=== PATIENT | female | born 1950 | race Caucasian/White ===

== ENCOUNTER → 2018-08-15 11:35 | Outpatient (CLI) | payer OTHER, SELFPAY ==
[2018-08-15 16:51] LABS: Free T3 2.7 pg/mL (2.18-3.98); T4 Free Direct 1.35 ng/dL (0.76-1.46); Thyroid Stim Hormone (TSH) 1.85 uIU/mL (0.358-3.74)
== END ==
PROVIDERS: Family Provider Family Medicine; PCP Family Medicine; Visit Provider Family Medicine
DX: E03.9 Hypothyroidism, unspecified (principal)
CPT/HCPCS: 36415; 84439; 84443; 84481

== ENCOUNTER 2018-10-14 09:37 | Inpatient (IN) | payer MEDICARE, SELFPAY ==
[2018-10-14] VITALS (27 sets, daily range): BP systolic 87–156; BP diastolic 47–97; PULSE 58–83; RESP 13–23; TEMP 36.6–36.8; O2SAT 91–98; BMI 36.7; BMI 30.2
--- NOTE | 2018-10-14 09:39 | EKG12_ITS ---
Test Reason : CP Blood Pressure : / mmHG Vent. Rate : 076 BPM Atrial Rate : 076 BPM P-R Int : 170 ms QRS Dur : 074 ms QT Int : 378 ms P-R-T Axes : 050 010 028 degrees QTc Int : 425 ms Normal sinus rhythm Normal ECG Confirmed by MELODIE COLLINS, ADRIAN ([id number]), supervising editor news reel MICHAEL MARSHALL ([id number]) on 10/16/2018 1:38:25 PM Referred By: GARRETT Confirmed By:ADRIAN SEWELL MD
--- NOTE | 2018-10-14 09:39 | RAD_ITS ---
STUDY: X-RAY CHEST REASON FOR EXAM: Female, 68 years old. Chest pain. TECHNIQUE: Single AP portable view of the chest. COMPARISON: Comparison is made with prior study January 17, 2012. FINDINGS: EKG electrodes are seen. The lungs are clear and expanded. Scattered calcified granulomas. There is no demonstrated pleural abnormality. There is borderline cardiomegaly. Normal mediastinum and woody. Normal visualized pulmonary arteries. There is atherosclerotic tortuosity of the aortic arch and descending thoracic aorta. Normal visualized thoracic spine. Normal visualized ribs, clavicles, and shoulders. There is no demonstrated abnormality of the visualized soft tissue structures of the upper abdomen. RAD/Chest 1 View (Portable) IMPRESSION: No acute abnormality is seen. Electronically Signed: Lew Pacheco, at 10:15 EDT , Service support ,
[2018-10-14] MEDS: Aspirin 81 MG TAB.CHEW 324 MG PO (09:51)
--- NOTE | 2018-10-14 09:56 | ED.VISSUMM ---
- ER Visit Summary Date of Service: 10/14/18 Chief Complaint: Chest pain History of Present Illness: The patient is a 68 F 3 of hypertension hypothyroidism. Patient is never had any cardiac disease. Her last stress test was about 4 years ago and reportedly was negative. The last 3 weeks she has had intermittent chest pressure. She describes it as a pressure across the upper part of her chest sometimes radiates to her shoulders or neck. Recently while working out she had to stop back because she gets short of breath. She also gets nauseated. She denies any diaphoresis. Patient is never had a cardiac catheterization. Currently she is having chest discomfort. She states this morning it lasted more than 30 minutes did not go away she got concerned and came in the ER. Physical Examination: Older female no acute distress. Vital signs are stable. Initial blood pressure is 156/97. Pulse ox 98% on room air no signs of hypoxia. H EENT exam unremarkable. Nontender. No lymphadenopathy lungs clear to auscultation bilaterally regular rhythm no murmur. Heart regular rate and rhythm no murmur. Rate about 80. Chest wall is completely nontender. Abdomen is soft and nontender normal bowel sounds no peritoneal signs. Patient moving all 4 extremities. Neurovascular intact. Calves are nontender with no edema or cords. Neurologically she is awake alert with no focal motor deficits. Back exam normal. Test Results: EKG shows sinus rhythm rate of 76 with no acute signs of IN or ischemia. Unchanged from a prior EKG. 1 view chest x-rays with no acute abnormality. CBC normal. Hemoglobin 14. Chemistries normal normal creatinine gap. Troponin normal at 0.016. Emergency Department Course and Treatment: Patient undergo cardiac evaluation. She will description of symptoms and worsening with exertion. Treated with p.o. aspirin and sublingual nitroglycerin. Treatment Plan: Repeat exam patient doing well. We discussed all of her test results. I have the hospitalist on page. I will also speak to the director of early childhood on-call. I did speak to the patient currently she is doing well at 11:10 AM. The nitro did resolve her chest pain. Disposition: Admission Impression: Acute chest pain This note was generated with [employer] dictation software. It may contain incorrect words, spelling, and punctuation that were not noted in review of the chart prior to signing ED Disposition - Plan for ED Patient: Referrals: Daphnie Jones MD [Primary Care Provider] -
--- NOTE | 2018-10-14 10:00 | ED.DCSUM_ITS ---
- ER Visit Summary Date of Service: 10/14/18 Chief Complaint: Chest pain History of Present Illness: The patient is a 68 F 3 of hypertension hypothyroidism. Patient is never had any cardiac disease. Her last stress test was about 4 years ago and reportedly was negative. The last 3 weeks she has had intermittent chest pressure. She describes it as a pressure across the upper part of her chest sometimes radiates to her shoulders or neck. Recently while working out she had to stop back because she gets short of breath. She also gets nauseated. She denies any diaphoresis. Patient is never had a cardiac catheterization. Currently she is having chest discomfort. She states this morning it lasted more than 30 minutes did not go away she got concerned and came in the ER. Physical Examination: Older female no acute distress. Vital signs are stable. Initial blood pressure is 156/97. Pulse ox 98% on room air no signs of hypoxia. H EENT exam unremarkable. Nontender. No lymphadenopathy lungs clear to auscultation bilaterally regular rhythm no murmur. Heart regular rate and rhythm no murmur. Rate about 80. Chest wall is completely nontender. Abdomen is soft and nontender normal bowel sounds no peritoneal signs. Patient moving all 4 extremities. Neurovascular intact. Calves are nontender with no edema or cords. Neurologically she is awake alert with no focal motor deficits. Back exam normal. Test Results: EKG shows sinus rhythm rate of 76 with no acute signs of AR or ischemia. Unchanged from a prior EKG. 1 view chest x-rays with no acute abnormality. CBC normal. Hemoglobin 14. Chemistries normal normal creatinine gap. Troponin normal at 0.016. Emergency Department Course and Treatment: Patient undergo cardiac evaluation. She will description of symptoms and worsening with exertion. Treated with p.o. aspirin and sublingual nitroglycerin. Treatment Plan: Repeat exam patient doing well. We discussed all of her test results. I have the hospitalist on page. I will also speak to the latent print examiner on-call. I did speak to the patient currently she is doing well at 11:10 AM. The nitro did resolve her chest pain. Disposition: Admission Impression: Acute chest pain This note was generated with [employer] dictation software. It may contain incorrect words, spelling, and punctuation that were not noted in review of the chart prior to signing ED Disposition - Plan for ED Patient: Referrals: Daphnie Jones MD [Primary Care Provider] -
[2018-10-14] MEDS: Nitroglycerin SL (ED/IMG/CATH) 0.4 MG TABLET SUBLINGUAL ×4 (10:03→11:49)
--- NOTE | 2018-10-14 10:14 | ED.RN ---
prior to 1st nitro 4/10 pain, prior to 2nd nitro 3/10, after 3rd nitro pt denies pain.
[2018-10-14 10:33] LABS: Absolute Lymphocyte Count 4.32 X10^3/ul (0.83-4.51); Absolute Neutrophil Count 4.7 X10^3/uL (2.0-7.7); Basophil# 0.03 X10^3/uL; Basophil% 0.3 % (0-1); Eosinophil# 0.42 X10^3/uL; Eosinophils% 4.1 % (0-5); Hematocrit 43.9 % (37-47); Hemoglobin 14.7 g/dl (12.0-15.0); Lymphocyte # 4.32 X10^3/ul (4.0); Lymphocyte % 41.7 % (19-41); Mean Corp Hgb Conc 33.5 g/gl (32-36); Mean Corpuscular Hgb 27.5 pg (27.0-32.0); Mean Corpuscular Volume 82.2 fL (81-99); Mean Platelet Vol. 9.9 fl (6.2-12.0); Monocyte% 8.7 % (0-10); Neutrophil # 4.69 X10^3/uL (2.7-7.7); Neutrophil % 45.1 % (47-70); Platelet Count 299 K/mm3 (150-450); RBC Distribution Width CV 13.3 % (11.6-14.6); RBC Distribution Width SD 39.8 fl (35.1-43.9); Red Blood Count 5.34 M/mm3 (4.2-5.4); White Blood Count 10.4 K/mm3 (4.4-11.0)
[2018-10-14 10:34] LABS: POSITIVE COUNT NO; POSITIVE DIFFERENTIAL NO; POSITIVE MORPHOLOGY NO
[2018-10-14 10:52] LABS: Anion Gap 4 (5-15); BUN 19 mg/dL (7-18); BUN/Creat Ratio 20.8 RATIO (10-20); Calcium,Total 9.1 mg/dL (8.5-10.1); Chloride 105 mmol/L (98-107); Creatinine, Serum 0.91 mg/dL (0.55-1.02); EST Glomerular Filtration Rate 65 mL/min (>60); Est Glom Filt Rate - Afr Amer 78 mL/min (>60); Estimated Creatinine Clearance 70.92 ml/min; Glucose 85 mg/dL (74-106); Sodium Level 137 mmol/L (136-145)
--- NOTE | 2018-10-14 11:36 | PCM.CONS.C ---
Reason for Consult Date of Consultation: 10/14/18 Reason for Consultation: Evaluation of chest pain History of Present Illness: The patient is a 68 year old F with no previous cardiac history other than hypertension and hypothyroidism who presented to the emergency room today. She says that she has been experiencing exertional chest discomfort over the last 3 weeks or so. She had a stress test approximately 4 years ago which was normal. She describes this as a pressure-like sensation radiating to her jaw and the right side of her neck. Is associated with mild shortness of breath. She was given 3 sublingual nitroglycerin with improvement in the discomfort. In the emergency room she got up to go to the bathroom and after she got back the chest discomfort returned. Her EKG was noted to be normal and her troponins were minimally elevated only. Cardiology was called for further evaluation and management. [] Past Medical History Allergies/Adverse Reactions: Allergies erythromycin base Allergy (Verified 10/14/18 09:42) Nausea Sulfa (Sulfonamide Antibiotics) Allergy (Verified 10/14/18 09:42) Hives Home Medications: Ambulatory Orders Medication Instructions Recorded Amlodipine Besylate 5 mg PO DAILY 10/14/18 Levothyroxine Sodium [Synthroid] 88 mcg PO DAILY 10/14/18 Omeprazole [Prilosec] 40 mg PO DAILY 10/14/18 Past Medical History (Chronic Problems): Chronic Problems HTN (hypertension) (Chronic) Hypothyroidism (Chronic) Surgical History: no surgical history - *Family History Maternal History Items: Stroke Paternal History Items: Heart Disease Lives: Spouse/ Significant Other Smoking Status: Never smoker Alcohol: None Drugs: None Review of Systems - Review of Systems General: Denies: Fever, Night Sweats, Fatigue HEENT: Denies: Vision Change Cardiovascular: Reports: Chest Discomfort, Chest Discomfort at Rest, Chest Discomfort with Exertion, Chest Pressure, Shortness of Breath with Exertion. Denies: Shortness of Breath, Orthopnea, PND, Peripheral Edema, Palpitations, Lightheadedness, Dizziness, Near Syncope, Syncope Respiratory: Denies: Cough, Sputum Production, Hemoptysis Gastrointestinal: Denies: Hematemesis, Hematochezia, Melena Genitourinary: Denies: Dysuria, Hematuria Muscoloskeletal: Denies: Myalgias Skin: Denies: Rash Neurological: Denies: Dizziness Psychiatric: Denies: Anxiety Endocrine: Denies: Unexplained Weight Loss Hematologic/ Lymphatic: Denies: Anemia Subjectve: Pleasant lady in no apparent distress but rather tearful Objective: Vital Signs Temp Pulse Resp BP Pulse Ox 98.3 F 69 15 125/78 H 96 10/14/18 09:37 10/14/18 11:12 10/14/18 11:12 10/14/18 11:12 10/14/18 11:12 Oxygen Flow Rate (L/min) 2 Oxygen Delivery Method Nasal Cannula Weight: 169 lb 12.095 oz Body Mass Index (BMI) 36.7 General: Awake, Alert, Oriented x 3 HEENT: PERRL, EOMI, Sclera Non Icteric Neck: Supple, Good ROM, No Lymph Node Enlargement Lungs: Clear to auscultation Cardiovascular: Regular Rhythm, Normal S1, Normal S2, No Murmurs, No Rubs, No Gallops Vascular: No Carotid Bruits, Normal Femoral Pulses, Normal Radial Pulses, Normal Dorsalis Pedal Pulse, Normal Posterior Tibial Pulses Abdomen: Bowel Sounds Present, Soft, Non Tender, No HSM, No Organomegaly Extremities: No Cyanosis, No Clubbing, No edema Musculoskeletal: No Erythema Skin: No Rashes Lymphatic: No Lymph Node Enlargement Neurological: No Focal Motor or Sensory Deficit Psych/Mental Status: Appropriate 10/14/18 09:46: WBC 10.4, RBC 5.34, Hgb 14.7, Hct 43.9, MCV 82.2, MCH 27.5, MCHC 33.5, RDW 13.3, RDW Differential 39.8, Plt Count 299, MPV 9.9, Immature Gran % (Auto) 0.100, Neut % (Auto) 45.1 L, Lymph % (Auto) 41.7 H, [place] % (Auto) 8.7, Eos % (Auto) 4.1, Baso % (Auto) 0.3, Absolute Neuts (auto) 4.7, Total Counted Not Reportable 10/14/18 09:46: Sodium 137, Potassium 4.0, Chloride 105, Carbon Dioxide 28.0, Anion Gap 4 L, BUN 19 H, Creatinine 0.91, Est GFR (MDRD) Af Amer 78, Est GFR (MDRD) Non-Af 65, BUN/Creatinine Ratio 20.8 H, Glucose 85, Calcium 9.1, Troponin I 0.016 Rhythm: EKG: Normal sinus rhythm with no acute changes Assessment/Plan 1. Chest pain Patient appears to have new onset angina. This appears to be progressive and also at rest. My recommendation at this time would be for us to administer 300 mg of clopidogrel. Aspirin Metoprolol 25 mg twice a day Will consider cardiac catheterization later today the risk benefits and alternatives have been explained to her and she understands and agrees to proceed. This has been discussed with the patient, her , and the ER physician and the hospitalist. 2. Hypertension Blood pressure appears to be uncontrolled at this time and we will reinstitute her with the amlodipine 5 mg a day and add metoprolol 25 mg twice a day. We will also continue with risk factor modification. Addendum: Cardiac catheterization performed today demonstrated the following: Normal left main coronary artery. Left anterior descending artery which is subtotally occluded. Dominant left circumflex artery with 70 to 80% distal stenosis. Nondominant right coronary artery with 30% stenosis. Reduced left ventricular ejection fraction estimated at 40% with severe hypokinesis of the entire anterior wall and apex. Based on the above angiographic findings would recommend angioplasty and stenting of the left anterior descending artery. The circumflex artery would be considered for revascularization at a later date after discussion with interventionalist.
--- NOTE | 2018-10-14 11:40 | CON.PCM_ITS ---
Reason for Consult Date of Consultation: 10/14/18 Reason for Consultation: Evaluation of chest pain History of Present Illness: The patient is a 68 year old F with no previous cardiac history other than hypertension and hypothyroidism who presented to the emergency room today. She says that she has been experiencing exertional chest discomfort over the last 3 weeks or so. She had a stress test approximately 4 years ago which was normal. She describes this as a pressure-like sensation radiating to her jaw and the right side of her neck. Is associated with mild shortness of breath. She was given 3 sublingual nitroglycerin with improvement in the discomfort. In the emergency room she got up to go to the bathroom and after she got back the chest discomfort returned. Her EKG was noted to be normal and her troponins were minimally elevated only. Cardiology was called for further evaluation and management. [] Past Medical History Allergies/Adverse Reactions: Allergies erythromycin base Allergy (Verified 10/14/18 09:42) Nausea Sulfa (Sulfonamide Antibiotics) Allergy (Verified 10/14/18 09:42) Hives Home Medications: Ambulatory Orders Medication Instructions Recorded Amlodipine Besylate 5 mg PO DAILY 10/14/18 Levothyroxine Sodium [Synthroid] 88 mcg PO DAILY 10/14/18 Omeprazole [Prilosec] 40 mg PO DAILY 10/14/18 Past Medical History (Chronic Problems): Chronic Problems HTN (hypertension) (Chronic) Hypothyroidism (Chronic) Surgical History: no surgical history - *Family History Maternal History Items: Stroke Paternal History Items: Heart Disease Lives: Spouse/ Significant Other Smoking Status: Never smoker Alcohol: None Drugs: None Review of Systems - Review of Systems General: Denies: Fever, Night Sweats, Fatigue HEENT: Denies: Vision Change Cardiovascular: Reports: Chest Discomfort, Chest Discomfort at Rest, Chest Discomfort with Exertion, Chest Pressure, Shortness of Breath with Exertion. Denies: Shortness of Breath, Orthopnea, PND, Peripheral Edema, Palpitations, Lightheadedness, Dizziness, Near Syncope, Syncope Respiratory: Denies: Cough, Sputum Production, Hemoptysis Gastrointestinal: Denies: Hematemesis, Hematochezia, Melena Genitourinary: Denies: Dysuria, Hematuria Muscoloskeletal: Denies: Myalgias Skin: Denies: Rash Neurological: Denies: Dizziness Psychiatric: Denies: Anxiety Endocrine: Denies: Unexplained Weight Loss Hematologic/ Lymphatic: Denies: Anemia Subjectve: Pleasant lady in no apparent distress but rather tearful Objective: Vital Signs Temp Pulse Resp BP Pulse Ox 98.3 F 69 15 125/78 H 96 10/14/18 09:37 10/14/18 11:12 10/14/18 11:12 10/14/18 11:12 10/14/18 11:12 Oxygen Flow Rate (L/min) 2 Oxygen Delivery Method Nasal Cannula Weight: 169 lb 12.095 oz Body Mass Index (BMI) 36.7 General: Awake, Alert, Oriented x 3 HEENT: PERRL, EOMI, Sclera Non Icteric Neck: Supple, Good ROM, No Lymph Node Enlargement Lungs: Clear to auscultation Cardiovascular: Regular Rhythm, Normal S1, Normal S2, No Murmurs, No Rubs, No Gallops Vascular: No Carotid Bruits, Normal Femoral Pulses, Normal Radial Pulses, Normal Dorsalis Pedal Pulse, Normal Posterior Tibial Pulses Abdomen: Bowel Sounds Present, Soft, Non Tender, No HSM, No Organomegaly Extremities: No Cyanosis, No Clubbing, No edema Musculoskeletal: No Erythema Skin: No Rashes Lymphatic: No Lymph Node Enlargement Neurological: No Focal Motor or Sensory Deficit Psych/Mental Status: Appropriate 10/14/18 09:46: WBC 10.4, RBC 5.34, Hgb 14.7, Hct 43.9, MCV 82.2, MCH 27.5, MCHC 33.5, RDW 13.3, RDW Differential 39.8, Plt Count 299, MPV 9.9, Immature Gran % (Auto) 0.100, Neut % (Auto) 45.1 L, Lymph % (Auto) 41.7 H, [place] % (Auto) 8.7, Eos % (Auto) 4.1, Baso % (Auto) 0.3, Absolute Neuts (auto) 4.7, Total Counted Not Reportable 10/14/18 09:46: Sodium 137, Potassium 4.0, Chloride 105, Carbon Dioxide 28.0, Anion Gap 4 L, BUN 19 H, Creatinine 0.91, Est GFR (MDRD) Af Amer 78, Est GFR (MDRD) Non-Af 65, BUN/Creatinine Ratio 20.8 H, Glucose 85, Calcium 9.1, Troponin I 0.016 Rhythm: EKG: Normal sinus rhythm with no acute changes Assessment/Plan 1. Chest pain * Patient appears to have new onset angina. This appears to be progressive and also at rest. My recommendation at this time would be for us to administer 300 mg of clopidogrel. * Aspirin * Metoprolol 25 mg twice a day * Will consider cardiac catheterization later today the risk benefits and alternatives have been explained to her and she understands and agrees to proceed. This has been discussed with the patient, her , and the ER physician and the hospitalist. * 2. Hypertension * Blood pressure appears to be uncontrolled at this time and we will reinstitute her with the amlodipine 5 mg a day and add metoprolol 25 mg twice a day. * * We will also continue with risk factor modification. * Addendum: Cardiac catheterization performed today demonstrated the following: Normal left main coronary artery. Left anterior descending artery which is subtotally occluded. Dominant left circumflex artery with 70 to 80% distal stenosis. Nondominant right coronary artery with 30% stenosis. Reduced left ventricular ejection fraction estimated at 40% with severe hypokinesis of the entire anterior wall and apex. Based on the above angiographic findings would recommend angioplasty and stenting of the left anterior descending artery. The circumflex artery would be considered for revascularization at a later date after discussion with interventionalist.
[2018-10-14] MEDS: LORazepam 2 MG/ML Syringe 0.5 MG IV (11:49)
[2018-10-14] MEDS: Clopidogrel Bisulfate 300 MG Tablet PO (11:49)
--- NOTE | 2018-10-14 11:52 | CASEMGMT ---
According to [facility] website, the following are in-network tertiary facilities: [facility], [facility], [facility], [facility], [facility], [facility], and . Susana OKEEFE CM
[2018-10-14] MEDS: 0.9% Normal Saline 1,000 ML 15 ML IV (11:54)
--- NOTE | 2018-10-14 12:34 | HP.PCM_ITS ---
Problem List (1) HTN (hypertension) Status: Chronic (2) Hypothyroidism Status: Chronic History of Present Illness Date of Admission: 10/14/18 Chief Complaint: Chest pain. The patient is a 68 year old F who presents emergency room due to chest pain. Patient reports her chest pressure is worse with exertion and she reports onset of chest pain with minimal exertion. She reports pain radiation to both shoulders and up the right side of her neck. She reports associated nausea and shortness of breath. Denies diaphoresis, dizziness, lightheadedness. She reports chest pain improves with rest and symptoms usually last 10 to 15 minutes. However, she reports this morning her chest pain occurred while she was resting and lasted greater than 30 minutes. She had stress test approximately 4 years ago which she reports was normal. She has a history of hypertension, hypothyroidism. Denies other medical history. She notes her father and brother both have heart disease. Past Medical History Past Medical History (Chronic Problems): Chronic Problems HTN (hypertension) (Chronic) Hypothyroidism (Chronic) Allergies erythromycin base Allergy (Verified 10/14/18 09:42) Nausea Sulfa (Sulfonamide Antibiotics) Allergy (Verified 10/14/18 09:42) Hives Home Medications: Ambulatory Orders Medication Instructions Recorded Amlodipine Besylate 5 mg PO DAILY 10/14/18 Levothyroxine Sodium [Synthroid] 88 mcg PO DAILY 10/14/18 Omeprazole [Prilosec] 40 mg PO DAILY 10/14/18 Surgical History: tonsillectomy, - - Partial hysterectomy Psychiatric History: No pertinent psych hx RETAIL EVENT COORDINATOR History: No pertinent RETAIL EVENT COORDINATOR history Lives: Spouse/ Significant Other Smoking Status: Never smoker Alcohol: None Drugs: None - *Family History Maternal History Items: Stroke Paternal History Items: Heart Disease Review of Systems Constitutional: Denies: Chills, Fever, Weight Change HEENT: Denies: Head Aches, Sinus Congestion, Sinus Drainage Cardiovascular: Reports: Chest Pressure. Denies: Edema, Light Headedness, Palpitations, Syncope Respiratory: Reports: Shortness of breath upon exertion Gastrointestinal: Denies: Abdominal Pain, Nausea, Vomiting Genitourinary: Denies: Dysuria Musculoskeletal: Denies: Joint Pain, Joint Tenderness Skin: Denies: Rash, Wounds Neurological: Denies: Numbness, Tingling, Focal weakness Psychiatric: Denies: Anxiety, Depression, Homicidal Ideations, Suicidal Ideations Hematologic/ Lymphatic: Denies: Easy Bruising, Easy Bleeding VTE Information - Inpt Only VTE Present on Admission: No VTE Mechan Device Prophylaxis: None VTE Pharm Prophylaxis ordered?: Yes - Physical Exam General: Alert, Oriented x3, Cooperative HEENT: Atraumatic, PERRLA, EOMI, Normocephalic Neck: Supple, No JVD, Negative Carotid Bruits Lungs: Clear to auscultation, Normal air movement Cardiovascular: Regular rate, Regular Rhythm, Normal S1, Normal S2, No murmurs Abdomen: Bowel Sounds Present, Soft, Non Tender, Non-Distended Extremities: No clubbing, No cyanosis, No edema, Capillary Refill Less than 3 Seconds Skin: No rashes, No breakdown Musculoskeletal: No Tenderness to Palpation of Joints or Extremities Neurological: Cranial nerves II-XII grossly intact, Neuro grossly intact Psych/Mental Status: Normal Affect, Appropriate Vital Signs Temp Pulse Resp BP Pulse Ox 97.9 F 75 16 127/79 H 91 10/14/18 12:16 10/14/18 12:16 10/14/18 12:16 10/14/18 12:16 10/14/18 12:18 Oxygen Flow Rate (L/min) 2 Oxygen Delivery Method Room Air Weight: 149 lb 7.574 oz Body Mass Index (BMI) 30.2 Laboratory Tests Past 24 Hrs 10/14/18 10/14/18 09:46 09:46 WBC 10.4 RBC 5.34 Hgb 14.7 Hct 43.9 MCV 82.2 MCH 27.5 MCHC 33.5 RDW 13.3 RDW Differential 39.8 Plt Count 299 MPV 9.9 Immature Gran % (Auto) 0.100 Neut % (Auto) 45.1 L Lymph % (Auto) 41.7 H [place] % (Auto) 8.7 Eos % (Auto) 4.1 Baso % (Auto) 0.3 Absolute Neuts (auto) 4.7 Absolute Lymphs (auto) 4.32 Total Counted Not Reportable Sodium 137 Potassium 4.0 Chloride 105 Carbon Dioxide 28.0 Anion Gap 4 L BUN 19 H Creatinine 0.91 Estim Creat Clear Calc 70.92 Est GFR (MDRD) Af Amer 78 Est GFR (MDRD) Non-Af 65 BUN/Creatinine Ratio 20.8 H Glucose 85 Calcium 9.1 Troponin I 0.016 Assessment/Plan 1. Chest pain-rule out ACS. Cardiology, Dr. Oneal consulted. Prior normal stress test 4 years ago. Chest x-ray unremarkable. Troponin negative. EKG without ST-T changes. Patient to undergo cardiac catheterization given family history and concerning symptoms of chest pain with exertion. 2. Hypertension-stable, continue home amlodipine regimen. 3. Hypothyroidism-continue Synthroid regimen. DVT prophylaxis- heparin sc This patient was seen by KARLIE Villasenor under the supervision of Dr. Ignacio.
[2018-10-14 12:50] LABS: International Normalized Ratio 0.9; Prothrombin Time (Protime)PT. 11.8 SECONDS (11.7-14.9)
[2018-10-14 12:51] LABS: Partial Thromboplast Time 24.7 Seconds (24.1-36.2)
--- NOTE | 2018-10-14 12:55 | NURSING ---
This RN called to give report to Jessica Gutiérrez RN.
--- NOTE | 2018-10-14 14:06 | CL.D_ITS ---
Patient Name: WILBERTO LOMELI Study Date: 10/14/2018 Performing: Cedric Oneal MD Ht: 59.05 inches 150 cm : 1950 Wt: 149.91 lbs 68 kg Age: 68 Gender: female BSA: 1.63 PROCEDURE(S) PERFORMED [id number] CLINICAL PROFILE AND INDICATIONS Indications: ACS <= 24 hrs Heart Failure: None Stress/Imaging Stress/Image Study Performed: No Angina Classification Anginal Classification w/in 2 Weeks: CCS IV CAD Presentations: Unstable angina. CONCLUSIONS Severe coronary artery disease involving a subtotally occluded left anterior descending artery, sever e first diagonal stenosis, high-grade left circumflex artery and distal LAD collateral filling with r educed left ventricular ejection fraction. RECOMMENDATIONS Referred for immediate PCI DESCRIPTION OF PROCEDURE The patient arrived to the procedure lab. The risks and benefits of the procedure as well as a full d escription of our services here and current unavailability of surgical backup were fully explained to the patient and/or their significant other prior to the catheterization. The Timeout was completed, verifying the correct patient and procedure. The patient's procedural site was prepped and draped in the usual fashion. Local anesthetic was given subcutaneously to right radial region with Lidocaine 2% . Using a modified Seldinger technique, arterial access was obtained via the right radial artery, a 6 Fr sheath was inserted. Right Coronary Artery selective angiography was then performed in multiple v iews using a 5 Fr. 4.0 Lynn catheter. Left Coronary Artery selective angiography was performed in mu ltiple views using a 5 Fr. 4.0 Lynn catheter. Left Ventriculography was performed in GAN projection using a 5 Fr. Pigtail catheter. LV to AO pullback pressures were then recorded. CORONARY ANGIOGRAPHY DOMINANCE: Left Dominant LEFT HEART ASSESSMENT Left Ventricular Ejection Fraction: by LV Gram 40 % Anterior Hypokinesis - Severe. Apical Akinesis Depressed Left Ventricular systolic function LEFT MAIN: Angiographically normal LEFT ANTERIOR DESCENDING ARTERY: PROX LAD: is occluded DIAGONAL 1: Proximal - long 80%stenosis % Stenosis CIRCUMFLEX ARTERY: Mild luminal irregularities DISTAL CIRC: 70 % Stenosis, 90 % Stenosis OM 1: Proximal - Mild luminal irregularities less than 30% RIGHT CORONARY ARTERY: PROX RCA: Mild luminal irregularities less than 30% COMPLICATIONS PROCEDURE MEDICATIONS Fentanyl 50 mcg IV Versed 1 mg IV Fentanyl 25 mcg IV Oxygen: 2 L/min via nasal cannula Heparin diluted in 23cc Heparinized saline. Patient given 10cc IA of this solution. 10/14/2018 13:33: 24 Heparin 7000 unit(s) IV 10/14/2018 14:01:30 Verapamil 2.5mg, Ntg 100mcgs, 2000 units of Heparin diluted in 23cc Heparinized saline. Patient give n 10cc IA of this solution. 10/14/2018 13:33:24 SUMMARY OF HEMODYNAMIC DATA Time AIR REST ECG 13:22:38 AO 100/60 (77) SA 13:35:11 AO 102/63 (80) 13:35:29 LV 96/1, 13 13:45:39 LV 99/0, 13 13:45:46 LV 111/6, 20 13:47:15 LVp 111/10, 20 13:47:19 AOp 98/52 (71) 13:47:24 Signed By Cedric Oneal MD On 10/14/2018 2:05:18 PM Cedric Oneal MD
--- NOTE | 2018-10-14 14:51 | NURSING ---
This RN called and gave report to Christopher DYE EXPERT.
--- NOTE | 2018-10-14 15:30 | EKG12_ITS ---
Test Reason : CP ADMISSION Blood Pressure : / mmHG Vent. Rate : 071 BPM Atrial Rate : 071 BPM P-R Int : 178 ms QRS Dur : 076 ms QT Int : 392 ms P-R-T Axes : 040 006 036 degrees QTc Int : 425 ms Normal sinus rhythm Normal ECG Confirmed by MELODIE COLLINS, ADRIAN ([id number]), development editor MICHAEL MARSHALL ([id number]) on 10/16/2018 1:54:13 PM Referred By: PETTY Confirmed By:ADRIAN SEWELL MD
--- NOTE | 2018-10-14 15:30 | EKG12_ITS ---
Test Reason : AM Blood Pressure : / mmHG Vent. Rate : 065 BPM Atrial Rate : 065 BPM P-R Int : 180 ms QRS Dur : 080 ms QT Int : 472 ms P-R-T Axes : 034 -05 129 degrees QTc Int : 490 ms Normal sinus rhythm T wave abnormality, consider anterolateral ischemia Prolonged QT Abnormal ECG Confirmed by MELODIE COLLINS, ADRIAN ([id number]), editor map MICHAEL MARSHALL ([id number]) on 10/16/2018 2:09:25 PM Referred By: Confirmed By:ADRIAN SEWELL MD
--- NOTE | 2018-10-14 15:41 | CL.I_ITS ---
Patient Name: WILBERTO LOMELI Study Date: 10/14/2018 Performing: Rama Menon MD Ht: 59.05 inches 150 cm : 1950 Wt: 149.91 lbs 68 kg Age: 68 Gender: female BSA: 1.63 PROCEDURE(S) PERFORMED [id number] W OR WO PTCA, SINGLE CORONARY ARTERY [id number] W OR WO PTCA, EACH ADD'L ARTERY, SAME MAJOR CLINICAL PROFILE AND CO-MORBIDITIES Indications: ACS <= 24 hrs Heart Failure: None Stress/Imaging Stress/Image Study Performed: No Angina Classification Anginal Classification w/in 2 Weeks: CCS IV CAD Presentations: Unstable angina. CONCLUSIONS Successful PTCA/RAMU Mid LAD using 2.5x38 mm Synergy Successful PTCA/RAMU Prox D1 using Synergy 2.25x38 mm RECOMMENDATIONS ASA Indefinitley Brilinta for at least 12 months Follow up with Dr. Oneal Consider staged PCI to LCX DESCRIPTION OF PROCEDURE . XB3 Guide catheter was inserted and engaged into the LCA. Runthru Guide wire was advanced to the LAD. SC Euphora 2.5x20 Balloon catheter was advanced across lesion in the LAD, mid. PTCA balloon inf lated at 8 atms for 20 secs. Synergy 2.5x32 Drug Eluting stent was advanced across the lesion in the LAD, mid. Angiogram performed pre stent deployment. Angiogram performed post stent deployment. NC Elisabeth rge 2.5x30 Balloon catheter was inserted post stent. Angiogram performed post balloon dilatation. Bal loon catheter was inserted post stent. NC Emerge 3.0x8 Balloon catheter was inserted post stent. PTCA balloon inflated at 18 atms for 37 secs. Angiogram performed post balloon dilatation. Runthru Guide wire was advanced to the 1st Diagonal. Angiogram performed pre balloon dilatation. 2.0x20 Emerge Ball oon catheter was advanced across lesion in the first diagonal, proximal. PTCA balloon inflated at 6 a tms for 17 secs. PTCA balloon inflated at 8 atms for 24 secs. Angiogram performed post balloon dilatation. 2.25x38 Synergy Drug Eluting stent was advanced across the lesion in the first di agonal, proximal. Angiogram performed post stent deployment. 2.25x20 NC Emerge Balloon catheter was i nserted post stent. PTCA balloon inflated at 14 atms for 10 secs. PTCA balloon inflated at 14 atms fo r 11 secs. PTCA balloon inflated at 14 atms for 9 secs. Angiogram performed post balloon dilatation. runthrough Guide wire was inserted as a brittney wire to LAD XB 3.0 Guide catheter was inserted and enga ged into the LCA. The arterial sheath was pulled and a TR Band was applied for hemostasis w/ 12ml a ir INTERVENTION INFORMATION LESION SITE: LAD (Mid) Lesion Complexity: High/C, culprit lesion: Yes Pre Stenosis: 100 % Pre intervention RUPA flow: 0 PROCEDURE: Drug Eluting Stent with pre and post dilatation Post Stenosis: 0 % Post intervention RUPA flow: 3 Lesion Devices: [employer] SC EUPHORA RX 2.5x20 BALLOON [employer] Synergy MR RAMU 2.50x32 [employer] NC EMERGE MR 2.50x30 BALLOON [employer] NC EMERGE MR 3.00x08 BALLOON LESION SITE: 1st Diagonal (Proximal) Lesion Complexity: High/C, culprit lesion: No Pre Stenosis: 95 % Pre intervention RUPA flow: 3 PROCEDURE: Drug Eluting Stent with pre and post dilatation Post Stenosis: 0 % Post intervention RUPA flow: 3 Lesion Devices: [employer] EMERGE MR 2.00x20 BALLOON [employer] Synergy MR RAMU 2.25x38 [employer] NC EMERGE MR 2.25x20 BALLOON Terum[employer] .014 Runthrough Extra Floppy 180cm straight Cordis 6 Fr XB3.0 100cm Guide Catheter Cordis 6 Fr XB2.5 VBT 100cm Guide Catheter COMPLICATIONS No Complications PROCEDURE MEDICATIONS Fentanyl 50 mcg IV Versed 1 mg IV Fentanyl 25 mcg IV Fentanyl 50 mcg IV Fentanyl 50 mcg IV Versed 1 mg IV Oxygen: 2 L/min via nasal cannula Brilinta 180 mg PO @ 10/14/2018 15:33:41 Heparin diluted in 23cc Heparinized saline. Patient given 10cc IA of this solution. 10/14/2018 13:33: 24 Heparin 7000 unit(s) IV 10/14/2018 14:01:30 Heparin 2000 unit(s) IV 10/14/2018 14:52:57 Nitro 200 mcg IC 10/14/2018 14:17:48 Nitro 100 mcg IC 10/14/2018 14:29:54 Nitro 200 mcg IC 10/14/2018 15:06:13 Nitro 200 mcg IC 10/14/2018 15:09:11 Verapamil 2.5mg, Ntg 100mcgs, 2000 units of Heparin diluted in 23cc Heparinized saline. Patient give n 10cc IA of this solution. 10/14/2018 13:33:24 Verapamil 2.5mg, Ntg 100mcgs, given IA 10/14/2018 14:08:43 Verapamil 2.5 mg IVP 10/14/2018 15:02:19 Verapamil 2.5 mcg IA 10/14/2018 15:10:31 IV Fluids: .9 NaCl IV bolus 1000ml 10/14/2018 14:09:23 IV Fluids: .9 NaCl IV started @ 150 ml/hr 10/14/2018 15:13:46 SUMMARY OF HEMODYNAMIC DATA Time AIR REST ECG 13:22:38 AO 100/60 (77) SA 13:35:11 AO 102/63 (80) 13:35:29 LV 96/1, 13 13:45:39 LV 99/0, 13 13:45:46 LV 111/6, 20 13:47:15 LVp 111/10, 20 13:47:19 AOp 98/52 (71) 13:47:24 Signed By Rama Menon MD On 10/14/2018 15:40:29 Rama Menon MD
[2018-10-14 15:55] LABS: ACT Activated Clotting Time 285 sec (74-137)
[2018-10-14 15:55] LABS: ACT Activated Clotting Time 279 sec (74-137)
[2018-10-14] MEDS: 0.9% Normal Saline 1,000 ML 100 ML IV (16:02)
[2018-10-14] MEDS: TICAGRELOR 90 MG TABLET PO (21:37)
[2018-10-14] MEDS: Acetaminophen 325 MG Tablet 650 MG PO (22:33)
[2018-10-15] VITALS (18 sets, daily range): BP systolic 101–130; BP diastolic 60–78; PULSE 61–90; RESP 16–23; TEMP 36.7–37; O2SAT 93–98
--- NOTE | 2018-10-15 07:22 | PCM.PN.CARD ---
Subjectve: Patient seen and evaluated. Appears to be doing better this morning. Denies any chest pain. Objective: Vital Signs Temp Pulse Resp BP Pulse Ox 98.1 F 71 20 H 117/73 98 10/15/18 04:00 10/15/18 06:00 10/15/18 06:00 10/15/18 06:00 10/15/18 06:00 Oxygen Flow Rate (L/min) 2 Oxygen Delivery Method Room Air Weight: 149 lb 7.574 oz Body Mass Index (BMI) 30.2 Intake and Output for Last 24 Hours 10/13/18 10/14/18 10/15/18 23:59 23:59 23:59 Intake Total 750 / 750 1120 / 1120 Output Total 500 / 500 800 / 800 Balance 250 / 250 320 / 320 General: Awake, Alert, Oriented x 3 HEENT: PERRL, EOMI, Sclera Non Icteric Neck: Supple, Good ROM, No Lymph Node Enlargement Lungs: Clear to auscultation Cardiovascular: Regular Rhythm, Normal S1, Normal S2, No Murmurs, No Rubs, No Gallops Vascular: No Carotid Bruits, Normal Femoral Pulses, Normal Radial Pulses, Normal Dorsalis Pedal Pulse, Normal Posterior Tibial Pulses Abdomen: Bowel Sounds Present, Soft, Non Tender, No HSM, No Organomegaly Extremities: No Cyanosis, No Clubbing, No edema Neurological: No Focal Motor or Sensory Deficit Psych/Mental Status: Appropriate 10/14/18 09:46: WBC 10.4, RBC 5.34, Hgb 14.7, Hct 43.9, MCV 82.2, MCH 27.5, MCHC 33.5, RDW 13.3, RDW Differential 39.8, Plt Count 299, MPV 9.9, Immature Gran % (Auto) 0.100, Neut % (Auto) 45.1 L, Lymph % (Auto) 41.7 H, [place] % (Auto) 8.7, Eos % (Auto) 4.1, Baso % (Auto) 0.3, Absolute Neuts (auto) 4.7, Total Counted Not Reportable 10/14/18 09:46: Sodium 137, Potassium 4.0, Chloride 105, Carbon Dioxide 28.0, Anion Gap 4 L, BUN 19 H, Creatinine 0.91, Est GFR (MDRD) Af Amer 78, Est GFR (MDRD) Non-Af 65, BUN/Creatinine Ratio 20.8 H, Glucose 85, Calcium 9.1, Troponin I 0.016 10/14/18 09:46: PT 11.8, INR 0.9, APTT 24.7 10/14/18 12:50: Troponin I 1.210 H* 10/14/18 15:29: Troponin I 2.780 H* Rhythm: EKG: ECHO: Stress Test: Cardiac Cath: PCI: CT Surgery: Holter monitor: EPS: PPM: CXR: Chest CT Scan: Medical Necessity - Tobacco Use Smoking Status: Never smoker Assessment/Plan 1. Chest pain-non-ST elevation myocardial infarction The patient underwent cardiac catheterization yesterday with angioplasty to a subtotally occluded left anterior descending artery with drug-eluting stents, the first diagonal vessel with drug-eluting stents. The dominant left circumflex artery with 70 to 80% distal stenosis will be treated medically for now and interval angioplasty performed to this vessel. Reduced left ventricular ejection fraction estimated at 40% with severe hypokinesis. Continue aspirin Start carvedilol 3.125 mg twice a day Continue Brilinta We will start NAIF inhibitor as tolerated. Would like the patient to be seen in the PCU today before deciding on discharge. 2. Hypertension Blood pressure appears to be uncontrolled at this time and we will reinstitute her with the amlodipine 5 mg a day and add metoprolol 25 mg twice a day. We will also continue with risk factor modification. Thank you for allowing me to participate in the care of your patient. Please don't hesitate to call if any issues arise
--- NOTE | 2018-10-15 07:29 | PN.CARD_ITS ---
Subjectve: Patient seen and evaluated. Appears to be doing better this morning. Denies any chest pain. Objective: Vital Signs Temp Pulse Resp BP Pulse Ox 98.1 F 71 20 H 117/73 98 10/15/18 04:00 10/15/18 06:00 10/15/18 06:00 10/15/18 06:00 10/15/18 06:00 Oxygen Flow Rate (L/min) 2 Oxygen Delivery Method Room Air Weight: 149 lb 7.574 oz Body Mass Index (BMI) 30.2 Intake and Output for Last 24 Hours 10/13/18 10/14/18 10/15/18 23:59 23:59 23:59 Intake Total 750 / 750 1120 / 1120 Output Total 500 / 500 800 / 800 Balance 250 / 250 320 / 320 General: Awake, Alert, Oriented x 3 HEENT: PERRL, EOMI, Sclera Non Icteric Neck: Supple, Good ROM, No Lymph Node Enlargement Lungs: Clear to auscultation Cardiovascular: Regular Rhythm, Normal S1, Normal S2, No Murmurs, No Rubs, No Gallops Vascular: No Carotid Bruits, Normal Femoral Pulses, Normal Radial Pulses, Normal Dorsalis Pedal Pulse, Normal Posterior Tibial Pulses Abdomen: Bowel Sounds Present, Soft, Non Tender, No HSM, No Organomegaly Extremities: No Cyanosis, No Clubbing, No edema Neurological: No Focal Motor or Sensory Deficit Psych/Mental Status: Appropriate 10/14/18 09:46: WBC 10.4, RBC 5.34, Hgb 14.7, Hct 43.9, MCV 82.2, MCH 27.5, MCHC 33.5, RDW 13.3, RDW Differential 39.8, Plt Count 299, MPV 9.9, Immature Gran % (Auto) 0.100, Neut % (Auto) 45.1 L, Lymph % (Auto) 41.7 H, [place] % (Auto) 8.7, Eos % (Auto) 4.1, Baso % (Auto) 0.3, Absolute Neuts (auto) 4.7, Total Counted Not Reportable 10/14/18 09:46: Sodium 137, Potassium 4.0, Chloride 105, Carbon Dioxide 28.0, Anion Gap 4 L, BUN 19 H, Creatinine 0.91, Est GFR (MDRD) Af Amer 78, Est GFR (MDRD) Non-Af 65, BUN/Creatinine Ratio 20.8 H, Glucose 85, Calcium 9.1, Troponin I 0.016 10/14/18 09:46: PT 11.8, INR 0.9, APTT 24.7 10/14/18 12:50: Troponin I 1.210 H* 10/14/18 15:29: Troponin I 2.780 H* Rhythm: EKG: ECHO: Stress Test: Cardiac Cath: PCI: CT Surgery: Holter monitor: EPS: PPM: CXR: Chest CT Scan: Medical Necessity - Tobacco Use Smoking Status: Never smoker Assessment/Plan 1. Chest pain-non-ST elevation myocardial infarction The patient underwent cardiac catheterization yesterday with angioplasty to a subtotally occluded left anterior descending artery with drug-eluting stents, the first diagonal vessel with drug-eluting stents. The dominant left circumflex artery with 70 to 80% distal stenosis will be treated medically for now and interval angioplasty performed to this vessel. Reduced left ventricular ejection fraction estimated at 40% with severe hypokinesis. Continue aspirin Start carvedilol 3.125 mg twice a day Continue Brilinta We will start NAIF inhibitor as tolerated. Would like the patient to be seen in the PCU today before deciding on discharge. * 2. Hypertension * Blood pressure appears to be uncontrolled at this time and we will reinstitute her with the amlodipine 5 mg a day and add metoprolol 25 mg twice a day. * * We will also continue with risk factor modification. * Thank you for allowing me to participate in the care of your patient. Please don't hesitate to call if any issues arise
[2018-10-15] MEDS: Carvedilol 3.125 MG TABLET PO ×2 (09:19→21:33)
[2018-10-15] MEDS: TICAGRELOR 90 MG TABLET PO ×2 (09:19→21:33)
[2018-10-15] MEDS: Aspirin E.C. 81 MG Tablet PO (09:19)
[2018-10-15] MEDS: Lisinopril 2.5 MG Tablet PO (09:20)
--- NOTE | 2018-10-15 09:35 | ECHOCS_ITS ---
Reason For Study: S/P ME Procedure This was a 2D Doppler, Color Flow transthoracic echocardiogram. The study was technically difficult. Contrast injection was performed. Exam performed portable in ICU/CCU. Left Ventricle Normal LV size. Mild concentric left ventricular hypertrophy. The estimated ejection fraction is 50 %. Stage 1 diastolic dysfunction. Mid-Anterior : Hypokinetic. Right Ventricle Normal RV size. Normal systolic function. Atria Normal left atrium. Normal right atrium. Mitral Valve Normal mitral valve. Mild (1+) eccentric mitral valve insufficiency. Tricuspid Valve Normal tricuspid valve. Mild tricuspid valve insufficiency. Aortic Valve Normal aortic valve. Mild (1+) aortic valve insufficiency. Pulmonic Valve Normal pulmonic valve. Great Vessels Mildly dilated aortic root. The pulmonary artery is normal size. Normal inferior vena cava. Pericardium/Pleural No pericardial effusion. Medication Diluted definity 3ml given slow IV push to enhance endocardial definition. Performed a rapid injection of agitated mix of 9 cc saline and 1cc air to assess for atrial septal defect. MMode/2D Measurements & Calculations LVIDd: 3.1 cm IVSd: 1.4 cm Ao root diam: 4.0 cm LVIDs: 2.0 cm LVPWd: 1.2 cm LA dimension: 3.2 cm FS: 35.5 % LAV(MOD-sp2): 41.0 ml LVAd ap4: 30.0 cm2 SV(MOD-sp4): 73.3 ml EDV(MOD-sp4): 101.0 ml EDV(sp4-el): 105.0 ml LVAs ap4: 14.4 cm2 ESV(MOD-sp4): 27.7 ml ESV(sp4-el): 30.1 ml EF(MOD-sp4): 72.6 % EF(sp4-el): 71.4 % SV(sp4-el): 74.9 ml Time Measurements MV dec time: 0.28 sec Doppler Measurements & Calculations MV E max dennis: 63.1 cm/sec Lat Peak E' Dennis: 10.0 cm/sec MV V2 max: 104.2 cm/sec MV A max dennis: 111.6 cm/sec E/E' lat: 6.3 MV max P.3 mmHg MV E/A: 0.57 MV V2 mean: 48.9 cm/sec MV mean P.2 mmHg MV V2 VTI: 17.5 cm MV P1/2t max dennis: 46.8 cm/sec Ao V2 max: 175.5 cm/sec LV V1 max: 156.2 cm/sec MV P1/2t: 85.9 msec Ao max P.3 mmHg LV V1 max P.8 mmHg MV dec slope: 159.6 cm/sec2 Ao V2 mean: 107.9 cm/sec LV V1 mean P.4 mmHg Ao mean P.5 mmHg LV V1 mean: 94.8 cm/sec MVA(P1/2t): 2.6 cm2 Ao V2 VTI: 30.4 cm LV V1 VTI: 31.6 cm MR max dennis: 593.2 cm/sec PA V2 max: 109.8 cm/sec MR max P.7 mmHg Interpretation Summary Stage 1 diastolic dysfunction. Normal LV size. Mild concentric left ventricular hypertrophy. The estimated ejection fraction is 50 %. Mild (1+) eccentric mitral valve insufficiency. Mildly dilated aortic root. Contrast injection was performed. Ordering Physician: Josh Ignacio Performed By: Cristian Dickinson RCS
--- NOTE | 2018-10-15 10:00 | EKG12_ITS ---
Test Reason : Blood Pressure : / mmHG Vent. Rate : 069 BPM Atrial Rate : 069 BPM P-R Int : 184 ms QRS Dur : 074 ms QT Int : 440 ms P-R-T Axes : 043 021 068 degrees QTc Int : 471 ms Normal sinus rhythm T wave abnormality, consider anterior ischemia Abnormal ECG Confirmed by MELODIE COLLINS, ADRIAN ([id number]), scientific editor MICHAEL MARSHALL ([id number]) on 10/16/2018 2:10:11 PM Referred By: Confirmed By:ADRIAN SEWELL MD
--- NOTE | 2018-10-15 10:07 | CASEMGMT ---
RN CM Assessment Presentation: PTCA/RAMU mid LAD and Prox D1 Intro role of CM and purpose of RN CM assessment to patient and his . Demographics, PCP and Pharmacy verified. Plan is for pt to return home tomorrow. Pt states she is independent and can assist with any care needs. PCP: Dr. Jones Specialists: Dr. Oneal Preferred Pharmacy: [facility] Insurance: [facility] Prescription Benefit: Will be taking Brillinta on discharge. Brillinta card given- first 30 days free card. Discussed getting cost for subsequent refills and if cost is prohibitive LNOK: Living Arrangements: Lives independently with her . Denies care needs. Transportation: can drive DME: pt states has Cpap from [facility] but does not wear. Encouraged her to take to DME to refit and check. Nebulizer from [facility]. HHC: None Patient DC goals: Home DC PLAN: Home Bharat CHAVIRA RN ACM
--- NOTE | 2018-10-15 10:28 | CRPHASE1 ---
Patient Communication PHII Cardiac Rehab Discussed with Patient:: Yes Guide to Cardiac Rehab Given to Patient:: Yes Cardiac Rehab Facility Choice List Given to Patient:: Yes Choice Program [facility] CR PHII:: Communication Given to CR, Refer to [facility] Treater:: Rama Menon Phase II Cardiac Rehab:: Yes Sessions:: 36 sessions - 3 days/wk, 12 weeks Risk Factors/Lifestyle Smoking Status: Never smoker Hx Hypertension: Yes Hx Diabetes Mellitus Type 1: No Hx Diabetes Mellitus Type 2: No Hx Metabolic Disorders: No Hx Dyslipidemia: Yes Hx Obesity: Yes Height: 4 ft 11 in - BMI 30.2 Post-Menopausal: Yes Stress: Home/Family Risk Factor for Sedentary Lifestyle: Moderate Risk Family History: Family History (Last Updated 10/14/18 @ 16:04 by Flora Gresham) Mother CVA (cerebral vascular accident) Father Heart disease Past Cardiac Illness: Coronary Artery Disease, Previous PCI w/Stent Phase I Education Given On:: [place], Nutrition, Antiplatelet medication Issues Affecting Care:: None Knowledge of Condition:: Yes Learning Preferences: Verbal, Written - FAMILY AT BEDSIDE Hospital Course Presenting Symptoms:: NON-STEMI Medical/Surgical History AR:: Yes - NON-STEMI CAD:: Yes Cardiomyopathy:: No Valve Disease/Replacement:: No Pulmonary:: No COPD:: No Asthma:: No ANAMARIA:: No Diabetes:: No Diabetes Type I:: No Diabetes Type II:: No Hypertension:: Yes Dyslipidemia:: Yes Arrhythmias:: No EPS:: No CEA:: No PE:: No DVT:: No PVD:: No PAD:: No Arthritis:: No GI:: No GERD:: No Cancer:: No Renal:: No Thyroid:: Yes - HYPO CABG: No PTCA:: Yes ICD:: No Pacemaker:: No Orthopedic:: No Discharge/Home/Social Eval Discharge Disposition: Home Cardiac Rehabilitation Info Cardiac Rehabilitation Program Information: Cardiac Rehabilitation is important for patients like you who are recovering from a heart problem. Cardiac rehabilitation programs are recognized as integral to the continued care of the patient with coronary heart disease. The cardiac rehabilitation program is designed to optimize a patient's physical, psychological, and social functioning. Health care management associate work in cardiac rehabilitation programs and assist you with getting the treatments you need to get stronger and healthier - like exercise, healthy eating habits, and medications. Cardiac rehabilitation has been show to help people with heart problems live longer and have better life enjoyment than people who do not go to cardiac rehabilitation. Please contact the Cardiac Rehabilitation Program at [facility] at in two weeks if you have not heard from them.
--- NOTE | 2018-10-15 10:30 | NURSING ---
1000 Report called to Ciera in PCU; called back to PCU at approx 1020 spoke w/ Kady, relayed that the pt transfer was delayed d/t echo in progress
--- NOTE | 2018-10-15 10:32 | CRPHASE1_ITS ---
Patient Communication PHII Cardiac Rehab Discussed with Patient:: Yes Guide to Cardiac Rehab Given to Patient:: Yes Cardiac Rehab Facility Choice List Given to Patient:: Yes Choice Program [facility] CR PHII:: Communication Given to CR, Refer to [facility] [employer]:: Rama Menon Phase II Cardiac Rehab:: Yes Sessions:: 36 sessions - 3 days/wk, 12 weeks Risk Factors/Lifestyle Smoking Status: Never smoker Hx Hypertension: Yes Hx Diabetes Mellitus Type 1: No Hx Diabetes Mellitus Type 2: No Hx Metabolic Disorders: No Hx Dyslipidemia: Yes Hx Obesity: Yes Height: 4 ft 11 in - BMI 30.2 Post-Menopausal: Yes Stress: Home/Family Risk Factor for Sedentary Lifestyle: Moderate Risk Family History: Family History (Last Updated 10/14/18 @ 16:04 by Flora Gresham) Mother CVA (cerebral vascular accident) Father Heart disease Past Cardiac Illness: Coronary Artery Disease, Previous PCI w/Stent Phase I Education Given On:: [place], Nutrition, Antiplatelet medication Issues Affecting Care:: None Knowledge of Condition:: Yes Learning Preferences: Verbal, Written - FAMILY AT BEDSIDE Hospital Course Presenting Symptoms:: NON-STEMI Medical/Surgical History [place]:: Yes - NON-STEMI CAD:: Yes Cardiomyopathy:: No Valve Disease/Replacement:: No Pulmonary:: No COPD:: No Asthma:: No ANAMARIA:: No Diabetes:: No Diabetes Type I:: No Diabetes Type II:: No Hypertension:: Yes Dyslipidemia:: Yes Arrhythmias:: No EPS:: No CEA:: No PE:: No DVT:: No PVD:: No PAD:: No Arthritis:: No GI:: No GERD:: No Cancer:: No Renal:: No Thyroid:: Yes - HYPO CABG: No PTCA:: Yes ICD:: No Pacemaker:: No Orthopedic:: No Discharge/Home/Social Eval Discharge Disposition: Home Cardiac Rehabilitation Info Cardiac Rehabilitation Program Information: Cardiac Rehabilitation is important for patients like you who are recovering from a heart problem. Cardiac rehabilitation programs are recognized as integral to the continued care of the patient with coronary heart disease. The cardiac rehabilitation program is designed to optimize a patient's physical, psychological, and social functioning. Health critical care nurse specialist work in cardiac rehabilitation programs and assist you with getting the treatments you need to get stronger and healthier - like exercise, healthy eating habits, and medications. Cardiac rehabilitation has been show to help people with heart problems live longer and have better life enjoyment than people who do not go to cardiac rehabilitation. Please contact the Cardiac Rehabilitation Program at [facility] at in two weeks if you have not heard from them.
--- NOTE | 2018-10-15 10:32 | CRPH1.INSTRU ---
General Education CAD and cardiac anatomy and function:: Patient communicates acknowledgment, Family communicates acknowledgment Explanation of diagnoses and procedures:: Patient communicates acknowledgment, Family communicates acknowledgment Sign/Symptoms of [place]:: Patient communicates acknowledgment, Family communicates acknowledgment Antiplatelet therapy: Patient communicates acknowledgment, Family communicates acknowledgment Proper use of NTG-SL: Not instructed Emergency procedures and activation of EMS: Patient communicates acknowledgment, Family communicates acknowledgment Compliance of all prescribed medications: Patient communicates acknowledgment, Family communicates acknowledgment Smoking Patient Nicotine/Smoking Risk Factors Are:: Never smoked Dyslipidemia Patient Dyslipidemia Risk Factors Are:: HDL Recommendations Include:: Lipid profile provided, Reviewed NCEP/ATP guidelines, Therapeutic Lifestyle Change dietary guidelines Dyslipidemia Response Code:: Patient communicates acknowledgment Overweight/Obesity Patient Overweight/Obesity Risk Factors Are:: Obesity - > or = 30 Recommendations Include:: Weight loss of 5-10%, Reduced calorie diet, Exercise 5-7 times/week Overweight/Obesity:: Patient communicates acknowledgment, Family communicates acknowledgment Hypertension Recommendations Include:: Maintain BP <130/85, DASH dietary guidelines, Decrease/maintain normal body weight, Moderation of ETOH Hypertension:: Patient communicates acknowledgment, Family communicates acknowledgment Heart Disease Patient Heart Disease Risk Factors Are:: Previous cardiac event Recommendations Include:: Educated family members of their risk, Educated family members of importance of prevention of heart disease Heart Disease Response Code:: Patient communicates acknowledgment, Family communicates acknowledgment Diabetes Patient Diabetes Risk Factors Are:: No documented hx of diabetes Metabolic Syndrome Patient Metabolic Syndrome Risk Factors Are [3 of 5]:: Waist circumference > 35 [female] or 40 [male], Hypertension, Low HDL <40 [male] or < 50 [female] Recommendations Include:: Reinforce compliance to risk factor modifications, Encouraged follow-up with Primary Care Physician Metabolic Syndrome Response Code:: Patient communicates acknowledgment, Family communicates acknowledgment Sedentary Patient Sedentary Risk Factors Are:: Lack of regular exercise Recommendations Include:: Aerobic exercise 5-7 times/week for 20-30 minutes continuously, Benefits of regular exercise, Discussed home walking program, Monitored Outpatient Cardiac Rehab Sedentary Response Code:: Patient communicates acknowledgment, Family communicates acknowledgment Stress Recommendations Include:: Identification of stressors, and assessment of coping skills, Stress management techniques Stress Response Code:: Patient communicates acknowledgment, Family communicates acknowledgment
[2018-10-15 11:05] LABS: Absolute Lymphocyte Count 2.22 X10^3/ul (0.83-4.51); Absolute Neutrophil Count 10.2 X10^3/uL (2.0-7.7); Basophil# 0.02 X10^3/uL; Basophil% 0.1 % (0-1); Eosinophil# 0.08 X10^3/uL; Eosinophils% 0.6 % (0-5); Hematocrit 36.3 % (37-47); Hemoglobin 12.1 g/dl (12.0-15.0); Lymphocyte # 2.22 X10^3/ul (4.0); Lymphocyte % 16.3 % (19-41); Mean Corp Hgb Conc 33.3 g/gl (32-36); Mean Corpuscular Hgb 27.3 pg (27.0-32.0); Mean Corpuscular Volume 81.9 fL (81-99); Mean Platelet Vol. 9.3 fl (6.2-12.0); Monocyte# 1.03 X10^3/uL; Monocyte% 7.6 % (0-10); Neutrophil # 10.22 X10^3/uL (2.7-7.7); Neutrophil % 75.3 % (47-70); Platelet Count 273 K/mm3 (150-450); RBC Distribution Width CV 13.3 % (11.6-14.6); RBC Distribution Width SD 40.2 fl (35.1-43.9); Red Blood Count 4.43 M/mm3 (4.2-5.4); White Blood Count 13.6 K/mm3 (4.4-11.0)
[2018-10-15 11:06] LABS: POSITIVE COUNT NO; POSITIVE DIFFERENTIAL NO; POSITIVE MORPHOLOGY NO
[2018-10-15 11:21] LABS: ALB/GLOB Ratio 1.1 RATIO (0.9-2.4); AST(SGOT) 38 U/L (15-37); Alanine Aminotransfer ALT/SGPT 21 U/L (13-56); Albumin, Serum 3.3 g/dL (3.2-5.0); Alkaline Phosphatase 75 U/L (45-117); Anion Gap 8 (5-15); BUN 11 mg/dL (7-18); BUN/Creat Ratio 11.6 RATIO (10-20); Calcium,Total 8.3 mg/dL (8.5-10.1); Chloride 106 mmol/L (98-107); Creatinine, Serum 0.95 mg/dL (0.55-1.02); EST Glomerular Filtration Rate 62 mL/min (>60); Est Glom Filt Rate - Afr Amer 75 mL/min (>60); Estimated Creatinine Clearance 59.82 ml/min; Globulin 3.1 g/dL (2.2-4.2); Glucose 100 mg/dL (74-106); Potassium 3.6 mmol/L (3.5-5.1); Protein, Total 6.4 g/dL (6.4-8.2); Sodium Level 138 mmol/L (136-145)
--- NOTE | 2018-10-15 14:20 | PN_ITS ---
Subjective: Patient seen and examined. States she feels improved. Right wrist hematoma stable. Denies numbness, tingling of her right fingers/hand. Denies chest pain, shortness of breath. - Physical Exam General: Alert, Oriented x3, Cooperative HEENT: Atraumatic, PERRLA, EOMI, Normocephalic Neck: Supple, No JVD, Negative Carotid Bruits Lungs: Clear to auscultation, Normal air movement Cardiovascular: Regular rate, Regular Rhythm, Normal S1, Normal S2, No murmurs Abdomen: Bowel Sounds Present, Soft, Non Tender, Non-Distended Extremities: No clubbing, No cyanosis, No edema, Capillary Refill Less than 3 Seconds Skin: No rashes, No breakdown, - - Right wrist hematoma, stable. Musculoskeletal: No Tenderness to Palpation of Joints or Extremities Neurological: Cranial nerves II-XII grossly intact, Neuro grossly intact Psych/Mental Status: Normal Affect, Appropriate Vital Signs Temp Pulse Resp BP Pulse Ox 98.3 F 90 16 106/60 93 10/15/18 11:15 10/15/18 11:15 10/15/18 11:15 10/15/18 11:15 10/15/18 11:15 Oxygen Flow Rate (L/min) 2 Oxygen Delivery Method Room Air Weight: 149 lb 7.574 oz Body Mass Index (BMI) 30.2 Intake and Output for Last 24 Hours 10/13/18 10/14/18 10/15/18 23:59 23:59 23:59 Intake Total 750 / 750 1120 / 1120 Output Total 500 / 500 800 / 800 Balance 250 / 250 320 / 320 Laboratory Tests Past 24 Hrs 10/14/18 10/14/18 10/14/18 14:08 15:25 15:29 WBC RBC Hgb Hct MCV MCH MCHC RDW RDW Differential Plt Count MPV Immature Gran % (Auto) Neut % (Auto) Lymph % (Auto) [place] % (Auto) Eos % (Auto) Baso % (Auto) Absolute Neuts (auto) Absolute Lymphs (auto) Total Counted Activated Clotting Time 279 H 285 H Sodium Potassium Chloride Carbon Dioxide Anion Gap BUN Creatinine Estim Creat Clear Calc Est GFR (MDRD) Af Amer Est GFR (MDRD) Non-Af BUN/Creatinine Ratio Glucose Calcium Total Bilirubin AST ALT Alkaline Phosphatase Troponin I 2.780 H* Total Protein Albumin Globulin Albumin/Globulin Ratio 10/15/18 10/15/18 10:55 10:55 WBC 13.6 H RBC 4.43 Hgb 12.1 Hct 36.3 L MCV 81.9 MCH 27.3 MCHC 33.3 RDW 13.3 RDW Differential 40.2 Plt Count 273 MPV 9.3 Immature Gran % (Auto) 0.100 Neut % (Auto) 75.3 H Lymph % (Auto) 16.3 L [place] % (Auto) 7.6 Eos % (Auto) 0.6 Baso % (Auto) 0.1 Absolute Neuts (auto) 10.2 H Absolute Lymphs (auto) 2.22 Total Counted Not Reportable Activated Clotting Time Sodium 138 Potassium 3.6 Chloride 106 Carbon Dioxide 24.0 Anion Gap 8 BUN 11 Creatinine 0.95 Estim Creat Clear Calc 59.82 Est GFR (MDRD) Af Amer 75 Est GFR (MDRD) Non-Af 62 BUN/Creatinine Ratio 11.6 Glucose 100 Calcium 8.3 L Total Bilirubin 0.40 AST 38 H ALT 21 Alkaline Phosphatase 75 Troponin I Total Protein 6.4 Albumin 3.3 Globulin 3.1 Albumin/Globulin Ratio 1.1 Medical Necessity - Tobacco Use Smoking Status: Never smoker Assessment/Plan All Active Problems (Last Updated 10/14/18 @ 16:04 by Flora Gresham) History of coronary artery stent placement (Resolved 10/14/18) 1. NSTEMI/CAD status post PTCA RAMU/mid LAD and proximal D1-cardiac catheterization 10/14/2018 with intervention to mid LAD and proximal D1. Consider staged PCI to LCx in future. Continue aspirin, Brilinta, statin. Follow-up with Dr. Oneal as outpatient. Patient had right wrist hematoma following catheterization which is now stable. Echocardiogram showed an EF of 50%, mild mitral valve insufficiency. Continue carvedilol 3.125 mg twice daily. Lisinopril 2.5 mg p.o. daily added. Monitor overnight, anticipate discharge home tomorrow. 2. Hypertension-stable, home amlodipine regimen discontinued. Continue carvedilol, lisinopril. 3. Hypothyroidism-continue Synthroid regimen. DVT prophylaxis-Lovenox sc This patient was seen by KARLIE Villasenor under the supervision of Dr. Ignacio.
[2018-10-15] MEDS: Atorvastatin Calcium 40 MG Tablet PO (21:33)
[2018-10-16 03:02] VITALS: PULSE 56
[2018-10-16 03:28] VITALS: BP 100/61; PULSE 63; RESP 16; TEMP 36.8; O2SAT 95
[2018-10-16] MEDS: Levothyroxine 88 MCG Tablet PO (05:54)
--- NOTE | 2018-10-16 07:22 | PCM.PN.CARD ---
Subjectve: Patient seen and evaluated. Appears to be doing quite well. Objective: Vital Signs Temp Pulse Resp BP Pulse Ox 98.3 F 63 16 100/61 95 10/16/18 03:28 10/16/18 03:28 10/16/18 03:28 10/16/18 03:28 10/16/18 03:28 Oxygen Flow Rate (L/min) 2 Oxygen Delivery Method Room Air Weight: 149 lb 7.574 oz Body Mass Index (BMI) 30.2 Intake and Output for Last 24 Hours 10/14/18 10/15/18 10/16/18 23:59 23:59 23:59 Intake Total 750 / 750 1720 / 1720 Output Total 500 / 500 800 / 800 Balance 250 / 250 920 / 920 General: Awake, Alert, Oriented x 3 HEENT: PERRL, EOMI, Sclera Non Icteric Neck: Supple, Good ROM, No Lymph Node Enlargement Lungs: Clear to auscultation Cardiovascular: Regular Rhythm, Normal S1, Normal S2, No Murmurs, No Rubs, No Gallops Vascular: No Carotid Bruits, Normal Femoral Pulses, Normal Radial Pulses, Normal Dorsalis Pedal Pulse, Normal Posterior Tibial Pulses Abdomen: Bowel Sounds Present, Soft, Non Tender, No HSM, No Organomegaly Extremities: No Cyanosis, No Clubbing, No edema Musculoskeletal: No Erythema Skin: No Rashes Lymphatic: No Lymph Node Enlargement Neurological: No Focal Motor or Sensory Deficit Psych/Mental Status: Appropriate 10/15/18 10:55: WBC 13.6 H, RBC 4.43, Hgb 12.1, Hct 36.3 L, MCV 81.9, MCH 27.3, MCHC 33.3, RDW 13.3, RDW Differential 40.2, Plt Count 273, MPV 9.3, Immature Gran % (Auto) 0.100, Neut % (Auto) 75.3 H, Lymph % (Auto) 16.3 L, [place] % (Auto) 7.6, Eos % (Auto) 0.6, Baso % (Auto) 0.1, Absolute Neuts (auto) 10.2 H, Total Counted Not Reportable 10/15/18 10:55: Sodium 138, Potassium 3.6, Chloride 106, Carbon Dioxide 24.0, Anion Gap 8, BUN 11, Creatinine 0.95, Est GFR (MDRD) Af Amer 75, Est GFR (MDRD) Non-Af 62, BUN/Creatinine Ratio 11.6, Glucose 100, Calcium 8.3 L, Total Bilirubin 0.40 Rhythm: EKG: ECHO: Stress Test: Cardiac Cath: PCI: CT Surgery: Holter monitor: EPS: PPM: CXR: Chest CT Scan: Medical Necessity - Tobacco Use Smoking Status: Never smoker Assessment/Plan 1. Chest pain-non-ST elevation myocardial infarction The patient underwent cardiac catheterization yesterday with angioplasty to a subtotally occluded left anterior descending artery with drug-eluting stents, the first diagonal vessel with drug-eluting stents. The dominant left circumflex artery with 70 to 80% distal stenosis will be treated medically for now and interval angioplasty performed to this vessel. Reduced left ventricular ejection fraction estimated at 40% with severe hypokinesis. Continue aspirin Carvedilol 3.125 mg twice a day Continue Brilinta We will start NAIF inhibitor as tolerated. 2. Hypertension Blood pressure appears to be fairly well controlled at this time.. We will also continue with risk factor modification. Thank you for allowing me to participate in the care of your patient. Please don't hesitate to call if any issues arise
--- NOTE | 2018-10-16 07:25 | PN.CARD_ITS ---
Subjectve: Patient seen and evaluated. Appears to be doing quite well. Objective: Vital Signs Temp Pulse Resp BP Pulse Ox 98.3 F 63 16 100/61 95 10/16/18 03:28 10/16/18 03:28 10/16/18 03:28 10/16/18 03:28 10/16/18 03:28 Oxygen Flow Rate (L/min) 2 Oxygen Delivery Method Room Air Weight: 149 lb 7.574 oz Body Mass Index (BMI) 30.2 Intake and Output for Last 24 Hours 10/14/18 10/15/18 10/16/18 23:59 23:59 23:59 Intake Total 750 / 750 1720 / 1720 Output Total 500 / 500 800 / 800 Balance 250 / 250 920 / 920 General: Awake, Alert, Oriented x 3 HEENT: PERRL, EOMI, Sclera Non Icteric Neck: Supple, Good ROM, No Lymph Node Enlargement Lungs: Clear to auscultation Cardiovascular: Regular Rhythm, Normal S1, Normal S2, No Murmurs, No Rubs, No Gallops Vascular: No Carotid Bruits, Normal Femoral Pulses, Normal Radial Pulses, Normal Dorsalis Pedal Pulse, Normal Posterior Tibial Pulses Abdomen: Bowel Sounds Present, Soft, Non Tender, No HSM, No Organomegaly Extremities: No Cyanosis, No Clubbing, No edema Musculoskeletal: No Erythema Skin: No Rashes Lymphatic: No Lymph Node Enlargement Neurological: No Focal Motor or Sensory Deficit Psych/Mental Status: Appropriate 10/15/18 10:55: WBC 13.6 H, RBC 4.43, Hgb 12.1, Hct 36.3 L, MCV 81.9, MCH 27.3, MCHC 33.3, RDW 13.3, RDW Differential 40.2, Plt Count 273, MPV 9.3, Immature Gran % (Auto) 0.100, Neut % (Auto) 75.3 H, Lymph % (Auto) 16.3 L, [place] % (Auto) 7.6, Eos % (Auto) 0.6, Baso % (Auto) 0.1, Absolute Neuts (auto) 10.2 H, Total Counted Not Reportable 10/15/18 10:55: Sodium 138, Potassium 3.6, Chloride 106, Carbon Dioxide 24.0, Anion Gap 8, BUN 11, Creatinine 0.95, Est GFR (MDRD) Af Amer 75, Est GFR (MDRD) Non-Af 62, BUN/Creatinine Ratio 11.6, Glucose 100, Calcium 8.3 L, Total Bilirubin 0.40 Rhythm: EKG: ECHO: Stress Test: Cardiac Cath: PCI: CT Surgery: Holter monitor: EPS: PPM: CXR: Chest CT Scan: Medical Necessity - Tobacco Use Smoking Status: Never smoker Assessment/Plan 1. Chest pain-non-ST elevation myocardial infarction The patient underwent cardiac catheterization yesterday with angioplasty to a subtotally occluded left anterior descending artery with drug-eluting stents, the first diagonal vessel with drug-eluting stents. The dominant left circumflex artery with 70 to 80% distal stenosis will be treated medically for now and interval angioplasty performed to this vessel. Reduced left ventricular ejection fraction estimated at 40% with severe hypokinesis. Continue aspirin Carvedilol 3.125 mg twice a day Continue Brilinta We will start NAIF inhibitor as tolerated. * 2. Hypertension * Blood pressure appears to be fairly well controlled at this time.. * * We will also continue with risk factor modification. * Thank you for allowing me to participate in the care of your patient. Please don't hesitate to call if any issues arise
[2018-10-16 07:35] VITALS: PULSE 68
[2018-10-16 07:45] VITALS: O2SAT 94
[2018-10-16 09:17] VITALS: BP 110/65; PULSE 77; RESP 18; TEMP 36.6; O2SAT 96
[2018-10-16] MEDS: TICAGRELOR 90 MG TABLET PO (09:20)
[2018-10-16] MEDS: Lisinopril 2.5 MG Tablet PO (09:20)
[2018-10-16] MEDS: Aspirin E.C. 81 MG Tablet PO (09:20)
[2018-10-16] MEDS: Carvedilol 3.125 MG TABLET PO (09:20)
--- NOTE | 2018-10-16 10:00 | EKG12_ITS ---
Test Reason : Blood Pressure : / mmHG Vent. Rate : 064 BPM Atrial Rate : 064 BPM P-R Int : 186 ms QRS Dur : 080 ms QT Int : 400 ms P-R-T Axes : 037 006 060 degrees QTc Int : 412 ms Normal sinus rhythm Nonspecific T-Wave Abnormality Confirmed by MELODIE COLLINS, ADRIAN ([id number]), commercial production editor MICHAEL MARSHALL ([id number]) on 10/16/2018 2:10:35 PM Referred By: TOMMY Confirmed By:ADRIAN SEWELL MD
--- NOTE | 2018-10-16 10:30 | DCINST_ITS ---
- Discharge Diagnoses Current Active Problems: Current Active and Chronic Problems (Last Updated 10/14/18 @ 16:04 by Flora Gresham) Atherosclerosis of coronary artery of [place] heart with angina pectoris (Chronic) Essential (primary) hypertension (Chronic) You will use the following diet at home:: No restrictions Your food should be the consistency of: Regular Your liquids should be the consistency of: Regular/Thin Discharge Activity: Return to Normal Activity Weight Bearing Status: Full weight bearing Allergies/Adverse Reactions: Allergies erythromycin base Allergy (Verified 10/14/18 09:42) Nausea Sulfa (Sulfonamide Antibiotics) Allergy (Verified 10/14/18 09:42) Hives Medications to take at Discharge Levothyroxine Sodium [Synthroid] 88 mcg PO DAILY 10/14/18 Omeprazole [Prilosec] 40 mg PO DAILY 10/14/18 Aspirin E.C. [Ecotrin] 81 mg PO DAILY@0800 tablet 10/16/18 Atorvastatin Calcium [Lipitor] 40 mg PO QHS #30 tablet 10/16/18 Benzonatate [Tessalon Perle] 200 mg PO 4X/DAY PRN PRN #100 capsule 10/16/18 Carvedilol [Coreg (Beta Reilly)] 3.125 mg PO BID #60 tablet 10/16/18 Losartan Potassium 25 mg PO DAILY #30 tablet 10/16/18 Ticagrelor [Brilinta] 90 mg PO BID #60 tablet 10/16/18 The following prescriptions were given: Atorvastatin Calcium [Lipitor] 40 mg PO QHS #30 tablet Benzonatate [Tessalon Perle] 200 mg PO 4X/DAY PRN PRN #100 capsule PRN Reason: Cough Losartan Potassium 25 mg PO DAILY #30 tablet Carvedilol [Coreg (Beta Reilly)] 3.125 mg PO BID #60 tablet Ticagrelor [Brilinta] 90 mg PO BID #60 tablet Primary Care Physician: Daphnie Jones MD [Primary Care Provider] - Please follow up with your Primary Care Physician in: 3-4 weeks Test Results: Test results from this visit will be discussed in further detail at your follow- up appointment, if applicable. Please Follow Up With: Cedric Oneal MD
--- NOTE | 2018-10-16 11:00 | PCM.DC.SUM ---
Discharge Date and Diagnosis Date of Admission: 10/14/18 Date of Discharge: 10/16/18 - Primary Discharge Diagnosis 1. NSTEMI/CAD status post PTCA RAMU/mid LAD and proximal D1 2. Hypertension 3. Hypothyroidism - Secondary Discharge Diagnosis Chronic Problems (Last Updated 10/14/18 @ 16:04 by Flora Gresham) Atherosclerosis of coronary artery of [place] heart with angina pectoris (Chronic) Essential (primary) hypertension (Chronic) Hospital Course and Treatment Imaging Results: Diagnostic Data Chest X-Ray 10/14/18 09:39 IMPRESSION: No acute abnormality is seen. Electronically Signed: Lew Pacheco, at 10:15 EDT , Service support , Dr. Oneal- Cardiology Operations: None Procedures: 2-D Echocardiogram, Cardiac catheterization Summary of Care Provided: The patient is a 68 year old F admitted 10/14/2018 due to chest pain. 1. NSTEMI/CAD status post PTCA RAMU/mid LAD and proximal D1-cardiac catheterization 10/14/2018 with intervention to mid LAD and proximal D1. Consider staged PCI to LCx in future. Continue aspirin, Brilinta, statin. Follow-up with Dr. Oneal as outpatient. Patient had right wrist hematoma following catheterization which is now stable. Echocardiogram showed an EF of 50%, mild mitral valve insufficiency. Continue carvedilol 3.125 mg twice daily. Losartan 25 mg p.o. daily. Follow-up with primary care provider in 1 week. 2. Hypertension-stable, home amlodipine regimen discontinued. Continue carvedilol, losartan. 3. Hypothyroidism-continue Synthroid regimen. General: Alert, Oriented x3, Cooperative HEENT: Atraumatic, PERRLA, EOMI, Normocephalic Neck: Supple, No JVD, Negative Carotid Bruits Lungs: Clear to auscultation, Normal air movement Cardiovascular: Regular rate, Regular Rhythm, Normal S1, Normal S2, No murmurs Abdomen: Bowel Sounds Present, Soft, Non Tender, Non-Distended Extremities: No clubbing, No cyanosis, No edema, Capillary Refill Less than 3 Seconds Skin: No rashes, No breakdown, - - Right wrist hematoma, stable. Musculoskeletal: No Tenderness to Palpation of Joints or Extremities Neurological: Cranial nerves II-XII grossly intact, Neuro grossly intact Psych/Mental Status: Normal Affect, Appropriate Patient seen and examined prior to discharge. Physical assessment as noted above. Patient is stable for discharge with follow up recommendations as noted above. This patient was seen by KARLIE Villasenor under the supervision of Dr. Ignacio. - Physical Exam Vital Signs Temp Pulse Resp BP Pulse Ox 97.9 F 77 18 110/65 96 10/16/18 09:17 10/16/18 09:17 10/16/18 09:17 10/16/18 09:17 10/16/18 09:17 Oxygen Flow Rate (L/min) 2 Oxygen Delivery Method Room Air Weight: 149 lb 7.574 oz Body Mass Index (BMI) 30.2 Intake and Output for Last 24 Hours 10/14/18 10/15/18 10/16/18 23:59 23:59 23:59 Intake Total 750 / 750 1720 / 1720 Output Total 500 / 500 800 / 800 Balance 250 / 250 920 / 920 Laboratory Tests Past 24 Hrs 10/15/18 10/15/18 10:55 10:55 WBC 13.6 H RBC 4.43 Hgb 12.1 Hct 36.3 L MCV 81.9 MCH 27.3 MCHC 33.3 RDW 13.3 RDW Differential 40.2 Plt Count 273 MPV 9.3 Immature Gran % (Auto) 0.100 Neut % (Auto) 75.3 H Lymph % (Auto) 16.3 L [place] % (Auto) 7.6 Eos % (Auto) 0.6 Baso % (Auto) 0.1 Absolute Neuts (auto) 10.2 H Absolute Lymphs (auto) 2.22 Total Counted Not Reportable Sodium 138 Potassium 3.6 Chloride 106 Carbon Dioxide 24.0 Anion Gap 8 BUN 11 Creatinine 0.95 Estim Creat Clear Calc 59.82 Est GFR (MDRD) Af Amer 75 Est GFR (MDRD) Non-Af 62 BUN/Creatinine Ratio 11.6 Glucose 100 Calcium 8.3 L Total Bilirubin 0.40 AST 38 H ALT 21 Alkaline Phosphatase 75 Total Protein 6.4 Albumin 3.3 Globulin 3.1 Albumin/Globulin Ratio 1.1 Discharge Diet: Low fat/ Low Cholesterol Discharge Activity: Return to Normal Activity Weight Bearing Status: Full weight bearing Call your doctor if you observe: Shortness of breath, Dizziness, Fainting spells, Chest pain Home Medications: Medications to take at Discharge Levothyroxine Sodium [Synthroid] 88 mcg PO DAILY 10/14/18 Omeprazole [Prilosec] 40 mg PO DAILY 10/14/18 Aspirin E.C. [Ecotrin] 81 mg PO DAILY@0800 tablet 10/16/18 Atorvastatin Calcium [Lipitor] 40 mg PO QHS #30 tablet 10/16/18 Benzonatate [Tessalon Perle] 200 mg PO 4X/DAY PRN PRN #100 capsule 10/16/18 Carvedilol [Coreg (Beta Reilly)] 3.125 mg PO BID #60 tablet 10/16/18 Losartan Potassium 25 mg PO DAILY #30 tablet 10/16/18 Ticagrelor [Brilinta] 90 mg PO BID #60 tablet 10/16/18 Following Prescrptions Were Given to Patient: Atorvastatin Calcium [Lipitor] 40 mg PO QHS #30 tablet Benzonatate [Tessalon Perle] 200 mg PO 4X/DAY PRN PRN #100 capsule PRN Reason: Cough Losartan Potassium 25 mg PO DAILY #30 tablet Carvedilol [Coreg (Beta Reilly)] 3.125 mg PO BID #60 tablet Ticagrelor [Brilinta] 90 mg PO BID #60 tablet Primary Care Physician: Daphnie Jones MD [Primary Care Provider] - Please follow up with your Primary Care Physician in: 3-4 weeks Please Follow Up With: Cedric Oneal MD When: 1-2 Weeks, may see industrial therapist/pa Disposition: Home Minutes spent on discharge:: 35 Patient Condition:: Stable Medical Necessity - Tobacco Use Smoking Status: Never smoker Meaningful Use Info Meaningful Use Diagnoses (Choose all that apply): AMI - AMI Aspirin given w/in 24hrs of arrival?: Yes ASA at discharge?: Yes Statins at discharge?: Yes Richard/ARB at discharge?: Yes Beta Reilly at discharge?: Yes Done w/ Acute AK measure.: Yes
--- NOTE | 2018-10-16 11:07 | DS.PCM_ITS ---
Discharge Date and Diagnosis Date of Admission: 10/14/18 Date of Discharge: 10/16/18 - Primary Discharge Diagnosis 1. NSTEMI/CAD status post PTCA RAMU/mid LAD and proximal D1 2. Hypertension 3. Hypothyroidism - Secondary Discharge Diagnosis Chronic Problems (Last Updated 10/14/18 @ 16:04 by Flora Gresham) Atherosclerosis of coronary artery of [place] heart with angina pectoris (Chronic) Essential (primary) hypertension (Chronic) Hospital Course and Treatment Imaging Results: Diagnostic Data Chest X-Ray 10/14/18 09:39 IMPRESSION: No acute abnormality is seen. Electronically Signed: Lew Pacheco, at 10:15 EDT , Service support , Dr. Oneal- Cardiology Operations: None Procedures: 2-D Echocardiogram, Cardiac catheterization Summary of Care Provided: The patient is a 68 year old F admitted 10/14/2018 due to chest pain. 1. NSTEMI/CAD status post PTCA RAMU/mid LAD and proximal D1-cardiac catheterization 10/14/2018 with intervention to mid LAD and proximal D1. Consider staged PCI to LCx in future. Continue aspirin, Brilinta, statin. Follow-up with Dr. Oneal as outpatient. Patient had right wrist hematoma following catheterization which is now stable. Echocardiogram showed an EF of 50%, mild mitral valve insufficiency. Continue carvedilol 3.125 mg twice daily. Losartan 25 mg p.o. daily. Follow-up with primary care provider in 1 week. 2. Hypertension-stable, home amlodipine regimen discontinued. Continue carv edilol, losartan. 3. Hypothyroidism-continue Synthroid regimen. General: Alert, Oriented x3, Cooperative HEENT: Atraumatic, PERRLA, EOMI, Normocephalic Neck: Supple, No JVD, Negative Carotid Bruits Lungs: Clear to auscultation, Normal air movement Cardiovascular: Regular rate, Regular Rhythm, Normal S1, Normal S2, No murmurs Abdomen: Bowel Sounds Present, Soft, Non Tender, Non-Distended Extremities: No clubbing, No cyanosis, No edema, Capillary Refill Less than 3 Seconds Skin: No rashes, No breakdown, - - Right wrist hematoma, stable. Musculoskeletal: No Tenderness to Palpation of Joints or Extremities Neurological: Cranial nerves II-XII grossly intact, Neuro grossly intact Psych/Mental Status: Normal Affect, Appropriate Patient seen and examined prior to discharge. Physical assessment as noted above. Patient is stable for discharge with follow up recommendations as noted above. This patient was seen by KARLIE Villasenor under the supervision of Dr. Ignacio. - Physical Exam Vital Signs Temp Pulse Resp BP Pulse Ox 97.9 F 77 18 110/65 96 10/16/18 09:17 10/16/18 09:17 10/16/18 09:17 10/16/18 09:17 10/16/18 09:17 Oxygen Flow Rate (L/min) 2 Oxygen Delivery Method Room Air Weight: 149 lb 7.574 oz Body Mass Index (BMI) 30.2 Intake and Output for Last 24 Hours 10/14/18 10/15/18 10/16/18 23:59 23:59 23:59 Intake Total 750 / 750 1720 / 1720 Output Total 500 / 500 800 / 800 Balance 250 / 250 920 / 920 Laboratory Tests Past 24 Hrs 10/15/18 10/15/18 10:55 10:55 WBC 13.6 H RBC 4.43 Hgb 12.1 Hct 36.3 L MCV 81.9 MCH 27.3 MCHC 33.3 RDW 13.3 RDW Differential 40.2 Plt Count 273 MPV 9.3 Immature Gran % (Auto) 0.100 Neut % (Auto) 75.3 H Lymph % (Auto) 16.3 L [place] % (Auto) 7.6 Eos % (Auto) 0.6 Baso % (Auto) 0.1 Absolute Neuts (auto) 10.2 H Absolute Lymphs (auto) 2.22 Total Counted Not Reportable Sodium 138 Potassium 3.6 Chloride 106 Carbon Dioxide 24.0 Anion Gap 8 BUN 11 Creatinine 0.95 Estim Creat Clear Calc 59.82 Est GFR (MDRD) Af Amer 75 Est GFR (MDRD) Non-Af 62 BUN/Creatinine Ratio 11.6 Glucose 100 Calcium 8.3 L Total Bilirubin 0.40 AST 38 H ALT 21 Alkaline Phosphatase 75 Total Protein 6.4 Albumin 3.3 Globulin 3.1 Albumin/Globulin Ratio 1.1 Discharge Diet: Low fat/ Low Cholesterol Discharge Activity: Return to Normal Activity Weight Bearing Status: Full weight bearing Call your doctor if you observe: Shortness of breath, Dizziness, Fainting spells, Chest pain Home Medications: Medications to take at Discharge Levothyroxine Sodium [Synthroid] 88 mcg PO DAILY 10/14/18 Omeprazole [Prilosec] 40 mg PO DAILY 10/14/18 Aspirin E.C. [Ecotrin] 81 mg PO DAILY@0800 tablet 10/16/18 Atorvastatin Calcium [Lipitor] 40 mg PO QHS #30 tablet 10/16/18 Benzonatate [Tessalon Perle] 200 mg PO 4X/DAY PRN PRN #100 capsule 10/16/18 Carvedilol [Coreg (Beta Reilly)] 3.125 mg PO BID #60 tablet 10/16/18 Losartan Potassium 25 mg PO DAILY #30 tablet 10/16/18 Ticagrelor [Brilinta] 90 mg PO BID #60 tablet 10/16/18 Following Prescrptions Were Given to Patient: Atorvastatin Calcium [Lipitor] 40 mg PO QHS #30 tablet Benzonatate [Tessalon Perle] 200 mg PO 4X/DAY PRN PRN #100 capsule PRN Reason: Cough Losartan Potassium 25 mg PO DAILY #30 tablet Carvedilol [Coreg (Beta Reilly)] 3.125 mg PO BID #60 tablet Ticagrelor [Brilinta] 90 mg PO BID #60 tablet Primary Care Physician: Daphnie Jones MD [Primary Care Provider] - Please follow up with your Primary Care Physician in: 3-4 weeks Please Follow Up With: Cedric Oneal MD When: 1-2 Weeks, may see fountain jerk/pa Disposition: Home Minutes spent on discharge:: 35 Patient Condition:: Stable Medical Necessity - Tobacco Use Smoking Status: Never smoker Meaningful Use Info Meaningful Use Diagnoses (Choose all that apply): AMI - AMI Aspirin given w/in 24hrs of arrival?: Yes ASA at discharge?: Yes Statins at discharge?: Yes Richard/ARB at discharge?: Yes Beta Reilly at discharge?: Yes Done w/ Acute [place] measure.: Yes
== END 2018-10-16 11:01 | disposition home or self-care (01) | DRG 247 ==
LOC: ED 10:04 → PCU 11:42 → ICU 10-15 07:16 → PCU 10-16 09:27
PROVIDERS: Internal Medicine Cardiovascular Disease; Admitting Provider Internal Medicine; Emergency Provider Emergency Medicine; Family Provider Family Medicine; PCP Family Medicine; Visit Provider Internal Medicine
DX: I21.4 Non-ST elevation (NSTEMI) myocardial infarction (principal); L76.32 Postprocedural hematoma of skin and subcutaneous tissue following other procedure; I25.119 Atherosclerotic heart disease of native coronary artery with unspecified angina pectoris; I10 Essential (primary) hypertension; E03.9 Hypothyroidism, unspecified; Y84.0 Cardiac catheterization as the cause of abnormal reaction of the patient, or of later complication, without mention of misadventure at the time of the procedure
CPT/HCPCS: 36415; 71045; 80048; 80053; 84484; 85025; 85347; 85610; 85730; 92928; 92929; 93005; 93306; 93458; 99152; 99153; 99285; J7030; Q9957; Q9967; A4216; C1725; C1769; C1874; C1887; C1894; C8929; C9600; C9601; J0583; J1327

== ENCOUNTER → 2018-10-24 | Outpatient (CLI) | payer MEDICARE, SELFPAY ==
[2018-10-14 12:25] VITALS: BMI 30.2
[2018-10-24 09:39] VITALS: BMI 30.1
[2018-10-24 16:08] LABS: Thyroid Stim Hormone (TSH) 2.98 uIU/mL (0.358-3.74)
== END | disposition home or self-care (01) ==
LOC: LAB.FUTURE 13:28
PROVIDERS: Family Provider Family Medicine; PCP Family Medicine; Visit Provider Family Medicine
DX: E03.9 Hypothyroidism, unspecified (principal)
CPT/HCPCS: 36415; 84443

== ENCOUNTER → 2018-10-24 | Outpatient (CLI) | payer MEDICARE, SELFPAY ==
[2018-10-14 12:25] VITALS: BMI 30.2
[2018-10-22 15:48] VITALS: BMI 29.9
--- NOTE | 2018-10-24 09:15 | PCM.CR.HP2 ---
CR - History & Physical - General Arrival date:: 10/24/18 Arrival time:: 09:15 Date of Referral:: 10/19/18 Date of CR Evaluation:: 10/24/18 Referring Physician: DR. CEDRIC VASQUEZ Primary Diagnosis: PCI W/CORONARY STENT PLACEMENT - History of Present Cardiac Event Onset Date: Enter Onset Date of cardiac illnesses in Comment field below PTCA or coronary stenting:: Yes - 10/14/2018; Scheduled for additional stent mid November 2018 per patient Type of Symptoms:: elevated blood pressure, and EKG changes in emergency room. Interventions with present event:: cardiac catheterization and coronary stenting Were there any complications?: none - Medications Home Medications: Ambulatory Orders Medication Instructions Recorded Levothyroxine Sodium [Synthroid] 88 mcg PO DAILY 10/14/18 Omeprazole [Prilosec] 40 mg PO DAILY 10/14/18 Aspirin E.C. [Ecotrin] 81 mg PO DAILY@0800 tablet 10/16/18 Benzonatate [Tessalon Perle] 200 mg PO 4X/DAY PRN PRN #100 10/16/18 capsule atorvastatin 40 mg tablet 40 mg PO QHS #90 tab 10/22/18 carvedilol 3.125 mg tablet 3.125 mg PO BID #180 tab 10/22/18 losartan 25 mg tablet 25 mg PO DAILY #90 tab 10/22/18 ticagrelor 90 mg tablet 90 mg PO BID #180 tab 10/22/18 - Allergies Allergies/Adverse Reactions: Allergies erythromycin base Allergy (Verified 10/22/18 15:48) Nausea Sulfa (Sulfonamide Antibiotics) Allergy (Verified 10/22/18 15:48) Hives - Sleep Disorder Evaluation Hx of Sleep Apnea: Yes Do you snore loudly (louder than talking or can be heard through closed doors)?: Yes - Has been diagnosed with Sleep Apnea and has a home CPAP that she no longer uses. Do you often feel tired/ fatigued/ sleepy during daytime?: No Has anyone observed you stop breathing during sleep?: Yes History of Hypertension (for STOP score): Yes STOP Results: Positive Advanced Directives - Advanced Directives Power of Healthcare Interpreter: Yes Living Will: Yes Advance Directives Information Provided: No Advance Directives on File: Yes - Don't know if they are on file here or with my primary care DNR Order?:: No Past Medical History - Past Medical Illness Medical History: Past Medical History (Last Reviewed 10/22/18 @ 16:06 by Cedric Vasquez MD) Non-ST elevation (NSTEMI) myocardial infarction (Acute) Onset Date: 10/14/18 I21.4 Atherosclerosis of coronary artery of [place] heart with angina pectoris (Chronic) I25.119 Essential (primary) hypertension (Chronic) I10 Hypothyroidism E03.9 Obesity E66.9 - Past Surgical History Surgical History: Past Surgical History (Last Reviewed 10/22/18 @ 16:06 by Cedric Vsaquez MD) History of coronary artery stent placement (Resolved) Onset Date: 10/14/18 Z95.5 PCI-RAMU-Mid LAD w/ 2.5 x 32 mm Synergy and RAMU-Prox D1 w/ 2.25 x 38 mm Synergy 10/14/18 History of hysterectomy Z90.710 History of tonsillectomy Z90.89 Surgical History: no surgical history - Family History Summary Family History: Family History (Last Updated 10/24/18 @ 09:33 by Kamran Balderrama, ROTATING EQUIPMENT ENGINEER, AUTOMATION OPERATOR, BS) Mother CVA (cerebral vascular accident) Father Heart disease Brother Heart disease Social History - Smoking History Smoking Status: Never smoker Hx Tobacco Use: No Hx Smoking Exposure: No - Substance Abuse Hx Substance Use: No - Occupation Occupation (List type of work in comments):: Retired - Hobbies, Recreation, Social Activities Hobbies: Reading, Other - Bridge, Reading, flower beds, grandchildren, go out to eat with friends, enjoy life! Recreational Activities: I am able to engage in all my recreational activities Social Environment - Status Marital Status: - Current Living Arrangements Living Environment:: Spouse - Children How many children do you have?: 2 Do any of your children live nearby?: Yes - Safety Do you feel safe in your surroundings?: Yes - Assistance Do you need any assistance at home?: none Review of Systems - Review of Systems Hints: Right click = Denies ([place]ash). Left click = Reports ([place]) Review of Present Symptoms: Reports: Shortness of Breath with Exertion - just walking from parking lot this mornign still have some shortness of breath, but has improved since last week., Dizziness/Lightheadedness - A couple of times felt a little lightheaded. Bending over to fill roll carrier and then standing to fast., Appetite - Normal, Sleep - Normal. Denies: Angina, Appetite - Special Diet, Sexual Changes - Pain Is Patient Pain Free?: Yes Pain Location: none Pain Level: 0/10 Risk Factor Assessment - Chief Complaint Chief Complaint: Patient is a very pleasant 68 female who presents to CR today following a recent cardiac intervention/stent placement on 10/14/2018. The patient states she is to have an additional stent done in mid November following a pre-paid family vacation. - Vital Signs Temperature: 98.7 F Respiratory Rate: 16 Pulse Ox: 94 Blood Pressure: 124/72 Nailbeds:: normal in color - Pulse Pulse Rate: 86 Pulse Rhythm: Regular - Hypertension How long have you been treated?: estimated late early On medication(s)?: yes Blood Pressure Sitting - Right Arm: 124/72 - Blood Cholesterol/Lipids Total Cholesterol (mg/dL) Goal = less than 200 mg/dL: 194 HDL Cholesterol (mg/dL) Goal = less than 40 mg/dL: 48 LDL Cholesterol (mg/dL) Goal = less than 70 mg/dL: 130 Triglycerides (mg/dL) Goal = less than 150 mg/dL: 81 - Diabetes Nutrition Referral for Diabetes: No - Obesity Height: 4 ft 11 in Weight:: 149 lb Weight in Pounds: 149.0 lbs Weight Source: Standing Scale Body Mass Index (BMI): 30.1 Nutritional Referral for Obesity: Yes - Why WEight Program, Cardiac Diet - Physical Inactivity Physical Inactivity: Recreational activity - Risk Stratification Risk Guidelines: Lowest Risk: Risk Factor for Smoking, Risk Factor for Diabetes, Risk Factor for Hypertension, Risk Factor for Sedentary Lifestyle, Risk Factor for Depression, Moderate Risk: Risk Factor for Dyslipidemia, Highest Risk: Risk Factor for Obesity - For Smoking Smoking Risk Guidelines: Smoking Low Risk: None or quit greater than 6 months ago. Smoking Moderate Risk: Smoker or quit 6 months or less ago. Smoking High Risk: Smoker - For Dyslipidemia Dyslipidemia Risk Guidelines: Low Risk: Moderate Risk: High Risk: 15-25% fat 25.1-29% fat >/= 30% fat. <7% sat fat 7-9% sat fat >9% sat fat. <150 mg chol 150-299 mg chol >/= 300 mg chol. LDL <100 LDL 100-129 LDL >/= 130. Chol/HDL ratio <5.0 Chol/HDL ratio 5.0-6.0 Chol/HDL ratio >6.0. Triglycerides <100 Triglycerides 100-149 Triglycerides >/= 150 - For Diabetes Mellitus Diabetes Risk Guidelines: Diabetes Low Risk: HgA1c <6.5% and/or FBG <120. Diabetes Moderate Risk: HgA1c 6.6-7.9% and/or FBG 120-180. Diabetes High Risk: HgA1c >/= 8% and/or FBG >180 - For Obesity/Overweight Obesity/Overweight Risk Guidelines: Obesity Low Risk: BMI <25.0. Obesity Moderate Risk: BMI 25-29.9. Obesity High Risk: BMI >/= 30.0 - For Hypertension Hypertension Risk Guidelines: Hypertension Low Risk: Systolic <120 and Diastolic <80. Hypertension Moderate Risk: Systolic 120-139 and Diastolic 80-89. Hypertension High Risk: Systolic >/= 140 and Diastolic >/= 90 - For Sedentary Lifestyle Sedentary Lifestyle Risk Guidelines: Sedentary Lifestyle Low Risk: >/= 1,500 kcal/week. Sedentary Lifestyle Moderate Risk: 700-1,499 kcal/week. Sedentary Lifestyle High Risk: < 700 kcal/week - For Depression Depression Risk Guidelines: Depression Low Risk: Not clinically depressed. Depression Moderate Risk: Mildly depressed. Depression High Risk: Clinically depressed - Family History Family History: Family History (Last Updated 10/24/18 @ 09:33 by Kamran Balderrama, ROTATING EQUIPMENT ENGINEER, AUTOMATION OPERATOR, BS) Mother CVA (cerebral vascular accident) Father Heart disease Brother Heart disease Motivation - Motivation to Participate On a scale of 1 to 10, how prepared are you to commit to attending program?: 10 What do you see as barriers to successfully being able to complete the program?: none; having to miss due to family vacation and then the additional stent What do you see as the benefits of succesfully completing the program? In other words, what do you hope to get out of participating in the program?: Being stronger, building endurance, learning more about what I should do. Are there issues you are dealing with that will interfere with completing the program?: none Do you have a spouse or signficant other, family or friends who will help support you to complete the program?: yes
--- NOTE | 2018-10-24 09:24 | CR.ITP_ITS ---
General Information - General Information Admitting Diagnosis: PCI w/coronary stenting - Education/Goals Barriers to Learning: None, Vision Impairment Individual Counseling: Initial Assessment: Abnormal Cholesterol Levels, High Blood Pressure, Overweight/Obesity Cardiac Rehabilitation Goals: 1. Maintain the individual as the primary focus of care. 2. To improve the patient's quality of life. 3. Identification of cardiac risk factors and provide cardiac risk factor management. 4. Enhance the psychosocial status of the patient. 5. Reconditioning enough to allow the patient to resume customary activities. 6. Control symptoms of cardiac disease Scale for measuring improvement of personal goals: Enter appropriate number in Comments. 2 = Unchanged. 3 = Slightly Better. 4 = Moderate Improvement. 5 = Met my Goal Personal Goals: Initial Assessment: Improve energy level, Improve muscle strength and endurance Exercise - Initial Assessment - Visit Date of Eval: 10/24/18 - Stages of Change Stages of Change:: Action - Physician Prescribed Exercise Modalities: Treadmill, Rower, Airdyne, NuStep Frequency (days/week): 3x/week for 12 weeks [36 sessions] Duration (Minutes):: 30-45 min Intensity: 60-80% age predicted maximum heart rate reserve METs - Progression: 0.5-1.0 MET, RPE 11-14 WEEK: 2.5 Target Heart Rate:: 98-128 - Hypertension Do any of the following apply?: Yes, Medication Resting Blood Pressure:: 124/72 - Intervention Home Exercise/Activity Goal:: Moderate Exercise 30 min/day x 5 days/wk - Education Goals:: Warm-up, RPE DANNY Scale, S/S, Safe Exercise, Self-Monitoring - Exercise Program Goals Exercise Program Goals: Aerobic Activity >30 min Nutrition - Initial Assessment - Program Goals Nutrition Program Goals: LDL <70. Total Cholesterol <200. HDL >45. Triglycerides <150. HgbA1C <7%. BMI <25 - Visit Date of Assessment:: 10/24/18 - Stages of Change Stages of Change:: Action - Lipids Total Cholesterol (mg/dL) Goal = less than 200 mg/dL: 194 HDL Cholesterol (mg/dL) Goal = less than 45 mg/dL: 48 LDL Cholesterol (mg/dL) Goal = less than 70 mg/dL: 130 Triglycerides (mg/dL) Goal = less than 150 mg/dL: 81 - Diabetes Diabetes:: No Insulin: No Non-Insulin Dependent?: No Do you monitor your blood sugar at home?: No - Weight Management Height: 4 ft 11 in Weight:: 149 lb Body Fat %:: 30.1 - Intervention Referral to dietitian:: Yes - Consider Why Weight Program, DASH Diet Referral to Diabetic Clinic:: No Will attend diet classes:: Yes - Education Gave educational materials for:: Healthy eating Tobacco - Initial Assessment - Program Goals Tobacco Program Goals: Complete smoking cessation. Attend education classes. Improve Knowledge Test score - Stage of Change Stages of Change:: Action - Learning Barriers Learning Barriers: Vision, Ready to Learn - Family Support Do you have family support?: Yes - Tobacco Use Tobacco Use: Non-smoker - Patient has never smoked Do you use smokeless tobacco?: No - Intervention Smoking Cessation Referral:: No Individual Education/Counseling:: No Education Schedule Given:: Yes - Education Gave educational material for:: Coronary artery disease, Risk factors, Sexuality, Medical compliance, Cardiac A&P, Angina signs & symptoms Psychosocial - Initial Assess - Target Goals Target Goals: Assess presence or absence of depression. Using a valid screening tool, maximizes coping skills. Positive support system - Stages of Change Stages of Change:: Action - Psychosocial Test Tool Used:: HANDS Depression Questionnaire Self-reported stress:: none - Intervention PS - Interventions: Yes Attend Stress Management Classes, No Referral to Mental Health, No Referral to [facility] Case Management, No Referral to Physician, No Uses Stress Management Skills - Education Gave educational materials for:: Coping techniques, Signs & symptoms of depression, Stress management, Relaxation techniques - Patient/Program Goal Preventative Medication(s):: Aspirin, Clopidogrel, Beta omkar, Statin/lipid - Assistive Devices Assistive Devices:: None Fall Risk Assessed:: Yes Patient Health Questionnaire Initial Assessment 1. Little interest or pleasure in doing things: Not at all 2. Feeling down, depressed, or hopeless: Not at all 3. Trouble falling or staying asleep, or sleeping too much: Several days 4. Feeling tired or having little energy: Nearly every day 5. Poor appetite or overeating: Not at all 6. Feeling bad about yourself -- or that you are a failure or have let yourself or your family down: Not at all 7. Trouble concentrating on things, such as reading the newspaper or watching television: Not at all 8. Moving or speaking so slowly that other people could have noticed. Or the opposite - being so fidgety or restless that you have been moving around a lot more than usual: Not at all 9. Thoughts that you would be better off , or of hurting yourself in some way: Not at all How difficult have these problems made it for you to do your work, take care of things at home, or get along with other people?: Not difficult at all Total Score: 4 BRIAN-Q SV Test - Statements CAD is a disease of the arteries in the heart: False Examples of risk factors for heart disease: True Angina is chest pain or discomfort: False The benefits of resistance training include: True Eating more meat and dairy products: False Anti-platelet medications such as aspirin are important: True The only effective way to manage stress: False An exercise warm-up slowly increases heart rate: I Don't Know Prepared, processed foods usually have high sodium: True Depression is common after a heart attack: True The statin medications lower cholesterol: True To control blood pressure, lower the amount of sodium: True If someone gets chest discomfort during walking: False Transfats are partially hydrogenated vegetable oils: True Sleep apnea that is not treated increases the risk: False To control cholesterol, one should become a vegetarian: False Someone knows if he/she is exercising at the right level: True Diabetes cannot be prevented with exercise & health eating: False Stress is a large risk for heart attack: True A diet that can help lower blood pressure is rich in: True - Total Score Total Correct Responses: 18 Self-Efficacy Initial Assessment We would like to know how confident you are in doing certain activities. Please select your confidence level for:: Select your confidence level for the following using the scale 1-10 where 1 is not at all confident and 10 is totally confident. Your score is the average of all 6 responses. Fatigue: How confident are you that you can keep the fatigue caused by your disease from interfering with the things you want to do? Select Number: 10 Physical Discomfort or Pain: How confident are you that you can keep the physical discomfort or pain of your disease from interfering with the things you want to do? Select Number: 10 Emotional Distress: How confident are you that you can keep the emotional distress caused by your disease from interfering with the things you want to do? Select Number: 10 Other Symptoms or Health Problems: How confident are you that you can keep other symptoms or health problems from interfering with the things you want to do? Select Number: 10 Different Tasks and Activities: How confident are you that you can do the different tasks and activities needed to manage your health condition so as to reduce your need to see a doctor? Select Number: 10 Medication: How confident are you that you can do things other than just taking medication to reduce how much your illness affects your everyday life? Select Number: 10 Total Score:: 10 Nutrition Survey - Nutrition Survey Instructions Scoring Instructions: Scoring is as follows: Yes = 1 points. No = 0 point. Patient score that is >/=12 is considered to be at potential nutritional risk and could benefit from a referral to a registered dietitian. - Nutrition Survey Initial Have you lost >10 lbs over the past 2 months without trying?: No Are you following a special diet at home for diabetes, low fat, or low salt?: No Are you interested in meeting with a dietitian for help understanding your diet?: Yes Do you eat less than 3 meals a day?: No Do you eat fatty meats (capellan, sausage, ribs, etc), fried foods, desserts, large amounts of salad dressings, margarine, butter, or cheese most days?: No Do you have food allergies? [Enter types in comment field]: No Do you eat in restaurants more than 3 times a week?: No Do you season food with salt, seasoning salt, or garlic salt?: Yes Do you used canned, boxed, frozen meals, or soups, seasoning packets?: Yes Total Score:: 3
[2018-10-24 09:39] VITALS: BP 124/72; PULSE 86; RESP 16; TEMP 37.1; O2SAT 94; BMI 30.1
[2018-10-24 09:43] VITALS: BP 124/72
== END | disposition home or self-care (01) ==
LOC: CR 08:55
PROVIDERS: Family Provider Family Medicine; PCP Family Medicine; Referring Provider Internal Medicine Cardiovascular Disease; Visit Provider Internal Medicine Cardiovascular Disease
DX: I25.119 Atherosclerotic heart disease of native coronary artery with unspecified angina pectoris (principal); I25.2 Old myocardial infarction; I10 Essential (primary) hypertension; E03.9 Hypothyroidism, unspecified; E66.9 Obesity, unspecified; G47.30 Sleep apnea, unspecified; Z95.5 Presence of coronary angioplasty implant and graft; Z79.82 Long term (current) use of aspirin; Z79.899 Other long term (current) drug therapy

== ENCOUNTER 2018-11-01 10:15 | Outpatient (RCR) | payer MEDICARE, SELFPAY ==
[2018-10-24 09:39] VITALS: BMI 30.1
== END 2018-11-01 23:59 ==
LOC: CR 10:15
PROVIDERS: Family Provider Family Medicine; PCP Family Medicine; Referring Provider Internal Medicine Cardiovascular Disease; Visit Provider Internal Medicine Cardiovascular Disease
DX: I10 Essential (primary) hypertension (principal); I25.119 Atherosclerotic heart disease of native coronary artery with unspecified angina pectoris; Z95.5 Presence of coronary angioplasty implant and graft
CPT/HCPCS: 93798

== ENCOUNTER 2018-11-18 10:15 | Outpatient (RCR) | payer MEDICARE, SELFPAY ==
[2018-10-24 09:39] VITALS: BMI 30.1
--- NOTE | 2018-11-22 07:23 | CR.ITP_ITS ---
Exercise - Final/Discharge - Visit Date of Eval: 11/22/18 Session #:: 8 - Patient cancelled CR due to planned family vacation. She is also being re-cathed with an additional stent possible. - Stages of Change Stages of Change:: Action - Physician Prescribed Exercise Modalities: Treadmill, Airdyne, NuStep Frequency (days/week): 3 Duration (Minutes):: 30-45 Intensity: 60-80% age predicted maximum heart rate reserve METs - Progression: 0.5-1.0 MET, RPE 11-14 WEEK: 5 Target Heart Rate:: 98-128 w/max HR 106 - Hypertension Do any of the following apply?: Yes Resting Blood Pressure:: 110/68 Peak Exercise Blood Pressure:: 136/70 - Intervention Home Exercise/Activity Goal:: Sitting Time <3 hrs/day - Education Goal Progress: Progressing - Exercise Program Goals Exercise Program Goals: Aerobic Activity >30 min Nutrition - Initial Assessment - Program Goals Nutrition Program Goals: LDL <70. Total Cholesterol <200. HDL >45. Triglycerides <150. HgbA1C <7%. BMI <25 - Diabetes Do you monitor your blood sugar at home?: No Nutrition - Final Assessment - Program Goals Nutrition Program Goals: LDL <70. Total Cholesterol <200. HDL >45. Triglycerides <150. HgbA1C <7%. BMI <25 - Visit Date of Eval: 11/22/18 - Stages of Change Stages of Change:: Action - Diabetes Diabetes:: No Insulin: No Non-Insulin Dependent?: No - Weight Management Height: 4 ft 11 in Weight:: 149 lb - loss of 3 pounds - Intervention Referral to dietitian:: No Referral to Diabetic Clinic:: No Will attend diet classes:: Yes - Education Education Goal Reached?: No - Patient did not complete the program Tobacco - Initial Assessment - Program Goals Tobacco Program Goals: Complete smoking cessation. Attend education classes. Improve Knowledge Test score - Learning Barriers Learning Barriers: Vision, Ready to Learn Tobacco - Final Assessment - Program Goals Tobacco Program Goals: Complete smoking cessation. Attend education classes. Improve Knowledge Test score - Stage of Change Stages of Change:: Action - Family Support Do you have family support?: Yes - Tobacco Use Tobacco Use: Non-smoker Do you use smokeless tobacco?: No - Intervention Smoking Cessation Referral:: No Education Schedule Given:: Yes - Education Education Goal Reached?: No - patient did not complete the CR program Psychosocial - Initial Assess - Target Goals Target Goals: Assess presence or absence of depression. Using a valid screening tool, maximizes coping skills. Positive support system - Psychosocial Test Tool Used:: HANDS Depression Questionnaire - Assistive Devices Fall Risk Assessed:: Yes Psychosocial - Final Assessmen - Target Goals Target Goals: Assess presence or absence of depression. Using a valid screening tool, maximizes coping skills. Positive support system - Stages of Change Stages of Change:: Action - Psychosocial Test Tool Used:: HANDS Depression Questionnaire - Intervention PS - Interventions: Yes Attend Stress Management Classes, No Referral to Mental Health, No Referral to [facility] Case Management, No Referral to Physician, No Uses Stress Management Skills - Education Education Goal Reached?: No - Patient had not completed the program - Patient/Program Goal Preventative Medication(s):: Aspirin, Clopidogrel, Beta omkar, Statin/lipid - Assistive Devices Assistive Devices:: None Fall Risk Assessed:: Yes Patient Health Questionnaire Discharge Assessment 1. Little interest or pleasure in doing things: Several days 2. Feeling down, depressed, or hopeless: Several days 3. Trouble falling or staying asleep, or sleeping too much: Not at all 4. Feeling tired or having little energy: Several days 5. Poor appetite or overeating: Not at all 6. Feeling bad about yourself -- or that you are a failure or have let yourself or your family down: Not at all 7. Trouble concentrating on things, such as reading the newspaper or watching television: Not at all 8. Moving or speaking so slowly that other people could have noticed. Or the opposite - being so fidgety or restless that you have been moving around a lot more than usual: Not at all 9. Thoughts that you would be better off , or of hurting yourself in some way: Several days How difficult have these problems made it for you to do your work, take care of things at home, or get along with other people?: Not difficult at all Total Score: 4 BRIAN-Q SV Test - Statements CAD is a disease of the arteries in the heart: False Examples of risk factors for heart disease: True Angina is chest pain or discomfort: True The benefits of resistance training include: True Eating more meat and dairy products: False Anti-platelet medications such as aspirin are important: True The only effective way to manage stress: True An exercise warm-up slowly increases heart rate: True Prepared, processed foods usually have high sodium: True Depression is common after a heart attack: True The statin medications lower cholesterol: False To control blood pressure, lower the amount of sodium: True If someone gets chest discomfort during walking: False Transfats are partially hydrogenated vegetable oils: False Sleep apnea that is not treated increases the risk: True To control cholesterol, one should become a vegetarian: False Someone knows if he/she is exercising at the right level: True Diabetes cannot be prevented with exercise & health eating: False Stress is a large risk for heart attack: True A diet that can help lower blood pressure is rich in: True - Total Score Total Correct Responses: 16 Self-Efficacy We would like to know how confident you are in doing certain activities. Please select your confidence level for:: Select your confidence level for the following using the scale 1-10 where 1 is not at all confident and 10 is totally confident. Your score is the average of all 6 responses. Fatigue: How confident are you that you can keep the fatigue caused by your disease from interfering with the things you want to do? Physical Discomfort or Pain: How confident are you that you can keep the physical discomfort or pain of your disease from interfering with the things you want to do? Emotional Distress: How confident are you that you can keep the emotional distress caused by your disease from interfering with the things you want to do? Other Symptoms or Health Problems: How confident are you that you can keep other symptoms or health problems from interfering with the things you want to do? Different Tasks and Activities: How confident are you that you can do the different tasks and activities needed to manage your health condition so as to reduce your need to see a doctor? Medication: How confident are you that you can do things other than just taking medication to reduce how much your illness affects your everyday life? Discharge Assessment We would like to know how confident you are in doing certain activities. Please select your confidence level for:: Select your confidence level for the following using the scale 1-10 where 1 is not at all confident and 10 is totally confident. Your score is the average of all 6 responses. Fatigue: How confident are you that you can keep the fatigue caused by your disease from interfering with the things you want to do? Select Number: 8 Physical Discomfort or Pain: How confident are you that you can keep the physical discomfort or pain of your disease from interfering with the things you want to do? Select Number: 8 Emotional Distress: How confident are you that you can keep the emotional distress caused by your disease from interfering with the things you want to do? Select Number: 9 Other Symptoms or Health Problems: How confident are you that you can keep other symptoms or health problems from interfering with the things you want to do? Select Number: 7 Different Tasks and Activities: How confident are you that you can do the different tasks and activities needed to manage your health condition so as to reduce your need to see a doctor? Select Number: 9 Medication: How confident are you that you can do things other than just taking medication to reduce how much your illness affects your everyday life? Select Number: 9 Total Score:: 8 Nutrition Survey - Nutrition Survey Instructions Scoring Instructions: Scoring is as follows: Yes = 1 points. No = 0 point. Patient score that is >/=12 is considered to be at potential nutritional risk and could benefit from a referral to a registered dietitian. - Nutrition Survey Discharge Have you lost >10 lbs over the past 2 months without trying?: No Are you following a special diet at home for diabetes, low fat, or low salt?: No Are you interested in meeting with a dietitian for help understanding your diet?: No Do you eat less than 3 meals a day?: No Do you eat fatty meats (capellan, sausage, ribs, etc), fried foods, desserts, large amounts of salad dressings, margarine, butter, or cheese most days?: No Do you have food allergies? [Enter types in comment field]: No Do you eat in restaurants more than 3 times a week?: No Do you season food with salt, seasoning salt, or garlic salt?: No Do you used canned, boxed, frozen meals, or soups, seasoning packets?: No Total Score:: 0
[2018-11-22 07:30] VITALS: BP 110/68; BP 136/70
--- NOTE | 2018-11-29 12:46 | CRPHASE1_ITS ---
Patient Communication Former Patient:: Phase I, Phase II - Martin completed a short -term CR PH II just recently on 11/18/2018. She had a pre-planned huge family celebration and vacation pre-planned. This procedure was a pre-scheduled PCI intervention. PHII Cardiac Rehab Discussed with Patient:: Yes Guide to Cardiac Rehab Given to Patient:: Yes Cardiac Rehab Facility Choice List Given to Patient:: Yes Choice Program [facility] CR PHII:: Communication Given to CR, Refer to [facility] Non Emergency Services Ambulance Driver:: David Haq Refer Phase II Cardiac Rehab:: Yes Sessions:: 36 sessions - 3 days/wk, 12 weeks Risk Factors/Lifestyle Family History: Family History (Last Reviewed 11/27/18 @ 11:27 by Sapphire Gary) Mother CVA (cerebral vascular accident) Father Heart disease Brother Heart disease Cardiac Rehabilitation Info Cardiac Rehabilitation Program Information: Cardiac Rehabilitation is important for patients like you who are recovering from a heart problem. Cardiac rehabilitation programs are recognized as integral to the continued care of the patient with coronary heart disease. The cardiac rehabilitation program is designed to optimize a patient's physical, psychological, and social functioning. Health care asst work in cardiac rehabilitation programs and assist you with getting the treatments you need to get stronger and healthier - like exercise, healthy eating habits, and med ications. Cardiac rehabilitation has been show to help people with heart problems live longer and have better life enjoyment than people who do not go to cardiac rehabilitation. Please contact the Cardiac Rehabilitation Program at [facility] at in two weeks if you have not heard from them.
--- NOTE | 2018-11-29 12:49 | CRPH1.INSTRU ---
General Education CAD and cardiac anatomy and function:: Not instructed Explanation of diagnoses and procedures:: Not instructed Sign/Symptoms of NE:: Not instructed Antiplatelet therapy: Not instructed Proper use of NTG-SL: Not instructed Emergency procedures and activation of EMS: Not instructed Compliance of all prescribed medications: Not instructed - Patient was previously educated Phase I following a previous PCI intervention. The patient just completed a short-term Phase II on 11/18/2018.
== END 2018-12-01 23:59 ==
LOC: CR 10:15
PROVIDERS: Family Provider Family Medicine; PCP Family Medicine; Referring Provider Internal Medicine Cardiovascular Disease; Visit Provider Internal Medicine Cardiovascular Disease
DX: I10 Essential (primary) hypertension (principal); I25.119 Atherosclerotic heart disease of native coronary artery with unspecified angina pectoris; Z95.5 Presence of coronary angioplasty implant and graft
CPT/HCPCS: 93798

== ENCOUNTER 2018-11-29 09:53 | Day surgery (SDC) | payer MEDICARE, SELFPAY ==
[2018-10-24 09:39] VITALS: BMI 30.1
[2018-11-27 11:50] VITALS: BMI 30.1
[2018-11-27 13:29] LABS: Absolute Lymphocyte Count 2.26 X10^3/ul (0.83-4.51); Absolute Neutrophil Count 4.4 X10^3/uL (2.0-7.7); Basophil# 0.02 X10^3/uL; Basophil% 0.3 % (0-1); Eosinophil# 0.47 X10^3/uL; Lymphocyte # 2.26 X10^3/ul (4.0); Lymphocyte % 29.1 % (19-41); Mean Corp Hgb Conc 32.5 g/gl (32-36); Mean Corpuscular Hgb 27.3 pg (27.0-32.0); Mean Platelet Vol. 9.6 fl (6.2-12.0); Monocyte% 7.7 % (0-10); Neutrophil # 4.41 X10^3/uL (2.7-7.7); Neutrophil % 56.8 % (47-70); Platelet Count 250 K/mm3 (150-450); RBC Distribution Width CV 13.9 % (11.6-14.6); RBC Distribution Width SD 42.6 fl (35.1-43.9); Red Blood Count 4.76 M/mm3 (4.2-5.4); White Blood Count 7.8 K/mm3 (4.4-11.0)
[2018-11-27 13:31] LABS: POSITIVE COUNT NO; POSITIVE DIFFERENTIAL NO; POSITIVE MORPHOLOGY NO
[2018-11-27 13:46] LABS: Partial Thromboplast Time 28.1 Seconds (24.1-36.2); Prothrombin Time (Protime)PT. 12.6 SECONDS (11.7-14.9)
[2018-11-27 14:08] LABS: Anion Gap 4 (5-15); BUN 17 mg/dL (7-18); BUN/Creat Ratio 20.2 RATIO (10-20); Calcium,Total 9.1 mg/dL (8.5-10.1); Chloride 106 mmol/L (98-107); Creatinine, Serum 0.84 mg/dL (0.55-1.02); EST Glomerular Filtration Rate 71 mL/min (>60); Est Glom Filt Rate - Afr Amer 86 mL/min (>60); Glucose 87 mg/dL (74-106); Potassium 4.3 mmol/L (3.5-5.1); Sodium Level 138 mmol/L (136-145)
[2018-11-29] VITALS (17 sets, daily range): BP systolic 112–173; BP diastolic 53–93; PULSE 47–71; RESP 13–19; TEMP 36.3–36.8; O2SAT 93–97; BMI 29.9; BMI 29.0
--- NOTE | 2018-11-29 12:15 | EKG12_ITS ---
Test Reason : AM EKG Blood Pressure : / mmHG Vent. Rate : 052 BPM Atrial Rate : 052 BPM P-R Int : 202 ms QRS Dur : 080 ms QT Int : 444 ms P-R-T Axes : 026 -08 042 degrees QTc Int : 412 ms Sinus bradycardia Nonspecific T wave abnormality Abnormal ECG Confirmed by MELODIE COLLINS, ADRIAN ([id number]), loan expeditor NICANOR GARCIA ([id number]) on 12/04/2018 12:50:45 PM Referred By: Cedric Oneal Confirmed By:ADRIAN SEWELL MD
--- NOTE | 2018-11-29 13:03 | DCINST_ITS ---
<Marie Shafer M - Last Filed: 11/29/18 13:03> Discharge Diet: Low fat/ Low Cholesterol Discharge Activity: Return to Normal Activity Lifting Restrictions: 10 pounds and also avoid any pushing or pulling for 3 days after your test. Call your doctor if your incision/area has: Continuous Slow Oozing, Sudden Increased Bleeding, Increased Pain/ Swelling, Increased Redness, Foul Smelling Discharge, Swelling at the incision site Call your doctor if you observe: Fever of 101 or Higher, Shortness of breath, Chest pain Remove Dressing in (days):: 1 Additional Dressing/Incision Instructions:: Keep the dressing (bandage) on until the next morning. You may then shower, but do not take a tub bath for 5 days after your test. It is normal to have some tenderness and discomfort at the puncture site. Sometimes bruising also occurs. However, if pain, numbness, or coldness occurs below the puncture site (in your leg, toes, arms or fingers) call your doctor at once. You may have a small, marble sized knot at the puncture site. This is normal. Do not rub it. It will go away in 4-6 weeks. Bleeding can occur from the area where the puncture was done. Blood may spurt or drip from the site. If blood spurts, apply pressure right away to stop bleeding and call 911. Although rare, bleeding into the tissue (hematoma) can also occur. If this happens, a large, firm area goose egg under the skin will appear. If any of these occur, lie down as flat as you can and have someone apply firm pressure to the cath site with a gauze pad or a clean washcloth for 10-15 minutes. Call 911 or go to the Emergency Department. Allergies/Adverse Reactions: Allergies erythromycin base Allergy (Verified 11/27/18 11:28) Nausea Sulfa (Sulfonamide Antibiotics) Allergy (Verified 11/27/18 11:28) Hives Medications to take at Discharge Levothyroxine Sodium [Synthroid] 88 mcg PO DAILY 10/14/18 Omeprazole [Prilosec] 40 mg PO DAILY 10/14/18 Aspirin E.C. [Ecotrin] 81 mg PO DAILY@0800 tab 10/16/18 Benzonatate [Tessalon Perle] 200 mg PO 4X/DAY PRN PRN #100 cap 10/16/18 atorvastatin 40 mg tablet 40 mg PO QHS #90 tab 10/22/18 carvedilol 3.125 mg tablet 3.125 mg PO BID #180 tab 10/22/18 losartan 25 mg tablet 25 mg PO DAILY #90 tab 10/22/18 ticagrelor 90 mg tablet 90 mg PO BID #180 tab 10/22/18 Primary Care Physician: Daphnie Jones MD [Primary Care Provider] - Test Results: Test results from this visit will be discussed in further detail at your follow- up appointment, if applicable. Please Follow Up With: Cedric Oneal MD When: 12/12 at 2:30 Cardiac Rehabilitation Info Cardiac Rehabilitation Program Information: Cardiac Rehabilitation is important for patients like you who are recovering from a heart problem. Cardiac rehabilitation programs are recognized as integral to the continued care of the patient with coronary heart disease. The cardiac rehabilitation program is designed to optimize a patient's physical, psychological, and social functioning. Health health care legal assistant work in cardiac rehabilitation programs and assist you with getting the treatments you need to get stronger and healthier - like exercise, healthy eating habits, and medications. Cardiac rehabilitation has been show to help people with heart problems live longer and have better life enjoyment than people who do not go to cardiac rehabilitation. Please contact the Cardiac Rehabilitation Program at [facility] at in two weeks if you have not heard from them. <Herber Mendez - Last Filed: 11/30/18 11:35> Test Results: Test results from this visit will be discussed in further detail at your follow- up appointment, if applicable. Cardiac Rehabilitation Info Cardiac Rehabilitation Program Information: Cardiac Rehabilitation is important for patients like you who are recovering from a heart problem. Cardiac rehabilitation programs are recognized as integral to the continued care of the patient with coronary heart disease. The cardiac rehabilitation program is designed to optimize a patient's physical, psychological, and social functioning. Health health care legal assistant work in cardiac rehabilitation programs and assist you with getting the treatments you need to get stronger and healthier - like exercise, healthy eating habits, and medications. Cardiac rehabilitation has been show to help people with heart problems live longer and have better life enjoyment than people who do not go to cardiac rehabilitation. Please contact the Cardiac Rehabilitation Program at [facility] at in two weeks if you have not heard from them.
[2018-11-29] MEDS: 0.9% Normal Saline 1,000 ML 100 ML IV (14:58)
[2018-11-29] MEDS: Acetaminophen 325 MG Tablet 650 MG PO ×2 (16:51→22:49)
[2018-11-29] MEDS: oxyCODONE 5 MG Tablet PO (17:33)
[2018-11-29] MEDS: Carvedilol 3.125 MG TABLET PO (17:33)
--- NOTE | 2018-11-29 20:33 | CL.I_ITS ---
Patient Name: WILBERTO LOMELI Study Date: 11/29/2018 Performing: Gerard Haq MD Ht: 59 inches 150 cm : 1950 Wt: 147.9 lbs 67 kg Age: 68 Gender: female BSA: 1.62 PROCEDURE(S) PERFORMED [id number] W OR WO PTCA, SINGLE CORONARY ARTERY [id number], EACH ADD'L CORONARY ART, SAME MAJOR CLINICAL PROFILE AND CO-MORBIDITIES Indications: SOB, Residual stenosis noted at the time of PCI for AMI Heart Failure: None Stress/Imaging Stress/Image Study Performed: No CAD Presentations: Unstable angina. CONCLUSIONS Successful PCI of dLCx/ OM2 bifurcation with RAMU to dLCX and PTCA alone of ostial OM2 RECOMMENDATIONS Follow up with primary voice writing reporter NIR Otero for at least 12 months DESCRIPTION OF PROCEDURE The patient arrived to the procedure lab. The risks and benefits of the procedure as well as a full d escription of our services here and current unavailability of surgical backup were fully explained to the patient and/or their significant other prior to the catheterization. The Timeout was completed, verifying the correct patient and procedure. The patient's procedural site was prepped and draped in the usual fashion. Local anesthetic was given subcutaneously to right radial region with Lidocaine 2% . Using a modified Seldinger technique, arterial access was obtained via the right ulner artery, a 6F r sheath was inserted.. XB 3.0 Guide catheter was inserted and engaged into the LCA. [employer] Guide wire was advance d to the Circumflex. Emerge 2.5 x 12 Balloon catheter was inserted. Balloon catheter was advanced acr oss lesion in the circumflex, distal. Angiogram performed pre balloon dilatation. PTCA balloon inflat ed at 6 atms for 10 secs. Elunir 2.5 x 12 Drug Eluting stent was inserted. Drug Eluting stent was adv anced across the lesion in the circumflex, distal. Angiogram performed pre stent deployment. NC Emerg e 2.5 x 8 Balloon catheter was inserted. Balloon catheter was advanced across lesion in the circumfle x, distal. Emerge 2.0 x 12 Balloon catheter was inserted. Balloon catheter was advanced across lesion in the circumflex, distal. PTCA balloon inflated at 6 atms for 13 secs. Angiogram performed post bal loon dilatation. The arterial sheath was pulled and a TR Band was applied for hemostasis INTERVENTION INFORMATION LESION SITE: Circumflex (Distal) Lesion Complexity: High/C, chronic total occlusion: No, lesion at bifurcation: Yes, thrombus present: No, lesion length: 8 mm, culprit lesion: Yes, Previously treated lesion: No Pre Stenosis: 90 % Pre intervention RUPA flow: 3 PROCEDURE: Bare Metal Stent with pre and post dilatation. Post Stenosis: 0 % Post intervention RUPA flow: 3 Lesion Devices: Cordis 6 Fr XB3.0 100cm Guide Catheter Curtis .014 [employer] Straight 190cm [place] Sci EMERGE MR 2.50x12 BALLOON [employer] Elunir RAMU RX 2.5x12 [place] Sci EMERGE MR 2.00x12 BALLOON [place] Sci NC EMERGE MR 2.50x08 BALLOON LESION SITE: 2nd OM (Ostial) Lesion Complexity: High/C, chronic total occlusion: No, lesion at bifurcation: Yes, thrombus present: No, lesion length: 4 mm, culprit lesion: Yes, Previously treated lesion: No Pre Stenosis: 70 % Pre intervention RUPA flow: 3 PROCEDURE: Balloon Angioplasty Post Stenosis: 0 % Post intervention RUPA flow: 3 COMPLICATIONS No Complications PROCEDURE MEDICATIONS Fentanyl 50 mcg IV Versed 1 mg IV Fentanyl 50 mcg IV Fentanyl 50 mcg IV Oxygen: 2 L/min via nasal cannula Heparin given IA 11/29/2018 11:05:19 Heparin 2000 unit(s) IV 11/29/2018 11:07:23 Verapamil 2.5mg, Ntg 100mcgs, 3000 units of Heparin given IA 11/29/2018 11:05:19 SUMMARY OF HEMODYNAMIC DATA Time AIR REST ECG 10:14:12 AO 97/56 (76) SA 11:09:19 AO 99/59 (75) 11:11:12 Signed By Gerard Haq MD On 11/29/2018 16:27:15 Gerard Haq MD
[2018-11-29] MEDS: Atorvastatin Calcium 40 MG Tablet PO (21:47)
[2018-11-29] MEDS: TICAGRELOR 90 MG TABLET PO (21:47)
[2018-11-30] VITALS (15 sets, daily range): BP systolic 119–146; BP diastolic 60–94; PULSE 45–76; RESP 12–24; TEMP 36.8–37.1; O2SAT 94–98
[2018-11-30] MEDS: Levothyroxine 88 MCG Tablet PO (04:54)
[2018-11-30] MEDS: 0.9% NaCl Peripheral Flush Adult/Peds IV (04:58)
[2018-11-30 05:15] LABS: Mean Corp Hgb Conc 32.4 g/gl (32-36); Mean Corpuscular Volume 83.3 fL (81-99); Mean Platelet Vol. 9.8 fl (6.2-12.0); Platelet Count 212 K/mm3 (150-450); RBC Distribution Width CV 13.9 % (11.6-14.6); RBC Distribution Width SD 41.9 fl (35.1-43.9); Red Blood Count 4.44 M/mm3 (4.2-5.4); White Blood Count 6.5 K/mm3 (4.4-11.0)
[2018-11-30 05:16] LABS: Scan Indicated on CBC? Y/N NO
[2018-11-30 05:19] LABS: Anion Gap 6 (5-15); BUN 11 mg/dL (7-18); BUN/Creat Ratio 14.7 RATIO (10-20); Calcium,Total 8.4 mg/dL (8.5-10.1); Chloride 108 mmol/L (98-107); Creatinine, Serum 0.75 mg/dL (0.55-1.02); EST Glomerular Filtration Rate 82 mL/min (>60); Est Glom Filt Rate - Afr Amer 99 mL/min (>60); Estimated Creatinine Clearance 38.14 ml/min; Glucose 99 mg/dL (74-106); Potassium 4.1 mmol/L (3.5-5.1); Sodium Level 142 mmol/L (136-145)
[2018-11-30] MEDS: Aspirin E.C. 81 MG Tablet PO (08:55)
[2018-11-30] MEDS: Carvedilol 3.125 MG TABLET PO (08:55)
[2018-11-30] MEDS: TICAGRELOR 90 MG TABLET PO (08:55)
[2018-11-30] MEDS: Losartan Potassium 25 MG Tablet PO (08:55)
--- NOTE | 2018-11-30 10:00 | EKG12_ITS ---
Test Reason : POST PCI Blood Pressure : / mmHG Vent. Rate : 066 BPM Atrial Rate : 066 BPM P-R Int : 190 ms QRS Dur : 078 ms QT Int : 418 ms P-R-T Axes : 039 -04 040 degrees QTc Int : 438 ms Normal sinus rhythm Nonspecific T wave abnormality Abnormal ECG Confirmed by MELODIE COLLINS, ADRIAN ([id number]), international editorial producer NICANOR GARCIA ([id number]) on 12/04/2018 12:50:57 PM Referred By: Cedric Oneal Confirmed By:ADRIAN SEWELL MD
--- NOTE | 2018-11-30 11:36 | DS.PCM_ITS ---
Discharge Date and Diagnosis Date of Admission: 11/29/18 Date of Discharge: 11/30/18 - Primary Discharge Diagnosis CAD status post LCx PTCA/RAMU in OM PTCA - Secondary Discharge Diagnosis Chronic Problems (Last Reviewed 11/27/18 @ 11:27 by Sapphire Gary) Atherosclerosis of coronary artery of [place] heart with angina pectoris (Chronic) Essential (primary) hypertension (Chronic) Hospital Course and Treatment Operations: None Procedures: Cardiac catheterization, - - Cardiac intervention Summary of Care Provided: The patient is a 68 year old with a past medical history of underlying CAD who presented for staged PCI to the LCx/OM distribution. She underwent PTCA/RAMU to the LCx and PTCA to the OM. She was monitored overnight in the ICU. She connor eared to remain hemodynamically stable. She was noted to have a post procedure right forearm ecchymoses and hematoma. This was noted immediately following the procedure and was monitored overnight. It appeared to remain stable. She had no obvious findings compatible with vascular compromise of the right upper extremity. [] Subjective: Is a 68-year-old white female who appears to be resting comfortably at the moment in no acute distress. - Physical Exam General: Alert, Oriented x3, Cooperative, No apparent distress HEENT: Atraumatic, PERRLA, EOMI, Normocephalic Oral: Moist Mucosa Neck: Supple, No JVD Lungs: Clear to auscultation Cardiovascular: Regular rate, Regular Rhythm, Normal S1, Normal S2 Abdomen: Bowel Sounds Present, Soft, Non Tender Extremities: - - Right forearm: Ecchymoses: Right ulnar artery (site of cardiac catheterization): Pulse 2+/4+ with no obvious bruits Neurological: Neuro grossly intact Psych/Mental Status: Normal Affect Vital Signs Temp Pulse Resp BP Pulse Ox 98.8 F 76 17 138/77 H 95 11/30/18 08:00 11/30/18 11:01 11/30/18 11:00 11/30/18 11:00 11/30/18 11:00 Oxygen Delivery Method Room Air Weight: 148 lb 12.992 oz Body Mass Index (BMI) 29.0 Intake and Output for Last 24 Hours 11/28/18 11/29/18 11/30/18 23:59 23:59 23:59 Intake Total 1668.2 / 1668.2 240 / 240 Balance 1668.2 / 1668.2 240 / 240 Laboratory Tests Past 24 Hrs 11/30/18 11/30/18 05:00 05:00 WBC 6.5 RBC 4.44 Hgb 12.0 Hct 37.0 MCV 83.3 MCH 27.0 MCHC 32.4 RDW 13.9 RDW Differential 41.9 Plt Count 212 MPV 9.8 Sodium 142 Potassium 4.1 Chloride 108 H Carbon Dioxide 28.0 Anion Gap 6 BUN 11 Creatinine 0.75 Estim Creat Clear Calc 38.14 Est GFR (MDRD) Af Amer 99 Est GFR (MDRD) Non-Af 82 BUN/Creatinine Ratio 14.7 Glucose 99 Calcium 8.4 L Discharge Diet: Low fat/ Low Cholesterol Discharge Activity: Return to Normal Activity, May Not Drive - May not drive: 48 hours, May Shower - May shower: Today, May Take a Tub Bath - May take a tub bath in 7 days Weight Bearing Status: - - Avoid heavy exertional activity/lifting x2 weeks Call your doctor if your incision/area has: Continuous Slow Oozing, Sudden Increased Bleeding, Increased Pain/ Swelling, Increased Redness, Foul Smelling Discharge, Swelling at the incision site Call your doctor if you observe: Fever of 101 or Higher, Shortness of breath, Chest pain Remove Dressing in (days):: 1 Cleanse incision/area with: Soap & Water Additional Dressing/Incision Instructions:: Keep the dressing (bandage) on until the next morning. You may then shower, but do not take a tub bath for 5 days after your test. It is normal to have some tenderness and discomfort at the puncture site. Sometimes bruising also occurs. However, if pain, numbness, or coldness occurs below the puncture site (in your leg, toes, arms or fingers) call your doctor at once. You may have a small, marble sized knot at the puncture site. This is normal. Do not rub it. It will go away in 4-6 weeks. Bleeding can occur from the area where the puncture was done. Blood may spurt or drip from the site. If blood spurts, apply pressure right away to stop bleeding and call 911. Although rare, bleeding into the tissue (hematoma) can also occur. If this happens, a large, firm area goose egg under the skin will appear. If any of these occur, lie down as flat as you can and have someone apply firm pressure to the cath site with a gauze pad or a clean washcloth for 10-15 minutes. Call 911 or go to the Emergency Department. Home Medications: Medications to take at Discharge Levothyroxine Sodium [Synthroid] 88 mcg PO DAILY 10/14/18 Omeprazole [Prilosec] 40 mg PO DAILY 10/14/18 Aspirin E.C. [Ecotrin] 81 mg PO DAILY@0800 tab 10/16/18 Benzonatate [Tessalon Perle] 200 mg PO 4X/DAY PRN PRN #100 cap 10/16/18 atorvastatin 40 mg tablet 40 mg PO QHS #90 tab 10/22/18 carvedilol 3.125 mg tablet 3.125 mg PO BID #180 tab 10/22/18 losartan 25 mg tablet 25 mg PO DAILY #90 tab 10/22/18 ticagrelor 90 mg tablet 90 mg PO BID #180 tab 10/22/18 Primary Care Physician: Daphnie Jones MD [Primary Care Provider] - Please Follow Up With: Cedric Oneal MD When: 12/12 at 2:30 Disposition: Home Minutes spent on discharge:: 45 Patient Condition:: Stable Medical Necessity - Tobacco Use Smoking Status: Never smoker Meaningful Use Info Meaningful Use Diagnoses (Choose all that apply): None applicable
== END 2018-11-30 11:55 | disposition home or self-care (01) ==
LOC: CLSP 09:54 → ICU 11:12
PROVIDERS: Specialist; Family Provider Family Medicine; PCP Family Medicine; Referring Provider Internal Medicine Cardiovascular Disease; Visit Provider Internal Medicine Cardiovascular Disease
DX: I25.119 Atherosclerotic heart disease of native coronary artery with unspecified angina pectoris (principal); I10 Essential (primary) hypertension; I25.2 Old myocardial infarction; I25.5 Ischemic cardiomyopathy; E66.9 Obesity, unspecified; Z68.29 Body mass index [BMI] 29.0-29.9, adult; E03.9 Hypothyroidism, unspecified; Z95.5 Presence of coronary angioplasty implant and graft; Z79.82 Long term (current) use of aspirin; Z79.899 Other long term (current) drug therapy; R06.02 Shortness of breath
CPT/HCPCS: 36415; 80048; 85025; 85027; 85610; 85730; 92921; 92928; 93005; 99152; 99153; J7030; J7040; Q9967; A4216; C1725; C1769; C1874; C1887; C1894; C9600

== ENCOUNTER → 2020-03-11 11:39 | Outpatient (CLI) | payer MEDICARE, SELFPAY ==
[2020-03-11 11:01] VITALS: BMI 30.2
[2020-03-11 12:28] LABS: BNP,B-Type NATRIURETIC PEPTIDE 48.8 pg/mL (0-100)
[2020-03-11 12:32] LABS: AST(SGOT) 25 U/L (15-37); Alanine Aminotransfer ALT/SGPT 24 U/L (13-56); Albumin, Serum 3.7 g/dL (3.2-5.0); Alkaline Phosphatase 90 U/L (45-117); Bilirubin, Direct 0.15 mg/dL (0.00-0.30); Cholesterol 129 mg/dL (200); Globulin 3.7 g/dL (2.2-4.2); High Density Lipoprotein 52 mg/dL; Protein, Total 7.4 g/dL (6.4-8.2); Triglycerides 88 mg/dL; Very Low Density Lipoprotein 18 mg/dL (5-40)
== END ==
PROVIDERS: PCP Family Medicine; Referring Provider Internal Medicine Cardiovascular Disease; Visit Provider Internal Medicine Cardiovascular Disease
DX: E78.00 Pure hypercholesterolemia, unspecified (principal); I21.4 Non-ST elevation (NSTEMI) myocardial infarction
CPT/HCPCS: 36415; 80061; 80076; 83880

== ENCOUNTER → 2020-04-28 15:52 | Outpatient (CLI) | payer MEDICARE, SELFPAY ==
[2020-03-11 11:01] VITALS: BMI 30.2
[2020-04-28 17:17] LABS: Absolute Lymphocyte Count 2.69 X10^3/uL (0.83-4.51); Absolute Neutrophil Count 4.4 X10^3/uL (2.0-7.7); Basophil# 0.04 X10^3/uL; Basophil% 0.5 % (0-1); Eosinophil# 0.36 X10^3/uL; Eosinophils% 4.5 % (0-5); Hematocrit 42.3 % (37-47); Hemoglobin 13.5 g/dL (12.0-15.0); Lymphocyte # 2.69 X10^3/ul (4.0); Lymphocyte % 33.6 % (19-41); Mean Corp Hgb Conc 31.9 g/dL (32-36); Mean Corpuscular Hgb 27.8 pg (27.0-32.0); Mean Corpuscular Volume 87.2 fL (81-99); Mean Platelet Vol. 9.8 fl (6.2-12.0); Monocyte# 0.51 X10^3/uL; Monocyte% 6.4 % (0-10); NRBC Flagged by Analyzer 0 % (0-5); Neutrophil # 4.39 X10^3/uL (2.7-7.7); Neutrophil % 54.8 % (47-70); Platelet Count 274 K/mm3 (150-450); RBC Distribution Width SD 41.2 fl (35.1-43.9); Red Blood Count 4.85 M/mm3 (4.2-5.4)
[2020-04-28 17:49] LABS: Anion Gap 4 (5-15); BUN 18 mg/dL (7-18); BUN/Creat Ratio 19.2 RATIO (10-20); Calcium,Total 9.2 mg/dL (8.5-10.1); Chloride 104 mmol/L (98-107); Creatinine, Serum 0.94 mg/dL (0.55-1.02); EST Glomerular Filtration Rate 63 mL/min (>60); Est Glom Filt Rate - Afr Amer 76 mL/min (>60); Glucose 82 mg/dL (74-106); Potassium 3.9 mmol/L (3.5-5.1); Sodium Level 140 mmol/L (136-145); Thyroid Stim Hormone (TSH) 1.57 uIU/mL (0.358-3.74)
== END ==
PROVIDERS: PCP Family Medicine; Visit Provider Family Medicine
DX: I25.10 Atherosclerotic heart disease of native coronary artery without angina pectoris (principal); E03.9 Hypothyroidism, unspecified; K21.9 Gastro-esophageal reflux disease without esophagitis; I10 Essential (primary) hypertension
CPT/HCPCS: 36415; 80048; 84443; 85025

== ENCOUNTER → 2020-12-07 10:44 | Outpatient (CLI) | payer MEDICARE, SELFPAY ==
[2020-03-11 11:01] VITALS: BMI 30.2
--- NOTE | 2020-12-07 12:46 | PFTCOMP_ITS ---
COMPLETE PULMONARY FUNCTION TEST INTERPRETATION Brief HPI: Patient is a 70 year old female, currently under the care of Dr. Jones, who presents to [facility] for complete pulmonary function tests secondary to diagnosis of dyspnea. Respiratory therapist reports good effort and reproducible results. Interpretation: Forced expiration spirometry shows a moderately severe large airways obstructive ventilatory defect with an FEV1 of 50% predicted. There is no significant bronchodilator response by strict ATS criteria. Spirograms are of good quality and plateau slowly, indicating slowly emptying areas of the lungs. The respiratory flow volume loop shows decreased expiratory flow rates at all lung volumes consistent with airway obstruction. Lung volumes by body plethysmography show a decreased total lung capacity at 2.74 L, 72% predicted. FRC and RV are elevated out of proportion. Lung volume measurements are consistent with air-trapping. Diffusion capacity by carbon monoxide is normal at 84% predicted. The airway resistance is elevated. No previous pulmonary function tests were available for review. Impression: Irreversible moderately severe mixed ventilatory defect with preserved diffusing capacity
== END ==
PROVIDERS: PCP Family Medicine; Referring Provider Family Medicine; Visit Provider Family Medicine
DX: J45.909 Unspecified asthma, uncomplicated (principal)
CPT/HCPCS: 94060; 94726; 94729

== ENCOUNTER → 2021-05-31 09:53 | Outpatient (CLI) | payer MEDICARE, SELFPAY ==
--- NOTE | 2021-05-31 09:55 | BI_ITS ---
MAMMOGRAPHY - BILATERAL SCREENING 3-D TOMOSYNTHESIS REASON FOR EXAM: Female, 71 years old. SCREENING PERTINENT HISTORY: No significant family history. TECHNIQUE: 2-D mammograms and 3-D Tomosynthesis of the breast (s) were performed. CAD was performed. COMPARISON: 01/23/2012 FINDINGS: The breast composition is composed of scattered fibroglandular density. Scattered benign calcifications are seen. No dense spiculated masses or suspicious microcalcifications are identified. No architectural distortion is identified. There is no skin thickening or retraction. There has been no significant change since the prior study. BI/SCRN MAMM (CAD)W/STEPHEN BILAT IMPRESSION: No mammographic signs of malignancy. Routine yearly mammograms recommended. ASSESSMENT CATEGORY: BIRADS Category 1: Negative. A letter regarding these results will be sent to the patient by the facility within 30 days. FOLLOW UP RECOMMENDATION: Yearly follow up mammogram recommended. (A) Approximately 10% of breast cancers are not detected by mammography. A normal mammogram should not delay biopsy of a clinically suspicious abnormality. Electronically Signed: Rudy Disla MD at 11:38 EST Tel , Service support ,
== END ==
PROVIDERS: PCP Family Medicine; Visit Provider Family Medicine
DX: Z12.31 Encounter for screening mammogram for malignant neoplasm of breast (principal)
CPT/HCPCS: 77063; 77067

== ENCOUNTER → 2022-03-29 | Outpatient (CLI) | payer MEDICARE, SELFPAY ==
--- NOTE | 2022-03-29 17:59 | STRESSREP ---
Stress Test Report Exercise myocardial perfusion stress test. 72-year-old lady with a history of chest pain and coronary artery disease. Stress protocol: Resting EKG demonstrates normal sinus rhythm with a rate of 69 bpm normal intervals are noted resting blood pressure is 128/80 mmHg. The patient exercised according to the regular Ronnie protocol for a total duration of 6 minutes and 16 seconds. The maximum heart rate attained was 123 bpm which was 83% of max impacted heart rate the maximum workload was 7.7 metabolic equivalents. At rest there were no ST or T wave changes noted suggest ischemia and at peak exercise upsloping ST changes were noted with did not meet the criteria for ischemia. No clinical angina was noted. The peak blood pressure was 174/70 mmHg. Myocardial perfusion protocol. 11.2 mCi of technetium 99m sestamibi was injected at rest. The patient exercised according to regular Ronnie protocol for 6 minutes and 16 seconds and at peak exercise 33.6 mCi of technetium 99m sestamibi was injected stress images were obtained stress and rest images were reconstructed in comparing the short axis vertical long and horizontal long axis. Gated images were also obtained. Perfusion SPECT analysis: Review of the stress images demonstrate normal uptake of tracer noted in all areas of the myocardium. The resting images similar demonstrate normal uptake of tracer noted in all areas of the myocardium. No areas of reversibility are noted to suggest ischemia and no previous infarct is noted. Gated SPECT analysis: The gated ejection fraction is 81%. Conclusion: Normal exercise myocardial perfusion stress test at a moderate workload. Preserved ejection fraction.
== END | disposition home or self-care (01) ==
LOC: CVS 06:26
PROVIDERS: PCP Family Medicine; Referring Provider Internal Medicine Cardiovascular Disease; Visit Provider Internal Medicine Cardiovascular Disease
DX: I25.10 Atherosclerotic heart disease of native coronary artery without angina pectoris (principal); Z95.5 Presence of coronary angioplasty implant and graft
CPT/HCPCS: 78452; 93017; A9500; A4216

== ENCOUNTER 2022-05-04 09:34 | Outpatient (CLI) | payer MEDICARE, SELFPAY ==
[2022-05-04 10:52] LABS: Absolute Lymphocyte Count 2.47 X10^3/uL (0.83-4.51); Absolute Neutrophil Count 4.8 X10^3/uL (2.0-7.7); Basophil# 0.05 X10^3/uL; Basophil% 0.6 % (0-1); Eosinophil# 0.39 X10^3/uL; Eosinophils% 4.7 % (0-5); Hematocrit 44.4 % (37-47); Lymphocyte # 2.47 X10^3/ul (0.83-4.51); Lymphocyte % 29.6 % (19-41); Mean Corp Hgb Conc 31.5 g/dL (32-36); Mean Corpuscular Hgb 27.5 pg (27.0-32.0); Mean Corpuscular Volume 87.1 fL (81-99); Mean Platelet Vol. 9.4 fl (6.2-12.0); Monocyte# 0.66 X10^3/uL; Monocyte% 7.9 % (0-10); NRBC Flagged by Analyzer 0 % (0-5); Neutrophil # 4.75 X10^3/uL (2.7-7.7); Platelet Count 283 K/mm3 (150-450); RBC Distribution Width CV 12.6 % (11.6-14.6); RBC Distribution Width SD 40.1 fl (35.1-43.9); White Blood Count 8.3 K/mm3 (4.4-11.0)
[2022-05-04 11:37] LABS: ALB/GLOB Ratio 0.9 RATIO (0.9-2.4); AST(SGOT) 21 U/L (15-37); Alanine Aminotransfer ALT/SGPT 28 U/L (13-56); Albumin, Serum 3.5 g/dL (3.2-5.0); Alkaline Phosphatase 77 U/L (45-117); Anion Gap 6 (5-15); BUN 20 mg/dL (7-18); BUN/Creat Ratio 23.4 RATIO (10-20); Calcium,Total 8.8 mg/dL (8.5-10.1); Chloride 104 mmol/L (98-107); Cholesterol 139 mg/dL (200); Creatinine, Serum 0.85 mg/dL (0.55-1.02); EST Glomerular Filtration Rate 69 mL/min (>60); Est Glom Filt Rate - Afr Amer 84 mL/min (>60); Globulin 3.7 g/dL (2.2-4.2); Glucose 94 mg/dL (74-106); High Density Lipoprotein 60 mg/dL; Potassium 4.5 mmol/L (3.5-5.1); Protein, Total 7.2 g/dL (6.4-8.2); Sodium Level 138 mmol/L (136-145); Thyroid Stim Hormone (TSH) 2.03 uIU/mL (0.358-3.74); Triglycerides 54 mg/dL; Very Low Density Lipoprotein 11 mg/dL (5-40)
== END 2022-05-04 23:59 | disposition home or self-care (01) ==
LOC: LAB 09:35
PROVIDERS: PCP Family Medicine; Referring Provider Family Medicine; Visit Provider Family Medicine
DX: Z00.00 Encounter for general adult medical examination without abnormal findings (principal); E03.9 Hypothyroidism, unspecified; I10 Essential (primary) hypertension; K21.9 Gastro-esophageal reflux disease without esophagitis
CPT/HCPCS: 36415; 80053; 80061; 84443; 85025

== ENCOUNTER → 2022-06-01 | Outpatient (CLI) | payer MEDICARE, SELFPAY ==
--- NOTE | 2022-06-01 10:41 | BI_ITS ---
MAMMOGRAPHY - BILATERAL SCREENING REASON FOR EXAM: Female, 72 years old. Routine annual screening examination. PERTINENT HISTORY: Aunt with breast cancer. TECHNIQUE: Digital bilateral breast stephen (3D mammographic acquisition) in the CC and MLO projections. 2-D mediolateral oblique (MLO) and craniocaudad (CC) views of both breasts were obtained. CAD: Full Field Digital Mammography with Computer Added Detection was performed. COMPARISON: 05/31/2021, a 20 06/23/2011. FINDINGS: Breast Composition: There are scattered areas of fibroglandular density. There are no dominant masses or suspicious calcifications. Stable benign-appearing bilateral breast calcifications. No other significant abnormalities are identified. There has been no significant change since the prior study. BI/SCRN MAMM (CAD)W/STEPHEN BILAT IMPRESSION: Stable bilateral screening mammogram. Yearly follow-up mammogram recommended. (A) ASSESSMENT CATEGORY: BIRADS Category 2: Benign. A letter regarding these results will be sent to the patient by the facility within 30 days. Approximately 10% of breast cancers are not detected by mammography. A normal mammogram should not delay biopsy of a clinically suspicious abnormality. Electronically Signed: Wilman Lundberg, at 17:22 EST ,
== END | disposition home or self-care (01) ==
LOC: OPBI 10:38
PROVIDERS: PCP Family Medicine; Visit Provider Family Medicine
DX: Z12.31 Encounter for screening mammogram for malignant neoplasm of breast (principal); Z80.3 Family history of malignant neoplasm of breast
CPT/HCPCS: 77063; 77067

== ENCOUNTER 2022-08-27 21:55 | Emergency (ER) | payer MEDICARE, SELFPAY ==
[2022-08-27 21:57] VITALS: BP 156/88; PULSE 73; RESP 15; TEMP 37.2; O2SAT 93; BMI 28.5
[2022-08-27 22:43] LABS: Absolute Lymphocyte Count 2.42 X10^3/uL (0.83-4.51); Absolute Neutrophil Count 4.8 X10^3/uL (2.0-7.7); Basophil# 0.03 X10^3/uL; Basophil% 0.3 % (0-1); Eosinophil# 0.47 X10^3/uL; Eosinophils% 5.4 % (0-5); Hematocrit 39.2 % (37-47); Hemoglobin 12.8 g/dL (12.0-15.0); Lymphocyte # 2.42 X10^3/ul (0.83-4.51); Lymphocyte % 27.8 % (19-41); Mean Corp Hgb Conc 32.7 g/dL (32-36); Mean Corpuscular Hgb 27.6 pg (27.0-32.0); Mean Corpuscular Volume 84.7 fL (81-99); Mean Platelet Vol. 9.3 fl (6.2-12.0); Monocyte# 0.93 X10^3/uL; Monocyte% 10.7 % (0-10); NRBC Flagged by Analyzer 0 % (0-5); Neutrophil # 4.83 X10^3/uL (2.7-7.7); Neutrophil % 55.5 % (47-70); Platelet Count 217 K/mm3 (150-450); RBC Distribution Width CV 12.8 % (11.6-14.6); RBC Distribution Width SD 39.7 fl (35.1-43.9); Red Blood Count 4.63 M/mm3 (4.2-5.4); White Blood Count 8.7 K/mm3 (4.4-11.0)
[2022-08-27 23:01] LABS: Anion Gap 6 (5-15); BUN 13 mg/dL (7-18); BUN/Creat Ratio 11.7 RATIO (10-20); Calcium,Total 8.7 mg/dL (8.5-10.1); Chloride 101 mmol/L (98-107); Creatinine, Serum 1.11 mg/dL (0.55-1.02); EST Glomerular Filtration Rate 51 mL/min (>60); Est Glom Filt Rate - Afr Amer 62 mL/min (>60); Estimated Creatinine Clearance 45.57 ml/min; Glucose 138 mg/dL (74-106); Potassium 3.9 mmol/L (3.5-5.1); Sodium Level 136 mmol/L (136-145)
[2022-08-27 23:54] LABS: Lactic Acid 0.5 mmol/L (0.4-1.9)
[2022-08-27] MEDS: Vancomycin IV 1,000 MG/200 ML BAG 200 MG IV (23:58)
[2022-08-28 00:03] VITALS: RESP 18
--- NOTE | 2022-08-28 00:29 | EDS_ITS ---
HPI History of Present Illness Chief Complaint: Cellulitis Narrative Narrative: Patient is a 72-year-old female with past medical history of CAD and hypertension. She states that the ear piercing in her left ear closed up. She states she used one of her earrings to then essentially reappears the opening. She states the earlobe then became red swollen and inflamed and there was concern for cellulitis. She states that she got placed on clindamycin and Keflex and has been on this for about 1 to 2 days. She states the swelling and redness of the ear resolved but now there is a swelling and redness along her left cheek and tracking into her left chest. She denies difficulty breathing or swallowing she denies any fevers or chills but with the change in rash despite her antibiotic she comes in for evaluation. [facility] Medical History Atherosclerosis of coronary artery of [place] heart with angina pectoris Essential (primary) hypertension GERD (gastroesophageal reflux disease) Hypothyroidism Ischemic cardiomyopathy Non-ST elevation (NSTEMI) myocardial infarction (10/14/18) Obesity Home Medications levothyroxine 88 mcg tablet 88 mcg PO DAILY thyroid 10/14/18 [History Last Taken 11/29/18] omeprazole 20 mg capsule,delayed release 40 mg PO DAILY stomach 10/14/18 [History Last Taken 10/13/18] aspirin 81 mg tablet,delayed release 81 mg PO DAILY@0800 10/16/18 [Rx Last Taken 11/29/18] cholecalciferol (vitamin D3) 50 mcg (2,000 unit) capsule 50 mcg PO DAILY 03/23/21 [History Last Taken Unknown] multivitamin (Daily Multi-Vitamin tablet) 1 tab PO DAILY 03/23/21 [History Last Taken Unknown] losartan 25 mg tablet 25 mg PO DAILY #90 tabs 09/19/21 [Rx Last Taken Unknown] atorvastatin 40 mg tablet 40 mg PO QHS #90 tabs 09/26/21 [Rx Last Taken Unknown] clopidogrel 75 mg tablet 75 mg PO DAILY #90 tabs 01/06/22 [Rx Last Taken Unknown] Allergy/AdvReac Type Severity Reaction Status Date / Time erythromycin base Allergy Nausea Verified 08/27/22 21:59 Sulfa (Sulfonamide Allergy Hives Verified 08/27/22 21:59 Antibiotics) Family History Mother CVA (cerebral vascular accident) Father Heart disease Brother Heart disease Surgical History History of coronary artery stent placement (11/29/18) History of hysterectomy History of tonsillectomy Social History (Updated 08/27/22 @ 23:[address] Kimberly Freeman MD) household members: spouse Smoking Status: Never smoker alcohol intake: never substance use type: does not use ROS ROS ED Constitutional Constitutional ED: Denies chills or fever(s) Eyes Eyes: Denies change in vision ENT ENT ED: Denies sore throat Cardiovascular Cardiovascular: Denies chest pain Respiratory/Chest Respiratory/Chest: Denies cough or dyspnea Gastrointestinal Gastrointestinal: Denies abdominal pain, diarrhea, nausea or vomiting Genitourinary Genitourinary ED: Denies dysuria Musculoskeletal Musculoskeletal: Denies myalgias Integumentary Reports rash Neurologic Neurologic: Denies headache(s) Hematologic/Lymphatic Hematologic/Lymphatic: Denies easy bleeding or easy bruising EXAM Physical Exam Const Vital Signs: 08/27/22 21:57 08/28/22 00:03 Temperature 98.9 F Temperature Source Temporal Pulse Rate 73 Respiratory Rate 15 18 Blood Pressure 156/88 H Blood Pressure Mean 110 Pulse Ox 93 Oxygen Delivery Method Room Air Room Air Positive well nourished and well developed General Appearance ED: well developed HEENT HEENT Narrative: Patient has mild soft tissue swelling to the left cheek with diffuse redness that is blanchable in nature. No tongue or lip swelling no oral lesions no airway edema or compromise. No induration or fluctuance noted along the left cheek Eyes PERRL and EOMs intact bilaterally Neck supple Neck Narrative: No nuchal rigidity or meningeal signs Resp normal respiratory effort and clear to auscultation bilaterally Cardio regular rate and regular rhythm Extremity normal to inspection Neuro oriented x3 and CN's II-XII intact bilaterally Sensorium / Orientation: alert Psych mental status grossly normal Skin Skin Narrative: Soft tissue changes of the left face with mild erythematous tracking into the neck and upper chest region. No brawny edema in the submental space to suggest Jerry's angina MDM MDM MDM Narrative Medical decision making narrative: Patient presented to the ER mildly hypertensive but afebrile. She has soft tissue swelling to her face consistent with cellulitis without drainable abscess formation. There are no signs of Jerry's angina or respiratory distress. The patient is currently on antibiotics but with the progression of symptoms that elected perform basic laboratory studies with blood cultures. I do not feel there is need for imaging studies at this time as there is no obvious abscess formation. White count is normal without left shift. Lactic acid is normal. I discussed with patient admission for IV antibiotics while blood cultures result. However as she is afebrile tentatively hypertensive not hypo and has normal white count without left shift or lactic acidosis she wishes to continue her medication and only follow-up if blood cultures are positive. Based on her stable vitals and negative work-up I do feel this is an appropriate plan of care and therefore patient was discharged and advised to continue her previous antibiotics. History & Record Review Discussion w/independent historian: Patient and Family Lab Data Attestation: I reviewed the patient's lab results. Labs: Laboratory Results - last 24 hr 08/27/22 08/27/22 08/27/22 22:23 22:23 22:36 WBC 8.7 RBC 4.63 Hgb 12.8 Hct 39.2 MCV 84.7 MCH 27.6 MCHC 32.7 RDW Std Deviation 39.7 RDW Coeff of Little 12.8 Plt Count 217 MPV 9.3 Immature Gran % (Auto) 0.300 Neut % (Auto) 55.5 Lymph % (Auto) 27.8 Braxton % (Auto) 10.7 H Eos % (Auto) 5.4 H Baso % (Auto) 0.3 Absolute Neuts (auto) 4.8 Absolute Lymphs (auto) 2.42 Nucleated RBC % 0 Sodium 136 Potassium 3.9 Chloride 101 Carbon Dioxide 29.0 Anion Gap 6 BUN 13 Creatinine 1.11 H Estim Creat Clear Calc 45.57 Est GFR (MDRD) Af Amer 62 Est GFR (MDRD) Non-Af 51 L BUN/Creatinine Ratio 11.7 Glucose 138 H Lactic Acid 0.5 Calcium 8.7 Discharge Plan Triage Chief Complaint: Cellulitis ED Provider: Edgardo Manzano Dx/Rx/DC Orders Clinical Impression: Cellulitis of face, Essential (primary) hypertension Instructions: ED Cellulitis Prescriptions: No Action cholecalciferol (vitamin D3) 50 mcg (2,000 unit) capsule 50 mcg PO DAILY multivitamin [Daily Multi-Vitamin] Tablet 1 tab PO DAILY levothyroxine 88 MCG tablet 88 mcg PO DAILY omeprazole 20 MG capsule 40 mg PO DAILY aspirin 81 MG tablet 81 mg PO DAILY@0800 0RF losartan 25 mg tablet 25 mg PO DAILY Qty: 90 3RF atorvastatin 40 mg tablet 40 mg PO QHS Qty: 90 3RF clopidogrel 75 mg tablet 75 mg PO DAILY Qty: 90 3RF Primary Care Provider: Daphnie Jones Referrals: Daphnie Jones MD [Primary Care Provider] - Activity Restrictions/Additional Instructions: Your vitals are stable and your lab work is normal. Indicating that the infection is still localized in your soft tissue and is not made it into the systemic system. Continue the clindamycin and Keflex as previously directed. If you develop a fever over 100.4 or you have difficulty breathing or swallowing please return for repeat evaluation. If your blood cultures are positive you will be notified in that time asked return to the hospital for repeat evaluation and possible admission Disposition Disposition: Home, Self Care Discharge Date/Time: 08/28/22 01:30
== END 2022-08-28 01:30 | disposition home or self-care (01) ==
PROVIDERS: Emergency Provider Emergency Medicine; PCP Family Medicine; Visit Provider Emergency Medicine
DX: L03.211 Cellulitis of face (principal); I25.10 Atherosclerotic heart disease of native coronary artery without angina pectoris; I10 Essential (primary) hypertension; I25.2 Old myocardial infarction; Z79.02 Long term (current) use of antithrombotics/antiplatelets; Z79.82 Long term (current) use of aspirin; Z79.899 Other long term (current) drug therapy
CPT/HCPCS: 80048; 83605; 85025; 87040; 96365; 96366; 99282; A4216

== ENCOUNTER 2022-09-29 01:57 | Emergency (ER) | payer MEDICARE, SELFPAY ==
[2022-09-29 01:58] VITALS: BP 163/78; PULSE 79; RESP 18; TEMP 36.3; O2SAT 92; BMI 28.8
--- NOTE | 2022-09-29 02:17 | EDS_ITS ---
HPI History of Present Illness Chief Complaint: Nosebleed Informant: patient and spouse/S.O. Onset/Context/Timing Onset: Hours (3-4) Context: Sudden Onset (Spontaneous, no injury or foreign material) Timing: Continuous Quality: Oozing/bleeding Location: Right nose Current Severity: Mild Maximum Severity: Moderate Worsened by: nothing Relieved by: clip/pressure on nose Associated Symptoms Associated Symptoms: Spitting up some blood out of mouth Narrative Narrative: Spontaneous onset of right-sided nosebleed tonight. No recent URI symptoms, compliant with her medications which includes clopidogrel which she has been on for years because of having several stents in her heart, none of which were placed in the past 12 months. Denies any systemic symptoms right now. [facility] Medical History Atherosclerosis of coronary artery of [place] heart with angina pectoris Essential (primary) hypertension GERD (gastroesophageal reflux disease) Hypothyroidism Ischemic cardiomyopathy Non-ST elevation (NSTEMI) myocardial infarction (10/14/18) Obesity Home Medications levothyroxine 88 mcg tablet 88 mcg PO DAILY thyroid 10/14/18 [History Last Taken 11/29/18] omeprazole 20 mg capsule,delayed release 40 mg PO DAILY stomach 10/14/18 [History Last Taken 10/13/18] aspirin 81 mg tablet,delayed release 81 mg PO DAILY@0800 10/16/18 [Rx Last Taken 11/29/18] cholecalciferol (vitamin D3) 50 mcg (2,000 unit) capsule 50 mcg PO DAILY 03/23/21 [History Last Taken Unknown] multivitamin (Daily Multi-Vitamin tablet) 1 tab PO DAILY 03/23/21 [History Last Taken Unknown] clopidogrel 75 mg tablet 75 mg PO DAILY #90 tabs 01/06/22 [Rx Last Taken Unknown] losartan 25 mg tablet 25 mg PO DAILY #90 tabs 09/14/22 [Rx Last Taken Unknown] atorvastatin 40 mg tablet 40 mg PO QHS #90 tabs 09/18/22 [Rx Last Taken Unknown] Allergy/AdvReac Type Severity Reaction Status Date / Time erythromycin base Allergy Nausea Verified 08/27/22 21:59 Sulfa (Sulfonamide Allergy Hives Verified 08/27/22 21:59 Antibiotics) Family History Mother CVA (cerebral vascular accident) Father Heart disease Brother Heart disease Surgical History History of coronary artery stent placement (11/29/18) History of hysterectomy History of tonsillectomy Social History household members: spouse Smoking Status: Never smoker alcohol intake: never substance use type: does not use ROS ROS ED ENT ENT ED: Reports as per HPI and epistaxis; Denies sore throat Cardiovascular Cardiovascular: Denies chest pain Respiratory/Chest Respiratory/Chest: Denies dyspnea Neurologic Neurologic: Denies paresthesias or weakness EXAM Physical Exam Const Vital Signs: 09/29/22 01:58 Temperature 97.3 F L Temperature Source Temporal Pulse Rate 79 Respiratory Rate 18 Blood Pressure 163/78 H Blood Pressure Mean 106 Pulse Ox 92 Oxygen Delivery Method Room Air Positive well nourished and well developed General Appearance ED: well developed and NAD HEENT HEENT Narrative: Clip over nose with active mild dripping of dark red blood. Posterior oropharynx with blood present. Tolerating secretions, spitting blood out of her mouth on occasion. After removal of clip, bleeding more prominent from right side. No arterial bleeding. Resp normal respiratory effort Effort and Inspection: able to speak in complete sentences Neuro oriented x3, CN's II-XII intact bilaterally, no sensory deficits noted and gait normal Motor Exam: strength 5/5 throughout Psych mental status grossly normal Skin no rashes or lesions noted and no wounds MDM MDM MDM Narrative Medical decision making narrative: See the procedure note for epistaxis care. We were able to obtain good hemostasis, patient is not excessively hypertensive to obviously explain this, she states that this is occurred multiple times in the last 3 weeks, usually when she is outside in the spring weather, but states this is the only one she was unable to stop/control. I do not think she needs any measurement of hemoglobin emergently, she was able to get it to stop off and on at home it just restarting, and she had some blood work done a couple days ago which I reviewed. ENT follow-up 2-3 days, given appropriate discharge instructions. History & Record Review Additional record(s) reviewed:: Prior labs Procedures Other Procedures Procedure(s): Epistaxis care: Once vasoconstrictive medication was available, I had patient evacuate both nostrils of clots and blood, she was actively bleeding from the right naris. This was immediately followed by instillation/atomization of [address] Cliff landis, which the patient inhaled, followed by insertion of a pledget soaked in same. This resulted in good hemostasis. 20 minutes later, on reevaluation and removal of the pledget, there is persistent bleeding from Kesselbach plexus. Therefore, a nasal packing was placed, 3.5 cm Merisel, patient tolerated this well, it was softened with saline and more Aquiles solution, there was no recurrent bleeding after this patient was discharged. Discharge Plan Triage Chief Complaint: Nosebleed ED Provider: Antonio Beevrly Dx/Rx/DC Orders Clinical Impression: Acute anterior epistaxis Instructions: ED Epistaxis (Adult) Prescriptions: No Action cholecalciferol (vitamin D3) 50 mcg (2,000 unit) capsule 50 mcg PO DAILY multivitamin [Daily Multi-Vitamin] Tablet 1 tab PO DAILY levothyroxine 88 MCG tablet 88 mcg PO DAILY omeprazole 20 MG capsule 40 mg PO DAILY aspirin 81 MG tablet 81 mg PO DAILY@0800 0RF clopidogrel 75 mg tablet 75 mg PO DAILY Qty: 90 3RF losartan 25 mg tablet 25 mg PO DAILY Qty: 90 3RF atorvastatin 40 mg tablet 40 mg PO QHS Qty: 90 3RF Primary Care Provider: Daphnie Jones Referrals: Daphnie Jones MD [Primary Care Provider] - Frandy Coronado MD [Med Staff - Active Staff] - 10/02/22 (Call for appointment, or may return to ER on 10/01 or 10/02 if having difficulty getting into ENT.) Activity Restrictions/Additional Instructions: Get any [id number] nasal decongestant spray containing oxymetazoline or phenylephrine. For moderate-severe nosebleed: 1 - gather supplies: nasal decongestant spray (above), cotton ball, box of tissues, garbage can, old towel that you can wrap around your chest/neck (to catch blood) 2 - soak a cotton ball in the nasal spray 3 - blow your nose, get all blood and clots out, keep chin down to prevent blood from going back into throat and forming clots 4 - after blowing the last time, quickly spray 2 sprays of the nasal spray into the affected side and sniff it back, immediately followed by twisting the soaked cotton ball into the front of your nose and then hold pressure with your fingers. 5 - if bleeding controlled, leave cotton ball in place for at least 20 min before checking to see if the bleeding is controlled by removing the cotton ball. If not able to control bleeding, always welcome to return to the ER for help. Disposition Disposition: Home, Self Care
[2022-09-29] MEDS: Mixture 30 ML Bottle TOPICAL (03:41)
[2022-09-29 03:45] VITALS: BP 147/78; PULSE 60; RESP 15; O2SAT 95
== END 2022-09-29 03:54 | disposition home or self-care (01) ==
PROVIDERS: Emergency Provider Emergency Medicine; PCP Family Medicine; Visit Provider Emergency Medicine
DX: R04.0 Epistaxis (principal); I25.5 Ischemic cardiomyopathy; I10 Essential (primary) hypertension; I25.10 Atherosclerotic heart disease of native coronary artery without angina pectoris; Z79.02 Long term (current) use of antithrombotics/antiplatelets; E03.9 Hypothyroidism, unspecified; K21.9 Gastro-esophageal reflux disease without esophagitis; Z79.899 Other long term (current) drug therapy; Z79.82 Long term (current) use of aspirin; I25.2 Old myocardial infarction; Z95.5 Presence of coronary angioplasty implant and graft
CPT/HCPCS: 30901; 99282; A4216

== ENCOUNTER → 2023-03-29 | Outpatient (CLI) | payer MEDICARE, SELFPAY ==
--- NOTE | 2023-03-29 10:54 | ECHOD_ITS ---
Version 2 Reason For Study: ISCHEMIC CMP Procedure This was a 2D Doppler, Color Flow transthoracic echocardiogram. Exam performed in department. Left Ventricle Normal LV size. Sigmoid septum. Left ventricular systolic function is normal. The estimated ejection fraction is 60 %. No regional wall motion abnormalities noted. Right Ventricle Normal RV size. Normal systolic function. Atria Normal left atrium. Mitral Valve Normal mitral valve. Tricuspid Valve Normal tricuspid valve. Aortic Valve Normal aortic valve. Trisinus/trileaflet aortic valve. Pulmonic Valve Normal pulmonic valve. Great Vessels Normal aortic root. The pulmonary artery is normal size. Normal inferior vena cava. Pericardium/Pleural No pericardial effusion. MMode/2D Measurements & Calculations LVIDd: 4.1 cm IVSd: 1.2 cm Ao root diam: 3.7 cm LVIDs: 2.8 cm LVPWd: 0.92 cm RVDd: 2.8 cm FS: 31.7 % LAV(MOD-bp): 43.2 ml LVAd ap4: 28.0 cm2 LVAd ap2: 24.3 cm2 LAV(MOD-bp) Indexed: 27.4 ml/m2 LVLd ap4: 8.0 cm LVLd ap2: 8.1 cm LAV(MOD-sp2): 43.4 ml EDV(MOD-sp4): 81.3 ml EDV(MOD-sp2): 64.2 ml LAV(MOD-sp4): 30.9 ml EDV(sp4-el): 83.5 ml EDV(sp2-el): 61.6 ml LVAs ap4: 13.6 cm2 LVAs ap2: 14.1 cm2 LVLs ap4: 5.9 cm LVLs ap2: 7.1 cm ESV(MOD-sp4): 27.4 ml ESV(MOD-sp2): 27.6 ml ESV(sp4-el): 26.7 ml ESV(sp2-el): 23.8 ml EF(MOD-sp4): 66.2 % EF(MOD-sp2): 57.0 % EF(sp4-el): 68.0 % SV(MOD-sp4): 53.8 ml SV(MOD-sp2): 36.6 ml SV(sp4-el): 56.8 ml LA dimension(2D): 3.3 cm TAPSE: 1.5 cm LA A4 area: 12.3 cm2 Time Measurements MV dec time: 0.24 sec Doppler Measurements & Calculations MV E max dennis: 56.3 cm/sec Lat Peak E' Dennis: 8.0 cm/sec Med Peak E' Dennis: 4.8 cm/sec MV A max dennis: 86.0 cm/sec E/E' lat: 7.0 E/E' med: 11.6 MV E/A: 0.65 MV dec slope: 229.9 cm/sec2 PA V2 max: 74.7 cm/sec TR max dennis: 197.2 cm/sec PA V2 mean: 49.2 cm/sec TR max P.6 mmHg ECHO/Echo Complete Interpretation Summary Normal LV size. Left ventricular systolic function is normal. The estimated ejection fraction is 60 %. Structurally normal valves. Ordering Physician: Marie Shafer Referring Physician: Daphnie Jones Performed By: Jeniffer Manjarrez RDCS, RVT
--- NOTE | 2023-03-30 05:51 | PFTCOMP ---
COMPLETE PULMONARY FUNCTION TEST INTERPRETATION Brief HPI: Patient is a 73-year-old female, currently under the care of Dr. Menon, who presents to [facility] for complete pulmonary function tests secondary to diagnosis of dyspnea. Respiratory therapist reports good effort and reproducible results. Interpretation: Forced expiration spirometry shows a severe large airways obstructive ventilatory defect with an FEV1 of 47% predicted. There is no significant bronchodilator response by strict ATS criteria. Spirograms are of good quality and plateau slowly, indicating slowly emptying areas of the lungs. The respiratory flow volume loop shows decreased expiratory flow rates at all lung volumes consistent with airway obstruction. Lung volumes by body plethysmography show a normal total lung capacity at 3.54 L, 86% predicted. FRC and RV are elevated out of proportion. Lung volume measurements are consistent with air-trapping. Diffusion capacity by carbon monoxide is normal at 94% predicted. The airway resistance is elevated. Compared to previous pulmonary function tests from 2020, there has been no significant change. Impression: Irreversible severe large airways obstructive ventilatory defect resulting in air trapping, but relatively preserved diffusion capacity
== END | disposition home or self-care (01) ==
LOC: CVS 10:53
PROVIDERS: PCP Family Medicine; Referring Provider Internal Medicine Cardiovascular Disease; Visit Provider Internal Medicine Cardiovascular Disease
DX: R06.09 Other forms of dyspnea (principal); I25.5 Ischemic cardiomyopathy
CPT/HCPCS: 93306; 94060; 94726; 94729

== ENCOUNTER → 2023-05-09 | Outpatient (CLI) | payer MEDICARE, SELFPAY ==
[2023-05-09 11:00] LABS: Absolute Lymphocyte Count 2.85 X10^3/uL (0.83-4.51); Absolute Neutrophil Count 3.3 X10^3/uL (2.0-7.7); Basophil# 0.06 X10^3/uL; Basophil% 0.8 % (0-1); Eosinophil# 0.43 X10^3/uL; Hematocrit 42.7 % (37-47); Lymphocyte # 2.85 X10^3/ul (0.83-4.51); Lymphocyte % 39.8 % (19-41); Mean Corp Hgb Conc 30.4 g/dL (32-36); Mean Corpuscular Hgb 26.5 pg (27.0-32.0); Mean Corpuscular Volume 87.1 fL (81-99); Monocyte# 0.48 X10^3/uL; Monocyte% 6.7 % (0-10); NRBC Flagged by Analyzer 0 % (0-5); Neutrophil # 3.33 X10^3/uL (2.7-7.7); Neutrophil % 46.6 % (47-70); Platelet Count 241 K/mm3 (150-450); RBC Distribution Width CV 13.2 % (11.6-14.6); RBC Distribution Width SD 41.8 fl (35.1-43.9); White Blood Count 7.2 K/mm3 (4.4-11.0)
[2023-05-09 12:03] LABS: AST(SGOT) 22 U/L (15-37); Alanine Aminotransfer ALT/SGPT 21 U/L (13-56); Albumin, Serum 3.5 g/dL (3.2-5.0); Alkaline Phosphatase 72 U/L (45-117); Anion Gap 3 (5-15); BUN 17 mg/dL (7-18); Calcium,Total 9.1 mg/dL (8.5-10.1); Chloride 106 mmol/L (98-107); Cholesterol 125 mg/dL (200); EST Glomerular Filtration Rate 58 mL/min (>60); Est Glom Filt Rate - Afr Amer 70 mL/min (>60); Globulin 3.5 g/dL (2.2-4.2); Glucose 110 mg/dL (74-106); High Density Lipoprotein 70 mg/dL; Potassium 3.9 mmol/L (3.5-5.1); Sodium Level 139 mmol/L (136-145); Thyroid Stim Hormone (TSH) 1.37 uIU/mL (0.358-3.74); Triglycerides 45 mg/dL; Very Low Density Lipoprotein 9 mg/dL (5-40)
== END | disposition home or self-care (01) ==
LOC: MTLAB 07:25
PROVIDERS: PCP Family Medicine; Referring Provider Family Medicine; Visit Provider Family Medicine
DX: Z00.00 Encounter for general adult medical examination without abnormal findings (principal); E03.9 Hypothyroidism, unspecified; I10 Essential (primary) hypertension; K21.9 Gastro-esophageal reflux disease without esophagitis
CPT/HCPCS: 36415; 80053; 80061; 84443; 85025

== ENCOUNTER → 2023-06-05 | Outpatient (CLI) | payer MEDICARE, SELFPAY ==
--- NOTE | 2023-06-05 13:04 | BI_ITS ---
MAMMOGRAPHY - BILATERAL SCREENING REASON FOR EXAM: Female, 73 years old. Routine annual screening examination. PERTINENT HISTORY: Aunt with breast cancer. TECHNIQUE: Digital bilateral breast stephen (3D mammographic acquisition) in the CC and MLO projections. 2-D mediolateral oblique (MLO) and craniocaudad (CC) views of both breasts were obtained. CAD: Full Field Digital Mammography with Computer Added Detection was performed. COMPARISON: Comparison is made with prior study dated June 01, 2022 and May 23, 2021. FINDINGS: Breast Composition: There are scattered areas of fibroglandular density. There are no dominant masses or suspicious calcifications. Stable small benign-appearing bilateral axillary lymph nodes. No other significant abnormalities are identified. There has been no significant change since the prior study. BI/SCRN MAMM (CAD)W/STEPHEN BILAT IMPRESSION: Stable bilateral screening mammogram. Yearly follow-up mammogram recommended. (A) ASSESSMENT CATEGORY: BIRADS Category 2: Benign. A letter regarding these results will be sent to the patient by the facility within 30 days. Approximately 10% of breast cancers are not detected by mammography. A normal mammogram should not delay biopsy of a clinically suspicious abnormality. [id number] Electronically Signed: Lew Pacheco MD at 11:31 EST ,
== END | disposition home or self-care (01) ==
LOC: OPBI 13:02
PROVIDERS: PCP Family Medicine; Referring Provider Family Medicine; Visit Provider Family Medicine
DX: Z12.31 Encounter for screening mammogram for malignant neoplasm of breast (principal)
CPT/HCPCS: 77063; 77067

== ENCOUNTER → 2024-05-22 | Outpatient (CLI) | payer MEDICARE, SELFPAY ==
[2024-05-22 10:32] LABS: Absolute Lymphocyte Count 2.45 X10^3/uL (0.83-4.51); Absolute Neutrophil Count 4.1 X10^3/uL (2.0-7.7); Basophil# 0.04 X10^3/uL; Basophil% 0.5 % (0-1); Eosinophil# 0.39 X10^3/uL; Eosinophils% 5.2 % (0-5); Hematocrit 40.6 % (37-47); Lymphocyte # 2.45 X10^3/ul (0.83-4.51); Lymphocyte % 32.6 % (19-41); Mean Corpuscular Hgb 26.6 pg (27.0-32.0); Mean Corpuscular Volume 83.2 fL (81-99); Mean Platelet Vol. 9.5 fl (6.2-12.0); Monocyte# 0.54 X10^3/uL; Monocyte% 7.2 % (0-10); NRBC Flagged by Analyzer 0 % (0-5); Neutrophil # 4.08 X10^3/uL (2.7-7.7); Neutrophil % 54.4 % (47-70); Platelet Count 246 K/mm3 (150-450); RBC Distribution Width CV 13.2 % (11.6-14.6); RBC Distribution Width SD 40.1 fl (35.1-43.9); Red Blood Count 4.88 M/mm3 (4.2-5.4); White Blood Count 7.5 K/mm3 (4.4-11.0)
[2024-05-22 11:03] LABS: AST(SGOT) 21 U/L (15-37); Alanine Aminotransfer ALT/SGPT 21 U/L (13-56); Albumin, Serum 3.5 g/dL (3.2-5.0); Alkaline Phosphatase 77 U/L (45-117); Anion Gap 6 (5-15); BUN 15 mg/dL (7-18); BUN/Creat Ratio 15.9 RATIO (10-20); Calcium,Total 9.2 mg/dL (8.5-10.1); Chloride 104 mmol/L (98-107); Cholesterol 134 mg/dL (200); Creatinine, Serum 0.94 mg/dL (0.55-1.02); EST Glomerular Filtration Rate 62 mL/min (>60); Est Glom Filt Rate - Afr Amer 74 mL/min (>60); Globulin 3.5 g/dL (2.2-4.2); Glucose 101 mg/dL (74-106); High Density Lipoprotein 66 mg/dL; Sodium Level 136 mmol/L (136-145); Triglycerides 71 mg/dL; Very Low Density Lipoprotein 14 mg/dL (5-40)
== END | disposition home or self-care (01) ==
PROVIDERS: PCP Family Medicine; Referring Provider Family Medicine; Visit Provider Family Medicine
DX: Z00.00 Encounter for general adult medical examination without abnormal findings (principal); E03.9 Hypothyroidism, unspecified; I10 Essential (primary) hypertension; K21.9 Gastro-esophageal reflux disease without esophagitis
CPT/HCPCS: 36415; 80053; 80061; 84443; 85025

== ENCOUNTER → 2024-10-15 | Outpatient (CLI) | payer MEDICARE, SELFPAY ==
[2024-10-15 12:13] LABS: Absolute Lymphocyte Count 2.03 X10^3/uL (0.83-4.51); Absolute Neutrophil Count 4.1 X10^3/uL (2.0-7.7); Basophil# 0.06 X10^3/uL; Basophil% 0.8 % (0-1); Eosinophil# 0.38 X10^3/uL; Eosinophils% 5.3 % (0-5); Hematocrit 40.3 % (37-47); Hemoglobin 13.1 g/dL (12.0-15.0); Lymphocyte # 2.03 X10^3/ul (0.83-4.51); Lymphocyte % 28.2 % (19-41); Mean Corp Hgb Conc 32.5 g/dL (32-36); Mean Corpuscular Hgb 27.1 pg (27.0-32.0); Mean Corpuscular Volume 83.3 fL (81-99); Mean Platelet Vol. 9.7 fl (6.2-12.0); Monocyte# 0.62 X10^3/uL; Monocyte% 8.6 % (0-10); NRBC Flagged by Analyzer 0 % (0-5); Neutrophil # 4.08 X10^3/uL (2.7-7.7); Neutrophil % 56.8 % (47-70); Platelet Count 223 K/mm3 (150-450); RBC Distribution Width SD 39.3 fl (35.1-43.9); Red Blood Count 4.84 M/mm3 (4.2-5.4); White Blood Count 7.2 K/mm3 (4.4-11.0)
[2024-10-19 02:07] LABS: Alternaria tenuis <0.10 kU/L (Class 0); Ash, White <0.10 kU/L (Class 0); Aspergillus fumigatus <0.10 kU/L (Class 0); Bermuda Grass <0.10 kU/L (Class 0); Birch <0.10 kU/L (Class 0); Black Walnut <0.10 kU/L (Class 0); Cat Hair / Dander,Stand <0.10 kU/L (Class 0); Cedar, Mountain <0.10 kU/L (Class 0); Cladosporium herbarum <0.10 kU/L (Class 0); Cockroach, American <0.10 kU/L (Class 0); Cottonwood <0.10 kU/L (Class 0); D farinae Mite <0.10 kU/L (Class 0); D pteronyssinus <0.10 kU/L (Class 0); Dog Epithelia <0.10 kU/L (Class 0); Elm, American White <0.10 kU/L (Class 0); Immunoglobulin E 11 IU/mL (6-495); Maple/Box Elder <0.10 kU/L (Class 0); Mouse Urine <0.10 kU/L (Class 0); Mulberry, White <0.10 kU/L (Class 0); Oak, White <0.10 kU/L (Class 0); Pecan <0.10 kU/L (Class 0); Penicillium Notatum <0.10 kU/L (Class 0); Pigweed, Rough <0.10 kU/L (Class 0); Ragweed, Short/Common <0.10 kU/L (Class 0); Russian Thistle <0.10 kU/L (Class 0); Sheep Sorrel <0.10 kU/L (Class 0); Sycamore, American <0.10 kU/L (Class 0); Timothy Grass <0.10 kU/L (Class 0)
== END | disposition home or self-care (01) ==
LOC: PAVLAB 11:33
PROVIDERS: PCP Family Medicine; Referring Provider Internal Medicine Critical Care Medicine; Visit Provider Internal Medicine Critical Care Medicine
DX: R06.09 Other forms of dyspnea (principal)
CPT/HCPCS: 36415; 82785; 85025; 86003; 86037; 86606

== ENCOUNTER → 2024-10-31 | Outpatient (CLI) | payer MEDICARE, SELFPAY | END | disposition home or self-care (01) | LOC: PSN 10:36 | PROVIDERS: PCP Family Medicine; Referring Provider Internal Medicine Critical Care Medicine; Visit Provider Internal Medicine Critical Care Medicine | DX: R06.09 Other forms of dyspnea (principal) | CPT/HCPCS: 94060; 94726; 94729 ==

== ENCOUNTER → 2024-11-13 | Outpatient (CLI) | payer MEDICARE, SELFPAY ==
[2024-11-13 13:36] VITALS: PULSE 100; PULSE 102; PULSE 81; PULSE 83; PULSE 84; PULSE 87; PULSE 94; PULSE 99; O2SAT 90; O2SAT 91; O2SAT 92; O2SAT 95
--- NOTE | 2024-11-17 10:17 | PCM.PSN.6M ---
PSN 6 Minute Walk Test 6 Minute Walk Test 6 Minute Walk Test: 6 Minute Walk Test PSN:6-Minute Walk Test Start: 11/13/24 13:35 Freq: Status: Discharge Protocol: [id number].[id number] Document 11/13/24 13:36 [facility] (Rec: 11/13/24 13:41 [facility] [id number]) 6 Minute Walk Test Date Performed 11/13/24 Time Performed 13:00 Height 4 ft 11 in Weight: 135 lb Weight in Pounds 135.[address]: Papi Govea Assistive device None used: Pre-test Oxygen Delivery Room Air Method Pulse Ox (%) 95 Pulse Rate (60-100 81 beats/min) Dyspnea Lilo Scale ( 2 0-10) Exertion Lilo Scale 7 (6-20) 1st minute Oxygen Delivery Room Air Method Pulse Ox (%) 91 Pulse Rate (60-100 84 beats/min) Dyspnea Lilo Scale ( 2 0-10) Number of Rests 0 Taken 2nd minute Oxygen Delivery Room Air Method Pulse Ox (%) 90 Pulse Rate (60-100 87 beats/min) Dyspnea Lilo Scale ( 3 0-10) Number of Rests 0 Taken Reported Symptoms Increased Work of Breathing 3rd minute Oxygen Delivery Room Air Method Pulse Ox (%) 92 Pulse Rate (60-100 94 beats/min) Dyspnea Lilo Scale ( 3 0-10) Number of Rests 0 Taken Reported Symptoms Increased Work of Breathing 4th minute Oxygen Delivery Room Air Method Pulse Ox (%) 90 Pulse Rate (60-100 99 beats/min) Dyspnea Lilo Scale ( 3 0-10) Number of Rests 0 Taken Reported Symptoms Increased Work of Breathing 5th minute Oxygen Delivery Room Air Method Pulse Ox (%) 92 Pulse Rate (60-100 102 H beats/min) Dyspnea Lilo Scale ( 4 0-10) Number of Rests 0 Taken Reported Symptoms Increased Work of Breathing 6th minute Oxygen Delivery Room Air Method Pulse Ox (%) 91 Pulse Rate (60-100 100 beats/min) Dyspnea Lilo Scale ( 4 0-10) Exertion Lilo Scale 7 (6-20) Number of Rests 0 Taken Reported Symptoms Increased Work of Breathing Post-test Oxygen Delivery Room Air Method Pulse Ox (%) 95 Pulse Rate (60-100 83 beats/min) Dyspnea Lilo Scale ( 2 0-10) Full Laps Walked 22 Partial Lap, Number 37 of Tiles Walked Total Distance 1335 Walked (ft) Interpretation Interpretation: The patient ambulated 1335 feet over the course of 6 minutes beginning on room air without assistive devices. Pretesting oxygen saturation was noted to be 95% on room air. With ambulation, the maribell oxygen saturation was 90%. This represents a significant exertional oxygen desaturation, consistent with a pulmonary limitation to exercise tolerance. Recommendations Recommendations: There is no indication for the use of supplemental oxygen at this time. However, close interval follow-up was recommended, given the degree of oxygen desaturation noted during this study.
== END | disposition home or self-care (01) ==
LOC: PSN 12:55
PROVIDERS: PCP Family Medicine; Referring Provider Internal Medicine Critical Care Medicine; Visit Provider Internal Medicine Critical Care Medicine
DX: R06.09 Other forms of dyspnea (principal)
CPT/HCPCS: 94618

== ENCOUNTER → 2025-03-12 | Outpatient (CLI) | payer MEDICARE, SELFPAY | END | disposition home or self-care (01) | PROVIDERS: PCP Family Medicine; Referring Provider Family Medicine; Visit Provider Family Medicine | DX: J02.9 Acute pharyngitis, unspecified (principal) | CPT/HCPCS: 87070; 87077 ==

== ENCOUNTER → 2025-05-11 | Outpatient (CLI) | payer MEDICARE, SELFPAY ==
--- NOTE | 2025-05-11 15:40 | STRESSREP ---
Stress Test Report Pharmacologic myocardial perfusion stress test. 75-year-old lady with a history of chest discomfort. Resting EKG demonstrates normal sinus with a rate of 65 bpm. Resting blood pressure is 132/70 mmHg. 0.4 mg of regadenoson was infused per usual protocol followed by rapid intravenous saline flush injection. Continuous EKG monitoring was performed. The maximum heart rate was 90 bpm which was 62% of max impacted heart rate the maximum workload was 1 metabolic equivalent. At rest there were no ST or T wave changes noted to suggest ischemia and at peak infusion nonspecific ST changes were noted which did not meet the criteria for ischemia. No clinical angina is noted. The final blood pressure was 120/64 mmHg. Myocardial perfusion protocol. 11.8 mCi of technetium 99m sestamibi was injected at rest. 0.4 mg of regadenoson was infused per usual protocol. At peak infusion 33.5 mCi of technetium 99m sestamibi was injected stress images were obtained stress and rest images were reconstructed and compared in the short axis vertical long and horizontal long axis. Gated images were also obtained. Perfusion SPECT analysis: Review of the stress images demonstrate normal uptake of tracer noted in all areas of the myocardium. The resting images similar demonstrated normal uptake of tracer noted in all areas of the myocardium. No areas of reversibility are noted to suggest ischemia and no previous infarct is noted. Gated SPECT analysis: The gated ejection fraction is 80%. Conclusion: Normal pharmacologic myocardial perfusion stress test. Preserved ejection fraction.
== END | disposition home or self-care (01) ==
LOC: CVS 06:55
PROVIDERS: PCP Family Medicine; Referring Provider Internal Medicine Cardiovascular Disease; Visit Provider Internal Medicine Cardiovascular Disease
DX: Z95.5 Presence of coronary angioplasty implant and graft (principal); I25.10 Atherosclerotic heart disease of native coronary artery without angina pectoris
CPT/HCPCS: 78452; 93017; A9500; A4216; J2785

== ENCOUNTER → 2025-05-20 | Outpatient (CLI) | payer MEDICARE, SELFPAY ==
--- OUTSIDE RECORDS SUMMARY | 2025-05-20 07:38 | XMS RPT_ITS | CCD ---
Author Organization [facility] CliniSyar Care Team Providers Care Helper Metal Hanging Name Role Phone PATRICIA CARMICHAEL Unavailable Unavailable PATRICIA CARMICHAEL Unavailable Unavailable TAO PALACIOS Unavailable Unavailable TALAMPAS, ANGELITA D Unavailable Unavailable TALAMPAS, ANGELITA D Unavailable Unavailable TALAMPAS, ANGELITA D Unavailable Unavailable TALAMPAS, ANGELITA D Unavailable Unavailable TALAMPAS, ANGELITA D Unavailable Unavailable TALAMPAS, ANGELITA D Unavailable Unavailable PRADEEP MICHAEL (MOWING MACHINE OPERATOR) Unavailable Unavailable TALAMPAS, ANGELITA D Unavailable Unavailable Dr. Daphnie Jones Primary Care Provider 1([facility]) Dr. Daphnie Jones Referring Provider 1([facility])[phone] Dr. Cedric Oneal Attending Provider 1([facility])- 00 Dr. Cedric Oneal Referring Provider 1([facility]) 00 Dr. Cedric Oneal Other Provider Dr. Daphnie Jones Primary Care Provider 1([facility]) Dr. Daphnie Jones Referring Provider [phone] EDGAR Ordaz Attending Provider Dr. Cedric Oneal Attending Provider 1([facility])-[phone] Rama Menon Referring Provider Dr. Rama Menon Other Provider Dr. Ronnie Coffey Attending Provider 1([facility])[phone] Daphnie Jones Primary Care Provider 1([facility]) Dr. Daphnie Jones Referring Provider 1([facility])[phone] EDGAR Ordaz Attending Provider Dr. Cedric Oneal Attending Provider Sinan, Dr. Ontiveros Referring Provider [phone] Sinan, Dr. Ontiveros Other Provider Dr. Ronnie Coffey Attending Provider Dr. Daphnie Jones MD Primary Care Provider Dr. Daphnie Jones MD Referring Provider Dr. Papi Govea DO Attending Provider Dr. Papi Govea DO Referring Provider [phone] Dr. Papi Govea DO Other Provider Perri SUNG-CKristen Attending Provider Papi Govea Attending Unavailable Brown, Papi Referring Unavailable Miedel, Daphnie Primary Care Unavailable Kristen Rayo Attending Unavailable Miedel, Daphnie Referring Unavailable Miedel, Daphnie Primary Care Unavailable Kristen Rayo Attending Unavailable Miedel, Daphnie Referring Unavailable Miedel, Daphnie Primary Care Unavailable Miedel, Daphnie Attending Unavailable Miedel, Daphnie Referring Unavailable Miedel, Daphnie Primary Care Unavailable Miedel, Daphnie Primary Care Unavailable Miedel, Daphnie Attending Unavailable Miedel, Daphnie Referring Unavailable Miedel, Daphnie Primary Care Unavailable Brown, Papi Attending Unavailable Brown, Papi Referring Unavailable Brown, Papi Attending Unavailable Brown, Papi Referring Unavailable Miedel, Daphnie Primary Care Unavailable Brown, Papi Attending Unavailable Brown, Papi Referring Unavailable Miedel, Daphnie Primary Care Unavailable Miedel, Daphnie Primary Care Unavailable Brown, Papi Attending Unavailable Miedel, Daphnie Referring Unavailable Kristen Rayo Attending Unavailable Miedel, Daphnie Referring Unavailable Miedel, Daphnie Primary Care Unavailable Kristen Rayo Attending Unavailable Miedel, Daphnie Referring Unavailable Miedel, Daphnie Primary Care Unavailable Brown, Papi Consulting Unavailable Brown, Papi Attending Unavailable Brown, Papi Referring Unavailable Miedel, Daphnie Primary Care Unavailable Allergies Allergy Classification Reported Allergen(s) Allergy Type Date of Onset Reaction(s) Facility (2 sources) Erythromycin; Translations: [ERYTHROMYCIN] [facility] Sulfonamides (Antibiotic); Translations: [SULFA (SULFONAMIDE ANTIBIOTICS)] Propensity to adverse reactions to drug (disorder) 6 [facility], Hives [facility] Repository (14 sources) Erythromycin Drug Allergy 2 Nausea [facility] (1 source) Erythromycin Drug Allergy 5 [facility] Repository Medications Current Medications Medication Drug Class(es) Dates Sig (Normalized) Sig (Original) [id number] 200 actuat albuterol 0.09 mg/actuat metered dose inhaler (7 sources) beta2-Adrenergic Agonist Start: 10-15-2024 Albuterol Sulfate 90 mcg/actuation HFA aerosol inhaler Active INHALATION October 15, 2024 12:00am aspirin 81 mg delayed release oral tablet (14 sources) Platelet Aggregation Inhibitor, Nonsteroidal Anti-inflammatory Drug Start: 10-16-2018 take 1 tablet by mouth once daily Aspirin 81 MG tablet Active 81 mg PO DAILY@0800 0 October 16, 2018 12:00am Budesonide-Formot fabian (6 sources) Corticosteroid, beta2-Adrenergic Agonist Start: 11-26-2024 Budesonide-Formoter ol (Symbicort) 160-4.5 mcg/actuation HFA aerosol inhaler Active 2 NMA INHALATION TWICE A DAY 3 3 November 26, 2024 11:29am Asthma Moderate persistent asthma, uncomplicated Start: 11-26-2024 Budesonide-For moterol (Symbicort) 160-4.5 mcg/actuation HFA aerosol inhaler Active 2 NMA INHALATION TWICE A DAY 3 November 26, 2024 11:29am Start: 11-26-2024 End: 11-26-2024 Budesonide-Formoterol (Symbi chiki) 160-4.5 mcg/actuation HFA aerosol inhaler Discontinued 2 NMA INHALATION TWICE A DAY 10.2 5 November 26, 2024 12:00am November 26, 2024 11:31am Asthma Moderate persistent asthma, uncomplicated Start: 11-26-2024 End: 11-26-2024 Budesonide-Formoterol (Symbi chiki) 160-4.5 mcg/actuation HFA aerosol inhaler Discontinued 2 NMA INHALATION TWICE A DAY 10.2 November 26, 2024 12:00am November 26, 2024 11:31am cetirizine hydrochloride 10 mg oral capsule (7 sources) Histamine-1 Receptor Antagonist Start: 10-15-2024 take 1 capsule by mouth once daily Cetirizine (Zyrtec) 10 mg capsule Active 10 mg PO daily October 15, 2024 12:00am cholecalciferol 0.05 mg oral capsule (14 sources) Vitamin D Start: 03-23-2021 take 1 capsule by mouth once daily Cholecalciferol (Vitamin D3) 50 mcg (2,000 unit) capsule Active 50 ug PO DAILY March 23, 2021 12:00am 2 ml dupilumab 150 mg/ml auto-injector (2 sources) Interleukin-4 Receptor alpha Antagonist Start: 01-07-2025 Dupilumab (Dupixent Pen) 300 mg/2 mL pen injector Active 600 mg SC ONCE 4 0 January 07, 2025 12:00am Asthma Severe persistent asthma, uncomplicated as a single dose Start: 01-07-2025 Dupilumab (Dup ixent Pen) 300 mg/2 mL pen injector Active 300 mg SC every 2 weeks 4 11 January 07, 2025 12:00am Asthma Severe persistent asthma, uncomplicated to begin after loading dose levothyroxine sodium 0.088 mg oral tablet (14 sources) l-Thyroxine Start: 10-14-2018 take 1 tablet by mouth once daily Levothyroxine 88 MCG tablet Active 88 ug PO DAILY October 14, 2018 12:00am thyroid montelukast 10 mg oral tablet (3 sources) Leukotriene Receptor Antagonist Start: 11-26-2024 take 1 tablet by mouth once daily Montelukast (Singulair) 10 mg tablet Active 10 mg PO daily 90 3 November 26, 2024 12:00am Asthma Moderate persistent asthma, uncomplicated Multivitamin (Daily Multi-Vitamin) tablet (14 sources) Start: 03-23-2021 Multivitamin (Daily Multi-Vitamin) tablet Active 1 {tbl} PO DAILY March 23, 2021 12:00am Start: 03-23-2021 take 1 tablet by joe once daily Multivitamin (Daily Multi-Vitamin) tablet Active 1 TABLET PO DAILY March 23, 2021 12:00am Start: 03-23-2021 take 1 tablet by joe th once daily Multivitamin (Daily Multi-Vitamin) tablet Active 1 TABLET PO DAILY March 22, 2021 11:00pm omeprazole 20 mg delayed release oral capsule (14 sources) Proton Pump Inhibitor Start: 10-14-2018 take 2 capsules by mouth once daily Omeprazole 20 MG capsule Active 40 mg PO DAILY October 14, 2018 12:00am stomach Start: 10-14-2018 take 40 mg by mouth once daily Omeprazole Active 40 MG PO DAILY October 13, 2018 11:00pm Completed/Discontinued Medications Medication Drug Class(es) Dates Sig (Normalized) Sig (Original) amLODIPine 5 mg oral tablet (14 sources) Dihydropyridine Calcium Channel Reilly Start: 10-14-2018 End: 10-16-2018 take 1 tablet by mouth once daily Amlodipine 5 MG tablet Discontinued 5 mg PO DAILY October 14, 2018 12:00am October 16, 2018 10:15am amoxicillin 500 mg oral capsule (14 sources) Penicillin-class Antibacterial Start: 06-02-2019 End: 06-12-2019 take 2 capsules by mouth twice daily Amoxicillin 500 mg capsule Discontinued 1000 mg PO TWICE A DAY 40 10 June 02, 2019 1:00am June 11, 2019 1:00am June 12, 2019 1:08am Start: 06-02-2019 End: 06-12-2019 take 1000 mg by mouth twice daily Amoxicillin Discontinued 1000 MG PO TWICE A DAY 40 June 02, 2019 12:00am June 12, 2019 12:08am atorvastatin 40 mg oral tablet (20 sources) HMG-CoA Reductase Inhibitor Start: 10-16-2018 End: 09-03-2024 take 1 tablet by mouth at bedtime Atorvastatin 40 mg tablet Discontinued 40 mg PO AT BEDTIME 90 3 September 10, 2023 2:28pm September 03, 2024 12:27pm benzonatate 100 mg oral capsule (14 sources) Non-narcotic Antitussive Start: 10-16-2018 End: 07-08-2019 take 2 capsules by mouth four times daily as needed for cough Benzonatate 100 MG capsule Discontinued 200 mg PO 4 TIMES DAILY NEEDED as needed for Cough 100 0 October 16, 2018 12:00am July 08, 2019 12:29pm Start: 10-16-2018 End: 07-08-2019 take 200 mg by mouth four times daily as needed Benzonatate Discontinued 200 MG PO 4 TIMES DAILY NEEDED 100 May 14th, 2019 11:00pm July 08, 2019 11:29am Mtujgvkyet-Mvkccjkg-Bhygbdhz ol (7 sources) Corticosteroid, beta2-Adrenergic Agonist Start: 10-15-2024 End: 11-26-2024 Iniehbaive-Xpdbzgya-Gjlhqegk ol (Breztri Aerosphere) 160-9-4.8 mcg/actuation HFA aerosol inhaler Discontinued 2 NMA INHALATION TWICE A DAY 10.7 October 15, 2024 12:00am November 26, 2024 11:04am Start: 10-15-2024 End: 11-26-2024 Aalhcnkndr-Ukmxulnj-Ffyxkajy ol (Breztri Aerosphere) 160-9-4.8 mcg/actuation HFA aerosol inhaler Discontinued 2 NMA INHALATION TWICE A DAY 10.7 October 15, 2024 12:00am November 26, 2024 11:04am Start: 10-15-2024 Budesonide-Gly copyr-Formoterol (Breztri Aerosphere) 160-9-4.8 mcg/actuation HFA aerosol inhaler Active 2 NMA INHALATION TWICE A DAY 10.7 October 15, 2024 12:00am carvedilol 3.125 mg oral tablet (20 sources) alpha-Adrenergic Reilly, beta-Adrenergic Reilly Start: 10-16-2018 End: 03-11-2020 take 1 tablet by mouth twice daily Carvedilol 3.125 mg tablet Discontinued 3.125 mg PO TWICE A DAY 180 3 October 22, 2018 3:56pm March 11, 2020 11:08am clopidogrel 75 mg oral tablet (20 sources) P2Y12 Platelet Inhibitor Start: 03-03-2019 End: 03-15-2023 take 1 tablet by mouth once daily Clopidogrel 75 mg tablet Discontinued 75 mg PO DAILY 90 3 January 01, 2023 1:11pm March 15, 2023 10:55am losartan potassium 25 mg oral tablet (20 sources) Angiotensin 2 Receptor Reilly Start: 10-16-2018 End: 09-03-2024 take 1 tablet by mouth once daily Losartan 25 mg tablet Discontinued 25 mg PO DAILY 90 3 September 10, 2023 10:06am September 03, 2024 12:27pm Tiotropium-Olodat fabian (7 sources) Anticholinergic, beta2-Adrenergic Agonist Start: 03-03-2024 End: 11-26-2024 Tiotropium-Olodate rol (Stiolto Respimat) 2.5-2.5 mcg/actuation mist Discontinued 2 NMA INHALATION daily March 03, 2024 12:00am November 26, 2024 10:56am Start: 03-03-2024 Tiotropium-Olo daterol (Stiolto Respimat) 2.5-2.5 mcg/actuation mist Active 2 NMA INHALATION daily March 03, 2024 12:00am predniSONE 10 mg oral tablet (2 sources) Start: 01-07-2025 End: 02-11-2025 Prednisone 10 mg tablet Discontinued 10 mg PO daily 13 0 January 07, 2025 12:00am February 11, 2025 9:07am Asthma Severe persistent asthma, uncomplicated 3 tablets for 3 days then 2 tablets for 2 days ticagrelor 90 mg oral tablet (20 sources) Start: 10-16-2018 End: 03-24-2019 take 1 tablet by mouth twice daily Ticagrelor 90 mg tablet Discontinued 90 mg PO TWICE A DAY 180 3 October 22, 2018 3:56pm March 24, 2019 11:47am On Hold: dyspnea, trying plavix Problems Active Problems Problem Classification Problem Date Documented Da te Episodic/Chronic Acute myocardial infarction (14 sources) Myocardial infarction; Translations: [Non-ST elevation (NSTEMI) myocardial infarction] Onset: 10-14-2018 03-08-2022 Chronic Asthma (10 sources) Asthma; Translations: [Unspecified asthma, uncomplicated] Onset: 01-07-2025 11-26-2024 Chronic Chronic obstructive pulmonary disease and bronchiectasis (1 source) Chronic obstructive lung disease; Translations: [Chronic obstructive pulmonary disease, unspecified] 10-15-2024 Chronic Coronary atherosclerosis and other heart disease (20 sources) Ischemic myocardial dysfunction; Translations: [Ischemic cardiomyopathy] Chronic Diseases of white blood cells (6 sources) Eosinophil count raised; Translations: [Eosinophilia] 11-26-2024 Chronic Disorders of lipid metabolism (13 sources) Hyperlipidemia; Translations: [Hyperlipidemia, unspecified] 03-15-2023 Chronic Essential hypertension (19 sources) Essential hypertension; Translations: [Essential (primary) hypertension] Chronic Other lower respiratory disease (14 sources) Chronic cough; Translations: [Chronic cough] 03-08-2022 Episodic Other lower respiratory disease (20 sources) Dyspnea on exertion; Translations: [Other forms of dyspnea] 03-15-2023 Episodic Other upper respiratory disease (11 sources) Anterior epistaxis; Translations: [Epistaxis] 09-29-2022 Episodic Other upper respiratory infections (15 sources) Acute maxillary sinusitis; Translations: [Acute maxillary sinusitis, unspecified] Onset: 03-31-2025 07-07-2019 Episodic Skin and subcutaneous tissue infections (12 sources) Cellulitis of face; Translations: [Cellulitis of face] 08-28-2022 Episodic Thyroid disorders (1 source) Hypothyroidism, unspecified; Translations: [Hypothyroidism, unspecified] Onset: 05-05-2013 Chronic Unclassified (1 source) Unknown / UNK(Unknown) Onset: 09-11-2017 Past or Other Problems Problem Classification Problem Date Documented Da te Episodic/Chronic Coronary atherosclerosis and other heart disease (5 sources) Presence of coronary angioplasty implant and graft; Translations: [Percutaneous transluminal coronary angioplasty status] Onset: 11-29-2018 Episodic Other aftercare (1 source) Other jail (current) drug therapy; Translations: [Other jail (current) drug therapy] Onset: 12-31-2017 Episodic Other lower respiratory disease (1 source) Cough; Translations: [Cough] Onset: 02-26-2013 Episodic Other lower respiratory disease (1 source) Other nonspecific abnormal finding of lung field; Translations: [Other nonspecific abnormal finding of lung field] Onset: 07-27-2017 Episodic Other lower respiratory disease (5 sources) Other forms of dyspnea; Translations: [Other respiratory abnormalities] Onset: 11-29-2024 03-15-2023 Episodic Other screening for suspected conditions (not mental disorders or infectious disease) (2 sources) Encounter for screening mammogram for malignant neoplasm of breast; Translations: [Encounter for screening for malignant neoplasm of colon] Onset: 01-07-2018 Episodic Results Test Name Value Interpretation Reference Range Facility Pulmonary Visit Reporton Pulmonary Visit Report [facility] [address] [place] [address] OFFICE VISIT Date of Service: 04/08/25 MR#: [id number] Acct: [id number] Name: WILBERTO MCCRARY Rep #: [id number] : 1950 Provider: Kristen Rayo NP Age/Sex: 75/F [place] [facility] Status: Signed Assessment and Plan Assessment and Plan (1) Asthma: Status: Acute Qualifiers: Asthma complication type: uncomplicated Asthma persistence: persistent Asthma severity: severe Qualified Code(s): J45.50 - Severe persistent asthma, uncomplicated Plan: Severe persistent asthma is suboptimally controlled. The patient has been on Dupixent for approximately 2 months now. Unfortunately she did discontinue her Singulair and Zyrtec which I believe were likely producing benefit. I have asked her to return to using both of these medications on a daily basis. I have also recommended that she utilize levalbuterol nebulized in the morning when she awakens. Continue with Symbicort with a spacer. There continues to be respiratory symptoms even when she is not exacerbating she is suboptimally controlled, I recommend adding a biologic at this time. She is agreeable to be monitored for 2 hours during first injection of Dupixent. Continue with Singulair. Use albuterol on an as-needed basis. Call for worsening respiratory symptoms. Follow-up in 3 months. (2) Eosinophilia: Status: Acute Qualifiers: Eosinophilia type: unspecified eosinophilia Qualified Code(s): D72.10 - Eosinophilia, unspecified Plan: Eosinophilic asthma is likely producing cough dyspnea on exertion. Return to the optimal asthma regimen as previously prescribed. She has noticed improvement in her eczema, continue with Dupixent and reassess on follow-up. Medications: New levalbuterol HCl 0.63 mg (3 mL) inhalation ONCE 75 mL 11RF Plan This note was generated with [employer] dictation software. It may contain incorrect words, spelling, and punctuation that were not noted in checking the note before signing. Portions of this documentation have been copied and pasted from previous office visit notes to provide a cohesive continuity of the history. The note has been reviewed, edited, and updated, as necessary. Plan Details Follow Up: 3 Months (LMR) HPI HPI Comments Details: The patient is a 75-year-old female who presents to the office today for follow-up of severe persistent eosinophilic asthma. She is ambulatory and currently on room air. Since last follow-up she has not had respiratory illness requiring oral antibiotics or prednisone. She has not been to the ER or urgent care for breathing problems. She was treated with antibiotics and a bacterial throat infection March 15, 2025. The patient reported that she was diagnosed with asthma sometime in the . Despite the fact that the patient had pulmonary function studies completed in March 2023, which demonstrated any reversible severe large airways obstructive ventilatory defect, the patient reported that she is a lifelong non-smoker. However, she does admit to significant secondhand smoke exposure in the past. Her main concern is for that of a chronic cough along with exertional dyspnea. She currently denies the presence of chest tightness or wheezing. She denied a history of seasonal allergic rhinitis. The patient had a normal echocardiogram in 2022. She does report a history of GERD, which is symptomatically controlled on omeprazole. The patient does not currently keep any pets at home. She was previously employed working in an office setting. She is not currently prescribed an NAIF inhibitor. She continues with use of Symbicort with spacer. She is not experiencing side effects such as sore throat or hoarseness. She did use her albuterol rescue inhaler this morning and reports that it was beneficial. She has recently started on Dupixent and hardly coughed at all after loading dose. She has given herself 3 more. She has not noticed any improvement now. She has since stopped Singulair due to increase coughing, throat irritation, runny nose, cramping in toes, and discomfort in her stomach and under her breast. Runny nose, cramping and discomfort under breast has improved since off Singulair. She continues to have shortness of breath on exertion with stairs and inclines. She reports that she has had more cough. She believes that her inhaler is causing her to cough. She reports it is productive with clear sputum. She denies wheezing. She denies chest pain and chest tightness. In the past she had been on Advair 250 and was still coughing and then was transitioned to 500 mcg and had improvement in cough. Albuterol solution causes her to feel jittery so she does try to avoid this. She was also aggressively treating GERD and allergy symptoms. She is using Zyrtec on a daily basis. She reports that she (more content not included)... Normal [facility] Culture, Throaton 03-16-2025 CUT Ampicillin can be us ed for Beta-Lactamase negative isolates. Bacteria Throat Cult Trimeth/Sulfa, Chloramphenicol, Cefotaxime, Ciprofloxacin, Amoxicillin/Clavulanic Acid, and Oral 2nd/3rd Generation Cephalosporins are effective against both Beta-Lactamase positive and Beta-Lactamase negative isolates. Haemophilus influenzae Amount Growth 2+ Beta Lactamase-Reportable Negative Normal [facility] Comment on above: Performed By: #### M 100.1000 #### [facility] [address] [place], [address] Office Visit Reporton 2024 Office Visit Report [facility] [address] [place] [address] OFFICE VISIT Date of Service: 02/11/25 MR#: [id number] Acct: [id number] Patient: WILBERTO MCCRARY Rep #: [id number] : 1950 Provider: Kristen Rayo NP Age/Sex: 75/F [place] [facility] [place] Status: Signed Intake Vital Signs 01/07/25 08:13 02/11/25 09:06 02/11/25 09:50 02/11/25 10:24 02/11/25 11:33 Height 4 ft 11 in 4 ft 11 in Weight: 138 lb 138 lb BMI 27.8 27.8 BP 150/73 H 123/75 H 109/67 120/69 121/74 H Blood Pressure Location Lt brachial Rt brachial Rt brachial Rt brachial Rt brachial Position Sitting Sitting Sitting Sitting Sitting Respiration 18 18 18 20 H 18 Pulse 64 75 66 70 68 Pulse Source Monitor Monitor Monitor Monitor Monitor Temp 97.3 F L 97.8 F 99.5 F H 99.1 F 99.3 F H Temp Source Temporal Temporal Temporal Temporal Pulse Oximetry (%) 90 96 91 92 93 Oxygen Delivery Method room air room air room air room air room air Intake Visit Reasons: asthma severe persistent asthma Mine Analyst Required: No Accompanied by: Is patient in pain?: No Allergies erythromycin base Allergy (Verified 02/11/25 09:07) Nausea Sulfa (Sulfonamide Antibiotics) Allergy (Verified 02/11/25 09:07) Hives Medications ???Medication ???Instructions ???Recorded ???Confirmed ???Type levothyroxine 88 mcg tablet 88 mcg PO DAILY thyroid 10/14/18 0 02/11/25 History omeprazole 20 mg capsule,delayed 40 mg PO DAILY stomach 10/14/18 History release aspirin 81 mg tablet,delayed 81 mg PO DAILY@0800 10/16/1802/11 Rx release cholecalciferol (vitamin D3) 50 50 mcg PO DAILY 03/23/21 02/11/25 History mcg (2,000 unit) capsule multivitamin (Daily Multi-Vitamin 1 tab PO DAILY 03/23/21 02/11/25 History tablet) atorvastatin 40 mg tablet 40 mg PO QHS #90 tabs 09/03/2403/28 Rx losartan 25 mg tablet 25 mg PO DAILY #90 tabs 09/03/24 0 02/11/25 Rx albuterol sulfate 90 mcg/actuation inhalation 10/15/24 02/11/25 His tory aerosol inhaler cetirizine 10 mg capsule (Zyrtec) 10 mg PO QDAY 10/15/24 02/11/25 H istory budesonide-formoterol HFA 160 2 puff inhalation BID #3 ea 02/11/25 Rx mcg-4.5 mcg/actuation aerosol inhaler (Symbicort) montelukast 10 mg tablet 10 mg PO QDAY #90 tabs 11/26/24 Rx (Singulair) dupilumab 300 mg/2 mL subcutaneous 300 mg (2 mL) subcut Q2W #4 mL 0 01/07/25 02/11/25 Rx pen injector (Dupixent) dupilumab 300 mg/2 mL subcutaneous 600 mg (4 mL) subcut ONCE #4 mL 01/07/25 02/11/25 Rx pen injector (Dupixent) Have you fallen in the past year?: No Office Procedures Asthma Injection Procedure: Details:: Patient presented for Dupixent injection. Patient tolerated treatment well. The patient was monitored for 120 minutes after treatment. Patient shows no signs of adverse reaction. Reviewed signs and symptoms of reaction. Patient instructed to call the office with new or worsening symptoms. Patient advised to report to the emergency department during after hours if necessary. Patient departed from the office with no signs of distress. Injections Is this a patient provided medication?: Yes Office Meds Dupixent Pen 300 mg/2 mL subcutaneous pen injector Performing Provider: KARLIE Mcfarland Performing Location: [facility] Administered by: Reyna Champagne on 02/11/25 09:05 Dose Route Admin Location Dispensed Lot Number Expiration Date [facility] Man ufacturer 300 mg subcut right arm 2 mL [id number] 02/01/27 5729-1197-89 [employer] 300 mg subcut left arm 2 mL [id number] 02/01/27 6548-1892-20 [employer] Assessment and Plan Assessment and Plan Orders: Orders Dupixent Injection (Patient Provided) Today J45.50 - Severe persistent asthma, uncomplicated Clinical Quality Measures Falls Risk Screening/Assistive Devices Have you fallen in the past year?: No 02/11/25 1426 Date Kristen Tavarez Signature: Date (if applicable) CC: Normal [facility] Pulmonary Visit Reporton Pulmonary Visit Report [facility] of [address] [place] [address] OFFICE VISIT Date of Service: 01/07/25 MR#: [id number] Acct: [id number] Name: WILBERTO MCCRARY Rep #: [id number] : 1950 Provider: Kristen Rayo NP Age/Sex: 74/F [place] [facility] [place] Status: Signed Assessment and Plan Assessment and Plan (1) Asthma: Status: Acute Qualifiers: Asthma complication type: uncomplicated Asthma persistence: persistent Asthma severity: severe Qualified Code(s): J45.50 - Severe persistent asthma, uncomplicated Plan: Severe persistent asthma. Exacerbating today, cough is uncontrolled. I have recommended treatment with oral prednisone despite a NIOX that is within normal limits. The patient should begin Dupixent. This is ordered accordingly with a loading dose and then for her to begin a maintenance dosing. Continue with Symbicort with a spacer. There continues to be respiratory symptoms even when she is not exacerbating she is suboptimally controlled, I recommend adding a biologic at this time. She is agreeable to be monitored for 2 hours during first injection of Dupixent. Continue with Singulair. Use albuterol on an as-needed basis. Call for worsening respiratory symptoms. Follow-up in 3 months. (2) RECINOS (dyspnea on exertion): Status: Chronic Plan: Likely due to suboptimal control of her asthma. Await response to oral prednisone and continue with consistent use of Symbicort and Singulair. Await response to Dupixent. 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 Inhaled regimen for asthma has been optimized now. It is prudent to begin a biologic at this time. The patient also has features of eczema and allergic rhinitis which I believe Dupixent would be beneficial for these disease processes as well. Orders: Orders NIOX Today J45.40 - Moderate persistent asthma, uncomplicated Medications: New prednisone 3 tablets for 3 days then 2 tablets for 2 days 10 mg PO QDAY 13 tabs 0RF J45.50 - Severe persistent asthma, uncomplicated dupilumab (Dupixent) as a single dose 600 mg (4 mL) subcut ONCE 4 mL 0RF J45.50 - Severe persistent asthma, uncomplicated dupilumab (Dupixent) to begin after loading dose 300 mg (2 mL) subcut Q2W 4 mL 11RF J45.50 - Severe persistent asthma, uncomplicated Plan Details Follow Up: 3 Months (LMR) HPI HPI Comments Details: The patient is a 74-year-old female who presents to the office today for follow-up. She has a history of cough and dyspnea on exertion. She is ambulatory and currently on room air. Since last follow-up she has not had respiratory illness requiring oral antibiotics or prednisone. She has not been to the ER or urgent care for breathing problems. The patient reported that she was diagnosed with asthma sometime in the . Despite the fact that the patient had pulmonary function studies completed in March 2023, which demonstrated any reversible severe large airways obstructive ventilatory defect, the patient reported that she is a lifelong non-smoker. However, she does admit to significant secondhand smoke exposure in the past. Her main concern is for that of a chronic cough along with exertional dyspnea. She currently denies the presence of chest tightness or wheezing. She denied a history of seasonal allergic rhinitis. The patient had a normal echocardiogram in 2022. She does report a history of GERD, which is symptomatically controlled on omeprazole. The patient does not currently keep any pets at home. She was previously employed working in an office setting. She is not currently prescribed an NAIF inhibitor. At last visit she was transitioned from Breztri to Symbicort with a spacer. She had previously been experiencing hoarseness and bilateral lower extremity cramping with Breztri. Lower extremity cramping has improved since being off of the LAMA. She reports that her breathing is somewhat improved but she feels like her cough is getting worse. She has not required the use of albuterol since transitioning to Symbicort with a spacer. She has noticed that it is productive with clear thick sputum. She denies wheeze. She denies chest pain and chest tightness. In the past she had been on Advair 250 and was still coughing and then was transitioned to 500 mcg and had improvement in cough. She was also aggressively treating GERD and allergy symptoms. She is using Zyrtec and Singulair on a daily basis. She reports that she has had itchy eyes and sneezing. She does spend a significant amount of time outdoors gardening and reports that her symptoms have been active since she has been gardening more. 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 Normal [facility] Pulmonary Visit Reporton Pulmonary Visit Report [facility] of [place] [address] [place], [place] [address] OFFICE VISIT Date of Service: 11/26/24 MR#: [id number] Acct: [id number] Name: WILBERTO MCCRARY Rep #: [id number] : 1950 Provider: Kristen Rayo NP Age/Sex: 74/F [place] [facility] [place] Status: Signed Assessment and Plan Assessment and Plan (1) Asthma: Status: Acute Qualifiers: Asthma complication type: uncomplicated Asthma persistence: persistent Asthma severity: moderate Qualified Code(s): J45.40 - Moderate persistent asthma, uncomplicated Plan: With a history of a an elevated NIOX and obstructive disease identified with absence of air trapping and gas transfer abnormality along with a history of significant environmental triggers and current symptoms suggest a diagnosis of moderate persistent asthma. I believe that the patient is having a side effect to the LAMA and the triple therapy. At this time I have discontinued Breztri and plan to begin Symbicort with a spacer. There is no air trapping identified on the PFT so the patient does not need LAMA therapy for treatment of asthma. I do believe that the NIOX is within normal limits today now because she has been using an inhaled corticosteroid routinely. The patient understands that the gold standard for treatment of asthma is ICS/LABA therapy. She is willing to proceed with use of Symbicort at this time. Initially I had considered using Breo but due to the side effects that she had experienced previously with Advair I am planning to avoid dry powdered inhaled therapy at this time. The patient does have elevated eosinophils in which I believe is a phenotype for her asthma. She may qualify for a biologic. I plan to reassess on follow-up after she has been on inhaled therapy consistently for 6 to 8 weeks. If there continues to be respiratory symptoms then I will add biologic therapy at that time. I have also began use of Singulair. The patient understands the use and potential side effects of this medication. (2) RECINOS (dyspnea on exertion): Status: Chronic Plan: Likely due to suboptimal control of her asthma. Await response to consistent use of Symbicort and Singulair. On follow-up I will consider Dupixent for suboptimal control of asthma. 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 Await response to full inhaled asthma regimen and on follow-up I will consider biological therapy. Orders: Orders NIOX Today J45.40 - Moderate persistent asthma, uncomplicated Medications: New budesonide-formoterol 160-4.5 mcg/actuation (Symbicort) 2 puffs inhalation BID 10.2 grams 5RF J45.40 - Moderate persistent asthma, uncomplicated budesonide-formoterol 160-4.5 mcg/actuation (Symbicort) 2 puffs inhalation BID 3 ea 3RF J45.40 - Moderate persistent asthma, uncomplicated montelukast (Singulair) 10 mg PO QDAY 90 tabs 3RF J45.40 - Moderate persistent asthma, uncomplicated Discontinued bdfxavfzjb-rqtdmnjz-wydcr terol 160-9-4.8 mcg/actuation (Breztri Aerosphere) Discontinued Reason: Order Changed 2 inhalations inhalation BID 10.7 grams 3RF Plan Details Follow Up: 6-8 weeks (LMR) HPI HPI Comments Details: The patient is a 74-year-old female who presents to the office today for follow-up. She has a history of cough and dyspnea on exertion. She is ambulatory and currently on room air. Since last follow-up she has not had respiratory illness requiring oral antibiotics or prednisone. She has not been to the ER or urgent care for breathing problems. The patient reported that she was diagnosed with asthma sometime in the . Despite the fact that the patient had pulmonary function studies completed in March 2023, which demonstrated any reversible severe large airways obstructive ventilatory defect, the patient reported that she is a lifelong non-smoker. However, she does admit to significant secondhand smoke exposure in the past. Her main concern is for that of a chronic cough along with exertional dyspnea. She currently denies the presence of chest tightness or wheezing. She denied a history of seasonal allergic rhinitis. The patient had a normal echocardiogram in 2022. She does report a history of GERD, which is symptomatically controlled on omeprazole. The patient does not currently keep any pets at home. She was previously employed working in an office setting. She is not currently prescribed an NAIF inhibitor. The patient reported that she was placed on Stiolto Respimat sometime last summer, with some improvement noted in her dyspnea. However, her cough has persisted. She denies any fevers, chills or night sweats. It does appear that the patient has had some elevated eos (more content not included)... Normal [facility] 6 Minute Walk Teston 11-17- 025 6 Minute Walk Test y [facility]Neurology [address] [place] [address] MR#: [id number] Acct: [id number] Name: WILBERTO MCCRARY Rep #: [id number] : 1950 74 From: Papi Govea DO Referring Dr: Papi Govea DO Status: DEP CLI Location: PSN Date: Sex: F C PSN 6 Minute Walk Test 6 Minute Walk Test 6 Minute Walk Test: 6 Minute Walk Test PSN:6-Minute Walk Test Start: 11/13/24 13:35 Freq: Status: Discharge Protocol: [id number] Document 11/13/24 13:36 [facility] (Rec: 11/13/24 13:41 [facility] [id number]) 6 Minute Walk Test Date Performed 11/13/24 Time Performed 13:00 Height 4 ft 11 in Weight: 135 lb Weight in Pounds 135.[address]: Papi Govea Assistive device None used: Pre-test Oxygen Delivery Room Air Method Pulse Ox (%) 95 Pulse Rate (60-100 81 beats/min) Dyspnea Lilo Scale ( 2 0-10) Exertion Lilo Scale 7 (6-20) 1st minute Oxygen Delivery Room Air Method Pulse Ox (%) 91 Pulse Rate (60-100 84 beats/min) Dyspnea Lilo Scale ( 2 0-10) Number of Rests 0 Taken 2nd minute Oxygen Delivery Room Air Method Pulse Ox (%) 90 Pulse Rate (60-100 87 beats/min) Dyspnea Lilo Scale ( 3 0-10) Number of Rests 0 Taken Reported Symptoms Increased Work of Breathing 3rd minute Oxygen Delivery Room Air Method Pulse Ox (%) 92 Pulse Rate (60-100 94 beats/min) Dyspnea Lilo Scale ( 3 0-10) Number of Rests 0 Taken Reported Symptoms Increased Work of Breathing 4th minute Oxygen Delivery Room Air Method Pulse Ox (%) 90 Pulse Rate (60-100 99 beats/min) Dyspnea Lilo Scale ( 3 0-10) Number of Rests 0 Taken Reported Symptoms Increased Work of Breathing 5th minute Oxygen Delivery Room Air Method Pulse Ox (%) 92 Pulse Rate (60-100 102 H beats/min) Dyspnea Lilo Scale ( 4 0-10) Number of Rests 0 Taken Reported Symptoms Increased Work of Breathing 6th minute Oxygen Delivery Room Air Method Pulse Ox (%) 91 Pulse Rate (60-100 100 beats/min) Dyspnea Lilo Scale ( 4 0-10) Exertion Lilo Scale 7 (6-20) Number of Rests 0 Taken Reported Symptoms Increased Work of Breathing Post-test Oxygen Delivery Room Air Method Pulse Ox (%) 95 Pulse Rate (60-100 83 beats/min) Dyspnea Lilo Scale ( 2 0-10) Full Laps Walked 22 Partial Lap, Number 37 of Tiles Walked Total Distance 1335 Walked (ft) Interpretation Interpretation: The patient ambulated 1335 feet over the course of 6 minutes beginning on room air without assistive devices. Pretesting oxygen saturation was noted to be 95% on room air. With ambulation, the maribell oxygen saturation was 90%. This represents a significant exertional oxygen desaturation, consistent with a pulmonary limitation to exercise tolerance. Recommendations Recommendations: There is no indication for the use of supplemental oxygen at this time. However, close interval follow-up was recommended, given the degree of oxygen desaturation noted during this study. 11/17/24 1017 Date Papi Govea DO CC: Date Dictated: 11/17/24 1017 Date Transcribed: 11/17/24 1017 Canvas Worker: Dr. Papi Govea, Signed Normal [facility] ANCAon 10-21-2024 Atypical pANCA <1:20 Normal Neg:<1:20 [facility] Comment on above: Result Comment: The atypical pANCA pattern has been observed in a significant percentage of patients with ulcerative colitis, primary sclerosing cholangitis and autoimmune hepatitis. Performed By: #### L 5500.0700, L3500.3600, L3300.1200, L100.0100, L3200.1600 #### [facility] [address] [place], [address] Cytoplasmic Ab <1:20 Normal Neg:<1:20 [facility] Comment on above: Performed By: #### L 5500.0700, L3500.3600, L3300.1200, L100.0100, L3200.1600 #### [facility] [address] [place], [address] Perinuclear Ab. <1:20 Normal Neg:<1:20 [facility] Comment on above: Result Comment: The presence of positive fluorescence exhibiting P-ANCA or C-ANCA patterns alone is not specific for the diagnosis of Lorne's Granulomatosis (WG) or microscopic polyangiitis. Decisions about treatment should not be based solely on ANCA IFA results. The International ANCA Group Consensus recommends follow up testing of positive sera with both CA- 3 and MPO-ANCA enzyme immunoassays. As many as 5% serum samples are positive only by EIA. Ref. AM J Clin Pathol 1999;111:507-513. Performed By: #### L 5500.0700, L3500.3600, L3300.1200, L100.0100, L3200.1600 #### [facility] [address] [place], [address] Aspergillus Antibodieson Asp. flavus Negative Normal Neg:<1:1 [facility] Comment on above: Performed By: #### L 5500.0700, L3500.3600, L3300.1200, L100.0100, L3200.1600 #### [facility] [address] [place], [address] Asp. fumigatus Negative Normal Neg:<1:1 [facility] Comment on above: Performed By: #### L 5500.0700, L3500.3600, L3300.1200, L100.0100, L3200.1600 #### [facility] [address] [place], [address] Asp. niger Negative Normal Neg:<1:1 [facility] Comment on above: Performed By: #### L 5500.0700, L3500.3600, L3300.1200, L100.0100, L3200.1600 #### [facility] [address] [place], [place], [address] Immunoglobulin Vince 5 IMMUNOGLOB E QN 16 IU/mL Normal 6-495 [facility] Comment on above: Result Comment: Perf ormed at: - [facility] [id number] Chief Investigator: Trevor Cook PhD, Phone: [phone] Performed at: [address] [id number] Chief Investigator: Isabela Villareal MD, Phone: [phone] Performed By: #### L 5500.0700, L3500.3600, L3300.1200, L100.0100, L3200.1600 #### [facility] [address] [place], [address] Allergen Resp. Area 5on 10-02 ALTERNARIA TEN <0.10 Normal Class 0 [facility] Comment on above: Order Comment: Reaso n for Exam: Asthma Performed By: #### L 5500.0700, L3500.3600, L3300.1200, L100.0100, L3200.1600 #### [facility] [address] [place], [address] REYNALDO, WHITE <0.10 Normal Class 0 [facility] Comment on above: Order Comment: Reaso n for Exam: Asthma Performed By: #### L 5500.0700, L3500.3600, L3300.1200, L100.0100, L3200.1600 #### [facility] [address] [place], [address] ASPERGILLUS FUM <0.10 Normal Class 0 [facility] Comment on above: Order Comment: Reaso n for Exam: Asthma Performed By: #### L 5500.0700, L3500.3600, L3300.1200, L100.0100, L3200.1600 #### [facility] [address] [place], [address] BERMUDA GRASS <0.10 Normal Class 0 [facility] Comment on above: Order Comment: Reaso n for Exam: Asthma Performed By: #### L 5500.0700, L3500.3600, L3300.1200, L100.0100, L3200.1600 #### [facility] [address] [place], [address] BIRCH <0.10 Normal Class 0 [facility] Comment on above: Order Comment: Reaso n for Exam: Asthma Performed By: #### L 5500.0700, L3500.3600, L3300.1200, L100.0100, L3200.1600 #### [facility] [address] [place], [address] BLACK WALNUT <0.10 Normal Class 0 [facility] Comment on above: Order Comment: Reaso n for Exam: Asthma Performed By: #### L 5500.0700, L3500.3600, L3300.1200, L100.0100, L3200.1600 #### [facility] [address] [place], [address] CAT HAIR/DANDER <0.10 Normal Class 0 [facility] Comment on above: Order Comment: Reaso n for Exam: Asthma Performed By: #### L 5500.0700, L3500.3600, L3300.1200, L100.0100, L3200.1600 #### [facility] [address] [place], [address] CLADOSPOR HERB <0.10 Normal Class 0 [facility] Comment on above: Order Comment: Reaso n for Exam: Asthma Performed By: #### L 5500.0700, L3500.3600, L3300.1200, L100.0100, L3200.1600 #### [facility] [address] [place], [address] COCKROACH,AMER <0.10 Normal Class 0 [facility] Comment on above: Order Comment: Reaso n for Exam: Asthma Performed By: #### L 5500.0700, L3500.3600, L3300.1200, L100.0100, L3200.1600 #### [facility] [address] [place], [address] COMMENT Comment Normal . [facility] Comment on above: Order Comment: Reaso n for Exam: Asthma Result Comment: Mariposa kilgore of Specific IgE Class Description of Class ----- < 0.10 0 Negative 0.10 - 0.31 0/I Equivocal/Low 0.32 - 0.55 I Low 0.56 - 1.40 II Moderate 1.41 - 3.90 III High 3.91 - 19.00 IV Very High 19.01 - 100.00 V Very High >100.00 Very High Performed By: #### L 5500.0700, L3500.3600, L3300.1200, L100.0100, L3200.1600 #### [facility] [address] [place], [place], [facility] COTTONWOOD <0.10 Normal Class 0 [facility] Comment on above: Order Comment: Reaso n for Exam: Asthma Performed By: #### L 5500.0700, L3500.3600, L3300.1200, L100.0100, L3200.1600 #### [facility] [address] [place], [address] D FARINAE MITE <0.10 Normal Class 0 [facility] Comment on above: Order Comment: Reaso n for Exam: Asthma Performed By: #### L 5500.0700, L3500.3600, L3300.1200, L100.0100, L3200.1600 #### [facility] [address] [place], [address] D PTERONYSSINUS <0.10 Normal Class 0 [facility] Comment on above: Order Comment: Reaso n for Exam: Asthma Performed By: #### L 5500.0700, L3500.3600, L3300.1200, L100.0100, L3200.1600 #### [facility] [address] [place], [address] DOG EPITHELIA <0.10 Normal Class 0 [facility] Comment on above: Order Comment: Reaso n for Exam: Asthma Performed By: #### L 5500.0700, L3500.3600, L3300.1200, L100.0100, L3200.1600 #### [facility] [address] [place], [address] ELM,AMER WHITE <0.10 Normal Class 0 [facility] Comment on above: Order Comment: Reaso n for Exam: Asthma Performed By: #### L 5500.0700, L3500.3600, L3300.1200, L100.0100, L3200.1600 #### [facility] [address] [place], [address] IMMUNOGLOB E 11 IU/mL Normal 6-495 [facility] Comment on above: Order Comment: Reaso n for Exam: Asthma Performed By: #### L 5500.0700, L3500.3600, L3300.1200, L100.0100, L3200.1600 #### [facility] [address] [place], [address] MAPLE/BOX ELDER <0.10 Normal Class 0 [facility] Comment on above: Order Comment: Reaso n for Exam: Asthma Performed By: #### L 5500.0700, L3500.3600, L3300.1200, L100.0100, L3200.1600 #### [facility] [address] [place], [address] M[place] CEDAR <0.10 Normal Class 0 [facility] Comment on above: Order Comment: Reaso n for Exam: Asthma Performed By: #### L 5500.0700, L3500.3600, L3300.1200, L100.0100, L3200.1600 #### [facility] [address] [place], [address] Mouse Urine <0.10 Normal Class 0 [facility] Comment on above: Order Comment: Reaso n for Exam: Asthma Performed By: #### L 5500.0700, L3500.3600, L3300.1200, L100.0100, L3200.1600 #### [facility] [address] [place], [address] MULBERRY,WHITE <0.10 Normal Class 0 [facility] Comment on above: Order Comment: Reaso n for Exam: Asthma Performed By: #### L 5500.0700, L3500.3600, L3300.1200, L100.0100, L3200.1600 #### [facility] [address] [place], [facility] OAK, WHITE <0.10 Normal Class 0 [facility] Comment on above: Order Comment: Reaso n for Exam: Asthma Performed By: #### L 5500.0700, L3500.3600, L3300.1200, L100.0100, L3200.1600 #### [facility] [address] [place], [facility] PECAN <0.10 Normal Class 0 [facility] Comment on above: Order Comment: Reaso n for Exam: Asthma Performed By: #### L 5500.0700, L3500.3600, L3300.1200, L100.0100, L3200.1600 #### [facility] [address] [place], [facility] PEN NOTATUM <0.10 Normal Class 0 [facility] Comment on above: Order Comment: Reaso n for Exam: Asthma Performed By: #### L 5500.0700, L3500.3600, L3300.1200, L100.0100, L3200.1600 #### [facility] [address] [place], [facility] PIGWEED, ROUGH <0.10 Normal Class 0 [facility] Comment on above: Order Comment: Reaso n for Exam: Asthma Performed By: #### L 5500.0700, L3500.3600, L3300.1200, L100.0100, L3200.1600 #### [facility] [address] [place], [address] RAGWEED SH/COM <0.10 Normal Class 0 [facility] Comment on above: Order Comment: Reaso n for Exam: Asthma Performed By: #### L 5500.0700, L3500.3600, L3300.1200, L100.0100, L3200.1600 #### [facility] [address] [place], [address] S[place] THISTLE <0.10 Normal Class 0 [facility] Comment on above: Order Comment: Reaso n for Exam: Asthma Performed By: #### L 5500.0700, L3500.3600, L3300.1200, L100.0100, L3200.1600 #### [facility] [address] [place], [address] SHEEP SORREL <0.10 Normal Class 0 [facility] Comment on above: Order Comment: Reaso n for Exam: Asthma Result Comment: Perf ormed at: [facility] [id number] Chief Investigator: Isabela Villareal MD, Phone: [phone] Performed By: #### L 5500.0700, L3500.3600, L3300.1200, L100.0100, L3200.1600 #### [facility] [address] [place], [address] [place], AMER <0.10 Normal Class 0 [facility] Comment on above: Order Comment: Reaso n for Exam: Asthma Performed By: #### L 5500.0700, L3500.3600, L3300.1200, L100.0100, L3200.1600 #### [facility] [address] [place], [address] BRIAN GRASS <0.10 Normal Class 0 [facility] Comment on above: Order Comment: Reaso n for Exam: Asthma Performed By: #### L 5500.0700, L3500.3600, L3300.1200, L100.0100, L3200.1600 #### [facility] [address] [place], [address] Absolute lymphocyte countOrd ered By: Papi Govea on 10-15-2024 Lymphocytes Auto (Unsp spec) [#/Vol] 2.03 10*3/uL 0.83-4.51 [facility] Absolute neutrophil countOrd ered By: Papi Govea on 10-15-2024 Neutrophils (Bld) [#/Vol] 4.1 10*3/uL 2.0-7.7 [facility] Automated lymphocyte count a s percentage of total leukocytesOrdered By: Papi Govea on 10-15-2024 Lymphocytes/100 WBC Auto (Unsp spec) 28.2 % 19-41 [facility] Basophil percentageOrdered B y: Papi Govea on 10-15-2024 Basophils/100 WBC (Bld) 0.8 % 0-1 [facility] CBC W/Diff, Automatedon 10-02 Absolute Lymph 2.03 X10 3/uL Normal 0.83-4.51 [facility] Comment on above: Performed By: #### L 5500.0700, L3500.3600, L3300.1200, L100.0100, L3200.1600 #### [facility] [address] [place], [address] Absolute Neut 4.1 X10 3/uL Normal 2.0-7.7 [facility] Comment on above: Performed By: #### L 5500.0700, L3500.3600, L3300.1200, L100.0100, L3200.1600 #### [facility] [address] [place], [address] Basophils/100 WBC (Bld) 0.8 % Normal 0-1 [facility] Comment on above: Performed By: #### L 5500.0700, L3500.3600, L3300.1200, L100.0100, L3200.1600 #### [facility] [address] [place], [address] Eosinophils/100 WBC (Bld) 5.3 % High 0-5 [facility] Comment on above: Performed By: #### L 5500.0700, L3500.3600, L3300.1200, L100.0100, L3200.1600 #### [facility] [address] [place], [address] Erythrocyte distribution width (RBC) [Ratio] 13.0 % Normal 11.6-14.6 [facility] Comment on above: Performed By: #### L 5500.0700, L3500.3600, L3300.1200, L100.0100, L3200.1600 #### [facility] [address] [place], [address] Hematocrit (Bld) [Volume fraction] 40.3 % Normal 37-47 [facility] Comment on above: Performed By: #### L 5500.0700, L3500.3600, L3300.1200, L100.0100, L3200.1600 #### [facility] [address] [place], [address] Hemoglobin (Bld) [Mass/Vol] 13.1 g/dL Normal 12.0-15.0 [facility] Comment on above: Performed By: #### L 5500.0700, L3500.3600, L3300.1200, L100.0100, L3200.1600 #### [facility] [address] [place], [address] IG% 0.300 Normal 0.0-0.9 [facility] Comment on above: Result Comment: IG% - Immature Granulocytes (promyelocytes, myelocytes and metamyelocytes) > 1% indicates that a LEFT SHIFT is Present. Performed By: #### L 5500.0700, L3500.3600, L3300.1200, L100.0100, L3200.1600 #### [facility] [address] [place], [address] Lymphocytes/100 WBC (Bld) 28.2 % Normal 19-41 [facility] Comment on above: Performed By: #### L 5500.0700, L3500.3600, L3300.1200, L100.0100, L3200.1600 #### [facility] [address] [place], [address] MCH (RBC) [Entitic mass] 27.1 pg Normal 27.0-32.0 [facility] Comment on above: Performed By: #### L 5500.0700, L3500.3600, L3300.1200, L100.0100, L3200.1600 #### [facility] [address] [place], [address] MCHC (RBC) [Mass/Vol] 32.5 g/dL Normal 32-36 [facility] Comment on above: Performed By: #### L 5500.0700, L3500.3600, L3300.1200, L100.0100, L3200.1600 #### [facility] [address] [place], [address] MCV (RBC) [Entitic vol] 83.3 fL Normal 81-99 [facility] Comment on above: Performed By: #### L 5500.0700, L3500.3600, L3300.1200, L100.0100, L3200.1600 #### [facility] [address] [place], [address] Monocytes/100 WBC (Bld) 8.6 % Normal 0-10 [facility] Comment on above: Performed By: #### L 5500.0700, L3500.3600, L3300.1200, L100.0100, L3200.1600 #### [facility] [address] [place], [address] Neutrophils/100 WBC (Bld) 56.8 % Normal 47-70 [facility] Comment on above: Performed By: #### L 5500.0700, L3500.3600, L3300.1200, L100.0100, L3200.1600 #### [facility] [address] [place], [address] Nucleated RBC (Bld) [#/Vol] 0 10*3/uL Normal 0-5 [facility] Comment on above: Performed By: #### L 5500.0700, L3500.3600, L3300.1200, L100.0100, L3200.1600 #### [facility] [address] [place], [address] Platelet mean volume (Bld) [Entitic vol] 9.7 fL Normal 6.2-12.0 [facility] Comment on above: Performed By: #### L 5500.0700, L3500.3600, L3300.1200, L100.0100, L3200.1600 #### [facility] [address] [place], [address] Platelets (Bld) [#/Vol] 223 10*3/uL Normal 150-450 [facility] Comment on above: Performed By: #### L 5500.0700, L3500.3600, L3300.1200, L100.0100, L3200.1600 #### [facility] [address] [place], [address] RBC (Bld) [#/Vol] 4.84 10*6/uL Normal 4.2-5.4 [facility] Comment on above: Performed By: #### L 5500.0700, L3500.3600, L3300.1200, L100.0100, L3200.1600 #### [facility] [address] [place], [address] RDW SD 39.3 fl Normal 35.1-43.9 [facility] Comment on above: Performed By: #### L 5500.0700, L3500.3600, L3300.1200, L100.0100, L3200.1600 #### [facility] [address] [place], [address] WBC (Bld) [#/Vol] 7.2 10*3/uL Normal 4.4-11.0 [facility] Comment on above: Performed By: #### L 5500.0700, L3500.3600, L3300.1200, L100.0100, L3200.1600 #### [facility] [address] [place], [address] Eosinophil percentageOrdered By: Papi Govea on 10-15-2024 Eosinophils/100 WBC (Bld) 5.3 % High 0-5 [facility] Erythrocyte distribution wid th ratioOrdered By: Papi Govea on 10-15-2024 Erythrocyte distribution width (RBC) [Ratio] 13.0 % 11.6-14.6 [facility] Erythrocyte distribution wid th standard deviationOrdered By: Papi Govea on 10-15-2024 Erythrocyte distribution width (RBC) [Ratio] 39.3 fl 35.1-43.9 [facility] Hematocrit Auto (Bld) [Volum e fraction]Ordered By: Papi Govea on 10-15-2024 Hematocrit (Bld) [Volume fraction] 40.3 % 37-47 [facility] Hemoglobin measurementOrdere d By: Papi Govea on 10-15-2024 Hemoglobin (Bld) [Mass/Vol] 13.1 g/dL 12.0-15.0 [facility] IgEOrdered By: Papi woodruff n 10-15-2024 IgE 16 IU/mL 6-495 [facility] Comment on above: Performed at: [address] [id number] Director: Trevor Cook PhD, Phone: [phone] at: [facility] [address] [id number] Director: Isabela Villareal MD, Phone: [phone] Immature granulocytes/100 WB C Auto (Bld)Ordered By: Papi Govea on 10-15-2024 Immature granulocytes/100 WBC (Bld) 0.300 % 0.0-0.9 [facility] Comment on above: IG% - Immature Granu locytes (promyelocytes, myelocytes and metamyelocytes) > 1% indicates that a LEFT SHIFT is Present. MCV (mean corpuscular volume ) determinationOrdered By: Papi Govea on 10-15-2024 MCV (RBC) [Entitic vol] 83.3 fL 81-99 [facility] Mean corpuscular hemoglobin (MCH) determinationOrdered By: Papi Govea on 10-15-2024 MCH (RBC) [Entitic mass] 27.1 pg 27.0-32.0 [facility] Mean corpuscular hemoglobin concentration (MCHC) determinationOrdered By: Papi Govea on 10-15-2024 MCHC (RBC) [Mass/Vol] 32.5 g/dL 32-36 [facility] Mean platelet volume determi nationOrdered By: Papi Govea on 10-15-2024 Platelet mean volume (Bld) [Entitic vol] 9.7 fL 6.2-12.0 [facility] Monocyte percentageOrdered B y: Papi Govea on 10-15-2024 Monocytes/100 WBC (Bld) 8.6 % 0-10 [facility] Neutrophil percentageOrdered By: Papi Govea on 10-15-2024 Neutrophils/100 WBC (Bld) 56.8 % 47-70 [facility] No Panel InformationOrdered By: Papi Govea on 10-15-2024 FRED Comment Comment . [facility] Comment on above: Levels of Specific I gE Class Description of Class ----- < 0.10 0 Negative 0.10 - 0.31 0/I Equivocal/Low 0.32 - 0.55 I Low 0.56 - 1.40 II Moderate 1.41 - 3.90 III High 3.91 - 19.00 IV Very High 19.01 - 100.00 V Very High >100.00 Very High Nucleated red blood cell per centageOrdered By: Papi Govea on 10-15-2024 Nucleated RBC/100 WBC (Bld) [Ratio] 0 % 0-5 [facility] Platelet countOrdered By: Mast on 10-15-2024 Platelets (Bld) [#/Vol] 223 10*3/uL 150-450 [facility] Pulmonary Visit Reporton Pulmonary Visit Report [facility] [address] [place] [address] OFFICE VISIT Date of Service: 10/15/24 MR#: [id number] Acct: [id number] Name: WILBERTO MCCRARY Rep #: [id number] : 1950 Provider: Dr. Papi Govea DO Age/Sex: 74/F [place] [facility] Status: Signed Assessment and Plan Assessment and Plan (1) RECINOS (dyspnea on exertion): Status: Chronic Plan: The patient presented today for the evaluation of shortness of breath and chronic cough, in the setting of pulmonary function studies in 2022 demonstrating evidence of obstructive lung disease, despite the patient's non-smoking status. The patient reported that she was diagnosed with asthma sometime in the . She has been maintained on Stiolto Respimat since last summer. Given her ongoing symptoms and elevated nitric oxide level at today's office visit, we will plan to transition her to a triple therapy inhaler regimen with scheduled Breztri. In the interim, we will plan to obtain follow-up pulmonary function studies along with a 6-minute walk test to assess for any exertional hypoxemia. In addition, repeat CBC with differential to evaluate for peripheral eosinophilia will be obtained along with IgE, Aspergillus antibodies, ANCA and RAST profile. The results of her testing and symptom response to therapy will be reassessed at her follow-up office visit. Result: Oral exhaled NO (ppb): 38 Normal: 5-20 ppb (Adult) High Normal/Increased: 20-35 ppb (Adult). Moderately raised exhaled nitric oxide may indicate underlying inflammation, but notes that cold and influenza can raise exhaled nitric oxide in some patients have higher baseline levels than others. High: >35 ppb (Adult). Indicative of ongoing eosinophilic inflammation. Symptomatic patient likely to respond to steroids. Possible causes include: Poor compliance, recent allergen exposure, steroid dose inadequate, and steroid resistance. Orders: Orders NIOX 10/15/24 R06.09 - Other forms of dyspnea Immunoglobulin E 10/15/24 R06.09 - Other forms of dyspnea Aspergillus Antibodies 10/15/24 R06.09 - Other forms of dyspnea CBC W/Diff, Automated 10/15/24 R06.09 - Other forms of dyspnea ANCA 10/15/24 R06.09 - Other forms of dyspnea Allergen Resp. Area 5 10/15/24 R06.09 - Other forms of dyspnea Simple Pulmonary Exercise Test 11/13/24 R06.09 - Other forms of dyspnea PFT Complete - DLCO, Spirometry b/a bronchodilators, lung volumes 10/31/24 R0.09 - Other forms of dyspnea Medications: New anqomdfhst-iwzfxilr-qdjhy terol 160-9-4.8 mcg/actuation ([employer]) 2 inhalations inhalation BID 10.7 grams 3RF HPI HPI Comments Details: The patient is a 74-year-old female who presents to the clinic today in referral for the evaluation of COPD. The patient reported that she was diagnosed with asthma sometime in the . Despite the fact that the patient had pulmonary function studies completed in March 2023, which demonstrated any reversible severe large airways obstructive ventilatory defect, the patient reported that she is a lifelong non-smoker. However, she does admit to significant secondhand smoke exposure in the past. Her main concern is for that of a chronic cough along with exertional dyspnea. She currently denies the presence of chest tightness or wheezing. She denied a history of seasonal allergic rhinitis. The patient had a normal echocardiogram in 2022. She does report a history of GERD, which is symptomatically controlled on omeprazole. The patient does not currently keep any pets at home. She was previously employed working in an office setting. She is not currently prescribed an NAIF inhibitor. The patient reported that she was placed on Stiolto Respimat sometime last summer, with some improvement noted in her dyspnea. However, her cough has persisted. She denies any fevers, chills or night sweats. It does appear that the patient has had some elevated eosinophil levels on CBC with differential in the past. Intake Vital Signs 03/03/24 10:03 10/15/24 09:15 Height 4 ft 11 in 4 ft 11 in Weight: 137 lb BMI 27.6 BP 125/76 H Blood Pressure Location Rt brachial Position Sitting Respiration 18 Pulse 76 Pulse Source Monitor Temp 98.2 F Temperature Source Temporal Artery Pulse Oximetry (%) 92 Oxygen Delivery Method room air Intake Visit Reasons: COPD Chief Complaint: Sinusitis Mine Analyst Required: No Accompanied by: Self Is patient in pain?: No Allergies erythromycin base Allergy (Verified 10/15/24 10:55) Nausea Sulfa (Sulfonamide Antibiotics) Allergy (Verified 10/15/24 10:55) Hives Medications ???Medication ???Instructions ???Recorded ???Confirmed ???Type levothyroxine 88 mcg tablet 88 mcg PO DAILY thyroid 10/14/18 0 10/15/24 History (more content not included)... Normal [facility] RBC Auto (Bld) [#/Vol]Ordere d By: Papi Govea on 10-15-2024 RBC (Bld) [#/Vol] 4.84 10*6/uL 4.2-5.4 [facility] Serum Guamanian sycamore IgE antibody assay (units/volume)Ordered By: Papi Govea on 10-15-2024 Gu[place]ian [place] IgE Qn (S) <0.10 kU/L Class 0 [facility] Serum Aspergillus flavus ant ibody detection by immunodiffusionOrdered By: Papi Govea on 10-15-2024 A. flavus Ab Immune diff Ql (S) Negative Neg:<1:1 [facility] Serum Aspergillus fumigatus IgE antibody assay (units/volume)Ordered By: Papi Govea on 10-15-2024 A. fumigatus IgE Qn (S) <0.10 kU/L Class 0 [facility] Serum Aspergillus fumigatus antibody detection by immunodiffusionOrdered By: Papi Govea on 10-15-2024 A. fumigatus Ab Immune diff Ql (S) Negative Neg:<1:1 [facility] Serum Aspergillus niger anti body detection by immunodiffusionOrdered By: Papi Govea on 10-15-2024 A. niger Ab Immune diff Ql (S) Negative Neg:<1:1 [facility] Serum Bermuda grass IgE anti body assay (units/volume)Ordered By: Papi Govea on 10-15-2024 Bermuda grass IgE Qn (S) <0.10 kU/L Class 0 [facility] Serum Cladosporium herbarum IgE antibody assay (units/volume)Ordered By: Papi Govea on 10-15-2024 C. herbarum IgE Qn (S) <0.10 kU/L Class 0 [facility] Serum Dermatophagoides ptero nyssinus specific IgE antibody assay (units/volume)Ordered By: Papi Govea on 10-15-2024 house dust mite IgE Qn (S) <0.10 kU/L Class 0 [facility] Serum Fraxinus americana IgE antibody assay (units/volume)Ordered By: Papi Govea on 10-15-2024 White Reynaldo IgE Qn (S) <0.10 kU/L Class 0 [facility] Serum Rumex acetosella IgE a ntibody assay (units/volume)Ordered By: Papi Govea on 10-15-2024 Sheep Alcoa IgE Qn (S) <0.10 kU/L Class 0 [facility] Comment on above: Performed at: [address] [id number] Director: Isabela Villareal MD, Phone: [phone] Serum Italian thistle specif ic IgE antibody assayOrdered By: Papi Govea on 10-15-2024 Saltwort IgE Qn (S) <0.10 kU/L Class 0 [facility] Serum black walnut IgE antib montana assay (units/volume)Ordered By: Papi Govea on 10-15-2024 Black Treichlers IgE Qn (S) <0.10 kU/L Class 0 [facility] Serum classic neutrophil cyt oplasmic antibody assay (units/volume)Ordered By: Papi Govea on 10-15-2024 Neutrophil cytoplasmic Ab.classic Qn (S) <1:20 titer Neg:<1:20 [facility] Serum cottonwood IgE antibod y assay (units/volume)Ordered By: Papi Govea on 10-15-2024 [place] IgE Qn (S) <0.10 kU/L Class 0 [facility] Serum dog epithelium IgE ant ibody assay (units/volume)Ordered By: Papi Govea on 10-15-2024 Dog epithelium IgE Qn (S) <0.10 kU/L Class 0 [facility] Serum mountain cedar specifi c IgE antibody assayOrdered By: Papi Govea on 10-15-2024 Mountain Juniper IgE Qn (S) <0.10 kU/L Class 0 [facility] Serum perinuclear neutrophil cytoplasmic antibody titer by immunofluorescenceOrdered By: Papi Govea on 10-15-2024 Neutrophil cytoplasmic Ab.perinuclear IF (S) [Titer] <1:20 titer Neg:<1:20 [facility] Comment on above: The presence of posi tive fluorescence exhibiting P-ANCA orC-ANCA patterns alone is not specific for the diagnosis ofWegener's Granulomatosis (WG) or microscopic polyangiitis.Decisions about treatment should not be based solely onANCA IFA results. The International ANCA Group Consensusrecommends follow up testing of positive sera with both CA-3 and MPO-ANCA enzyme immunoassays. As many as 5% serumsamples are positive only by EIA. Ref. AM J Clin Sqsllb0489;111:507-513. Serum brian IgE antibody a ssay (units/volume)Ordered By: Papi Govea on 10-15-2024 Brian IgE Qn (S) <0.10 kU/L Class 0 [facility] Serum white elm IgE antibody assay (units/volume)Ordered By: Papi Govea on 10-15-2024 White Elm IgE Qn (S) <0.10 kU/L Class 0 [facility] Serum white mulberry IgE ant ibody assay (units/volume)Ordered By: Papi Govea on 10-15-2024 White mulberry IgE Qn (S) <0.10 kU/L Class 0 [facility] White blood cell (WBC) count Ordered By: Papi Govea on 10-15-2024 WBC (Bld) [#/Vol] 7.2 10*3/uL 4.4-11.0 [facility] CBC W/Diff, Automatedon 05-04 Absolute Lymph 2.45 X10 3/uL Normal 0.83-4.51 [facility] Comment on above: Performed By: #### L 500.4100, L100.0100, L500.4050, L501.9520 #### [facility] [address] [place], [address] Absolute Neut 4.1 X10 3/uL Normal 2.0-7.7 [facility] Comment on above: Performed By: #### L 500.4100, L100.0100, L500.4050, L501.9520 #### [facility] [address] [place], [address] Basophils/100 WBC (Bld) 0.5 % Normal 0-1 [facility] Comment on above: Performed By: #### L 500.4100, L100.0100, L500.4050, L501.9520 #### [facility] [address] [place], [address] Eosinophils/100 WBC (Bld) 5.2 % High 0-5 [facility] Comment on above: Performed By: #### L 500.4100, L100.0100, L500.4050, L501.9520 #### [facility] [address] [place], [address] Erythrocyte distribution width (RBC) [Ratio] 13.2 % Normal 11.6-14.6 [facility] Comment on above: Performed By: #### L 500.4100, L100.0100, L500.4050, L501.9520 #### [facility] [address] [place], [address] Hematocrit (Bld) [Volume fraction] 40.6 % Normal 37-47 [facility] Comment on above: Performed By: #### L 500.4100, L100.0100, L500.4050, L501.9520 #### [facility] [address] [place], [address] Hemoglobin (Bld) [Mass/Vol] 13.0 g/dL Normal 12.0-15.0 [facility] Comment on above: Performed By: #### L 500.4100, L100.0100, L500.4050, L501.9520 #### [facility] [address] [place], [address] IG% 0.100 Normal 0.0-0.9 [facility] Comment on above: Result Comment: IG% - Immature Granulocytes (promyelocytes, myelocytes and metamyelocytes) > 1% indicates that a LEFT SHIFT is Present. Performed By: #### L 500.4100, L100.0100, L500.4050, L501.9520 #### [facility] [address] [place], [address] Lymphocytes/100 WBC (Bld) 32.6 % Normal 19-41 [facility] Comment on above: Performed By: #### L 500.4100, L100.0100, L500.4050, L501.9520 #### [facility] [address] [place], [address] MCH (RBC) [Entitic mass] 26.6 pg Low 27.0-32.0 [facility] Comment on above: Performed By: #### L 500.4100, L100.0100, L500.4050, L501.9520 #### [facility] [address] [place], [address] MCHC (RBC) [Mass/Vol] 32.0 g/dL Normal 32-36 [facility] Comment on above: Performed By: #### L 500.4100, L100.0100, L500.4050, L501.9520 #### [facility] [address] [place], [address] MCV (RBC) [Entitic vol] 83.2 fL Normal 81-99 [facility] Comment on above: Performed By: #### L 500.4100, L100.0100, L500.4050, L501.9520 #### [facility] [address] [place], [address] Monocytes/100 WBC (Bld) 7.2 % Normal 0-10 [facility] Comment on above: Performed By: #### L 500.4100, L100.0100, L500.4050, L501.9520 #### [facility] [address] [place], [address] Neutrophils/100 WBC (Bld) 54.4 % Normal 47-70 [facility] Comment on above: Performed By: #### L 500.4100, L100.0100, L500.4050, L501.9520 #### [facility] [address] [place], [address] Nucleated RBC (Bld) [#/Vol] 0 10*3/uL Normal 0-5 [facility] Comment on above: Performed By: #### L 500.4100, L100.0100, L500.4050, L501.9520 #### [facility] [address] [place], [address] Platelet mean volume (Bld) [Entitic vol] 9.5 fL Normal 6.2-12.0 [facility] Comment on above: Performed By: #### L 500.4100, L100.0100, L500.4050, L501.9520 #### [facility] [address] [place], [address] Platelets (Bld) [#/Vol] 246 10*3/uL Normal 150-450 [facility] Comment on above: Performed By: #### L 500.4100, L100.0100, L500.4050, L501.9520 #### [facility] [address] [place], [address] RBC (Bld) [#/Vol] 4.88 10*6/uL Normal 4.2-5.4 [facility] Comment on above: Performed By: #### L 500.4100, L100.0100, L500.4050, L501.9520 #### [facility] [address] [place], [address] RDW SD 40.1 fl Normal 35.1-43.9 [facility] Comment on above: Performed By: #### L 500.4100, L100.0100, L500.4050, L501.9520 #### [facility] [address] [place], [address] WBC (Bld) [#/Vol] 7.5 10*3/uL Normal 4.4-11.0 [facility] Comment on above: Performed By: #### L 500.4100, L100.0100, L500.4050, L501.9520 #### [facility] [address] [place], [address] [facility] 05-22-2024 Albumin [Mass/Vol] 3.5 g/dL Normal 3.2-5.0 [facility] Comment on above: Performed By: #### L 500.4100, L100.0100, L500.4050, [id number] ####[facility] [address] [place], [address] Albumin/Globulin [Mass ratio] 1.0 {ratio} Normal 0.9-2.4 [facility] Comment on above: Performed By: #### L 500.4100, L100.0100, L500.4050, [id number] ####[facility] [address] [place], [address] ALK P 77 U/L Normal 45-117 [facility] Comment on above: Performed By: #### L 500.4100, L100.0100, L500.4050, [id number] ####[facility] [address] [place], [address] ALT [Catalytic activity/Vol] 21 U/L Normal 13-56 [facility] Comment on above: Performed By: #### L 500.4100, L100.0100, L500.4050, [id number] ####[facility] [address] [place], [address] AST [Catalytic activity/Vol] 21 U/L Normal 15-37 [facility] Comment on above: Performed By: #### L 500.4100, L100.0100, L500.4050, [id number] ####[facility] [address] [place], [address] Bilirubin [Mass/Vol] 0.60 mg/dL Normal 0.20-1.00 [facility] Comment on above: Result Comment: For patients on eltrombopag therapy, use of Dimension [place] TBIL is not recommended. Performed By: #### L 500.4100, L100.0100, L500.4050, [id number] ####[facility] [address] [place], [address] BUN/CRE 15.9 RATIO Normal 10-20 [facility] Comment on above: Performed By: #### L 500.4100, L100.0100, L500.4050, [id number] ####[facility] [address] [place], [address] CA,Total 9.2 mg/dL Normal 8.5-10.1 [facility] Comment on above: Performed By: #### L 500.4100, L100.0100, L500.4050, [id number] ####[facility] [address] [place], [address] Chloride [Moles/Vol] 104 mmol/L Normal 98-107 [facility] Comment on above: Performed By: #### L 500.4100, L100.0100, L500.4050, [id number] ####[facility] [address] [place], [address] CO2 [Moles/Vol] 27.0 mmol/L Normal 21.0-32.0 [facility] Comment on above: Performed By: #### L 500.4100, L100.0100, L500.4050, [id number] ####[facility] [address] [place], [address] Creatinine [Mass/Vol] 0.94 mg/dL Normal 0.55-1.02 [facility] Comment on above: Result Comment: The validity of the calculated GFR GFRAA in patients over 70 years has not been determined. Clinical correlation is essential. Performed By: #### L 500.4100, L100.0100, L500.4050, [id number] ####[facility] [address] [place], [address] EST GFR - AA 74 mL/min Normal >60 [facility] Comment on above: Result Comment: Afri can [place] GFR Calc Performed By: #### L 500.4100, L100.0100, L500.4050, [id number] ####[facility] [address] [place], [address] GAP 6 Normal 5-15 [facility] Comment on above: Performed By: #### L 500.4100, L100.0100, L500.4050, [id number] ####[facility] [address] [place], [address] GFR/1.73 sq M.predicted among non-blacks MDRD (S/P/Bld) [Vol rate/Area] 62 mL/min/{1.73_m2} Normal >60 [facility] Comment on above: Result Comment: Non- GFR Calc Performed By: #### L 500.4100, L100.0100, L500.4050, [id number] ####[facility] [address] [place], [address] Globulin (S) [Mass/Vol] 3.5 g/dL Normal 2.2-4.2 [facility] Comment on above: Performed By: #### L 500.4100, L100.0100, L500.4050, [id number] ####[facility] [address] [place], [address] Glucose [Mass/Vol] 101 mg/dL Normal 74-106 [facility] Comment on above: Result Comment: Fast ing Glucose result from 100 to 125 mg/dL suggests IMPAIRED HOMEOSTASIS per A.D.A. criteria. Performed By: #### L 500.4100, L100.0100, L500.4050, [id number] ####[facility] [address] [place], [address] Potassium [Moles/Vol] 4.0 mmol/L Normal 3.5-5.1 [facility] Comment on above: Performed By: #### L 500.4100, L100.0100, L500.4050, [id number] ####[facility] [address] [place], [address] Sodium [Moles/Vol] 136 mmol/L Normal 136-145 [facility] Comment on above: Performed By: #### L 500.4100, L100.0100, L500.4050, [id number] ####[facility] [address] [place], [address] T PROT 7.0 g/dL Normal 6.4-8.2 [facility] Comment on above: Performed By: #### L 500.4100, L100.0100, L500.4050, [id number] ####[facility] [address] [place], [address] Urea nitrogen [Mass/Vol] 15 mg/dL Normal 7-18 [facility] Comment on above: Performed By: #### L 500.4100, L100.0100, L500.4050, [id number] ####[facility] [address] [place], [address] Lipid Profileon 05-22-2024 Cholesterol [Mass/Vol] 134 mg/dL Normal 200 [facility] Comment on above: Result Comment: <200 mg/dL Desirable 200-240 mg/dL Borderline >240 mg/dL High Risk Performed By: #### L 500.4100, L100.0100, L500.4050, [id number] ####[facility] [address] [place], [address] Cholesterol in HDL [Mass/Vol] 66 mg/dL Normal [facility] Comment on above: Result Comment: The drugs N-Acetylcysteine and Metamizole may falsely depress this assay. Reference Range HDL <40 mg/dL Low HDL Cholesterol HDL >or= 60 mg/dL High HDL Cholesterol Performed By: #### L 500.4100, L100.0100, L500.4050, [id number] ####[facility] [address] [place], [address] Cholesterol in LDL [Mass/Vol] 54 mg/dL Normal 0-130 [facility] Comment on above: Performed By: #### L 500.4100, L100.0100, L500.4050, [id number] ####[facility] [address] [place], [address] Cholesterol in VLDL [Mass/Vol] 14 mg/dL Normal 5-40 [facility] Comment on above: Performed By: #### L 500.4100, L100.0100, L500.4050, [id number] ####[facility] [address] [place], [address] Triglyceride [Mass/Vol] 71 mg/dL Normal [facility] Comment on above: Result Comment: The drugs N-Acetylcysteine and Metamizole may falsely depress this assay. Serum Triglycerides Reference Interval Normal <150 mg/dL Borderline high 150 - 199 mg/dL High 200 - 499 mg/dL Very High > or = 500 mg/dL Performed By: #### L 500.4100, L100.0100, L500.4050, [id number] ####[facility] [address] [place], [address] Thyroid Stim Hormone (TSH)on 05-22-2024 TSH 1.400 uIU/mL Normal 0.358-3.74 0 [facility] Comment on above: Performed By: #### L 500.4100, L100.0100, L500.4050, [id number] ####[facility] [address] [place], [address] Absolute lymphocyte countOrd ered By: Daphnie Jones on 05-09-2023 Lymphocytes Auto (Unsp spec) [#/Vol] 2.85 10*3/uL 0.83-4.51 [facility] Basophil percentageOrdered B y: Daphnie Jones on 05-09-2023 Basophils/100 WBC (Bld) 0.8 % 0-1 [facility] Bilirubin [Mass/Vol] 0.60 mg/dL 0.20-1.00 [facility] Comment on above: For patients on eltr ombopag therapy, use of Dimension [place] TBIL is not recommended. Chloride [Moles/Vol] 106 mmol/L 98-107 [facility] Cholesterol [Mass/Vol] 125 mg/dL <200 [facility] Comment on above: <200 mg/dL Desirable 200-240 mg/dL Borderline >240 mg/dL High Risk Eosinophils/100 WBC (Bld) 6.0 % 0-5 [facility] Glucose [Mass/Vol] 110 mg/dL 74-106 [facility] Comment on above: Fasting Glucose resu lt from 100 to 125 mg/dL suggests IMPAIRED HOMEOSTASIS per A.D.A. criteria. Neutrophils (Bld) [#/Vol] 3.3 10*3/uL 2.0-7.7 [facility] Neutrophils/100 WBC (Bld) 46.6 % 47-70 [facility] Potassium [Moles/Vol] 3.9 mmol/L 3.5-5.1 [facility] Protein [Mass/Vol] 7.0 g/dL 6.4-8.2 [facility] Sodium [Moles/Vol] 139 mmol/L 136-145 [facility] Triglyceride [Mass/Vol] 45 mg/dL <199 [facility] Comment on above: The drugs N-Acetylcy steine and Metamizole may falsely depress this assay.Serum Triglycerides Reference Interval Normal <150 mg/dL Borderline high 150 - 199 mg/dL High 200 - 499 mg/dL Very High > or = 500 mg/dL WBC (Bld) [#/Vol] 7.2 10*3/uL 4.4-11.0 [facility] Blood erythrocytes count (nu mber/volume)Ordered By: Daphnie Jones on 05-09-2023 RBC (Bld) [#/Vol] 4.90 10*6/uL 4.2-5.4 [facility] Blood hemoglobin measurement (mass/volume)Ordered By: Daphnie Jones on 05-09-2023 Hemoglobin (Bld) [Mass/Vol] 13.0 g/dL 12.0-15.0 [facility] Blood lymphocytes/100 leukoc ytesOrdered By: Daphnie Jones on 05-09-2023 Lymphocytes/100 WBC (Bld) 39.8 % 19-41 [facility] Blood monocytes/100 leukocyt esOrdered By: Daphnie Jones on 05-09-2023 Monocytes/100 WBC (Bld) 6.7 % 0-10 [facility] Blood platelet mean volumeOr dered By: Daphnie Jones on 05-09-2023 Platelet mean volume (Bld) [Entitic vol] 10.0 fL 6.2-12.0 [facility] Determination of erythrocyte mean corpuscular volume (MCV)Ordered By: Daphnie Jones on 05-09-2023 MCV (RBC) [Entitic vol] 87.1 fL 81-99 [facility] Hematocrit Auto (Bld) [Volum e fraction]Ordered By: Daphnie Jones on 05-09-2023 Hematocrit (Bld) [Volume fraction] 42.7 % 37-47 [facility] Laboratory - Chemistry and C hemistry - challengeOrdered By: Daphnie Jones on 05-09-2023 ALP [Catalytic activity/Vol] 72 U/L 45-117 [facility] ALT [Catalytic activity/Vol] 21 U/L 13-56 [facility] CO2 [Moles/Vol] 30.0 mmol/L 21.0-32.0 [facility] Globulin (S) [Mass/Vol] 3.5 g/dL 2.2-4.2 [facility] Urea nitrogen/Creatinine [Mass ratio] 17.0 mg/mg 10-20 [facility] Laboratory - Hematology and Cell countsOrdered By: Daphnie Jones on 05-09-2023 Erythrocyte distribution width (RBC) [Entitic vol] 41.8 fL 35.1-43.9 [facility] Erythrocyte distribution width (RBC) [Ratio] 13.2 % 11.6-14.6 [facility] Immature granulocytes/100 WBC (Bld) 0.100 % 0.0-0.9 [facility] Comment on above: IG% - Immature Granu locytes (promyelocytes, myelocytes and metamyelocytes) > 1% indicates that a LEFT SHIFT is Present. MCH (RBC) [Entitic mass] 26.5 pg 27.0-32.0 [facility] Nucleated RBC/100 WBC (Bld) [Ratio] 0 % 0-5 [facility] MCHC Auto (RBC) [Mass/Vol]Or dered By: Daphnie Jones on 05-09-2023 MCHC (RBC) [Mass/Vol] 30.4 g/dL 32-36 [facility] No Panel InformationOrdered By: Daphnie Jones on 05-09-2023 Estimated GFR (MDRD) Amer 70 mL/min >60 [facility] Comment on above: GFR Calc Estimated GFR (MDRD) Non-Af Amer 58 mL/min >60 [facility] Comment on above: Non- GFR Calc Thyroid Stimulating Hormone (TSH) 1.37 uIU/mL 0.358-3.74 [facility] Platelets bldOrdered By: Kai Jones on 05-09-2023 Platelets (Bld) [#/Vol] 241 10*3/uL 150-450 [facility] Serum or plasma albumin shayan urement (mass/volume)Ordered By: Daphnie Jones on 05-09-2023 Albumin [Mass/Vol] 3.5 g/dL 3.2-5.0 [facility] Serum or plasma albumin/glob ulin mass ratioOrdered By: Daphnie Jones on 05-09-2023 Albumin/Globulin [Mass ratio] 1.0 {ratio} 0.9-2.4 [facility] Serum or plasma calcium shayan urement (mass/volume)Ordered By: Daphnie Jones on 05-09-2023 Calcium [Mass/Vol] 9.1 mg/dL 8.5-10.1 [facility] Serum or plasma cholesterol in HDL measurement (mass/volume)Ordered By: Daphnie Jones on 05-09-2023 Cholesterol in HDL [Mass/Vol] 70 mg/dL >40 [facility] Comment on above: The drugs N-Acetylcy steine and Metamizole may falsely depress this assay. Reference Range HDL <40 mg/dL Low HDL Cholesterol HDL >or= 60 mg/dL High HDL Cholesterol Serum or plasma cholesterol in VLDL measurement (mass/volume)Ordered By: Daphnie Jones on 05-09-2023 Cholesterol in VLDL [Mass/Vol] 9 mg/dL 5-40 [facility] Serum or plasma creatinine m easurement (mass/volume)Ordered By: Daphnie Jones on 05-09-2023 Creatinine [Mass/Vol] 1.00 mg/dL 0.55-1.02 [facility] Comment on above: The validity of the calculated GFR & GFRAA in patients over 70 years has not been determined. Clinical correlation is essential. Serum or plasma low density lipoprotein (LDL) cholesterol measurement (mass/volume)Ordered By: Daphnie Jones on 05-09-2023 Cholesterol in LDL [Mass/Vol] 46 mg/dL 0-130 [facility] Serum or plasma urea nitroge n measurement (mass/volume)Ordered By: Daphnie Jones on 05-09-2023 Urea nitrogen [Mass/Vol] 17 mg/dL 7-18 [facility] Thin prep Papanicolaou smear with manual screeningOrdered By: Daphnie Rosannedelia on 05-09-2023 Thin prep Papanicolaou smear with manual screening 22 U/L 15-37 [facility] Thin prep Papanicolaou smear with manual screening 3 5-15 [facility] Laboratory - Microbiology an d Antimicrobial susceptibilityOrdered By: Edgardo Manzano on 09-02-2022 Bacteria identified Cx Nom (Bld) No growth in 5 days. [facility] Absolute lymphocyte countOrd ered By: ED PROVIDER on 08-27-2022 Lymphocytes Auto (Unsp spec) [#/Vol] 2.42 10*3/uL 0.83-4.51 [facility] Basophil percentageOrdered B y: Edgardo Manzano on 08-27-2022 Lactate [Moles/Vol] 0.5 mmol/L 0.4-2.0 [facility] Chloride [Moles/Vol] 101 mmol/L 98-107 [facility] Glucose [Mass/Vol] 138 mg/dL 74-106 [facility] Comment on above: Fasting Glucose resu lt greater than or equal to 126 mg/dL suggests DIABETES MELLITUS per A.D.A. criteria. Potassium [Moles/Vol] 3.9 mmol/L 3.5-5.1 [facility] Sodium [Moles/Vol] 136 mmol/L 136-145 [facility] Basophil percentageOrdered B y: ED PROVIDER on 08-27-2022 Basophils/100 WBC (Bld) 0.3 % 0-1 [facility] Eosinophils/100 WBC (Bld) 5.4 % 0-5 [facility] Neutrophils (Bld) [#/Vol] 4.8 10*3/uL 2.0-7.7 [facility] Neutrophils/100 WBC (Bld) 55.5 % 47-70 [facility] WBC (Bld) [#/Vol] 8.7 10*3/uL 4.4-11.0 [facility] Blood erythrocytes count (nu mber/volume)Ordered By: ED PROVIDER on 08-27-2022 RBC (Bld) [#/Vol] 4.63 10*6/uL 4.2-5.4 [facility] Blood hemoglobin measurement (mass/volume)Ordered By: ED PROVIDER on 08-27-2022 Hemoglobin (Bld) [Mass/Vol] 12.8 g/dL 12.0-15.0 [facility] Blood lymphocytes/100 leukoc ytesOrdered By: ED PROVIDER on 08-27-2022 Lymphocytes/100 WBC (Bld) 27.8 % 19-41 [facility] Blood monocytes/100 leukocyt esOrdered By: ED PROVIDER on 08-27-2022 Monocytes/100 WBC (Bld) 10.7 % 0-10 [facility] Blood platelet mean volumeOr dered By: ED PROVIDER on 08-27-2022 Platelet mean volume (Bld) [Entitic vol] 9.3 fL 6.2-12.0 [facility] Determination of erythrocyte mean corpuscular volume (MCV)Ordered By: ED PROVIDER on 08-27-2022 MCV (RBC) [Entitic vol] 84.7 fL 81-99 [facility] Hematocrit Auto (Bld) [Volum e fraction]Ordered By: ED PROVIDER on 08-27-2022 Hematocrit (Bld) [Volume fraction] 39.2 % 37-47 [facility] Laboratory - Chemistry and C hemistry - challengeOrdered By: Edgardo Manzano on 08-27-2022 CO2 [Moles/Vol] 29.0 mmol/L 21.0-32.0 [facility] Urea nitrogen/Creatinine [Mass ratio] 11.7 mg/mg 10-20 [facility] - Hematology and Cell countsOrdered By: ED PROVIDER on 08-27-2022 Erythrocyte distribution width (RBC) [Entitic vol] 39.7 fL 35.1-43.9 [facility] Erythrocyte distribution width (RBC) [Ratio] 12.8 % 11.6-14.6 [facility] Immature granulocytes/100 WBC (Bld) 0.300 % 0.0-0.9 [facility] Comment on above: IG% - Immature Granu locytes (promyelocytes, myelocytes and metamyelocytes) > 1% indicates that a LEFT SHIFT is Present. MCH (RBC) [Entitic mass] 27.6 pg 27.0-32.0 [facility] Nucleated RBC/100 WBC (Bld) [Ratio] 0 % 0-5 [facility] MCHC Auto (RBC) [Mass/Vol]Or dered By: ED PROVIDER on 08-27-2022 MCHC (RBC) [Mass/Vol] 32.7 g/dL 32-36 [facility] No Panel InformationOrdered By: Edgardo Manzano on 08-27-2022 Estimated Creatinine Clearance Calc 45.57 ml/min [facility] Estimated GFR (MDRD) Amer 62 mL/min >60 [facility] Comment on above: GFR Calc Estimated GFR (MDRD) Non-Af Amer 51 mL/min >60 [facility] Comment on above: Non- GFR Calc Platelets bldOrdered By: ED PROVIDER on 08-27-2022 Platelets (Bld) [#/Vol] 217 10*3/uL 150-450 [facility] Serum or plasma calcium shayan urement (mass/volume)Ordered By: Edgardo Manzano on 08-27-2022 Calcium [Mass/Vol] 8.7 mg/dL 8.5-10.1 [facility] Serum or plasma creatinine m easurement (mass/volume)Ordered By: Edgardo Manzano on 08-27-2022 Creatinine [Mass/Vol] 1.11 mg/dL 0.55-1.02 [facility] Comment on above: The validity of the calculated GFR & GFRAA in patients over 70 years has not been determined. Clinical correlation is essential. Serum or plasma urea nitroge n measurement (mass/volume)Ordered By: Edgardo Manzano on 08-27-2022 Urea nitrogen [Mass/Vol] 13 mg/dL 7-18 [facility] Thin prep Papanicolaou smear with manual screeningOrdered By: Edgardo Manzano on 08-27-2022 Thin prep Papanicolaou smear with manual screening 6 5-15 [facility] Absolute lymphocyte countOrd ered By: Dr. Jones on 05-04-2022 Lymphocytes Auto (Unsp spec) [#/Vol] 2.47 10*3/uL 0.83-4.51 [facility] Basophil percentageOrdered B y: Dr. Jones on 05-04-2022 Basophils/100 WBC (Bld) 0.6 % 0-1 [facility] Bilirubin [Mass/Vol] 0.70 mg/dL 0.20-1.00 [facility] Comment on above: For patients on eltr ombopag therapy, use of Dimension [place] TBIL is not recommended. Chloride [Moles/Vol] 104 mmol/L 98-107 [facility] Cholesterol [Mass/Vol] 139 mg/dL <200 [facility] Comment on above: <200 mg/dL Desirable 200-240 mg/dL Borderline >240 mg/dL High Risk Eosinophils/100 WBC (Bld) 4.7 % 0-5 [facility] Glucose [Mass/Vol] 94 mg/dL 74-106 [facility] Neutrophils (Bld) [#/Vol] 4.8 10*3/uL 2.0-7.7 [facility] Neutrophils/100 WBC (Bld) 57.0 % 47-70 [facility] Potassium [Moles/Vol] 4.5 mmol/L 3.5-5.1 [facility] Protein [Mass/Vol] 7.2 g/dL 6.4-8.2 [facility] Sodium [Moles/Vol] 138 mmol/L 136-145 [facility] Triglyceride [Mass/Vol] 54 mg/dL <199 [facility] Comment on above: The drugs N-Acetylcy steine and Metamizole may falsely depress this assay.Serum Triglycerides Reference Interval Normal <150 mg/dL Borderline high 150 - 199 mg/dL High 200 - 499 mg/dL Very High > or = 500 mg/dL WBC (Bld) [#/Vol] 8.3 10*3/uL 4.4-11.0 [facility] Blood erythrocytes count (nu mber/volume)Ordered By: Dr. Jones on 05-04-2022 RBC (Bld) [#/Vol] 5.10 10*6/uL 4.2-5.4 [facility] Blood hemoglobin measurement (mass/volume)Ordered By: Dr. Jones on 05-04-2022 Hemoglobin (Bld) [Mass/Vol] 14.0 g/dL 12.0-15.0 [facility] Blood lymphocytes/100 leukoc ytesOrdered By: Dr. Jones on 05-04-2022 Lymphocytes/100 WBC (Bld) 29.6 % 19-41 [facility] Blood monocytes/100 leukocyt esOrdered By: Dr. Jones on 05-04-2022 Monocytes/100 WBC (Bld) 7.9 % 0-10 [facility] Blood platelet mean volumeOr dered By: Dr. Jones on 05-04-2022 Platelet mean volume (Bld) [Entitic vol] 9.4 fL 6.2-12.0 [facility] Determination of erythrocyte mean corpuscular volume (MCV)Ordered By: Dr. Jones on 05-04-2022 MCV (RBC) [Entitic vol] 87.1 fL 81-99 [facility] Hematocrit Auto (Bld) [Volum e fraction]Ordered By: Dr. Jones on 05-04-2022 Hematocrit (Bld) [Volume fraction] 44.4 % 37-47 [facility] Laboratory - Chemistry and C hemistry - challengeOrdered By: Dr. Jones on 05-04-2022 ALP [Catalytic activity/Vol] 77 U/L 45-117 [facility] ALT [Catalytic activity/Vol] 28 U/L 13-56 [facility] CO2 [Moles/Vol] 28.0 mmol/L 21.0-32.0 [facility] Globulin (S) [Mass/Vol] 3.7 g/dL 2.2-4.2 [facility] Urea nitrogen/Creatinine [Mass ratio] 23.4 mg/mg 10-20 [facility] Laboratory - Hematology and Cell countsOrdered By: Dr. Jones on 05-04-2022 Erythrocyte distribution width (RBC) [Entitic vol] 40.1 fL 35.1-43.9 [facility] Erythrocyte distribution width (RBC) [Ratio] 12.6 % 11.6-14.6 [facility] Immature granulocytes/100 WBC (Bld) 0.200 % 0.0-0.9 [facility] Comment on above: IG% - Immature Granu locytes (promyelocytes, myelocytes and metamyelocytes) > 1% indicates that a LEFT SHIFT is Present. MCH (RBC) [Entitic mass] 27.5 pg 27.0-32.0 [facility] Nucleated RBC/100 WBC (Bld) [Ratio] 0 % 0-5 [facility] Auto (RBC) [Mass/Vol]Or dered By: Dr. Jones on 05-04-2022 MCHC (RBC) [Mass/Vol] 31.5 g/dL 32-36 [facility] No Panel InformationOrdered By: Dr. Jones on 05-04-2022 Estimated GFR (MDRD) Amer 84 mL/min >60 [facility] Comment on above: GFR Calc Estimated GFR (MDRD) Non-Af Amer 69 mL/min >60 [facility] Comment on above: Non- GFR Calc Thyroid Stimulating Hormone (TSH) 2.03 uIU/mL 0.358-3.74 [facility] Platelets bldOrdered By: Dr. Jones on 05-04-2022 Platelets (Bld) [#/Vol] 283 10*3/uL 150-450 [facility] Serum or plasma albumin shayan urement (mass/volume)Ordered By: Dr. Jones on 05-04-2022 Albumin [Mass/Vol] 3.5 g/dL 3.2-5.0 [facility] Serum or plasma albumin/glob ulin mass ratioOrdered By: Dr. Jones on 05-04-2022 Albumin/Globulin [Mass ratio] 0.9 {ratio} 0.9-2.4 [facility] Serum or plasma calcium shayan urement (mass/volume)Ordered By: Dr. Jones on 05-04-2022 Calcium [Mass/Vol] 8.8 mg/dL 8.5-10.1 [facility] Serum or plasma cholesterol in HDL measurement (mass/volume)Ordered By: Dr. Jones on 05-04-2022 Cholesterol in HDL [Mass/Vol] 60 mg/dL >40 [facility] Comment on above: The drugs N-Acetylcy steine and Metamizole may falsely depress this assay. Reference Range HDL <40 mg/dL Low HDL Cholesterol HDL >or= 60 mg/dL High HDL Cholesterol Serum or plasma cholesterol in VLDL measurement (mass/volume)Ordered By: Dr. Jones on 05-04-2022 Cholesterol in VLDL [Mass/Vol] 11 mg/dL 5-40 [facility] Serum or plasma creatinine m easurement (mass/volume)Ordered By: Dr. Jones on 05-04-2022 Creatinine [Mass/Vol] 0.85 mg/dL 0.55-1.02 [facility] Comment on above: The validity of the calculated GFR & GFRAA in patients over 70 years has not been determined. Clinical correlation is essential. Serum or plasma low density lipoprotein (LDL) cholesterol measurement (mass/volume)Ordered By: Dr. Jones on 05-04-2022 Cholesterol in LDL [Mass/Vol] 68 mg/dL 0-130 [facility] Serum or plasma urea nitroge n measurement (mass/volume)Ordered By: Dr. Jones on 05-04-2022 Urea nitrogen [Mass/Vol] 20 mg/dL 7-18 [facility] Thin prep Papanicolaou smear with manual screeningOrdered By: Dr. Jones on 05-04-2022 Thin prep Papanicolaou smear with manual screening 21 U/L 15-37 [facility] Thin prep Papanicolaou smear with manual screening 6 5-15 [facility] CNOVon 05-06-2018 CNOV Office Visit (INTMWS) DARIUSZ MCCRARY JENNY ([id number]) [address] [facility] Jkidgazfds45/3/18 3:00 PM MICHAEL FORREST (STEPHANIE) INTMWS During your visit today, we recorded the following information about you: Temperature Pulse Respiration Blood pressure 98.4 degrees 74/minute 16/minute 120/80 Weight 69.9 kgMichael Forrest APRN.CNS 05/06/2018 3:47 PM SignedOUTPATIENT VISIT DATE May 06, 2018OUTPATIENT VISIT TYPEESTABLISHEDPRIMARY CARE PHYSICIAN:Angelita Burnett [facility] COMPLAINT:Patient presents with:URIHistory of Present Illness:Wilberto Mccrary is a 68 year old female who was last seenShe has been seen in the past forACTIVE PROBLEM LISTDysphoniaHypertension Chronic CoughOsa (Obstructive Sleep Apnea)HypothyroidismMild Persistent AsthmaReflux LaryngitisSince the last visit, she states that she has been sick for one week, she didhave sick family members, she has noted ear stuffiness, productive cough, nasaldrainage, fatigue. Lots of coughing, some wheezing, using nebulizer 1-2 timesin the last week. OTC cold medicines have helped somewhat The ROS is otherwisenegative.The patient's pmh, medications, allergies, and past visits are reviewed.PHYSICAL EXAM:BP 120/80 (BP Site: Right Arm, BP Position: Sitting, BP Cuff Size: RegularAdult) Pulse 74 Temp 36.9 ?C (98.4 ?F) Resp 16 Wt 69.9 kg (154 lb) SpO2 90% BMI 31.10 kg/m?General appearance: tired/ill appearingHead: NormocephalicEyes: conjunctiva/corneas normalEars: R TM - dull, L TM - dullNose: clear rhinorrheaOropharynx: moist without lesions, teeth in good repairNeck: supple and small, benign anterior cervical nodes bilaterallyHeart: regular rate and rhythm, without murmurLungs: clear to auscultation, without rales or wheeze, good air exchangeNo recent hospital or ED visits.No new medical problems or medications.Able to obtain medications.No problems with taking medications or note side effects.PAST MEDICAL HISTORYDiagnosis Date- Asthma- Cough- Dizziness and giddiness- Essential hypertension, benign- Internal hemorrhoids without mention of complication 08/07/05- Obstructive sleep apnea CPAP, nose pillow- Osteopenia- Reflux laryngitis 06/08/2017 Laryngopharyngeal reflux.- Tumors of body of uterus, antepartum condition or complication Fibroids.- Unspecified hypothyroidismPAST SURGICAL HISTORYProcedure Laterality Date- COLONOSCOP W/ OR W/O [facility] SPEC 08/07/05- DANDC, DIAG AND/OR THERAPEUTIC Dilation AND curettage- EGD 2010- REMOVAL OF TONSILS,<11 Y/O 26 yo. Tonsillectomy- TOTAL ABDOM HYSTERECTOMY 1987 Hysterectomy, has one ovary, for fibroids and DUBFAMILY HISTORYProblem Relation Age of Onset- Heart Father [place]- Osteoporosis Mother- Stroke Mother- Stroke Maternal Grandmother- Cancer Maternal Grandfather Lung- Diabetes Paternal Grandmother- Heart Paternal Grandmother [place]- other (Allergies?) Paternal Grandmother Terrible cough.- Heart Paternal Grandfather MN- Asthma Daughter- other (Mitral valve prolapse) Daughter- other (Allergies?) Daughter- other (Sinus disease) Daughter No surgery.- Stroke Brother- Heart Brother [place] and triple bypass- Breast Cancer Paternal Aunt- Heart Brother [place], Bypass- Hypertension Brother STRONG FAMILY HISTORY- other (HEART DISEASE) Brother STRONG FAMILY HISTORY- other (Other) Brother No hearing and speech assistant/colon cancerSocial HistorySubstance Use Topics- Smoking status: Never Smoker- Smokeless tobacco: Never Used Comment: Father smoked in childhood home. Spouse stopped smoing 19 yearsago.- Alcohol use Yes Comment: Seldom.ALLERGIES:ALLERGIE SAllergen Reactions- Erythromycin GI Upset- Sulfa (Sulfonamide * RashMEDICATIONSalbuterol (PROVENTIL) 2.5 mg /3 mL (0.083 %) nebulizer solution Use 3 mL vianebulizer every 6 hours as needed for Wheezing/Shortness of Breath. Use over5-15minutes.levothyro xine (SYNTHROID) 75 mcg tablet Take 1 tablet by mouth once daily.Omeprazole 40 mg capsule Take 1 capsule by mouth once daily.amLODIPine (NORVASC) 5 mg tablet Take 1 tablet by mouth once daily.azelastine (ASTELIN,ASTEPRO) 0.1% nasal spray Use 1 Birdseye in each nostril twicedaily as needed.COMPOUNDED PRESCRIPTION Check CPAP fit and settings and make adjustments asneeded. Dx; Sleep apneaaspirin, enteric coated 81 mg EC tablet Take 81 mg by mouth once daily.calcium carbonate (CALCIUM 600) 600 mg (1,500 mg) tab Take 1 tablet by mouthonce daily.Cholecalciferol, Vitamin D3, (VITAMIN D) 1,000 unit ORAL Tab Take 185 mg bymouth once daily.OTC NUTRITIONAL SUPPLEMENT Multi-Vitamin, Take one(1) tablet daily.predniSONE (DELTASONE) 10 mg tablet Take 3 tablets by mouth once daily for 4days. Take daily with food.doxycycline (VIBRA-TABS) 100 mg tablet Take 1 tablet by mouth twice daily for10 days. antibiotic - take with foodubidecarenone Q-10 (CO Q-10) 10 mg cap Take 1 capsule by mouth once daily.predniSONE (DELTASONE) 10 mg tablet Take 1 tablet by mouth once daily.mometasone (ASMANEX) 220 mcg (60 doses) aepb Inhale 2 Puffs as instructed twicedaily.albuterol HFA (PROAIR HFA) 90 mcg/actuation inhaler Inhale 2 Puffs asinstructed every 4 hours as needed for Wheezing/Shortness of Breath. Also touse prior to exercise and as needed for cough variant asthmaReviewed chart, outside records, testsI personally interviewed, confirmed and edited the above information ifobtained by others.TESTING:Glucose (mg/dL)Date 12/31/2017 82 Potassium (mmol/L)Date 12/31/2017 4.5 Sodium (mmol/L)Date 12/31/2017 140 Chloride (mmol/L)Date 12/31/2017 100 CO2 (mmol/L)Date 12/31/2017 26 Creatinine (mg/dL)Date 12/31/2017 0.95 BUN (mg/dL)Date 12/31/2017 20 Anion Gap (mmol/L)Date 12/31/2017 14 Calcium (mg/dL)Date 12/31/2017 9.6 Glucose (mg/dL)Date 12/31/2017 82 Potassium (mmol/L)Date 12/31/2017 4.5 Sodium (mmol/L)Date 12/31/2017 140 Chloride (mmol/L)Date 12/31/2017 100 CO2 (mmol/L)Date 12/31/2017 26 Creatinine (mg/dL)Date 12/31/2017 0.95 BUN (mg/dL)Date 12/31/2017 20 Anion Gap (mmol/L)Date 12/31/2017 14 Calcium (mg/dL)Date 12/31/2017 9.6 Protein, Total (g/dL)Date 05/05/2013 7.2 Albumin (g/dL)Date 05/05/2013 4.4 Bilirubin, Total (mg/dL)Date 05/05/2013 0.3 Alkaline Phosphatase (U/L)Date 05/05/2013 60 AST (U/L)Date 05/05/2013 23 ALT (U/L)05/05/2013 19 Hemoglobin (g/dL)Date 03/12/2018 14.2 Hematocrit (%)Date 03/12/2018 44.8 WBC (k/uL)Date 03/12/2018 7.20 Cholesterol , Total (mg/dL)Date 12/14/2014 212 HDL Cholesterol (mg/dL)12/14/2014 48 LDL Cholesterol (mg/dL)Date 12/14/2014 146 Triglyceride (mg/dL)Date 12/14/2014 88 No results found for: [id number] Fraction: No results foundIMPRESSION:Ms. Mccrary is a 68 year old woman presents for increased cough, nasalcongestion, stuffy ears for one weekAfter my examination and review of data, I make the following recommendations.PLAN AND RECOMMENDATIONS:1. Chronic cough - ICD9: 786.2, ICD10: R052. Mild persistent asthma without complication - ICD9: 493.90, ICD10: J45.30S/S C/W bronchitisUse nebulizer every 4 to 6 hours for cough and wheezingIncrease prednisone to 40 mg daily x 4 daysContinue with loratidine dailyContinue with fluticasone or other nasal steroid dailyTake antibiotic with food - doxycyclineReturn to clinic one week for recheck if not feeling improvedAdvised to go to ER if develops chest pain, shortness of breath, or severeworsening of symptoms.Discussed risks, benefits, alternatives, and potential side effects ofmedications.Ms. Mccrary expressed understanding and agreed with the plan.Michael Forrest APRN.Brit Forrest APRN.CNS 05/06/2018 3:41 PM AddendumUse nebulizer every 4 to 6 hurs for cough and wheezingIncrease prednisone to 40 mg dailyContinue with loratidine dailyContinue with fluticasone or other nasal steroid dailyTake antibiotic with food - doxycyclineReturn to clinic one week for recheckReferring Provider: ANGELITA BURNETT [[id number]]Allergies As of Date: 05/06/2018 Noted Allergy ReactionERYTHROMYCIN 06/15/2005 8 - GI UpsetSULFA (SULFONAMIDE ANTIBIOTICS) 06/15/2005 2 - RashDate Reviewed: 05/06/2018Reviewed by: Viky Darden LPN - Fully AssessedReason for Visit: URI [115]Primary Visit Diagnosis:Chronic cough [R05] Other Visit Diagnosis:Mild persistent asthma without complication [J45.30]Order(s):albutero l (PROVENTIL) 2.5 mg /3 mL (0.083 %) nebulizer solutionUse 3 mL via nebulizer every 6 hours as needed for Wheezing/Shortness of Breath. Use over 5-15minutes.Disp: 1 PackageRfl: 2 predniSONE (DELTASONE) 10 mg tabletTake 3 tablets by mouth once daily for 4 days. Take daily with food.Disp: 4 tabletRfl: 0 doxycycline (VIBRA-TABS) 100 mg tabletTake 1 tablet by mouth twice daily for 10 days. antibiotic - take with foodDisp: 20 tabletRfl: 0Prescriptions as of 05/06/2018 Sig: ALBUTEROL SULFATE 2.5 MG/3 ML* Use 3 mL via nebulizer every * LEVOTHYROXINE 75 MCG TABLET Take 1 tablet by mouth once d* OMEPRAZOLE 40 MG CAPSULE,ELISA* Take 1 capsule by mouth once * AMLODIPINE 5 MG TABLET Take 1 tablet by mouth once d* AZELASTINE 137 MCG (0.1 %) NA* Use 1 Birdseye in each nostril t* COMPOUNDED PRESCRIPTION Check CPAP fit and settings a* ASPIRIN 81 MG TABLET,DELAYED * Take 81 mg by mouth once boyd* CALCIUM CARBONATE 600 MG CALC* Take 1 tablet by mouth once d* * CHOLECALCIFEROL (VITAMIN D3) * Take 185 mg by mouth once trisha* * OTC NUTRITIONAL SUPPLEMENT Multi-Vitamin, Take one(1) ta* PREDNISONE 10 MG TABLET Take 3 tablets by mouth once * DOXYCYCLINE HYCLATE 100 MG TA* Take 1 tablet by mouth twice * COENZYME Q10 10 MG CAPSULE Take 1 capsule by mouth once * Patient not taking: Reported on 01/04/2018 PREDNISONE 10 MG TABLET Take 1 tablet by mouth once d* Patient not taking: Reported on 05/06/2018 MOMETASONE 220 MCG (60 DOSES)* Inhale 2 Puffs as instructed * Patient not taking: Reported on 05/06/2018 ALBUTEROL SULFATE HFA 90 MCG/* Inhale 2 Puffs as instructed * Patient not taking: Reported on 05/06/2018Problem List As Of Date 05/06/2018 Noted Resolved Dysphonia [R49.0] INVALID FOR* Hypertension [I10] INVALID FOR* Chronic cough [R05] INVALID FOR* ANAMARIA (obstructive sleep apnea) [G47.33] INVALID FOR* Hypothyroidism [E03.9] INVALID FOR* Mild persistent asthma [J45.30] INVALID FOR* Reflux laryngitis [J04.0, K21.9] INVALID FOR* More... Other instructions from your clinician: Use nebulizer every 4 to 6 hurs for cough and wheezing Increase prednisone to 40 mg daily Continue with loratidine daily Continue with fluticasone or other nasal steroid daily Take antibiotic with food - doxycycline Return to clinic one week for recheckPrescriptions ordered this encounter Disp Refills Start End ALBUTEROL SULFATE 2.5 MG/3 ML (0.083* 1 Pa* 2 05/06/2018 Route: NEBULIZATION Sig: Use 3 mL via nebulizer every 6 hours as needed for Wheezing/Shortness of Breath. Use over 5-15minutes. PREDNISONE 10 MG TABLET 4 ta* 0 05/06/2018 05/10/2018 Route: ORAL Sig: Take 3 tablets by mouth once daily for 4 days. Take daily with food. DOXYCYCLINE HYCLATE 100 MG TABLET 20 t* 0 05/06/2018 05/16/2018 Route: ORAL Sig: Take 1 tablet by mouth twice daily for 10 days. antibiotic - take with foodMedications Discontinued During This Encounter albuterol (PROVENTIL) 5 mg/mL nebu 1 mL 0 06/29/2016 05/06/2018 Class: Back Office Route: INHALATION Sig: Inhale 0.5 mL as instructed one time only for 1 dose. 1 DOSE NOW - BACK OFFICE. PLACE 0.5 ML PER DROPPER AND 2.5 ML OF NORMAL SALINE INTO RESERVOIR. Disc: Reason for discontinue is not on file. albuterol (PROVENTIL) 2.5 mg /3 mL (* 1 Pa* 2 06/29/2016 05/06/2018 Route: NEBULIZATION -UNSPEC Sig: Use 3 mL via nebulizer every 6 hours as needed for Wheezing/Shortness of Breath. Use over 5-15minutes. Disc: Reason for discontinue is not on file. omeprazole (PRILOSEC) 20 mg capsule 90 c* 3 09/11/2017 05/06/2018 Route: ORAL Sig: Take 1 capsule by mouth once daily. Patient not taking: Reported on 05/06/2018 Disc: Reason for discontinue is not on file. Status:Closed by MICHAEL HUITRON on 05/06/18 [facility] PROGRESSon 05-06-2018 Protein mass conc HNO ID: [id number] thor: Michael (Stephanie) Stevieervice: (none)Author Type: Nurse SpecialistType: Progress NotesFiled: 05/06/2018 3:47 PMNote Text:OUTPATIENT VISIT DATE May 06, 2018OUTPATIENT VISIT TYPEESTABLISHEDPRIMARY CARE PHYSICIAN:Angelita Burnett [facility] COMPLAINT:Patient presents with:URIHistory of Present Illness:Wilberto Mccrary is a 68 year old female who was last seenShe has been seen in the past forACTIVE PROBLEM LISTDysphoniaHypertension Chronic CoughOsa (Obstructive Sleep Apnea)HypothyroidismMild Persistent AsthmaReflux LaryngitisSince the last visit, she states that she has been sick for one week, shedid have sick family members, she has noted ear stuffiness, productivecough, nasal drainage, fatigue. Lots of coughing, some wheezing, usingnebulizer 1-2 times in the last week. OTC cold medicines have helpedsomewhat The ROS is otherwise negative.The patient's pmh, medications, allergies, and past visits are reviewed.PHYSICAL EXAM:BP 120/80 (BP Site: Right Arm, BP Position: Sitting, BP Cuff Size: RegularAdult) Pulse 74 Temp 36.9 ?C (98.4 ?F) Resp 16 Wt 69.9 kg (154lb) SpO2 90% BMI 31.10 kg/m?General appearance: tired/ill appearingHead: NormocephalicEyes: conjunctiva/corneas normalEars: R TM - dull, L TM - dullNose: clear rhinorrheaOropharynx: moist without lesions, teeth in good repairNeck: supple and small, benign anterior cervical nodes bilaterallyHeart: regular rate and rhythm, without murmurLungs: clear to auscultation, without rales or wheeze, good air exchangeNo recent hospital or ED visits.No new medical problems or medications.Able to obtain medications.No problems with taking medications or note side effects.PAST MEDICAL HISTORYDiagnosis Date- Asthma- Cough- Dizziness and giddiness- Essential hypertension, benign- Internal hemorrhoids without mention of complication 08/07/05- Obstructive sleep apnea CPAP, nose pillow- Osteopenia- Reflux laryngitis 06/08/2017 Laryngopharyngeal reflux.- Tumors of body of uterus, antepartum condition or complication Fibroids.- Unspecified hypothyroidismPAST SURGICAL HISTORYProcedure Laterality Date- COLONOSCOP W/ OR W/O [facility] SPEC 08/07/05- DANDC, DIAG AND/OR THERAPEUTIC Dilation AND curettage- EGD 2010- REMOVAL OF TONSILS,<11 Y/O 26 yo. Tonsillectomy- TOTAL ABDOM HYSTERECTOMY 1987 Hysterectomy, has one ovary, for fibroids and DUBFAMILY HISTORYProblem Relation Age of Onset- Heart Father [place]- Osteoporosis Mother- Stroke Mother- Stroke Maternal Grandmother- Cancer Maternal Grandfather Lung- Diabetes Paternal Grandmother- Heart Paternal Grandmother MN- other (Allergies?) Paternal Grandmother Terrible cough.- Heart Paternal Grandfather [place]- Asthma Daughter- other (Mitral valve prolapse) Daughter- other (Allergies?) Daughter- other (Sinus disease) Daughter No surgery.- Stroke Brother- Heart Brother [place] and triple bypass- Breast Cancer Paternal Aunt- Heart Brother [place], Bypass- Hypertension Brother STRONG FAMILY HISTORY- other (HEART DISEASE) Brother STRONG FAMILY HISTORY- other (Other) Brother No hearing and speech assistant/colon cancerSocial HistorySubstance Use Topics- Smoking status: Never Smoker- Smokeless tobacco: Never Used Comment: Father smoked in childhood home. Spouse stopped smoing 19years ago.- Alcohol use Yes Comment: Seldom.ALLERGIES:ALLERGIE SAllergen Reactions- Erythromycin GI Upset- Sulfa (Sulfonamide * RashMEDICATIONSalbuterol (PROVENTIL) 2.5 mg /3 mL (0.083 %) nebulizer solution Use 3 mLvia nebulizer every 6 hours as needed for Wheezing/Shortness of Breath.Use over 5-15minutes.levothyroxine (SYNTHROID) 75 mcg tablet Take 1 tablet by mouth once daily.Omeprazole 40 mg capsule Take 1 capsule by mouth once daily.amLODIPine (NORVASC) 5 mg tablet Take 1 tablet by mouth once daily.azelastine (ASTELIN,ASTEPRO) 0.1% nasal spray Use 1 Birdseye in each nostriltwice daily as needed.COMPOUNDED PRESCRIPTION Check CPAP fit and settings and make adjustmentsas needed. Dx; Sleep apneaaspirin, enteric coated 81 mg EC tablet Take 81 mg by mouth once daily.calcium carbonate (CALCIUM 600) 600 mg (1,500 mg) tab Take 1 tablet bymouth once daily.Cholecalciferol, Vitamin D3, (VITAMIN D) 1,000 unit ORAL Tab Take 185 mgby mouth once daily.OTC NUTRITIONAL SUPPLEMENT Multi-Vitamin, Take one(1) tablet daily.predniSONE (DELTASONE) 10 mg tablet Take 3 tablets by mouth once daily for4 days. Take daily with food.doxycycline (VIBRA-TABS) 100 mg tablet Take 1 tablet by mouth twice dailyfor 10 days. antibiotic - take with foodubidecarenone Q-10 (CO Q-10) 10 mg cap Take 1 capsule by mouth once daily.predniSONE (DELTASONE) 10 mg tablet Take 1 tablet by mouth once daily.mometasone (ASMANEX) 220 mcg (60 doses) aepb Inhale 2 Puffs as instructedtwice daily.albuterol HFA (PROAIR HFA) 90 mcg/actuation inhaler Inhale 2 Puffs asinstructed every 4 hours as needed for Wheezing/Shortness of Breath. Alsoto use prior to exercise and as needed for cough variant asthmaReviewed chart, outside records, testsI personally interviewed, confirmed and edited the above information ifobtained by others.TESTING:Glucose (mg/dL)Date 12/31/2017 82 Potassium (mmol/L)Date 12/31/2017 4.5 Sodium (mmol/L)Date 12/31/2017 140 Chloride (mmol/L)Date 12/31/2017 100 CO2 (mmol/L)Date 12/31/2017 Creatinine (mg/dL)Date 12/31/2017 0.95 BUN (mg/dL)Date 12/31/2017 20 Anion Gap (mmol/L)Date 12/31/2017 14 Calcium (mg/dL)12/31/2017 9.6 Glucose (mg/dL)Date 12/31/2017 82 Potassium (mmol/L)Date 12/31/2017 4.5 Sodium (mmol/L)Date 12/31/2017 140 Chloride (mmol/L)Date 12/31/2017 100 CO2 (mmol/L)12/31/2017 Creatinine (mg/dL)Date 12/31/2017 0.95 BUN (mg/dL)Date 12/31/2017 20 Anion Gap (mmol/L)Date 12/31/2017 14 Calcium (mg/dL)Date 12/31/2017 9.6 Protein, Total (g/dL)Date Value05/05/2013 7.2 Albumin (g/dL)Date Value05/05/2013 4.4 Bilirubin, Total (mg/dL)Date Value05/05/2013 0.3 Alkaline Phosphatase (U/L)Date Value05/05/2013 60 AST (U/L)Date 05/05/2013 23 ALT (U/L)Date 05/05/2013 19 Hemoglobin (g/dL)Date 03/12/2018 14.2 Hematocrit (%)Date 03/12/2018 44.8 WBC (k/uL)Date 03/12/2018 7.20 Cholesterol , Total (mg/dL)Date 12/14/2014 212 HDL Cholesterol (mg/dL)Date 12/14/2014 48 LDL Cholesterol (mg/dL)Date 12/14/2014 146 Triglyceride (mg/dL)Date 12/14/2014 88 No results found for: [id number] Fraction: No results foundIMPRESSION:Ms. Mccrary is a 68 year old woman presents for increased cough, nasalcongestion, stuffy ears for one weekAfter my examination and review of data, I make the followingrecommendations. PLAN AND RECOMMENDATIONS:1. Chronic cough - ICD9: 786.2, ICD10: R052. Mild persistent asthma without complication - ICD9: 493.90, ICD10:J45.30S/S C/W bronchitisUse nebulizer every 4 to 6 hours for cough and wheezingIncrease prednisone to 40 mg daily x 4 daysContinue with loratidine dailyContinue with fluticasone or other nasal steroid dailyTake antibiotic with food - doxycyclineReturn to clinic one week for recheck if not feeling improvedAdvised to go to ER if develops chest pain, shortness of breath, or severeworsening of symptoms.Discussed risks, benefits, alternatives, and potential side effects ofmedications.Ms. Mccrary expressed understanding and agreed with the plan.Michael Forrest APRN.MOWING MACHINE OPERATOR Normal [facility] CBCon 03-12-2018 Absolute nRBC <0.01 Normal <0.01 [facility] Comment on above: Performed By: #### C BC, MG1, TSH, FT4 ####[place] [phone] Erythrocyte distribution width Auto Ratio (RBC) 13.4 % Normal 11.5-15.0 [facility] Comment on above: Performed By: #### C BC, MG1, TSH, FT4 ####[place] [address] [place] [phone] Hematocrit Auto Volume Fraction (Bld) 44.8 % Normal 36.0-46.0 [facility] Comment on above: Performed By: #### C BC, MG1, TSH, FT4 ####[place] [phone] Hemoglobin mass conc (Bld) 14.2 g/dL Normal 11.5-15.5 [facility] Comment on above: Performed By: #### C BC, MG1, TSH, FT4 ####[place] [address] [place] [phone] MCH Auto Entitic mass (RBC) 27.3 pG Normal 26.0-34.0 [facility] Comment on above: Performed By: #### C BC, MG1, TSH, FT4 ####[place] [address] [place] [place] [phone] MCHC Auto mass conc (RBC) 31.7 g/dL Normal 30.5-36.0 [facility] Comment on above: Performed By: #### C BC, MG1, TSH, FT4 ####[address] [place], [place] [phone] MCV Auto Entitic volume (RBC) 86.0 fL Normal 80.0-100.0 [facility] Comment on above: Performed By: #### C BC, MG1, TSH, FT4 ####[address] [phone] Platelet mean volume Auto Entitic volume (Bld) 9.8 fL Normal 9.0-12.7 [facility] Comment on above: Performed By: #### C BC, MG1, TSH, FT4 ####[address] [phone] Platelets Auto #/vol (Bld) 291 10*3/uL Normal 150-400 [facility] Comment on above: Performed By: #### C BC, MG1, TSH, FT4 ####[address] [phone] RBC Auto #/vol (Bld) 5.21 10*6/uL High 3.90-5.20 [facility] Comment on above: Performed By: #### C BC, MG1, TSH, FT4 ####[address] [phone] WBC Auto #/vol (Bld) 7.20 10*3/uL Normal 3.70-11.00 [facility] Comment on above: Performed By: #### C BC, MG1, TSH, FT4 ####[address] [place], [place] [phone] Free T4on 03-12-2018 T4 free mass conc 1.4 ng/dL Normal 0.9-1.7 [facility] Comment on above: Performed By: #### C BC, MG1, TSH, FT4 ####[facility] [place], [place] [phone] Magnesiumon 03-12-2018 Magnesium mass conc 2.2 mg/dL Normal 1.7-2.3 [facility] Comment on above: Performed By: #### C BC, MG1, TSH, FT4 ####[facility] [place], [place] [phone] TSHon 03-12-2018 Thyrotropin Qn 5.060 uU/mL Normal 0.400-5.50 0 [facility] Comment on above: Performed By: #### C BC, MG1, TSH, FT4 ####[facility] [address] [place], [place] [phone] CNNURSEon 02-15-2018 [facility] Nurse Visit (FAMPWS) DARIUSZ MCCRARY ([id number]) 1950 [facility] Time Provider Department02/15/18 12:40 PM [place] NURSE FAMPWS During your visit today, we recorded the following information about you: Temperature 98.8 degreesHeather Kylie HALL 02/15/2018 12:44 PM SignedInfluenza Vaccine Documentation:? Patient is identified by name and date of : Yes? Patient is older than 6 months of age: Yes? Patient denies a severe allergy to any vaccine component or to a previousdose of influenza vaccine: Yes FOR EGG ALLERGY CONCERNS, REFER TO PROVIDER.? Denies allergy to gelatin, formaldehyde, thimerosol :Yes? Patient is afebrile and not moderately or severely ill: Yes? Does the patient have a history of Guillain ?[place] Syndrome (a severeparalytic illness): No? Denies bone marrow transplant prior 6 months or solid organ transplant prior3 months: Yes? Denies a history of fainting after a prior injection or medical procedure?Yes If patient has fainted in the past, the CDC recommends sitting or lyingdown for 15 minutes after the vaccination.? VIS sheet provided: Yes? See Immunization Form in [facility] for details of immunizations administeredtoday.If patient reports dizziness, vision changes or ringing in the ears postvaccination ? please have patient sit or lie down for 15 minutes.Referring Provider: SELF [[id number]]Allergies As of Date: 02/15/2018 Noted Allergy ReactionERYTHROMYCIN 06/15/2005 8 - GI UpsetSULFA (SULFONAMIDE ANTIBIOTICS) 06[birth year]2005 2 - RashDate Reviewed: 01/04/2018Reviewed by: Lenore Tyler LPN - Fully AssessedReason for Visit: Imm/Inj [58]Primary Visit Diagnosis:Need for vaccination [Z23]Order(s):ADMIN OF INFLUENZA VACCINE [J9943DTT] Order #: [id number]: 1 INFLUENZA SEASONAL HIGH DOSE AGE 65+ [[id number]] Order #: [id number] as of 02/15/2018 Sig: OMEPRAZOLE 40 MG CAPSULE,ELISA* Take 1 capsule by mouth once * LEVOTHYROXINE 50 MCG TABLET Take 1 tablet by mouth once d* AMLODIPINE 5 MG TABLET Take 1 tablet by mouth once d* AZELASTINE 137 MCG (0.1 %) NA* Use 1 Birdseye in each nostril t* COENZYME Q10 10 MG CAPSULE Take 1 capsule by mouth once * Patient not taking: Reported on 01/04/2018 PREDNISONE 10 MG TABLET Take 1 tablet by mouth once d* OMEPRAZOLE 20 MG CAPSULE,ELISA* Take 1 capsule by mouth once * MOMETASONE 220 MCG (60 DOSES)* Inhale 2 Puffs as instructed * COMPOUNDED PRESCRIPTION Check CPAP fit and settings a* ALBUTEROL SULFATE 2.5 MG/3 ML* Use 3 mL via nebulizer every * ALBUTEROL SULFATE HFA 90 MCG/* Inhale 2 Puffs as instructed * ASPIRIN 81 MG TABLET,DELAYED * Take 81 mg by mouth once boyd* CALCIUM CARBONATE 600 MG CALC* Take 1 tablet by mouth once d* * CHOLECALCIFEROL (VITAMIN D3) * Take 185 mg by mouth once trisha* * OTC NUTRITIONAL SUPPLEMENT Multi-Vitamin, Take one(1) ta*Problem List As Of Date 02/15/2018 Noted Resolved Dysphonia [R49.0] INVALID FOR* Hypertension [I10] INVALID FOR* Chronic cough [R05] INVALID FOR* ANAMARIA (obstructive sleep apnea) [G47.33] INVALID FOR* Hypothyroidism [E03.9] INVALID FOR* Mild persistent asthma [J45.30] INVALID FOR* Reflux laryngitis [J04.0, K21.9] INVALID FOR* More... Status:Closed by MARLA ESPINAL LPN on 02/15/18 Normal [facility] PROGRESSon 02-15-2018 Protein mass conc HNO ID: [id number] thor: Marla Espinal LPNService: (none)Author Type: (none)Type: Progress NotesFiled: 02/15/2018 12:44 PMNote Text:Influenza Vaccine Documentation:? Patient is identified by name and date of : Yes? Patient is older than 6 months of age: Yes? Patient denies a severe allergy to any vaccine component or to aprevious dose of influenza vaccine: Yes FOR EGG ALLERGY CONCERNS, REFER TOPROVIDER.? Denies allergy to gelatin, formaldehyde, thimerosol :Yes? Patient is afebrile and not moderately or severely ill: Yes? Does the patient have a history of Guillain ?Littleton Syndrome (a severeparalytic illness): No? Denies bone marrow transplant prior 6 months or solid organ transplantprior 3 months: Yes? Denies a history of fainting after a prior injection or medicalprocedure? Yes If patient has fainted in the past, the CDC recommendssitting or lying down for 15 minutes after the vaccination.? VIS sheet provided: Yes? See Immunization Form in EpicCare for details of immunizationsadministered today.If patient reports dizziness, vision changes or ringing in the ears postvaccination ? please have patient sit or lie down for 15 minutes. Normal [facility] CNCOon 01-24-2018 CNCO HNO ID: [id number] thor: Mammography CoordinatorService: (none)Author Type: PhysicianType: LetterFiled: 01/28/2018 11:31 PMNote Text:January 24, 2018 PID: [id number] [id number] [place], [place] [address]Rzbp Ms. Mccrary,We are pleased to inform you that the results of your recent breastimaging exam on 01/24/2018 are normal.Early detection of cancer is very important. We also understandrecommendations regarding breast cancer screening are controversial.Please discuss with your primary care provider which strategy is best foryou and whether a mammogram is right for you.Your imaging studies and report [facility] and are available for yourcontinuing care.Thank you for allowing us to help in meeting your health care needs.Sincerely,Dr. Méndezpreting RadiologistAltru Health System Hospital (Normal over 40) Normal [facility] ELIER SCREENING W TOMOon 01-24 ELIER SCREENING W STEPHEN * * *Final Report* * *DATE OF EXAM: Jan 24 2018 2:23PM WRW [id number] - ELIER SCREENING W STEPHEN / REASON: Encounter for screening mammogram for malignant neoplasm of breast * * * * Physician Interpretation * * * *RESULT: #[id number] - ELIER SCREENING W TOMOBILATERAL DIGITAL SCREENING MAMMOGRAM TOMOSYNTHESIS WITH CAD: 01/24/2018HISTORY: Encounter For STEPHEN Screening Mammogram For Malignant Neoplasm Of Breast /patient reports no breast symptoms /priors available for comparison.RESULT:TECHNIQ UE: The study was acquired using full field digital technology and interpreted from soft copy.Digital Breast Tomosynthesis (DBT) images were obtained and used to assist in the interpretation of this examination.Current study was also evaluated with a Computer Aided Detection (CAD).Comparison is made to exams dated: 12/16/2014 mammogram, 11/13/2013 [facility] - [facility], and 10/30/2013 mammogram - [facility].There are scattered fibroglandular elements in both breasts.No significant masses, calcifications, or other findings are seen in either breast.There has been no significant interval change.IMPRESSION: NEGATIVEThere is no mammographic evidence of malignancy. A 1 year screening mammogram is recommended.Marixa Ingram/penrad:01/24/2018 16:20:34Imaging Technologist: Cleopatra KNOX(Shawanda)(Greg), [facility] Specialty Centerletter sent: Normal over 40Mammogram BI-RADS: 1 NegativeTranscriptionist: VirajradTranscribe Date/Time: Jan 24 2018 2:04PDictated by: MARIXA RODRIGUEZ MDThirico examination was interpreted and the report reviewed and electronically signed by: MARIXA RODRIGUEZ MD on Jan 24 2018 4:20PM [id number] Normal [facility] PROGRESSon 01-24-2018 Protein mass conc HNO ID: [id number] thor: Andree Gilbert RtService: (none)Author Type: (none)Type: Progress NotesFiled: 01/24/2018 2:27 PMNote Text: Radiology Service Progress NotePATIENT NAME: Wilberto MccraryMRN: [id number] OF SERVICE: January 24, 2018TIME: 2:04 PMPATIENT IDENTITY VERIFICATION COMPLETED USING TWO (2) METHODS: Patientconfirmed name verbally and Date of .PATIENT GENDER DATA: Female. status: : NoBreastfeeding status: NO.PATIENT RELEVANT IMPLANT DATA REVIEWED: Not ApplicableRADIOLOGY DEPARTMENT: [facility] lorrie scr mammogramPERIPHERAL IV DATA: Not applicableSIGNED BY: Andree Gilbert RtAugu2017 2:04 PM Normal [facility] Fecal Occult Bld Tston 01-07 Immuno FOB Negative Normal Negative [facility] Comment on above: Result Comment: This test was developed and its performance characteristics determined by [facility]'s [facility] [place] ([facility]).It has not been cleared or approved by the FDA. [facility] is regulated under CLIA as qualified to perform high-complexity testing.This test is used for clinical purposes. It should not be regarded as investigational or for research. Performed By: #### I FOBT ####[facility], [place] [phone] CNOVon 01-04-2018 CNOV Office Visit (INTMWS) DARIUSZ MCCRARY ([id number]) 1950 FDate Time Provider Department01/04/18 9:00 AM ANGELITA BURNETT INTFROYLAN During your visit today, we recorded the following information about you: Pulse Respiration Blood pressure Weight 88/minute 20/minute 136/76 70.3 kg Height 1.499 mLdaily Burnett MD 01/13/2018 11:29 PM SignedHISTORYBeverly Hermann is a 67 year old lady here for yearly exam and follow upappointment.Episodes of feeling out of breath--past 1 month or so.Seems progressively worsening.Inhalers had not helped.Right hand goes numb--at least a month somes and goes. Okay this past week.Ear plugs on side that is sleeping. Can get to relieve.Clearing throat constantly.Nasal congestionHas been taking loratadine in AM before goes out. Now taking all the time andmoved to night time for about a month then ran out. Did help a little.Ankles for a few weeks were really swollen. Has been elevating legs when notbusy. Does twist feet (ROM exercises at ankles) and helps. Better by AM.2 weeks ago episode--off balance and woozy. Had to stand still. Stomach yucky.Eyes can get blurry. Just not able to focus. Will see eye doctor February. Canlast up to 15 minutes.Back on PPI for LPRDNot sleeping well. Not able to use CPAP--ears plugged up[place] Summer usually able to be more activeRandom pains in chest, back, stomach, back (with sciatica). Has to stretch.Could be just sitting when pains come.PAST MEDICAL HISTORYDiagnosis Date- Asthma- Cough- Dizziness and giddiness- Essential hypertension, benign- Internal hemorrhoids without mention of complication 08/07/05- Obstructive sleep apnea CPAP, nose pillow- Osteopenia- Reflux laryngitis 06/08/2017 Laryngopharyngeal reflux.- Tumors of body of uterus, antepartum condition or complication Fibroids.- Unspecified hypothyroidismCurrent Outpatient Prescriptions:predniSONE (DELTASONE) 10 mg tablet Take 1 tablet by mouth once daily.omeprazole (PRILOSEC) 20 mg capsule Take 1 capsule by mouth once daily.mometasone (ASMANEX) 220 mcg (60 doses) aepb Inhale 2 Puffs as instructed twicedaily.COMPOUNDED PRESCRIPTION Check CPAP fit and settings and make adjustments asneeded. Dx; Sleep apnealevothyroxine (SYNTHROID) 50 mcg tablet Take 1 tablet by mouth once daily. Takeon empty stomach. For Thyroid. Give generic for Synthroid per patientpreferenceamLODIPi ne (NORVASC) 5 mg tablet Take 1 tablet by mouth once daily.azelastine (ASTELIN,ASTEPRO) 0.1% nasal spray Use 1 Birdseye in each nostril twicedaily as needed.albuterol (PROVENTIL) 2.5 mg /3 mL (0.083 %) nebulizer solution Use 3 mL vianebulizer every 6 hours as needed for Wheezing/Shortness of Breath. Use over5-15minutes.albuterol HFA (PROAIR HFA) 90 mcg/actuation inhaler Inhale 2 Puffs asinstructed every 4 hours as needed for Wheezing/Shortness of Breath. Also touse prior to exercise and as needed for cough variant asthmaaspirin, enteric coated 81 mg EC tablet Take 81 mg by mouth once daily.calcium carbonate (CALCIUM 600) 600 mg (1,500 mg) tab Take 1 tablet by mouthonce daily.Cholecalciferol, Vitamin D3, (VITAMIN D) 1,000 unit ORAL Tab Take 185 mg bymouth once daily.OTC NUTRITIONAL SUPPLEMENT Multi-Vitamin, Take one(1) tablet daily.ubidecarenone Q-10 (CO Q-10) 10 mg cap Take 1 capsule by mouth once daily.(Patient not taking: Reported on 01/04/2018)No current facility-administered medications for this visit.ALLERGIESAllergen Reactions- Erythromycin GI Upset- Sulfa (Sulfonamide * RashFAMILY HISTORYProblem Relation Age of Onset- Heart Father [place]- Osteoporosis Mother- Stroke Mother- Stroke Maternal Grandmother- Cancer Maternal Grandfather Lung- Diabetes Paternal Grandmother- Heart Paternal Grandmother [place]- Allergies? [OTHER] Paternal Grandmother Terrible cough.- Heart Paternal Grandfather MN- Asthma Daughter- Mitral valve prolapse [OTHER] Daughter- Allergies? 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 Spouse stopped smoing 19 years ago. Alcohol use: Yes Comment: Seldom. Drug use: No Sexual activity: Yes Partners with: Male Comment: Pt has had a HysterectomyREVIEW OF SYSTEMSAside from above, Constitutional, HEENT, CV, PULM, GI, , PSYCH, DERM,HEM/ONC, NEURO negative.PHYSICAL EXAMINATION:Blood pressure 136/76, pulse 88, resp. rate 20, height 149.9 cm (4' 11),weight 70.3 kg (155 lb).Last 5 Encounter BP Readings: Date: BP: 01/04/2018 136/76 09/11/2017 128/64 01/04/2017 136/82 12/25/2016 104/60 08/21/2016 90/60Last 5 Encounter Wt Readings: Date: Wt: 01/04/2018 70.3 kg (155 lb) 09/11/2017 67.1 kg (148 lb) 01/04/2017 67.1 kg (148 lb) 12/25/2016 67.6 kg (149 lb) 08/21/2016 68 kg (150 lb)General appearance: well appearing, in no acute distress, well-hydrated, wellnourishedSkin: Skin color, texture, turgor normal. No significant rashes or lesions.Head: NormalEyes: Anicteric sclera. Pupils are equally round and reactive to light.Extraocular movements are intact.Ears: External ears normal. Canals clear. TM's unremarkable.Nose/Sinuses : negativeOropharynx: Lips, mucosa, and tongue normal. Teeth and gums normal. Oropharynxnormal.Neck: Neck supple, no adenopathy; thyroid symmetric, normal size, no bruits.Lungs: Lungs clear to auscultation but noted some tight wheeze when would coughHeart: negative. RRR without murmur, gallop, or rubs. No ectopy.Abdomen: Abdomen soft, non-tender. Bowel sounds normal. No masses, organomegalyExtremities: Extremities normal. No deformities, edema, or skin discoloration.Good capillary refill.Musculoskeletal: grossly normalPeripheral pulses: NormalNeuro: Gait normal. Reflexes normal and symmetric. Sensation grossly intact. Nogross focal neurological deficits.Labs reviewed.Component Latest Ref Rng AND Units 12/27/2015 01/04/2017 12/31/2017Glucose 74 - 99 mg/dL 97 82 82BUN 7 - 21 mg/dL 19 17 20Creatinine 0.58 - 0.96 mg/dL 0.84 0.96 0.95Sodium 136 - 144 mmol/L 141 140 140Potassium 3.7 - 5.1 mmol/L 4.6 4.6 4.5Chloride 97 - 105 mmol/L 103 100 100CO2 22 - 30 mmol/L 28 27 26Anion Gap 9 - 18 mmol/L 10 13 14Calcium 8.5 - 10.2 mg/dL 9.5 9.6 9.6eGFR- >60 >60 >60eGFR-All Other Races . >60 58 59Component Latest Ref Rng AND Units 05/05/2013 05/30/2013 12/14/2014Triglyce ride 30 - 149 mg/dL 88Cholesterol, Total 100 - 199 mg/dL 212 (H)HDL Cholesterol >55 mg/dL 48 (L)VLDL Cholesterol 6 - 40 mg/dL 18LDL Cholesterol 60 - 129 mg/dL 146 (H)Fasting Time hrs FASTINGTC:HDL Ratio 1.00 - 5.00 4.42LDL:HDL Ratio 0.50 - 3.55 3.04Non HDL Cholesterol 90 - 159 mg/dL 164 (H)TSH 0.400 - 5.500 uU/mL 4.930 2.680 3.370 3.730Vitamin D 25 Hydroxy 31.0 - 80.0 ng/mL 63.7ASSESSMENT AND PLANSee diagnoses and ordersEncounter Diagnosis ICD-10-CM1. RECINOS (dyspnea on exertion) R06.092. Hypothyroidism, unspecified type E03.9 TSH BLD T4 FREE/FREE THYROX T3 FREE BLD TSH BLD T4 FREE/FREE THYROX3. Mild persistent asthma without complication J45.304. Laryngopharyngeal reflux K21.9 azelastine (ASTELIN,ASTEPRO) 0.1% nasal spray5. Chronic cough R05 azelastine (ASTELIN,ASTEPRO) 0.1% nasal spray6. Chronic rhinitis J31.0 azelastine (ASTELIN,ASTEPRO) 0.1% nasal spray7. Elevated LDL cholesterol level E78.00 LIPID PANEL BASIC8. Encounter for screening mammogram for breast cancer Z12.31 ELIER SCREENING ELIER SCREENING W TOMO9. Colon cancer screening Z12.11 FECAL OCCULT BLOOD TEST10. Need for vaccination Z23 PNEUMOCOCCAL IMMUNIZATION PPSV 23Noted issues with RECINOS, but already resumed PPI for LPRD which suspect hascontributed to issues with asthma even though did not feel like inhalers werehelping with RECINOS. See if getting rhinitis also better controlled with helpwith asthma and RECINOS issues.Noted issues with fatigue and spell she had as noted in HPI.Will see if thyroid labs are showing need for adjust dose of levothyroxine.Reviewed prior lipids 2014. Discussed diet and exercise. Further evaluation andtreatment as indicated.Above issues addressed with patient. Patient involved in shared decision makingfor management of her medical issues.History and medications reviewed. Epic updated as neededRefills taken care of and meds adjusted as indicated after reviewed history,exam and labs.Health Maintenance reviewed. Updated record and/or ordered tests as recorded.Encouraged on efforts at healthy diet and regular exercise and adequate sleep.The majority of the visit was spent counseling and/or coordinating care for thepatient. Asnr-kx-mnbx time was at least 40 minutes.Agatha Burkett MD 01/04/2018 10:25 AM SignedLet me know if/when need prescription for omeprazole to take double dose (40 mgonce daily or 20 mg twice daily). Note that might need to go up to 40 mg twicedaily.Consider adding Mucinex or similar to loosen up phlegm.Referring Provider: SELF [200]Allergies As of Date: 01/04/2018 Noted Allergy ReactionERYTHROMYCIN 06/15/2005 8 - GI UpsetSULFA (SULFONAMIDE ANTIBIOTICS) 06/15/2005 2 - RashDate Reviewed: 01/04/2018Reviewed by: Lenore Tyler LPN - Fully AssessedReason for Visit: Yearly Exam [187] Radiology Mammogram [1485] [facility] For Visit History RecordedPrimary Visit Diagnosis:RECINOS (dyspnea on exertion) [R06.09] Other Visit Diagnoses:Hypothyroidism, unspecified type [E03.9] Mild persistent asthma without complication [J45.30] Laryngopharyngeal reflux [K21.9] Chronic cough [R05] Chronic rhinitis [J31.0] Elevated LDL cholesterol level [E78.00] Encounter for screening mammogram for breast cancer [Z12.31] Colon cancer screening [Z12.11] Need for vaccination [Z23]Order(s):azelastine (ASTELIN,ASTEPRO) 0.1% nasal sprayUse 1 Birdseye in each nostril twice daily as needed.Disp: 3 BottleRfl: 3 TSH BLD [SQTSH] Order #: [id number] FUTURE T4 FREE/FREE THYROX [SQFT4] Order #: [id number] FUTURE T3 FREE BLD [SQFREET3] Order #: [id number] FUTURE TSH BLD [SQTSH] Order #: [id number] STANDING T4 FREE/FREE THYROX [SQFT4] Order #: [id number] STANDING LIPID PANEL BASIC [SQLIPB] Order #: [id number] FUTURE ELIER SCREENING [1524993] Order #: [id number] FUTURE ELIER SCREENING W STEPHEN [1973658] Order #: [id number] FUTURE FECAL OCCULT BLOOD TEST [SQIFOBT] Order #: [id number] FUTURE PNEUMOCOCCAL IMMUNIZATION PPSV 23 [[id number]] Order #: [id number] as of 01/04/2018 Sig: AZELASTINE 137 MCG (0.1 %) NA* Use 1 Birdseye in each nostril t* PREDNISONE 10 MG TABLET Take 1 tablet by mouth once d* OMEPRAZOLE 20 MG CAPSULE,ELISA* Take 1 capsule by mouth once * MOMETASONE 220 MCG (60 DOSES)* Inhale 2 Puffs as instructed * COMPOUNDED PRESCRIPTION Check CPAP fit and settings a*X LEVOTHYROXINE 50 MCG TABLET Take 1 tablet by mouth once d*X AMLODIPINE 5 MG TABLET Take 1 tablet by mouth once d* ALBUTEROL SULFATE 2.5 MG/3 ML* Use 3 mL via nebulizer every * ALBUTEROL SULFATE HFA 90 MCG/* Inhale 2 Puffs as instructed * ASPIRIN 81 MG TABLET,DELAYED * Take 81 mg by mouth once boyd* CALCIUM CARBONATE 600 MG CALC* Take 1 tablet by mouth once d* * CHOLECALCIFEROL (VITAMIN D3) * Take 185 mg by mouth once trisha* * OTC NUTRITIONAL SUPPLEMENT Multi-Vitamin, Take one(1) ta* COENZYME Q10 10 MG CAPSULE Take 1 capsule by mouth once * Patient not taking: Reported on 01/04/2018Medication notes this encounter MOMETASONE 220 MCG (60 DOSES) BREATH ACTIVATED POWDER INHALER >> Angelita Burnett MD 01/04/2018 10:06 AM >> ANGELITA BURNETT MD SunJan 04, 2018 10:06 AM not taking right now since had not helpedProblem List As Of Date 01/04/2018 Noted Resolved Dysphonia [R49.0] INVALID FOR* Hypertension [I10] INVALID FOR* Chronic cough [R05] INVALID FOR* ANAMARIA (obstructive sleep apnea) [G47.33] INVALID FOR* Hypothyroidism [E03.9] INVALID FOR* Mild persistent asthma [J45.30] INVALID FOR* Reflux laryngitis [J04.0, K21.9] INVALID FOR* More... Other instructions from your clinician: Let me know if/when need prescription for omeprazole to take double dose (40 mg once daily or 20 mg twice daily). Note that might need to go up to 40 mg twice daily. Consider adding Mucinex or similar to loosen up phlegm.Prescriptions ordered this encounter Disp Refills Start End AZELASTINE 137 MCG (0.1 %) NASAL SPR* 3 Steve* 3 01/04/2018 Route: EACH NOSTRIL Sig: Use 1 Birdseye in each nostril twice daily as needed.Medications Discontinued During This Encounter azelastine (ASTELIN,ASTEPRO) 0.1% na* 12/25/2016 01/04/2018 Class: Med Update Route: EACH NOSTRIL Sig: Use 1 Birdseye in each nostril twice daily as needed. Disc: Reason for discontinue is not on file.Disposition: Return in about 1 year (around 01/04/2019) for Yearly exam and follow up (40 min)--8AM.Follow-up and Disposition History RecordedEncounter Number: [id number] Status:Closed by ANGELITA BURNETT MD on 01/13/18 Normal [facility] Free T3on 01-04-2018 T3 free mass conc 3.1 pg/mL Normal 2.3-4.1 [facility] Comment on above: Performed By: #### T SH, FREET3, FT4 ####[facility] [address] [place], [place] [phone] Free T4on 01-04-2018 T4 free mass conc 1.5 ng/dL Normal 0.9-1.7 [facility] Comment on above: Performed By: #### T SH, FREET3, FT4 ####[facility] [address] [place], [place] [phone] PROGRESSon 01-04-2018 Protein mass conc HNO ID: [id number] thor: Angelita Roseervice: (none)Author Type: PhysicianType: Progress NotesFiled: 01/13/2018 11:29 PMNote Text:HISTORYBeverly Jerome is a 67 year old lady here for yearly exam and follow upappointment.Episodes of feeling out of breath--past 1 month or so.Seems progressively worsening.Inhalers had not helped.Right hand goes numb--at least a month somes and goes. Okay this pastweek.Ear plugs on side that is sleeping. Can get to relieve.Clearing throat constantly.Nasal congestionHas been taking loratadine in AM before goes out. Now taking all the timeand moved to night time for about a month then ran out. Did help alittle.Ankles for a few weeks were really swollen. Has been elevating legs whennot busy. Does twist feet (ROM exercises at ankles) and helps. Better byAM.2 weeks ago episode--off balance and woozy. Had to stand still. Stomachyucky.Eyes can get blurry. Just not able to focus. Will see eye doctorSeptember. Can last up to 15 minutes.Back on PPI for LPRDNot sleeping well. Not able to use CPAP--ears plugged up.[place] Summer usually able to be more activeRandom pains in chest, back, stomach, back (with sciatica). Has tostretch. Could be just sitting when pains come.PAST MEDICAL HISTORYDiagnosis Date- Asthma- Cough- Dizziness and giddiness- Essential hypertension, benign- Internal hemorrhoids without mention of complication 08/07/05- Obstructive sleep apnea CPAP, nose pillow- Osteopenia- Reflux laryngitis 06/08/2017 Laryngopharyngeal reflux.- Tumors of body of uterus, antepartum condition or complication Fibroids.- Unspecified hypothyroidismCurrent Outpatient Prescriptions:predniSONE (DELTASONE) 10 mg tablet Take 1 tablet by mouth once daily.omeprazole (PRILOSEC) 20 mg capsule Take 1 capsule by mouth once daily.mometasone (ASMANEX) 220 mcg (60 doses) aepb Inhale 2 Puffs as instructedtwice daily.COMPOUNDED PRESCRIPTION Check CPAP fit and settings and make adjustmentsas needed. Dx; Sleep apnealevothyroxine (SYNTHROID) 50 mcg tablet Take 1 tablet by mouth once daily.Take on empty stomach. For Thyroid. Give generic for Synthroid per patientpreferenceamLODIPi ne (NORVASC) 5 mg tablet Take 1 tablet by mouth once daily.azelastine (ASTELIN,ASTEPRO) 0.1% nasal spray Use 1 Birdseye in each nostriltwice daily as needed.albuterol (PROVENTIL) 2.5 mg /3 mL (0.083 %) nebulizer solution Use 3 mLvia nebulizer every 6 hours as needed for Wheezing/Shortness of Breath.Use over 5-15minutes.albuterol HFA (PROAIR HFA) 90 mcg/actuation inhaler Inhale 2 Puffs asinstructed every 4 hours as needed for Wheezing/Shortness of Breath. Alsoto use prior to exercise and as needed for cough variant asthmaaspirin, enteric coated 81 mg EC tablet Take 81 mg by mouth once daily.calcium carbonate (CALCIUM 600) 600 mg (1,500 mg) tab Take 1 tablet bymouth once daily.Cholecalciferol, Vitamin D3, (VITAMIN D) 1,000 unit ORAL Tab Take 185 mgby mouth once daily.OTC NUTRITIONAL SUPPLEMENT Multi-Vitamin, Take one(1) tablet daily.ubidecarenone Q-10 (CO Q-10) 10 mg cap Take 1 capsule by mouth once daily.(Patient not taking: Reported on 01/04/2018)No current facility-administered medications for this visit.ALLERGIESAllergen Reactions- Erythromycin GI Upset- Sulfa (Sulfonamide * RashFAMILY HISTORYProblem Relation Age of Onset- Heart Father [place]- Osteoporosis Mother- Stroke Mother- Stroke Maternal Grandmother- Cancer Maternal Grandfather Lung- Diabetes Paternal Grandmother- Heart Paternal Grandmother [place]- Allergies? [OTHER] Paternal Grandmother Terrible cough.- Heart Paternal Grandfather [place]- Asthma Daughter- Mitral valve prolapse [OTHER] Daughter- Allergies? 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 Spouse stopped smoing 19 years ago. Alcohol use: Yes Comment: Seldom. Drug use: No Sexual activity: Yes Partners with: Male Comment: Pt has had a HysterectomyREVIEW OF SYSTEMSAside from above, Constitutional, HEENT, CV, PULM, GI, , PSYCH, DERM,HEM/ONC, NEURO negative.PHYSICAL EXAMINATION:Blood pressure 136/76, pulse 88, resp. rate 20, height 149.9 cm (4' 11),weight 70.3 kg (155 lb).Last 5 Encounter BP Readings: Date: BP: 01/04/2018 136/76 09/11/2017 128/64 01/04/2017 136/82 12/25/2016 104/60 08/21/2016 90/60Last 5 Encounter Wt Readings: Date: Wt: 01/04/2018 70.3 kg (155 lb) 09/11/2017 67.1 kg (148 lb) 01/04/2017 67.1 kg (148 lb) 12/25/2016 67.6 kg (149 lb) 08/21/2016 68 kg (150 lb)General appearance: well appearing, in no acute distress, well-hydrated,well nourishedSkin: Skin color, texture, turgor normal. No significant rashes orlesions.Head: NormalEyes: Anicteric sclera. Pupils are equally round and reactive to light.Extraocular movements are intact.Ears: External ears normal. Canals clear. TM's unremarkable.Nose/Sinuses : negativeOropharynx: Lips, mucosa, and tongue normal. Teeth and gums normal.Oropharynx normal.Neck: Neck supple, no adenopathy; thyroid symmetric, normal size, nobruits.Lungs: Lungs clear to auscultation but noted some tight wheeze when wouldcoughHeart: negative. RRR without murmur, gallop, or rubs. No ectopy.Abdomen: Abdomen soft, non-tender. Bowel sounds normal. No masses,organomegalyExtrem ities: Extremities normal. No deformities, edema, or skindiscoloration. Good capillary refill.Musculoskeletal: grossly normalPeripheral pulses: NormalNeuro: Gait normal. Reflexes normal and symmetric. Sensation grosslyintact. No gross focal neurological deficits.Labs reviewed.Component Latest Ref Rng AND Units 12/27/2015 01/04/2017 12/31/2017Glucose 74 - 99 mg/dL 97 82 82BUN 7 - 21 mg/dL 19 17 20Creatinine 0.58 - 0.96 mg/dL 0.84 0.96 0.95Sodium 136 - 144 mmol/L 141 140 140Potassium 3.7 - 5.1 mmol/L 4.6 4.6 4.5Chloride 97 - 105 mmol/L 103 100 100CO2 22 - 30 mmol/L 28 27 26Anion Gap 9 - 18 mmol/L 10 13 14Calcium 8.5 - 10.2 mg/dL 9.5 9.6 9.6eGFR- >60 >60 >60eGFR-All Other Races . >60 58 59Component Latest Ref Rng AND Units 05/05/2013 05/30/2013 12/14/2014Triglyce ride 30 - 149 mg/dL 88Cholesterol, Total 100 - 199 mg/dL 212 (H)HDL Cholesterol >55 mg/dL 48 (L)VLDL Cholesterol 6 - 40 mg/dL 18LDL Cholesterol 60 - 129 mg/dL 146 (H)Fasting Time hrs FASTINGTC:HDL Ratio 1.00 - 5.00 4.42LDL:HDL Ratio 0.50 - 3.55 3.04Non HDL Cholesterol 90 - 159 mg/dL 164 (H)TSH 0.400 - 5.500 uU/mL 4.930 2.680 3.370 3.730Vitamin D 25 Hydroxy 31.0 - 80.0 ng/mL 63.7ASSESSMENT AND PLANSee diagnoses and ordersEncounter Diagnosis ICD-10-CM1. RECINOS (dyspnea on exertion) R06.092. Hypothyroidism, unspecified type E03.9 TSH BLD T4 FREE/FREE THYROX T3 FREE BLD TSH BLD T4 FREE/FREE THYROX3. Mild persistent asthma without complication J45.304. Laryngopharyngeal reflux K21.9 azelastine (ASTELIN,ASTEPRO) 0.1% nasalspray5. Chronic cough R05 azelastine (ASTELIN,ASTEPRO) 0.1% nasal spray6. Chronic rhinitis J31.0 azelastine (ASTELIN,ASTEPRO) 0.1% nasal spray7. Elevated LDL cholesterol level E78.00 LIPID PANEL BASIC8. Encounter for screening mammogram for breast cancer Z12.31 MAMSCREENING ELIER SCREENING W TOMO9. Colon cancer screening Z12.11 FECAL OCCULT BLOOD TEST10. Need for vaccination Z23 PNEUMOCOCCAL IMMUNIZATION PPSV 23Noted issues with RECINOS, but already resumed PPI for LPRD which suspect hascontributed to issues with asthma even though did not feel like inhalerswere helping with RECINOS. See if getting rhinitis also better controlledwith help with asthma and RECINOS issues.Noted issues with fatigue and spell she had as noted in HPI.Will see if thyroid labs are showing need for adjust dose oflevothyroxine.Reviewed prior lipids 2014. Discussed diet and exercise. Furtherevaluation and treatment as indicated.Above issues addressed with patient. Patient involved in shared decisionmaking for management of her medical issues.History and medications reviewed. Epic updated as neededRefills taken care of and meds adjusted as indicated after reviewedhistory, exam and labs.Health Maintenance reviewed. Updated record and/or ordered tests asrecorded.Encouraged on efforts at healthy diet and regular exercise and adequatesleep.The majority of the visit was spent counseling and/or coordinating carefor the patient. Awgn-kt-sftw time was at least 40 minutes.Angelita Burnett MD Normal [facility] TSHon 01-04-2018 Thyrotropin Qn 4.400 uU/mL Normal 0.400-5.50 0 [facility] Comment on above: Performed By: #### T SH, FREET3, FT4 ####[facility] [place], [place] [phone] Basic Metabolic Panlon 12-31 Anion gap 3 molar conc 14 mmol/L Normal 9-18 [facility] Comment on above: Performed By: #### B MP ####[place] [phone] Calcium mass conc 9.6 mg/dL Normal 8.5-10.2 [facility] Comment on above: Performed By: #### B MP ####[facility] [place] [phone] Chloride molar conc 100 mmol/L Normal 97-105 [facility] Comment on above: Performed By: #### B MP ####[facility] [place] [phone] CO2 molar conc 26 mmol/L Normal 22-30 [facility] Comment on above: Performed By: #### B MP ####[facility] [place], [place] [phone] Creatinine mass conc 0.95 mg/dL Normal 0.58-0.96 [facility] Comment on above: Performed By: #### B MP ####[facility] [place], [place] [phone] eGFR- Amer. >60 Normal [facility] Comment on above: Performed By: #### B MP ####[facility] [place], [place] [phone] GFR/1.73 sq M predicted among non-blacks MDRD vol rate/area (S/P/Bld) 59 . Normal [facility] Comment on above: Result Comment: eGFR (Estimated GFR) Units of measure: mL/min/1.73 meters squaredeGFR is derived from the reexpressed MDRD Study equation using the following parameters: serum creatinine, age, gender and race. The creatinine assay has been calibrated to be traceable to IDMS.An eGFR <60 mL/min/1.73m2 for >3 months is consistent with chronic kidney disease. Refer to KDOQI guidelines for clinical interpretation.In patients with unstable renal function, e.g. those with acute kidney injury, the eGFR may not accurately reflect actual GFR. Performed By: #### B MP ####[facility] [place], [place] [phone] Glucose mass conc 82 mg/dL Normal 74-99 [facility] Comment on above: Result Comment: The [place] Diabetes Association (ADA) provides guidance for cutoff values for fasting glucose and random glucose. The ADA defines fasting as no caloric intake for at least 8 hours. Fasting plasma glucose results between 100 to 125 mg/dL indicate increased risk for diabetes (prediabetes).Fasting plasma glucose results greater than or equal to 126 mg/dL meet the criteria for diagnosis of diabetes. In the absence of unequivocal hyperglycemia, results should be confirmed by repeat testing. In a patient with classic symptoms of hyperglycemia or hyperglycemic crisis, random plasma glucose results greater than or equal to 200 mg/dL meet the criteria for diagnosis of diabetes.Reference: Standards of Medical Care in Diabetes 2016, [place] [employer] Association. Diabetes Care. 2016.39(Suppl 1). Performed By: #### B MP ####[facility] [place], [place] [phone] Potassium molar conc 4.5 mmol/L Normal 3.7-5.1 [facility] Comment on above: Performed By: #### B MP ####[facility] [place], [place] [phone] Sodium molar conc 140 mmol/L Normal 136-144 [facility] Comment on above: Performed By: #### B MP ####[facility] [place], [place] [phone] Urea nitrogen mass conc 20 mg/dL Normal 7-21 [facility] Comment on above: Performed By: #### B MP ####[facility] [place], [place] [phone] CNPTOUTREACHon 12-18-2017 [facility] Patient Outreach (INTMWH) DARIUSZ MCCRARY ([id number]) 1950 FDate Time Provider Department12/18/17 ANGELITA BURNETT [facility] During your visit today, we recorded the following information about you:Allergies As of Date: 12/18/2017 Noted Allergy ReactionERYTHROMYCIN 06/15/2005 8 - GI UpsetSULFA (SULFONAMIDE ANTIBIOTICS) 06/15/2005 2 - RashDate Reviewed: 09/11/2017Reviewed by: Patricia Carmichael - Fully AssessedVisit Diagnosis:Medication management [Z79.899]Order(s):BASIC METABOLIC PNL [SQBMP] Order #: [id number] FUTUREPrescriptions as of 12/18/2017 Sig: COENZYME Q10 10 MG CAPSULE Take 1 capsule by mouth once * Patient not taking: Reported on 01/04/2018 PREDNISONE 10 MG TABLET Take 1 tablet by mouth once d* OMEPRAZOLE 20 MG CAPSULE,ELISA* Take 1 capsule by mouth once * MOMETASONE 220 MCG (60 DOSES)* Inhale 2 Puffs as instructed * COMPOUNDED PRESCRIPTION Check CPAP fit and settings a*X LEVOTHYROXINE 50 MCG TABLET Take 1 tablet by mouth once d*X AMLODIPINE 5 MG TABLET Take 1 tablet by mouth once d*X AZELASTINE 137 MCG (0.1 %) NA* Use 1 Birdseye in each nostril t* ALBUTEROL SULFATE 2.5 MG/3 ML* Use 3 mL via nebulizer every * ALBUTEROL SULFATE HFA 90 MCG/* Inhale 2 Puffs as instructed * ASPIRIN 81 MG TABLET,DELAYED * Take 81 mg by mouth once boyd* CALCIUM CARBONATE 600 MG CALC* Take 1 tablet by mouth once d* * CHOLECALCIFEROL (VITAMIN D3) * Take 185 mg by mouth once trisha* * OTC NUTRITIONAL SUPPLEMENT Multi-Vitamin, Take one(1) ta*Problem List As Of Date 12/18/2017 Noted Resolved Dysphonia [R49.0] INVALID FOR* Hypertension [I10] INVALID FOR* Chronic cough [R05] INVALID FOR* ANAMARIA (obstructive sleep apnea) [G47.33] INVALID FOR* Hypothyroidism [E03.9] INVALID FOR* Mild persistent asthma [J45.30] INVALID FOR* Reflux laryngitis [J04.0, K21.9] INVALID FOR* More... Status:Closed by SAW Instrument FarmolJOSE on 03/15/18 Normal [facility] Mickey 09-11-2017 CNOV Office Visit (PULMWS) DARIUSZ MCCRARY ([id number]) 1950 FDate Time Provider Department09/11/17 8:30 AM PATRICIA CARMICHAEL [facility]UL[facility]AN During your visit today, we recorded the following information about you: Pulse Respiration Blood pressure Weight 79/minute 16/minute 128/64 67.1 kgPatricia Carmichael 10/08/2017 11:01 AM [facility] [place], 09/11/2017:INTERVAL HISTORY:No hospital admission, ED visit or prednisone Rx for exacerbation since lastclinic visit.Claims consistent compliance with maintenance Rx.No nocturnal symptoms.Infrequent use of rescue inhaled bronchodilator.ROS:Review ed with patient, confirmed as documented by Ronit Amaya LPN. TOPMH: Updated with patient today. No change.FAMH: Updated with patient today. No change.SOCH: Updated with patient today. No change.Allergies reviewed and updated, and medications reconciled today.Immunization HistoryAdministered Date(s) Administered Influenza Seasonal - High Dose - Age 65+ 03/10/2016 03/05/2017 Pneumococcal-13 Vac Conjugate 01/04/2017 Tetanus Diphtheria Booster (Age >7) Pres Free 10/30/2013 Zostavax 08/09/2009PHYSICAL EXAMINATION:BP 128/64 Pulse 79 Resp 16 Wt 148 lb (67.1kg) SpO2 93%Gen: No acute distress. Cooperative with examination.ENT: Sclerae clear. Nares clear. Oral hygeine/dentition good. Pharynx clear. Nohalitosis.Resp: No stridor, accessory respiratory muscle use, supra-sternal orintercostal retractions. No crackles, wheezes, rubs.CV: Regular rythm. Heart tones normal. No carotid bruit. Radial pulses normal.Abd: Not distended.MSK: No kyphoscoliosis, joint deformities.Ext: Warm and well perfused. No clubbing, cyanosis, edema sclerodactyly,Raynaud's,S kin: Color normal. Texture normal. No rash, eczema, urticaria.Lymph: No adenopathy in neck, supra-clavicular fossae.Endo: No exophthalmos, onycholysis.Neuro: Mental status normal. Affect normal. Muscle strength normal andsymmetrical. No tremor.IMPRESSION AND RECOMMENDATIONS:1. Mild -persistent asthma, symptomatically less than well controlled oncuurent Rx. Cough is likely a combination of asthma, gastroesophageal refluxand post nasal drip.- Continue Omeprazole for reflux. Sent to [facility].- Prednisone 10 mg daily to control asthmatic airway inflammation and nasalcongestion and post nasal drip.- correction plan will be inhaled corticosteroid with spacer to minimize vocalcord irritation and maximize delivery to bronchial tree, and daily Loratadineor Nasal Topical steroid.- Prevnar 13 in 2017. Guidelines are to take both 13 valent and 23 valentPneumococcal vaccinations by at least 1 year, to get best protectionfrom Pneumococcal pneumonia.- Check to determine that Pneumovax 23 is covered by insurance. I believe feeapproaches $500 if not covered.- Please MyChart message me in 1 month to report symptoms so we can planspecifics of next treatment steps.2. GERD.- Continue symptomatic Rx.I addressed the questions of the patient and her spouse, and they expressedunderstanding and acceptance of my answers.Patricia Carmichael MD, [facility] Specialty and Ambulatory Surgery [address] [place] [address]Y: [phone]: [phone] YasmineRaquel peterslexy HALL 09/11/2017 8:37 AM SignedROS:General: Generally feels short of breath with exertion. Appetite good.Eyes, Ears, nose, throat: notes post nasal drip. denies rhinorrhea. deniespurulent nasal discharge.denies epistaxis. occasional hoarseness. Vision denies pain or blurry vision.Cardiac: denies angina, notes edema, denies orthopnea.GI: notes heartburn. denies dysphagia. denies diarrhea.Uro/RELATIONSHIP SPECIALIST: denies dysuria. denies hesitancy. denies nocturia. Menses: postmenopausalMusculoskel etal: notes joint pain.Neuro: denies headache, denies focal weakness. denies tremor.Skin: denies rash.Otherwise negative.Patricia Carmichael 09/11/2017 9:38 AM Addendum1. You received Prevnar 13 in 2017. Guidelines are to take both 13 valent and23 valent Pneumococcal vaccinations by at least 1 year, to get bestprotection from Pneumococcal pneumonia.- Check to determine that Pneumovax 23 is covered by insurance. I believe feeapproaches $500 if not covered.2. Cough is likely a combination of asthma, gastroesophageal reflux and postnasal drip.- Continue Omeprazole for reflux. Sent to [facility].- Prednisone 10 mg daily to control asthmatic airway inflammation and nasalcongestion and post nasal drip.- correction plan will be inhaled corticosteroid with spacer to minimize vocalcord irritation and maximize delivery to bronchial tree,and daily Loratadine or Nasal Topical steroid.3. Please MyChart message me in 1 month to report symptoms so we can planspecifics of next treatment steps.Patricia Carmichael MD, [facility] Specialty and Ambulatory Surgery [address] [place] [address]W: [phone]: [phone] Provider: TAO PALACIOS [[id number]]Allergies As of Date: 09/11/2017 Noted Allergy ReactionERYTHROMYCIN 06/15/2005 8 - GI UpsetSULFA (SULFONAMIDE ANTIBIOTICS) 06/15/2005 2 - RashDate Reviewed: 09/11/2017Reviewed by: Patricia Carmichael - Fully AssessedReason for Visit: Established Patient [175] Cmt: asthmaPrimary Visit Diagnosis:Mild persistent asthma without complication [J45.30] Other Visit Diagnoses:Gastroesophagea l reflux disease, esophagitis presence not specified [K21.9] Post-nasal drip [R09.82]Order(s):ubidecar enone Q-10 (CO Q-10) 10 mg capTake 1 capsule by mouth once daily.Disp: Rfl: predniSONE (DELTASONE) 10 mg tabletTake 1 tablet by mouth once daily.Disp: 30 tabletRfl: 1 omeprazole (PRILOSEC) 20 mg capsuleTake 1 capsule by mouth once daily.Disp: 90 capsuleRfl: 3Prescriptions as of 09/11/2017 Sig: COENZYME Q10 10 MG CAPSULE Take 1 capsule by mouth once * MOMETASONE 220 MCG (60 DOSES)* Inhale 2 Puffs as instructed * COMPOUNDED PRESCRIPTION Check CPAP fit and settings a* LEVOTHYROXINE 50 MCG TABLET Take 1 tablet by mouth once d* AMLODIPINE 5 MG TABLET Take 1 tablet by mouth once d* AZELASTINE 137 MCG (0.1 %) NA* Use 1 Birdseye in each nostril t* ALBUTEROL SULFATE 2.5 MG/3 ML* Use 3 mL via nebulizer every * ALBUTEROL SULFATE HFA 90 MCG/* Inhale 2 Puffs as instructed * ASPIRIN 81 MG TABLET,DELAYED * Take 81 mg by mouth once boyd* CALCIUM CARBONATE 600 MG CALC* Take 1 tablet by mouth once d* * CHOLECALCIFEROL (VITAMIN D3) * Take 185 mg by mouth once trisha* * OTC NUTRITIONAL SUPPLEMENT Multi-Vitamin, Take one(1) ta* PREDNISONE 10 MG TABLET Take 1 tablet by mouth once d* OMEPRAZOLE 20 MG CAPSULE,ELISA* Take 1 capsule by mouth once *Problem List As Of Date 09/11/2017 Noted Resolved Dysphonia [R49.0] INVALID FOR* Hypertension [I10] INVALID FOR* Chronic cough [R05] INVALID FOR* ANAMARIA (obstructive sleep apnea) [G47.33] INVALID FOR* Hypothyroidism [E03.9] INVALID FOR* Mild persistent asthma [J45.30] INVALID FOR* Reflux laryngitis [J04.0, K21.9] INVALID FOR* More... Notes for Staff Discussed this visit Other instructions from your clinician: 1. You received Prevnar 13 in 2017. Guidelines are to take both 13 valent and 23 valent Pneumococcal vaccinations by at least 1 year, to get best protection from Pneumococcal pneumonia. - Check to determine that Pneumovax 23 is covered by insurance. I believe fee approaches $500 if not covered. 2. Cough is likely a combination of asthma, gastroesophageal reflux and post nasal drip. - Continue Omeprazole for reflux. Sent to [facility]. - Prednisone 10 mg daily to control asthmatic airway inflammation and nasal congestion and post nasal drip. - correction plan will be inhaled corticosteroid with spacer to minimize vocal cord irritation and maximize delivery to bronchial tree, and daily Loratadine or Nasal Topical steroid. 3. Please MyChart message me in 1 month to report symptoms so we can plan specifics of next treatment steps. Patricia Carmichael MD, [facility] [place] [facility] [address] [place] [address] P: [phone] F: [phone] [email or web address] Notes:>> Ronit Amaya RAFAEL Diehl Sep 11, 2017 8:31 AM Status: SignedROS:General: Generally feels short of breath with exertion. Appetite good.Eyes, Ears, nose, throat: notes post nasal drip. denies rhinorrhea. deniespurulent nasal discharge.denies epistaxis. occasional hoarseness. Vision denies pain or blurryvision.Cardiac: denies angina, notes edema, denies orthopnea.GI: notes heartburn. denies dysphagia. denies diarrhea.Uro/RELATIONSHIP SPECIALIST: denies dysuria. denies hesitancy. denies nocturia. Menses: postmenopausalMusculoskel etal: notes joint pain.Neuro: denies headache, denies focal weakness. denies tremor.Skin: denies rash.Otherwise negative.Prescriptions ordered this encounter Disp Refills Start End COENZYME Q10 10 MG CAPSULE 09/11/2017 Class: Med Update Route: ORAL Sig: Take 1 capsule by mouth once daily. PREDNISONE 10 MG TABLET 30 t* 1 09/11/2017 Route: ORAL Sig: Take 1 tablet by mouth once daily. OMEPRAZOLE 20 MG CAPSULE,DELAYED REL* 90 c* 3 09/11/2017 Route: ORAL Sig: Take 1 capsule by mouth once daily.Medications Discontinued During This Encounter omeprazole (PRILOSEC) 20 mg capsule 90 c* 3 04/11/2016 09/11/2017 Route: ORAL Sig: Take 1 capsule by mouth daily before breakfast. 1/2 hr before meal. Disc: Course of therapy completedFollow Up: Discussed this visitDisposition: Return in about 6 months (around 03/13/2018).Follow-up and Disposition History RecordedEncounter Number: [id number] Status:Closed by PATRICIA CARMICHAEL MD on 10/04/17 Normal [facility] PROGRESSon 09-11-2017 Protein mass conc HNO ID: [id number] thor: Lianne Carmichael: (none)Author Type: PhysicianType: Progress NotesFiled: 10/08/2017 11:01 AMNote Text:[facility] [place], 09/11/2017:INTERVAL HISTORY:No hospital admission, ED visit or prednisone Rx for exacerbation sincelast clinic visit.Claims consistent compliance with maintenance Rx.No nocturnal symptoms.Infrequent use of rescue inhaled bronchodilator.ROS:Review ed with patient, confirmed as documented by Ronit Amaya LPN. TOPMH: Updated with patient today. No change.FAMH: Updated with patient today. No change.SOCH: Updated with patient today. No change.Allergies reviewed and updated, and medications reconciled today.Immunization HistoryAdministered Date(s) Administered Influenza Seasonal - High Dose - Age 65+ 03/10/2016 03/05/2017 Pneumococcal-13 Vac Conjugate 01/04/2017 Tetanus Diphtheria Booster (Age >7) Pres Free 10/30/2013 Zostavax 08/09/2009PHYSICAL EXAMINATION:BP 128/64 Pulse 79 Resp 16 Wt 148 lb (67.1kg) SpO2 93%Gen: No acute distress. Cooperative with examination.ENT: Sclerae clear. Nares clear. Oral hygeine/dentition good. Pharynxclear. No halitosis.Resp: No stridor, accessory respiratory muscle use, supra-sternal orintercostal retractions. No crackles, wheezes, rubs.CV: Regular rythm. Heart tones normal. No carotid bruit. Radial pulsesnormal.Abd: Not distended.MSK: No kyphoscoliosis, joint deformities.Ext: Warm and well perfused. No clubbing, cyanosis, edema sclerodactyly,Raynaud's,S kin: Color normal. Texture normal. No rash, eczema, urticaria.Lymph: No adenopathy in neck, supra-clavicular fossae.Endo: No exophthalmos, onycholysis.Neuro: Mental status normal. Affect normal. Muscle strength normal andsymmetrical. No tremor.IMPRESSION AND RECOMMENDATIONS:1. Mild -persistent asthma, symptomatically less than well controlled oncuurent Rx. Cough is likely a combination of asthma, gastroesophagealreflux and post nasal drip.- Continue Omeprazole for reflux. 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 Guidelines are to take both 13 valent and 23 valentPneumococcal vaccinations by at least 1 year, to get bestprotection from Pneumococcal pneumonia.- Check to determine that Pneumovax 23 is covered by insurance. I believefee approaches $500 if not covered.- Please MyChart message me in 1 month to report symptoms so we can planspecifics of next treatment steps.2. GERD.- Continue symptomatic Rx.I addressed the questions of the patient and her spouse, and theyexpressed understanding and acceptance of my answers.Patricia Carmichael MD, [facility] [address] [place] [address]J: [phone]: [phone] Normal [facility] CT CHEST WO IVCONon 07-27-[address] CHEST WO IVCON * * *Final Report* * *DATE OF EXAM: Jul 27 2017 3:48PM [facility] 0541 - CT CHEST WO IVCON / REASON: multiple diagnoses * * * * Physician Interpretation * * * * EXAMINATION: CHEST CT WITHOUT CONTRASTIndication: Cough, lung nodulesTechnique: Spiral CT acquisition of the chest from the thoracic inlet to the upper abdomen without contrast.MQ: CTCWO_3CT Dose-Length Product: 229 mGy*cmCT Dose Reduction Employed: Automated exposure control (AEC)Comparison: 07/17/2016RESULT:Limitatio ns: None.Lines, tubes, and devices: None.Lung parenchyma and pleura: Central airways are patent. Again seen are diffuse, innumerable centrilobular nodules, the largest of which is stable in the right lower lobe measuring 5 mm (4:112). No pleural effusion. Mild mosaic attenuation to the lungs, suggestive of possible air trapping.Thoracic inlet, heart, and mediastinum: No lymphadenopathy in the axillary, mediastinal, or hilar regions. The thoracic aorta and main pulmonary artery are normal in caliber. The cardiac chambers are normal in size. Coronary artery atherosclerotic calcifications are noted, although the study is not optimized for coronary assessment. No pericardial effusion or thickening.Bones and soft tissues: No destructive bone lesion. Thoracic spondylosis. Chest wall is unremarkable.Upper abdomen: Multiple hepatic cysts.IMPRESSION:STABLE APPEARANCE OF DIFFUSE, CENTRILOBULAR MICRONODULES. THIS PROBABLY REPRESENTS A NONSPECIFIC BRONCHIOLITIS. IF FOLLOW-UP IS CLINICALLY INDICATED, I WOULD RECOMMEND THAT IT BE DONE WITH A HIGH-RESOLUTION CT.Canvas Worker: BONY Transcribe Date/Time: Jul 27 2017 8:21PDictated by : RNONI CASTANEDA MDThis examination was interpreted and the report reviewed and electronically signed by: RONNI CASTANEDA MD on Jul 27 2017 8:27PM [id number] Normal [facility] PROGRESSon 07-27-2017 Protein mass conc HNO ID: [id number] thor: Dora Mead CtService: (none)Author Type: (none)Type: Progress NotesFiled: 07/27/2017 3:50 PMNote Text: Radiology Service Progress NotePATIENT NAME: Wilberto MccraryMRN: [id number] OF SERVICE: July 27, 2017TIME: 3:49 PMPATIENT IDENTITY VERIFICATION COMPLETED USING TWO (2) METHODS: Patientconfirmed name verbally and Date of .PATIENT GENDER DATA: Female. status: : NoBreastfeeding status: NO.PATIENT RELEVANT IMPLANT DATA REVIEWED: Not ApplicableRADIOLOGY DEPARTMENT: CT; Exam(s) Completed: ChestPERIPHERAL IV DATA: Not applicableSIGNED BY: Dora Mead CtFebruary 2017 3:49 PM [facility] Ashley 01-03-2017 CNPN Telephone (MEPRAD) DARIUSZ MCCRARY ( ) [address] [facility] Department01/03/17 PATRICIA CARMICHAEL During your visit today, we recorded the following information about you:Ronit Amaya LPN 01/03/2017 11:29 AM SignedPatient notified RX sent to [facility], follow up in 3 months.Ronit Amaya LPNAllergies As of Date: 01/03/2017 Noted Allergy ReactionERYTHROMYCIN 06/15/2005 8 - GI UpsetSULFA (SULFONAMIDE ANTIBIOTICS) 06/15/2005 2 - RashDate Reviewed: 12/31/2016Reviewed by: Patricia Carmichael - Fully AssessedReason for Visit: Refill Request [94]Primary Visit Diagnosis:Mild persistent asthma without complication [J45.30]Order(s):mometaso ne (ASMANEX TWISTHALER) 110 mcg (30 doses) twisthalerInhale 1 Puff as instructed once daily.Disp: 1 InhalerRfl: 1Prescriptions as of 01/03/2017 Sig: MOMETASONE 110 MCG (30 DOSES)* Inhale 1 Puff as instructed o* AZELASTINE 137 MCG (0.1 %) NA* Use 1 Birdseye in each nostril t* ALBUTEROL SULFATE 2.5 MG/3 ML* Use 3 mL via nebulizer every * LEVOTHYROXINE 50 MCG TABLET Take 1 tablet by mouth once d* AMLODIPINE 5 MG TABLET Take 1 tablet by mouth once d* OMEPRAZOLE 20 MG CAPSULE,ELISA* Take 1 capsule by mouth daily* ALBUTEROL SULFATE HFA 90 MCG/* Inhale 2 Puffs as instructed * ASPIRIN 81 MG TABLET,DELAYED * Take 81 mg by mouth once boyd* CALCIUM CARBONATE 600 MG CALC* Take 1 tablet by mouth once d* * CHOLECALCIFEROL (VITAMIN D3) * Take 185 mg by mouth once trisha* * OTC NUTRITIONAL SUPPLEMENT Multi-Vitamin, Take one(1) ta*Problem List As Of Date 01/03/2017 Noted Resolved Dysphonia [R49.0] INVALID FOR* Hypertension [I10] INVALID FOR* Chronic cough [R05] INVALID FOR* ANAMARIA (obstructive sleep apnea) [G47.33] INVALID FOR* Hypothyroidism [E03.9] INVALID FOR*Prescriptions ordered this encounter Disp Refills Start End MOMETASONE 110 MCG (30 DOSES) BREATH* 1 In* 1 01/03/2017 Route: INHALATION Sig: Inhale 1 Puff as instructed once daily.Medications Discontinued During This Encounter fluticasone (FLOVENT HFA) 44 mcg/act* 3 In* 3 08/21/2016 01/03/2017 Route: INHALATION Sig: Inhale 2 Puffs as instructed twice daily. Disc: Side EffectsEncounter Number: [id number] Status:Closed by PATRICIA CARMICHAEL MD on 01/03/17 [facility] OBSOLETEon 01-03-2017 OBSOLETE Refill (MEPRAD) DARIUSZ MCCRARY ( ) 1950 FDate Time Provider Department01/03/17 PATRICIA CARMICHAEL During your visit today, we recorded the following information about you:Allergies As of Date: 01/03/2017 Noted Allergy ReactionERYTHROMYCIN 06/15/2005 8 - GI UpsetSULFA (SULFONAMIDE ANTIBIOTICS) 06/15/2005 2 - RashDate Reviewed: 12/31/2016Reviewed by: Patricia Carmichael - Fully AssessedReason for Visit: Refill Request [94]Primary Visit Diagnosis:Mild persistent asthma without complication [J45.30]Order(s):mometaso ne (ASMANEX TWISTHALER) 110 mcg (30 doses) twisthalerInhale 1 Puff as instructed once daily.Disp: 1 InhalerRfl: 1Prescriptions as of 01/03/2017 Sig: MOMETASONE 110 MCG (30 DOSES)* Inhale 1 Puff as instructed o* AZELASTINE 137 MCG (0.1 %) NA* Use 1 Birdseye in each nostril t* ALBUTEROL SULFATE 2.5 MG/3 ML* Use 3 mL via nebulizer every * LEVOTHYROXINE 50 MCG TABLET Take 1 tablet by mouth once d* AMLODIPINE 5 MG TABLET Take 1 tablet by mouth once d* OMEPRAZOLE 20 MG CAPSULE,ELISA* Take 1 capsule by mouth daily* ALBUTEROL SULFATE HFA 90 MCG/* Inhale 2 Puffs as instructed * ASPIRIN 81 MG TABLET,DELAYED * Take 81 mg by mouth once boyd* CALCIUM CARBONATE 600 MG CALC* Take 1 tablet by mouth once d* * CHOLECALCIFEROL (VITAMIN D3) * Take 185 mg by mouth once trisha* * OTC NUTRITIONAL SUPPLEMENT Multi-Vitamin, Take one(1) ta*Problem List As Of Date 01/03/2017 Noted Resolved Dysphonia [R49.0] INVALID FOR* Hypertension [I10] INVALID FOR* Chronic cough [R05] INVALID FOR* ANAMARIA (obstructive sleep apnea) [G47.33] INVALID FOR* Hypothyroidism [E03.9] INVALID FOR*Prescriptions ordered this encounter Disp Refills Start End MOMETASONE 110 MCG (30 DOSES) BREATH* 1 In* 1 01/03/2017 Route: INHALATION Sig: Inhale 1 Puff as instructed once daily.Medications Discontinued During This Encounter fluticasone (FLOVENT HFA) 44 mcg/act* 3 In* 3 08/21/2016 01/03/2017 Route: INHALATION Sig: Inhale 2 Puffs as instructed twice daily. Disc: Side EffectsEncounter Number: [id number] Status:Closed by PATRICIA CARMICHAEL MD on 01/03/17 [facility] Vital Signs Date Time Vital Sign Value Performing Clinician Faci lity 02-11-2025 10:24-0400 Body temperature 99.1 [degF] Dr. Daphnie Jones MD Work Phone: [facility] 02-11-2025 10:24-0400 Diastolic blood pressure 69 mm[Hg] Dr. Daphnie Jones MD Work Phone: [facility] 02-11-2025 10:24-0400 Heart rate 70 /min Dr. Daphnie Jones MD Work Phone: [facility] 02-11-2025 10:24-0400 Respiratory rate 20 /min Dr. Daphnie Jones MD Work Phone: [facility] 02-11-2025 10:24-0400 SaO2% (BldA) [Mass fraction] 92 % Dr. Daphnie Jones MD Work Phone: [facility] 02-11-2025 10:24-0400 Systolic blood pressure 120 mm[Hg] Dr. Daphnie Jones MD Work Phone: [facility] 02-11-2025 09:06-0400 Body height 149.[address] Daphnie Jones MD Work Phone: [facility] 02-11-2025 09:06-0400 Body mass index (BMI) [Ratio] 27.8 kg/m2 Dr. Daphnie Jones MD Work Phone: [facility] 02-11-2025 09:06-0400 Body weight 62.[address] Daphnie Jones MD Work Phone: [facility] 01-07-2025 08:13-0400 Body height 149.[address] Daphnie Jones MD Work Phone: [facility] 01-07-2025 08:13-0400 Body mass index (BMI) [Ratio] 27.8 kg/m2 Dr. Daphnie Jones MD Work Phone: [facility] 01-07-2025 08:13-0400 Body temperature 97.3 [degF] Dr. Daphnie Jones MD Work Phone: [facility] 01-07-2025 08:13-0400 Body weight 62.[address] Daphnie Jones MD Work Phone: [facility] 01-07-2025 08:13-0400 Diastolic blood pressure 73 mm[Hg] Dr. Daphnie Jones MD Work Phone: [facility] 01-07-2025 08:13-0400 Heart rate 64 /min Dr. Daphnie Jones MD Work Phone: [facility] 01-07-2025 08:13-0400 Respiratory rate 18 /min Dr. Daphnie Jones MD Work Phone: [facility] 01-07-2025 08:13-0400 SaO2% (BldA) [Mass fraction] 90 % Dr. Daphnie Jones MD Work Phone: [facility] 01-07-2025 08:13-0400 Systolic blood pressure 150 mm[Hg] Dr. Daphnie Jones MD Work Phone: [facility] 11-26-2024 08:42-0400 Body height 149.[address] Daphnie Jones MD Work Phone: [facility] 11-26-2024 08:42-0400 Body mass index (BMI) [Ratio] 27.4 kg/m2 Dr. Daphnie Jones MD Work Phone: [facility] 11-26-2024 08:42-0400 Body temperature 97 [degF] Dr. Daphnie Jones MD Work Phone: [facility] 11-26-2024 08:42-0400 Body weight 61.[address] Daphnie Jones MD Work Phone: [facility] 11-26-2024 08:42-0400 Diastolic blood pressure 80 mm[Hg] Dr. Daphnie Jones MD Work Phone: [facility] 11-26-2024 08:42-0400 Heart rate 73 /min Dr. Daphnie Jones MD Work Phone: [facility] 11-26-2024 08:42-0400 Respiratory rate 18 /min Dr. Daphnie Jones MD Work Phone: [facility] 11-26-2024 08:42-0400 SaO2% (BldA) [Mass fraction] 95 % Dr. Daphnie Jones MD Work Phone: [facility] 11-26-2024 08:42-0400 Systolic blood pressure 145 mm[Hg] Dr. Daphnie Jones MD Work Phone: [facility] 11-13-2024 13:36-0400 Body height 149.[address] Daphnie Jones MD Work Phone: [facility] 11-13-2024 13:36-0400 Body weight 61.[address] Daphnie Jones MD Work Phone: [facility] 11-13-2024 13:36-0400 Heart rate 81 /min Dr. Daphnie Jones MD Work Phone: [facility] 11-13-2024 13:36-0400 SaO2% (BldA) [Mass fraction] 95 % Dr. Daphnie Jones MD Work Phone: [facility] 10-15-2024 09:15-0400 Body mass index (BMI) [Ratio] 27.6 kg/m2 Dr. Daphnie Jones MD Work Phone: [facility] 10-15-2024 09:15-0400 Body temperature 98.2 [degF] Dr. Daphnie Jones MD Work Phone: [facility] 10-15-2024 09:15-0400 Body weight 62.[address] Daphnie Jones MD Work Phone: [facility] 10-15-2024 09:15-0400 Diastolic blood pressure 76 mm[Hg] Dr. Daphnie Jones MD Work Phone: [facility] 10-15-2024 09:15-0400 Heart rate 76 /min Dr. Daphnie Jones MD Work Phone: [facility] 10-15-2024 09:15-0400 Respiratory rate 18 /min Dr. Daphnie oJnes MD Work Phone: [facility] 10-15-2024 09:15-0400 SaO2% (BldA) [Mass fraction] 92 % Dr. Daphnie Jones MD Work Phone: [facility] 10-15-2024 09:15-0400 Systolic blood pressure 125 mm[Hg] Dr. Daphnie Jones MD Work Phone: [facility] 03-15-2023 10:32-0400 Body height 149.[address] Daphnie Jones Work Phone: [facility] 03-15-2023 10:32-0400 Body mass index (BMI) [Ratio] 27.8 kg/m2 Dr. Daphnie Jones Work Phone: [facility] 03-15-2023 10:32-0400 Body weight 62.[address] Daphnie Jones Work Phone: [facility] 03-15-2023 10:32-0400 Diastolic blood pressure 76 mm[Hg] Dr. Daphnie Jones Work Phone: [facility] 03-15-2023 10:32-0400 Heart rate 65 /min Dr. Daphnie Jones Work Phone: [facility] 03-15-2023 10:32-0400 Respiratory rate 18 /min Dr. Daphnie Jones Work Phone: [facility] 03-15-2023 10:32-0400 SaO2% (BldA) [Mass fraction] 92 % Dr. Daphnie Jones Work Phone: [facility] 03-15-2023 10:32-0400 Systolic blood pressure 120 mm[Hg] Dr. Daphnie Jones Work Phone: [facility] 09-29-2022 03:45-0400 Diastolic blood pressure 78 mm[Hg] [facility] 09-29-2022 03:45-0400 Heart rate 60 /min [facility] 09-29-2022 03:45-0400 Respiratory rate 15 /min [facility] 09-29-2022 03:45-0400 SaO2% (BldA) [Mass fraction] 95 % [facility] 09-29-2022 03:45-0400 Systolic blood pressure 147 mm[Hg] [facility] 09-29-2022 01:58-0400 Body height 149.86 cm [facility] 09-29-2022 01:58-0400 Body mass index (BMI) [Ratio] 28.8 kg/m2 [facility] 09-29-2022 01:58-0400 Body temperature 97.3 [degF] [facility] 09-29-2022 01:58-0400 Body weight 64.7 kg [facility] 08-28-2022 00:03-0400 Respiratory rate 18 /min [facility] 08-27-2022 21:57-0400 Body height 149.86 cm [facility] 08-27-2022 21:57-0400 Body mass index (BMI) [Ratio] 28.5 kg/m2 [facility] 08-27-2022 21:57-0400 Body temperature 98.9 [degF] [facility] 08-27-2022 21:57-0400 Body weight 63.95 kg [facility] 08-27-2022 21:57-0400 Diastolic blood pressure 88 mm[Hg] [facility] 08-27-2022 21:57-0400 Heart rate 73 /min [facility] 08-27-2022 21:57-0400 SaO2% (BldA) [Mass fraction] 93 % [facility] 08-27-2022 21:57-0400 Systolic blood pressure 156 mm[Hg] [facility] 03-09-2022 10:40-0400 Body height 149.[address] Daphnie Jones Work Phone: [facility] Work Phone: 03-09-2022 10:40-0400 Body mass index (BMI) [Ratio] 27.2 kg/m2 Dr. Daphnie Jones Work Phone: [facility] Work Phone: 03-09-2022 10:40-0400 Body weight 61.[address] Daphnie Jones Work Phone: [facility] Work Phone: 03-09-2022 10:40-0400 Diastolic blood pressure 83 mm[Hg] Dr. Daphnie Jones Work Phone: [facility] Work Phone: 03-09-2022 10:40-0400 Heart rate 68 /min Dr. Daphnie Jones Work Phone: [facility] Work Phone: 03-09-2022 10:40-0400 Respiratory rate 16 /min Dr. Daphnie Jones Work Phone: [facility] Work Phone: 03-09-2022 10:40-0400 SaO2% (BldA) [Mass fraction] 94 % Dr. Daphnie Jones Work Phone: [facility] Work Phone: 03-09-2022 10:40-0400 Systolic blood pressure 132 mm[Hg] Dr. Daphnie Jones Work Phone: [facility] Work Phone: Encounters Encounter Date Encounter Type Care Provider Facility Start: 04-08-2025 End: 04-08-2025 ambulatory Kristen Rayo [place] Start: 03-12-2025 End: 03-12-2025 ambulatory Daphnie Jones Facility:[facility] Start: 02-11-2025 End: 02-11-2025 Patient encounter procedure PLUMBER SUPERVISOR Kristen Rayo [facility] Work Phone: Start: 02-11-2025 End: 02-11-[address] Daphnie Jones MD Work Phone: [facility] Start: 01-07-2025 End: 01-07-2025 Patient encounter procedure PLUMBER SUPERVISOR Kristen Rayo [facility] Work Phone: Start: 01-07-2025 End: 01-07-[address] Daphnie Jones MD Work Phone: [facility] Start: 11-26-2024 End: 11-26-2024 Patient encounter procedure PINEDA Rayo [facility] Work Phone: Start: 11-26-2024 End: 11-26-[address] Daphnie Jones MD Work Phone: [facility] Work Phone: Start: 11-17-2024 ambulatory Papi Govea Facility:[facility] Start: 11-17-2024 Non-patient / Non-visit Dr. Papi long DO -[facility] Start: 11-13-2024 End: 11-13-[address] Daphnie Jones MD Work Phone: [facility] Work Phone: Start: 11-13-2024 End: 11-13-[address] Papi Govea DO -Pulmonary Services/Neurology Work Phone: Start: 11-13-2024 End: 11-13-2024 ambulatory Papi Govea Facility:[facility] Start: 10-31-2024 Non-patient / Non-visit Dr. Papi long DO [facility] Start: 10-31-2024 End: 10-31-[address] Daphnie Jones MD Work Phone: [facility] Work Phone: Start: 10-31-2024 End: 10-31-[address] Papi Govea DO -Pulmonary Services/Neurology Work Phone: Start: 10-31-2024 End: 10-31-2024 ambulatory Papi Govea Facility:[facility] Start: 10-15-2024 End: 10-15-[address] Papi Govea DO -[facility] Work Phone: Start: 10-15-2024 End: 10-15-[address] Daphnie Jones MD Work Phone: [facility] Work Phone: Start: 10-15-2024 End: 10-15-2024 ambulatory Daphnie Jones Facility:[facility] Start: 06-26-2024 Encounter for genera l adult medical examination without abnormal findings Daphnie Jones [facility] Start: 05-22-2024 End: 05-22-2024 ambulatory Daphnie Jones Facility:[facility] Start: 06-05-2023 End: 06-05-[address] Daphnie Jones Work Phone: [facility] Work Phone: Start: 06-05-2023 End: 06-05-[address] Daphnie Jones Work Phone: [facility]-Outpatient Breast Imaging Work Phone: Start: 05-09-2023 End: 05-09-[address] Daphnie Jones Work Phone: [facility] Work Phone: Start: 05-09-2023 End: 05-09-[address] Daphnie Jones Work Phone: [facility] Work Phone: Start: 03-30-2023 Non-patient / Non-visit Dr. Raj Jones Work Phone: [facility] Start: 03-29-2023 Non-patient / Non-visit Dr. Raj Jones Work Phone: [facility] Start: 03-29-2023 End: 03-29-[address] Daphnie Jones Work Phone: [facility] Work Phone: Start: 03-29-2023 End: 03-29-[address] [facility] Start: 03-15-2023 End: 03-15-[address] Daphnie Jones Work Phone: [facility] Work Phone: Start: 09-29-2022 End: 09-29-2022 Emergency department patient visit [facility]Emergency Department Start: 08-27-2022 End: 08-28-2022 Emergency department patient visit [facility]Emergency Department Start: 06-01-2022 End: 06-01-[address] Daphnie Jones Work Phone: [facility] Work Phone: Start: 06-01-2022 End: 06-01-[address] Daphnie Jones Work Phone: [facility]-Outpatient Breast Imaging Start: 05-04-2022 End: 05-04-[address] Daphnie Jones Work Phone: [facility] Work Phone: Start: 05-04-2022 End: 05-04-[address] Daphnie Jones Work Phone: [facility]-Laboratory Start: 03-29-2022 Non-patient / Non-visit Dr. Raj Jones Work Phone: [facility] Start: 03-29-2022 End: 03-29-[address] Daphnie Jones Work Phone: [facility]-Cardiovascular Services Start: 03-09-2022 End: 03-09-[address] Daphnie Jones Work Phone: [facility] Start: 05-06-2018 End: 05-07-2018 Patient encounter procedure MICHAEL FORREST (CNS) [facility] Start: 03-12-2018 End: 03-12-2018 Patient encounter procedure ANGELITA BURNETT [facility] Start: 02-15-2018 End: 02-19-2018 Patient encounter procedure PATRICIA CARMICHAEL [facility] Start: 01-24-2018 End: 01-24-2018 Patient encounter procedure ANGELITA Kina BURNETT [facility] Start: 01-07-2018 End: 01-07-2018 Patient encounter procedure ANGELITA BURNETT [facility] Start: 01-04-2018 End: 01-15-2018 Patient encounter procedure ANGELITA Kina BURNETT [facility] Start: 12-31-2017 End: 12-31-2017 Patient encounter procedure ANGELITA BURNETT [facility] Start: 09-11-2017 End: 10-05-2017 Patient encounter procedure PATRICIA CARMICHAEL [facility] Start: 07-27-2017 End: 07-27-2017 Patient encounter procedure PATRICIA CARMICHAEL [facility] Procedures Date Procedure Procedure Detail Performing Clinician Start: 10-15-[address] Daphnie Jones MD Work Phone: Start: 10-15-[address] Daphnie Jones MD Work Phone: Start: 10-15-[address] Hope Jones MD Work Phone: Comment on above: The atypical pANCA p attern has been observed in asignificant percentage of patients with ulcerative colitis,primary sclerosing cholangitis and autoimmune hepatitis. Start: 10-15-[address] Jacquelin Jones MD Work Phone: Start: 10-15-[address] Kai Jones MD Work Phone: Start: 10-15-[address] [place] Daphnie Jones MD Work Phone: Start: 10-15-[address] Daphnie Jones MD Work Phone: Start: 10-15-2024 Common silver birch RAST Dr. Daphnie Jones MD Work Phone: Start: 10-15-2024 House dust mite (Df) RAST Dr. Daphnie Jones MD Work Phone: Start: 10-15-2024 Mouse urine proteins RAST Dr. Daphnie Jones MD Work Phone: Start: 10-15-[address] Jacquelin Jones MD Work Phone: Start: 10-15-20[address] Penicillium [address] Daphnie Jones MD Work Phone: Start: 10-15-[address] Hope Jones MD Work Phone: Start: 10-15-[address] Raj Jones MD Work Phone: Start: 10-15-[address] [place] [address] RA[address] Raj Jones MD Work Phone: Start: 06-01-2022 Screening mammography Kina Jones Work Phone: Start: 03-29-2022 Radionuclide imaging of perfusion of myocardium under exercise stress Dr. Daphnie Jones Work Phone: Start: 11-29-2018 History of placement of stent for coronary artery disease History of coronary artery stent placement Dr. Daphnie Jones Work Phone: Comment on above: PCI-RAMU-Mid LAD w/ 2 .5 x 32 mm Synergy and RAMU-Prox D1 w/ 2.25 x 38 mm Synergy 10/14/18; LVA-WDL-Pmlonl LCx w/ 2.5 x 12 mm Elunir Stent and POBA-OM2 11/29/18 Bacteria identified in Blood by Culture Plan of Treatment Date Care Activity Detail Author Start: 11-13-2024 Walking distance 6 minutes [facility] Start: 10-31-2024 Measurement of respi ratory function [facility] Start: 10-15-2024 IgE [Units/volume] i n Serum or Plasma [facility] Start: 10-15-[address] [facility] Start: 06-05-2023 MG Breast - bilatera l Screening [facility] Start: 06-05-2023 Screening mammography SCRN ELIER M (CAD)W/STEPHEN BILAT [facility] Start: 08-27-2022 End: 08-27-2022 Blood culture [facility] Alternaria alternata IgE Ab [Units/volume] in Serum [facility] Guamanian Cockroach I gE Ab [Units/volume] in Serum [facility] Aspergillus fumigatus RAST [facility] Bacteria identified in Blood by Culture Blood Culture [facility] Bermuda grass IgE Ab [Units/volume] in Serum [facility] Box elder RAST [facility] Cat dander RAST [facility] CBC W Auto Different ial panel - Blood [facility] Cladosporium herbaru m IgE Ab [Units/volume] in Serum [facility] Common Pigweed IgE A b [Units/volume] in Serum [facility] Common Ragweed IgE A b [Units/volume] in Serum [facility] Common silver birch RAST [facility] RAST [facility] Dog epithelium IgE A b [Units/volume] in Serum [facility] house dust mite IgE Ab [Units/volume] in Serum [facility] House dust mite (Df) RAST [facility] Immunoglobulin E measurement [facility] Measurement of Asper gillus flavus antibody [facility] Measurement of Asper gillus fumigatus antibody [facility] Measurement of Asper gillus niger antibody [facility] Measurement of respi ratory function [facility] Mountain Juniper IgE Ab [Units/volume] in Serum [facility] Mouse urine proteins RAST [facility] Neutrophil cytoplasm ic Ab.classic [Units/volume] in Serum [facility] P-ANCA measurement [facility] Patient Education [facility] Work Phone: Patient referral [facility] Work Phone: Pecan nut RAST [facility] Penicillium chrysoge num RAST [facility] Saltwort IgE Ab [Units/volume] in Serum [facility] Sheep Alcoa IgE Ab [Units/volume] in Serum [facility] Brian IgE Ab [Units/volume] in Serum [facility] Tree pollen RAST [facility] Walking distance 6 minutes [address] [facility] Treichlers RAST [facility] White Reynaldo IgE Ab [Units/volume] in Serum [facility] White Elm IgE Ab [Units/volume] in Serum [facility] White mulberry IgE A b [Units/volume] in Serum [facility] Immunizations Immunization Date Immunization Notes Care Provider Yodit saravia 03-27-[address] Daphnie Jones Work Phone: [facility] Payers Date Payer Category Payer Self-pay [id number] 2024 Unknown [id number] 2007 Unknown DO NOT USE [facility] [employer] [id number] Unknown [id number] Unknown [id number] Unknown [id number] Unknown [id number] Unknown [id number] Unknown [id number] Unknown [id number] Unknown [id number] Unknown [id number] Unknown [id number] [id number] Unknown [id number] Unknown [id number] Social History Date Type Detail Facility Start: 03-09-2022 End: 03-15-2023 Tobacco smoking status ILIS Unknown if ever smoked [facility] Start: 10-14-[address] [facility] Start: 10-14-2018 Spouse/ Signif icant Other [facility] Start: 1950 Sex Assigned At Female W [facility] Start: 03-15-2023 Tobacco smoking status NHIS Never smoked tobacco (finding) [facility] Clinical Notes 11-29-2018 to 10-15-2024 Note Date & Type Note Facility 10-15-2024 Evaluation note Diagnosis Onset Date Resolution RECINOS (dyspnea on exertion) chronic October 15, 2024 1 0:45am [facility] Work Phone: 1(882) 108-686605-14-2025 Evaluation note* Diagnosis Onset Date Resolution Status Admit Date RECINOS (dyspnea on exertion) chronic October 15, 2024 10:45am Asthma acute November 26 10:47am RECINOS (dyspnea on exertion) chronic November 26, 2024 10:47am [facility] [place] [facility] Work Phone: 1(998) 888-917305-14-2025 Evaluation note* Diagnosis Onset Date Resolution Status Admit Date RECINOS (dyspnea on exertion) chronic October 15, 2024 10:45am Asthma acute November 26 10:47am Eosinophilia acute November 26 10:47am RECINOS (dyspnea on exertion) chronic November 26, 2024 10:47am Asthma acute January 07 10:43am Eosinophilia acute January 07, 2025 10:43am RECINOS (dyspnea on exertion) chronic January 07, 2025 10:43am [place] [facility] Work Phone: 1(797) 496-702010-27-2023 Procedure [facility] 11-29-2018 Evaluation note* Diagnosis Onset Date Resolution Status Essential (primary) hypertension chronic Ischemic cardiomyopathy intern architect abram History of coronary artery stent placement November 29, 2018 [facility] Work Phone: 1(194) 403-121606-28-2019 Evaluation note* Diagnosis Onset Date Resolution Status RECINOS (dyspnea on exertion) ac fiona Hyperlipidemia acute Essential (primary) hypertension chronic Ischemic cardiomyopathy intern architect abram History of coronary artery stent placement November 29, 2018 [facility] Work Phone: Discharge summary Author Dr. Beverly [facility] September 29, 2022 3:44am Note Date/Time September 29, 2022 2:2 0am [facility] Medical Records Department [address] [place] [address] [place] [address] Emergency Department Summary 09/29/22 MR#: [id number] Acct: [id number] Name: WILBERTO MCCRARY Rep #:[id number] 09 : 1950 72 From: Antonio Beverly MD PCP: Dr. Daphnie Jones MD Status:REG ER Location: ED HPI History of Present Illness Chief Complaint: Nosebleed Informant: patient and spouse/S.O. Onset/Context/Timing Onset: Hours (3-4) Context: Sudden Onset (Spontaneous, no injury or foreign material) Timing: Continuous Quality: Oozing/bleeding Location: Right nose Current Severity: Mild Maximum Severity: Moderate Worsened by: nothing Relieved by: clip/pressure on nose Associated Symptoms Associated Symptoms: Spitting up some blood out of mouth Narrative Narrative: Spontaneous onset of right-sided nosebleed tonight. No recent URI symptoms, compliant with her medications which includes clopidogrel which she has been on for years because of having several stents in her heart, none of which were placed in the past 12 months. Denies any systemic symptoms right now. [facility] Medical History Atherosclerosis of coronary artery of [place] heart with angina pectoris Essential (primary) hypertension GERD (gastroesophageal reflux disease) Hypothyroidism Ischemic cardiomyopathy Non-ST elevation (NSTEMI) myocardial infarction (10/14/18) Obesity Home Medications levothyroxine 88 mcg tablet 88 mcg PO DAILY thyroid 10/14/18 [History Last Taken 11/29/18] omeprazole 20 mg capsule,delayed release 40 mg PO DAILY stomach 10/14/18 [History Last Taken 10/13/18] aspirin 81 mg tablet,delayed release 81 mg PO DAILY@0800 10/16/18 [Rx Last Taken 11/29/18] cholecalciferol (vitamin D3) 50 mcg (2,000 unit) capsule 50 mcg PO DAILY 03/23/21 [History Last Taken Unknown] multivitamin (Daily Multi-Vitamin tablet) 1 tab PO DAILY 03/23/21 [History Last Taken Unknown] clopidogrel 75 mg tablet 75 mg PO DAILY #90 tabs 01/06/22 [Rx Last Taken Unknown] losartan 25 mg tablet 25 mg PO DAILY #90 tabs 09/14/22 [Rx Last Taken Unknown] atorvastatin 40 mg tablet 40 mg PO QHS #90 tabs 09/18/22 [Rx Last Taken Unknown] Allergy/AdvReac Type Severity Reaction Status Date / Time erythromycin base Allergy Nausea Verified 08/27/22 21:59 Sulfa (Sulfonamide Allergy Hives Verified 08/27/22 21:59 Antibiotics) Family History Mother CVA (cerebral vascular accident) Father Heart disease Brother Heart disease Surgical History History of coronary artery stent placement (11/29/18) History of hysterectomy History of tonsillectomy Social History household members: spouse Smoking Status: Never smoker alcohol intake: never substance use type: does not use ROS ROS ED ENT ENT ED: Reports as per HPI and epistaxis; Denies sore throat Cardiovascular Cardiovascular: Denies chest pain Respiratory/Chest Respiratory/Chest: Denies dyspnea Neurologic Neurologic: Denies paresthesias or weakness EXAM Physical Exam Const Vital Signs: 09/29/22 01:58 Temperature 97.3 F L Temperature Source Temporal Pulse Rate 79 Respiratory Rate 18 Blood Pressure 163/78 H Blood Pressure Mean 106 Pulse Ox 92 Oxygen Delivery Method Room Air Positive well nourished and well developed General Appearance ED: well developed and NAD HEENT HEENT Narrative: Clip over nose with active mild dripping of dark red blood. Posterior oropharynx with blood present. Tolerating secretions, spitting blood out of hermouth on occasion. After removal of clip, bleeding more prominent from right side. No arterial bleeding. Resp normal respiratory effort Effort and Inspection: able to speak in complete sentences Neuro oriented x3, CN's II-XII intact bilaterally, no sensory deficits noted and gait normal Motor Exam: strength 5/5 throughout Psych mental status grossly normal Skin no rashes or lesions noted and no wounds MDM MDM MDM Narrative Medical decision making narrative: See the procedure note for epistaxis care. We were able to obtain good hemostasis, patient is not excessively hypertensive to obviously explain this, she states that this is occurred multiple times in the last 3 weeks, usually when she is outside in the spring weather, but states this is the only one she was unable to stop/control. I do not think she needs any measurement of hemoglobin emergently, she was able to get it to stop off and on at home it justrestarting, and she had some blood work done a couple days ago which I reviewed. ENT follow-up 2-3 days, given appropriate discharge instructions. History & Record Review Additional record(s) reviewed:: Prior labs Procedures Other Procedures Procedure(s): Epistaxis care: Once vasoconstrictive medication was available, I had patient evacuate both nostrils of clots and blood, she was actively bleedingfrom the right naris. This was immediately followed by instillation/atomizationof [address] Cliff landis, which the patient inhaled, followed by insertion of apledget soaked in same. This resulted in good hemostasis. 20 minutes later, onreevaluation and removal of the pledget, there is persistent bleeding from Kesselbach plexus. Therefore, a nasal packing was placed, 3.5 cm Merisel, patient tolerated this well, it was softened with saline and more [place] solution, there was no recurrent bleeding after this patient was discharged. Discharge Plan Triage Chief Complaint: Nosebleed ED Provider: Antonio Beverly Dx/Rx/DC Orders Clinical Impression: Acute anterior epistaxis Instructions: ED Epistaxis (Adult) Prescriptions: No Action cholecalciferol (vitamin D3) 50 mcg (2,000 unit) capsule 50 mcg PO DAILY multivitamin [Daily Multi-Vitamin] Tablet 1 tab PO DAILY levothyroxine 88 MCG tablet 88 mcg PO DAILY omeprazole 20 MG capsule 40 mg PO DAILY aspirin 81 MG tablet 81 mg PO DAILY@0800 0RF clopidogrel 75 mg tablet 75 mg PO DAILY Qty: 90 3RF losartan 25 mg tablet 25 mg PO DAILY Qty: 90 3RF atorvastatin 40 mg tablet 40 mg PO QHS Qty: 90 3RF Primary Care Provider: Daphnie Jones Referrals: Daphnie Jones MD [Primary Care Provider] - Frandy Coronado MD [Med Staff - Active Staff] - 10/02/22 (Call for appointment, ormay return to ER on 10/01 or 10/02 if having difficulty getting into ENT.) Activity Restrictions/Additional Instructions: Get any xulf-pio-eqejcus nasal decongestant spray containing oxymetazoline or phenylephrine. For moderate-severe nosebleed: 1 - gather supplies: nasal decongestant spray (above), cotton ball, box of tissues, garbage can, old towel that you can wrap around your chest/neck (to catch blood) 2 - soak a cotton ball in the nasal spray 3 - blow your nose, get all blood and clots out, keep chin down to prevent bloodfrom going back into throat and forming clots 4 - after blowing the last time, quickly spray 2 sprays of the nasal spray into the affected side and sniff it back, immediately followed by twisting the soakedcotton ball into the front of your nose and then hold pressure with your fingers. 5 - if bleeding controlled, leave cotton ball in place for at least 20 min before checking to see if the bleeding is controlled by removing the cotton ball. If not able to control bleeding, always welcome to return to the ER for help. Disposition Disposition: Home, Self Care What to do if you have Problems For any increased pain, shortness of breath, bleeding, nausea or vomiting, chestpain, or any unexpected problems, contact your Primary Care Provider. Call [facility] ([phone]) or report to the closest Emergency Room. Call 911 if necessary. 09/29/22 0344 <Electronically signed by Antonio Beverly MD> Cosigner Signature (if applicable): CC: Dr. Daphnie Jones MD; Dr. Frandy Coronado MD ~ Signed [facility] Work Phone: Evaluation noteNo assessment information available [facility] Work Phone: Evaluation note* Diagnosis Onset Date Resolution Status Admit Date RECINOS (dyspnea on exertion) acute October 15, 2024 10:45am Chronic obstructive pulmonar y disease noneactive October 15, 2024 1 0:45am [facility] Work Phone: Hospital Discharge instructions Additional Instructions Your vitals are stable and your lab work is normal. Indicating that the infection is still localized in your soft tissue and is not made it into the systemic system. Continue the clindamycin and Keflex as previously directed. If you develop a fever over 100.4 or you have difficulty breathing or swallowing please return for repeat evaluation. If your blood cultures are positive you will be notified in that time asked return to the hospital for repeat evaluation and [facility] Work Phone: Hospital Discharge instructions Additional Instructions Get any sikl-nyg-fdooaqj nasal decongestant spray containing oxymetazoline or phenylephrine. For moderate-severe nosebleed: 1 - gather supplies: nasal decongestant spray (above), cotton ball, box of tissues, garbage can, old towel that you can wrap around your chest/neck (to catch blood) 2 - soak a cotton ball in the nasal spray 3 - blow your nose, get all blood and clots out, keep chin down to prevent blood from going back into throat and forming clots 4 - after blowing the last time, quickly spray 2 sprays of the nasal spray into the affected side and sniff it back, immediately followed by twisting the soaked cotton ball into the front of your nose and then hold pressure with your fingers. 5 - if bleeding controlled, leave cotton ball in place for at least 20 min before checking to see if the bleeding is controlled by removing the cotton ball. If not able to control bleeding, always welcome to return to the ER for help. [facility] Work Phone: Reason for referral (narrative)No reason for referral information availableD[facility] Work Phone: Summary Purpose Family History No Family History Records Found Relationship Condition Age at Onset Recorded Date/T desirae mother Cerebrovascular accident (CVA) Unknown father Cardiac disease Unknown brother Heart disease Unknown Advance Directives No Advanced Directives Records Found Advance Directive Response Recorded Date/ Time Advance Directives Yes November 29 9:14am Living Will Yes November 29, 2018 9:14am Power of Methods Study Analyst Yes November 29 9:14am Advance Directive Response Recorded Date/ Time Name of Medical Power of Methods Study Analyst August 27, 2022 10:55pm Advance Directives Yes November 29 10:14am Living Will Yes August 27, 2022 10:55pm Power of Methods Study Analyst Yes August 27 10:55pm Advance Directive Response Recorded Date/ Time Name of Medical Power of Methods Study Analyst August 27, 2022 10:55pm Advance Directives Yes November 29 10:14am Living Will No September 29, 2022 2:00am Power of Methods Study Analyst No September 29 2:00am Advance Directive Response Recorded Date/ Time Advance Directives Yes November 29 10:14am Living Will No September 29, 2022 2:00am Power of Methods Study Analyst No September 29 2:00am Advance Directive Response Recorded Date/ Time Advance Directives Yes November 29 9:14am Living Will No September 29, 2022 1:00am Power of Methods Study Analyst No September 29 1:00am Advance Directive Response Recorded Date/ Time Advance Directives Yes November 29 10:14am Chief Complaint and Reason for Visit Chief Complaint Admit Date COPD October 15, 2024 10:45 am R06.09 - Other forms of dyspnea October 10:34am Reason for Visit Admit Date RECINOS (dyspnea on exertion) October 15, 2024 10:45am Chief Complaint 1 Y FU CAD Coronary artery disease Reason for Visit Essential (primary) hypertension Ischemic cardiomyopathy History of coronary artery stent placement Chief Complaint 1 Y FU CAD Coronary artery disease SCREENING Reason for Visit Essential (primary) hypertension Ischemic cardiomyopathy History of coronary artery stent placement Chief Complaint SCREENING FACIAL REDNESS/INFECTION Chief Complaint SCREENING FACIAL REDNESS/INFECTION nosebleed Chief Complaint 1 Y FU DYSPNEA/SOB DYSPNEA/SOB Reason for Visit RECINOS (dyspnea on exer tion) Hyperlipidemia Essential (primary) hypertension Ischemic cardiomyopathy History of coronary artery stent placement Chief Complaint 1 Y FU DYSPNEA/SOB DYSPNEA/SOB SCREEN Reason for Visit RECINOS (dyspnea on exer tion) Hyperlipidemia Essential (primary) hypertension Ischemic cardiomyopathy History of coronary artery stent placement Chief Complaint Admit Date COPD October 15, 2024 10:45 am Reason for Visit Admit Date RECINOS (dyspnea on exertion) October 15, 2024 10:45am Chronic obstructive pulmonary disease Ma y 2024 10:45am Chief Complaint Admit Date COPD October 15, 2024 10:45 am R06.09 - Other forms of dyspnea October 10:34am R06.09 - Other forms of dyspnea November 12:54pm Chief Complaint Admit Date COPD October 15, 2024 10:45 am R06.09 - Other forms of dyspnea October 10:34am R06.09 - Other forms of dyspnea October 10:48am R06.09 - Other forms of dyspnea November 12:54pm R06.09 - Other forms of dyspnea November 10:17am 6 wk FU November 26, 2024 10:4 7am Reason for Visit Admit Date RECINOS (dyspnea on exertion) October 15, 2024 10:45am Asthma November 26, 2024 10:4 7am RECINOS (dyspnea on exertion) November 26 10:47am Chief Complaint Admit Date COPD October 15, 2024 10:45 am R06.09 - Other forms of dyspnea October 10:34am R06.09 - Other forms of dyspnea October 10:48am R06.09 - Other forms of dyspnea November 12:54pm R06.09 - Other forms of dyspnea November 10:17am 6 wk FU November 26, 2024 10:4 7am 6 wk FU January 07, 2025 10: 43am Reason for Visit Admit Date RECINOS (dyspnea on exertion) October 15, 2024 10:45am Asthma November 26, 2024 10:4 7am Eosinophilia November 26, 2024 10:4 7am RECINOS (dyspnea on exertion) November 26 10:47am Asthma January 07, 2025 10: 43am Eosinophilia January 07, 2025 10: 43am RECINOS (dyspnea on exertion) January 07 10:43am Chief Complaint Admit Date COPD October 15, 2024 10:45 am R06.09 - Other forms of dyspnea October 10:34am R06.09 - Other forms of dyspnea October 10:48am R06.09 - Other forms of dyspnea November 12:54pm R06.09 - Other forms of dyspnea November 10:17am 6 wk FU November 26, 2024 10:4 7am 6 wk FU January 07, 2025 10: 43am asthma severe persistent asthma Septembe r 2024 8:59am Additional Source Comments INFORMATION SOURCE (unrecogn ized section and content) DATE CREATED AUTHOR 11/28/2017 [facility] DATE CREATED AUTHOR AUTHOR'S ORGANIZ ATMARGARITA 05/14/2018 [facility] DATE CREATED AUTHOR AUTHOR'S ORGANIZ ATION 04/10/2025 [facility] Goals (unrecognized section and content) Goals may be documented in a n alternate sectionGoals may be documented in an alternate sectionGoals may be documented in an alternate sectionGoals may be documented in an alternate sectionGoals may be documented in an alternate sectionGoals may be documented in an alternate sectionGoals may be documented in an alternate sectionGoals may be documented in an alternate sectionGoals may be documented in an alternate sectionGoals may be documented in an alternate sectionGoals may be documented in an alternate sectionGoals may be documented in an alternate sectionGoals may be documented in an alternate sectionGoals may be documented in an alternate section Care Teams (unrecognized sec tion and content) Team Status: Active Member Role Status Dates Dr. Daphnei Jones MD Family Provider Active Dr. Daphnie Jones MD Primary Care Provider Active Team Status: Inactive Member Role Status Dates Dr. Daphnie Jones MD Primary Care Provider, Attendin g Provider Active Team Status: Inactive Member Role Status Dates Dr. Daphnie Jones MD Primary Care Prov ider, Attending Provider, Referring Provider Active Team Status: Inactive Member Role Status Dates Dr. Daphnie Jones MD Primary Care Provider Active Dr. Edgardo Manzano DO Emergency Provider Active Team Status: Inactive Member Role Status Dates Dr. Daphnie Jones MD Primary Care Provider Active Dr. Edgardo Manzano DO Attending Provider, Emergency Pr ovider Active Team Status: Inactive Member Role Status Dates Dr. Daphnie Jones MD Primary Care Provider Active Dr. Antonio Beverly MD Emergency Provider Active Team Status: Inactive Member Role Status Dates Dr. Daphnie Jones MD Primary Care Provider, Referrin g Provider Active Marie Shafer PA, PA Attending Provider Active Team Status: Active Member Role Status Dates Dr. Daphnie Jones MD Primary Care Provider Active Dr. Cedric Oneal MD Attending Provider Active Team Status: Active Member Role Status Dates Dr. Daphnie Jones MD Primary Care Provider Active Dr. Rama Menon MD Referring Provider, Other Provid er Active Dr. Ronnie Coffey MD Attending Provider Active Team Status: Inactive Member Role Status Dates Dr. Daphnie Jones MD Primary Care Provider Active Dr. Rama Menon MD Attending Provider, Referring Pr ovider Active Team Status: Active Member Role Status Dates Dr. Daphnie Jones MD Primary Care Provider Active Team Status: Inactive Member Role Status Dates Dr. Daphnie Jones MD Primary Care Provider Active Start: October 15, 2024 End: October 15, 2024 Dr. Daphnie Jones MD Referring Provider Active Start: October 15, 2024 End: October 15, 2024 Dr. Papi Govea , Attending Provider Active S tart: October 15, 2024 End: October 15, 2024 Team Status: Inactive Member Role Status Dates Dr. Daphnie Jones MD Primary Care Provider Active Start: October 15, 2024 End: October 15, 2024 Dr. Papi Govea , Attending Provider Active S tart: October 15, 2024 End: October 15, 2024 Dr. Papi Govea , Referring Provider Active S tart: October 15, 2024 End: October 15, 2024 Team Status: Inactive Member Role Status Dates Dr. Daphnie Jones MD Primary Care Provider Active Start: October 31, 2024 End: October 31, 2024 Dr. Papi Govea , Attending Provider Active S tart: October 31, 2024 End: October 31, 2024 Dr. Papi Govea DO Referring Provider Active S tart: October 31, 2024 End: October 31, 2024 Team Status: Inactive Member Role Status Dates Dr. Daphnie Jones MD Primary Care Provider Active Start: November 13, 2024 End: November 13, 2024 Dr. Papi Govea DO Attending Provider Active S tart: November 13, 2024 End: November 13, 2024 Dr. Papi Govea , Referring Provider Active S tart: November 13, 2024 End: November 13, 2024 Team Status: Active Member Role Status Dates Dr. Daphnie Jones MD Primary Care Provider Active Start: October 31, 2024 Dr. Papi Govea , Attending Provider Active S tart: October 31, 2024 Dr. Papi Govea , Referring Provider Active S tart: October 31, 2024 Team Status: Active Member Role Status Dates Dr. Daphnie Jones MD Primary Care Provider Active Start: November 17, 2024 Dr. Papi Govea DO Attending Provider Active S tart: November 17, 2024 Dr. Papi Govea DO Referring Provider Active S tart: November 17, 2024 Dr. Papi Govea DO Other Provider Active Start : November 17, 2024 Team Status: Inactive Member Role Status Dates Dr. Daphnie Jones MD Primary Care Provider Active Start: November 26, 2024 End: November 26, 2024 Dr. Daphnie Jones MD Referring Provider Active Start: November 26, 2024 End: November 26, 2024 Kristen Rayo NP-C Attending Provider Active Start: November 26, 2024 End: November 26, 2024 Team Status: Active Member Role/Relationship Status Dates Dr. Daphnie Jones MD Primary Care Provider Active Team Status: Inactive Member Role/Relationship Status Dates Dr. Daphnie Jones MD Primary Care Provider Active Start: October 15, 2024 End: October 15, 2024 Dr. Daphnie Jones MD Referring Provider Active Start: October 15, 2024 End: October 15, 2024 Dr. Papi Govea DO Attending Provider Active S tart: October 15, 2024 End: October 15, 2024 Team Status: Inactive Member Role/Relationship Status Dates Dr. Daphnie Jones MD Primary Care Provider Active Start: October 15, 2024 End: October 15, 2024 Dr. Papi Govea DO Attending Provider Active S tart: October 15, 2024 End: October 15, 2024 Dr. Papi Govea DO Referring Provider Active S tart: October 15, 2024 End: October 15, 2024 Team Status: Inactive Member Role/Relationship Status Dates Dr. Daphnie Jones MD Primary Care Provider Active Start: October 31, 2024 End: October 31, 2024 Dr. Papi Govea DO Attending Provider Active S tart: October 31, 2024 End: October 31, 2024 Dr. Papi Govea DO Referring Provider Active S tart: October 31, 2024 End: October 31, 2024 Team Status: Active Member Role/Relationship Status Dates Dr. Daphnie Jones MD Primary Care Provider Active Start: October 31, 2024 Dr. Papi Govea , Attending Provider Active S tart: October 31, 2024 Dr. Papi Govea , Referring Provider Active S tart: October 31, 2024 Team Status: Inactive Member Role/Relationship Status Dates Dr. Daphnie Jones MD Primary Care Provider Active Start: November 13, 2024 End: November 13, 2024 Dr. Papi Govea , Attending Provider Active S tart: November 13, 2024 End: November 13, 2024 Dr. Papi Govea DO Referring Provider Active S tart: November 13, 2024 End: November 13, 2024 Team Status: Active Member Role/Relationship Status Dates Dr. Daphnie Jones MD Primary Care Provider Active Start: November 17, 2024 Dr. Papi Govea DO Attending Provider Active S tart: November 17, 2024 Dr. Papi Govea DO Referring Provider Active S tart: November 17, 2024 Dr. Papi Govea , Other Provider Active Start : November 17, 2024 Team Status: Inactive Member Role/Relationship Status Dates Dr. Daphnie Jones MD Primary Care Provider Active Start: November 26, 2024 End: November 26, 2024 Dr. Daphnie Jones MD Referring Provider Active Start: November 26, 2024 End: November 26, 2024 KARLIE Mcfarland Attending Provider Active Start: November 26, 2024 End: November 26, 2024 Team Status: Inactive Member Role/Relationship Status Dates Dr. Daphnie Jones MD Primary Care Provider Active Start: January 07, 2025 End: January 07, 2025 Dr. Daphnie Jones MD Referring Provider Active Start: January 07, 2025 End: January 07, 2025 KARLIE Mcfarland Attending Provider Active Start: January 07, 2025 End: January 07, 2025 Team Status: Inactive Member Role/Relationship Status Dates Dr. Daphnie Jones MD Primary Care Provider Active Start: February 11, 2025 End: February 11, 2025 Dr. Daphnie Jones MD Referring Provider Active Start: February 11, 2025 End: February 11, 2025 KARLIE Mcfarland Attending Provider Active Start: February 11, 2025 End: February 11, 2025 FOR RECORDS PERTAINING TO PATIENTS WHO ARE OR HAVE BEEN ENROLLED IN A CHEMICAL DEPENDENCY/SUBSTANCEABUSE PROGRAM, SOME INFORMATION MAY BE OMITTED. This clinical summary was aggregated from multiple sources. Caution should be exercised in using it in the provision of clinical care. This summary normalizes information from multiple sources, and as a consequence, information in this document may materially change the coding, format and clinical context of patient data. In addition, data may be omitted in some cases. CLINICAL DECISIONS SHOULD BE BASED ON THE PRIMARY CLINICAL RECORDS. [facility], [facility]. provides no warranty or guarantee of the accuracy or completeness of information in this document.
[2025-05-20 10:13] LABS: Hematocrit 41.4 % (37-47); Hemoglobin 13.0 g/dL (12.0-15.0); Immature Granulocytes Count 0.020 X10^3/uL (0.0-0.0); Mean Corp Hgb Conc 31.4 g/dL (32-36); Mean Corpuscular Volume 85.0 fL (81-99); Mean Platelet Vol. 9.3 fl (6.2-12.0); NRBC Flagged by Analyzer 0 % (0-5); Platelet Count 255 K/mm3 (150-450); RBC Distribution Width CV 13.4 % (11.6-14.6); RBC Distribution Width SD 41.4 fl (35.1-43.9); Red Blood Count 4.87 M/mm3 (4.2-5.4); White Blood Count 7.9 K/mm3 (4.4-11.0)
[2025-05-20 10:56] LABS: AST(SGOT) 25 U/L (<=31); Alanine Aminotransfer ALT/SGPT 18 U/L (<=34); Albumin, Serum 4.1 g/dL (3.4-4.8); Alkaline Phosphatase 75 U/L (35-104); Anion Gap 9 (5-15); BUN 13 mg/dL (4-19); BUN/Creat Ratio 15.7 RATIO (10-20); Calcium,Total 9.5 mg/dL (7.6-11.0); Carbon Dioxide 29.0 mmol/L (21.0-32.0); Chloride 102 mmol/L (98-108); Cholesterol 149 mg/dL (<=200); Globulin 2.7 g/dL (2.2-4.2); Glucose 106 mg/dL (70-99); Low Density Lipoprotein Calc. 66 mg/dL; Potassium 4.1 mmol/L (3.3-5.1); Triglycerides 49 mg/dL; Very Low Density Lipoprotein 10 mg/dL (5-40); cholesterol:hdl ratio screen 2.05
== END | disposition home or self-care (01) ==
LOC: MTLAB 07:35
PROVIDERS: PCP Family Medicine; Referring Provider Family Medicine; Visit Provider Family Medicine
DX: Z00.00 Encounter for general adult medical examination without abnormal findings (principal); E03.9 Hypothyroidism, unspecified; I10 Essential (primary) hypertension; K21.9 Gastro-esophageal reflux disease without esophagitis
CPT/HCPCS: 36415; 80053; 80061; 84443; 85025